=== PATIENT | female | born 1945 | race Caucasian/White ===

== ENCOUNTER → 2016-08-13 | Outpatient (CLI) | payer MEDICARE ==
--- NOTE | 2016-08-13 13:06 | BD ---
EXAMINATION TYPE: MG DEXA axial skeleton. DATE OF EXAM: 08/13/2016 10:15 AM COMPARISON: 07.29.2015 CLINICAL HISTORY: n95.1 hx of breast cancer, osteoporosis, post menopausal Height: 64.5 Weight: 167 FRAX RISK QUESTIONS: Alcohol (3 or more units per day): no Family History (Parent hip fracture): unknown Glucocorticoids (More than 3mos): no (Ex: prednisone, prednisolone, methylprednisolone, dexamethasone, and hydrocortisone). History of Fracture in Adulthood: no Secondary Osteoporosis: 1. Type 1 Diabetes: no 2. Hyperthyroidism: no 3. Menopause before 45: no 4. Malnutrition: no 5. Chronic liver disease: no Rheumatoid Arthritis: no Current Tobacco Use: no RISK FACTORS HISTORY OF: Spine Surgery: 1971, cyst off spine, tail bone and lower back When: 1971 Family History of Osteoporosis: unknown, adopted Smoke tobacco: not now, stopped 2012 Drink Alcohol: social Active: yes Diet low in dairy products/other sources of calcium: no Postmenopausal woman: yes at age 41 Lost more than 2 inches in height since high school: not 2 inches Adrenal Insufficiency: no MEDICATIONS: pt states, osteoporosis injection medication....not sure of name, but it is for osteoporosis Additional Medications: radiation 2012, anti hormone for breast cancer, calcium, multivitamin, statin for cholesterol control Additional History: rt side breast cancer, osteoarthritis EXAM MEASUREMENTS: Bone mineral densitometry was performed using the [employer] System. Bone mineral density as measured about the Lumbar spine is: ----- L1-L4(G/cm2): 0.986 T Score Values are as follows: ----- L1: -2.6 ----- L2: -2.8 ----- L3: -1.0 ----- L4: -0.6 ----- L1-L4: -1.6 Bone mineral density has: Increased 3.8% since study of: 07.29.2015 Bone mineral density about the R hip (g/cm2): 0.721 Bone mineral density about the L hip (g/cm2): 0.655 T Score values are as follows: -----R Neck: -2.3 -----L Neck: -2.8 -----R Intertrochanter: -1.8 -----L Intertrochanter: -2.1 Bone mineral density has: Increased 5.2% since study of: 07.29.2015 FRAX%'S: FOR MAJOR OSTEOPOROTIC FX: 16.3%.....FOR HIP FX: 4.6% PROBABILITY OF FX IN 10 YR S TIME IMPRESSION: Osteoporosis (T Score less than -2.5) as noted by T Score values at the There is increased fracture risk and therapy is usually indicated based on age. Re-Screen 1-2 years. FOR BOTH AREAS, ....L1 AND L2 OF SPINE AND LEFT HIP AT NECK NOTE: T-SCORE=SD OF THE YOUNG ADULT MEAN.
== END | disposition home or self-care (01) ==
LOC: RADBDWWP 09:19
PROVIDERS: ATTEND Internal Medicine Hematology & Oncology
DX: M81.0 Age-related osteoporosis without current pathological fracture (principal); Z79.890 Hormone replacement therapy
CPT/HCPCS: 77080

== ENCOUNTER → 2016-11-30 | Outpatient (CLI) | payer MEDICARE ==
[2016-11-30 16:05] LABS: Blood Urea Nitrogen 21 mg/dL (7-17); Non-African American GFR(MDRD) >60 (>60 ml/min/1.73 sqM)
== END | disposition home or self-care (01) ==
LOC: LABWHC1 15:33
PROVIDERS: ATTEND Physical Medicine & Rehabilitation
DX: Z01.812 Encounter for preprocedural laboratory examination (principal); N28.9 Disorder of kidney and ureter, unspecified
CPT/HCPCS: 36415; 82565; 84520

== ENCOUNTER → 2017-08-23 | Outpatient (CLI) | payer MEDICARE ==
--- NOTE | 2017-08-23 16:53 | BD ---
EXAMINATION TYPE: MG DEXA axial skeleton. DATE OF EXAM: 08/23/2017 CLINICAL HISTORY: 72-year-old female osteoporosis, breast cancer Height: 64.5 Weight: 163.9 FRAX RISK QUESTIONS: Alcohol (3 or more units per day): no Family History (Parent hip fracture): yes, mother Glucocorticoids (More than 3mos): yes, injections for back..last one in May 2017 (Ex: prednisone, prednisolone, methylprednisolone, dexamethasone, and hydrocortisone). History of Fracture in Adulthood: no Secondary Osteoporosis: 1. Type 1 Diabetes: no 2. Hyperthyroidism: no 3. Menopause before 45: yes, age 42 4. Malnutrition: no 5. Chronic liver disease: no Rheumatoid Arthritis: no Current Tobacco Use: no RISK FACTORS HISTORY OF: Family History of Osteoporosis: unsure Active: yes Diet low in dairy products/other sources of calcium: no Postmenopausal woman: yes Take estrogen and/or progesterone medications: no Lost more than 2 inches in height since high school: possibly Frequent falls: no Poor Health: unsure Hyperparathyroidism: no Adrenal Insufficiency: no MEDICATIONS: Prednisone or other steroids: steroid injections for back How Long: about 2 years Thyroid Medications: no Osteoporosis Medications: yes Which medication: Provera How Long: about 2 years Additional Medications: tamoxifen, herniated disc Additional History: Breast CA (radiation) EXAM MEASUREMENTS: Bone mineral densitometry was performed using the [employer] System. Bone mineral density as measured about the Lumbar spine is: ----- L1-L4(G/cm2): 1.033 T Score Values are as follows: ----- L2: -2.4 ----- L3: -0.9 ----- L4: -0.1 ----- L1-L4: -1.2 Bone mineral density has: Increased 4.0% since study of: 08/13/2016 Bone mineral density about the R hip (g/cm2): 0.722 Bone mineral density about the L hip (g/cm2): 0.657 T Score values are as follows: -----R Neck: -2.3 -----L Neck: -2.7 -----R Total: -2.2 -----L Total: -2.4 Bone mineral density has: Increased 0.6% since study of: 08/13/2016 IMPRESSION: Osteoporosis (T Score less than -2.5) as noted by T Score values at the There is increased fracture risk and therapy is usually indicated based on age. Re-Screen 1-2 years. NOTE: T-SCORE=SD OF THE YOUNG ADULT MEAN.
== END | disposition home or self-care (01) ==
LOC: RADBDWWP 09:56
PROVIDERS: ATTEND Internal Medicine Hematology & Oncology
DX: C50.411 Malignant neoplasm of upper-outer quadrant of right female breast (principal); M81.0 Age-related osteoporosis without current pathological fracture
CPT/HCPCS: 77080

== ENCOUNTER → 2018-08-25 | Outpatient (CLI) | payer MEDICARE ==
--- NOTE | 2018-08-25 11:21 | BD ---
EXAMINATION TYPE: Axial Bone Density DATE OF EXAM: 08/25/2018 COMPARISON: 08.23.2017 CLINICAL HISTORY: 73 YR OLD FEMALE....ICD-10 CODE: Z79.890 POST MENOPAUSAL, C50.411 OSTEOPOROSIS Height: 64.8 Weight: 161 FRAX RISK QUESTIONS: SECONDARY OSTEOPOROSIS MENOPAUSE AT AGE 42 RISK FACTORS HISTORY OF: SECONDARY OSTEOPOROSIS Postmenopausal woman: 42 YRS OLD Lost more than 2 inches in height since high school: YES MEDICATIONS: Additional Medications: INJECTIONS INTO SPINE FOR PAIN, CALCIUM WITH D, HX OF RADIATION, FEMARA Additional History: BACK PAIN, RT BREAST CANCER EXAM MEASUREMENTS: Bone mineral densitometry was performed using the [employer] System. Bone mineral density as measured about the Lumbar spine is: ----- L1-L4(G/cm2): 1.077 T Score Values are as follows: ----- L1: -2.2 ----- L2: -2.1 ----- L3: -0.6 ----- L4: 0.8 ----- L1-L4: -0.9 Bone mineral density has: Increased 5.3% since study of: 08.23.2017 Bone mineral density about the R hip (g/cm2): 0.728 Bone mineral density about the L hip (g/cm2): 0.714 T Score values are as follows: -----R Neck: -2.2 -----L Neck: -2.4 -----R Total: -2.2 -----L Total: -2.3 Bone mineral density has:REMAINED THE SAME since study of: 08.23.2017 FRAX%s: THERE IS A 15.0% CHANCE FOR A MAJOR OSTEOPOROTIC FX AND A 3.9% FOR HIP.....PROBABILITY OF FX IN 10 YRS TIME IMPRESSION: Osteopenia (T Score between -2.5 and -1). Values approach osteoporosis. There is slightly increased risk of fracture and the patient may be considered for treatment. Re-Screen 2-5 years. NOTE: T-SCORE=SD OF THE YOUNG ADULT MEAN.
== END ==
LOC: RADBDWWP 09:50
PROVIDERS: ATTEND Internal Medicine Hematology & Oncology
DX: M85.80 Other specified disorders of bone density and structure, unspecified site (principal); Z79.890 Hormone replacement therapy
CPT/HCPCS: 77080

== ENCOUNTER → 2019-04-13 | Outpatient (CLI) | payer MEDICARE ==
--- NOTE | 2019-04-13 14:11 | CTL ---
EXAMINATION TYPE: CT Low Dose Lung DATE OF EXAM ORDERED: 04/13/2019 COMPARISON: HISTORY: . Low Dose CT Lung Screening CT DLP: 77.[address] CTDI: 2.5 mGy IV CONTRAST USED: None. SCREENING VISIT: First visit COMPARISON: None. TECHNIQUE: Low dose computed tomography scan was performed through the chest at 1 millimeter thick se ctions and reconstructed images in the coronal plane at [address] DIAGNOSTIC QUALITY: Satisfactory FINDINGS: LUNG NODULES: Pleural-based nodule right middle lobe lateral segment 9.4 mm image 170. This may refle ct an area of scarring. Nodule is not excluded. Continued follow-up advised. No additional distinct n odules appreciated. LUNGS: COPD: Severity: Moderate Fibrosis: Severity: Mild Lymph nodes: None Other findings: None RIGHT PLEURAL SPACE: Effusion: None Calcification: None Thickening: None Pneumothorax: None LEFT PLEURAL SPACE: Effusion: None Calcification: None Thickening: None Pneumothorax: None HEART: Heart Size: Mildly enlarged Coronary calcification: Mild Pericardial effusion: None OTHER FINDINGS: Upper abdomen: No significant abnormality Bony thorax: Degenerative changes Supraclavicular region: No significant abnormalityOther: No significant abnormalityI IMPRESSION: Pleural-based nodular density right middle lobe may reflect an area of scarring however I cannot exclude nodule of other etiology. PET CT recommended. FOLLOW UP CT CHEST RECOMMENDATION: Follow-up screening in one year. Smoking cessation advised. CT LUNG RAD: LUNG RAD CATEGORY 4A suspicious PET/CT advised.
== END | disposition home or self-care (01) ==
LOC: RADCTMAIN 12:48
PROVIDERS: ATTEND Family Medicine
DX: Z13.83 Encounter for screening for respiratory disorder NEC (principal); R91.8 Other nonspecific abnormal finding of lung field; J98.4 Other disorders of lung; Z87.891 Personal history of nicotine dependence

== ENCOUNTER → 2019-04-21 | Outpatient (CLI) | payer MEDICARE ==
--- NOTE | 2019-04-23 17:35 | PE ---
EXAMINATION TYPE: PET CT fusion skull to thigh DATE OF EXAM: 04/21/2019 COMPARISON: Low-dose lung screening CT 8 days ago. HISTORY: Solitary pulmonary nodule right middle lobe, abnormal CT. History of right-sided breast ca ncer . TECHNIQUE: Following the intravenous administration of 12.349 mCi of F-18 FDG, whole body images are performed from the skull base to the midthigh. Images are reviewed on the computer in the coronal, axial, and sagittal planes. Reconstructed rotating images are created on independent workstation and reviewed on the computer. A noncontrast CT is performed in conjunction with the PET scan. SCAN: Initial Scan FINDINGS: SKULL BASE AND NECK: No areas of suspicious hypermetabolic uptake. CHEST, MEDIASTINUM, AND HILAR REGION: Redemonstration of bifrontal moderate emphysematous change most prominent in the lung apices. There is linear scarring in the right middle lobe which becomes slight ly more nodular axial image 103 measuring 8 x 6 mm axial image 103 that is ametabolic. No areas of logan spicious hypermetabolic uptake are identified in the thorax. ABDOMEN AND PELVIS: No areas of suspicious hypermetabolic uptake. Normal excretion. OSSEOUS STRUCTURES: No areas of suspicious hypermetabolic uptake. OTHER CT: Some coronary artery calcification is present which is noted marker for underlying coronary artery disease. Suspected distortion and clip right breast axial image 92. Right axillary distortion also noted axial image 77. Findings presumed posttreatment change. Mild calcified plaque of the abdominal aorta extending into branch vessels. Occasional pelvic phlebol iths. S-shaped scoliosis. Slight grade 1 anterolisthesis L4 on L5. IMPRESSION: No suspicious hypermetabolic uptake to suggest malignancy. Finding favors nodular scarrin g and/or postinflammatory etiology. Consider follow-up CT in 6-12 months time to document stability.
== END ==
LOC: RADPETMAIN 16:43
PROVIDERS: ATTEND Nurse Practitioner Family
DX: R91.1 Solitary pulmonary nodule (principal)
CPT/HCPCS: 78815; A9552

== ENCOUNTER → 2019-08-28 | Outpatient (CLI) | payer MEDICARE ==
--- NOTE | 2019-08-28 12:33 | BD ---
EXAMINATION TYPE: Axial Bone Density DATE OF EXAM: 08/28/2019 COMPARISON: NONE CLINICAL HISTORY: Height: 64.5 Weight: 162.2 FRAX RISK QUESTIONS: Alcohol (3 or more units per day): no Family History (Parent hip fracture): no Glucocorticoids (More than 3mos): no (Ex: prednisone, prednisolone, methylprednisolone, dexamethasone, and hydrocortisone). History of Fracture in Adulthood: no Secondary Osteoporosis: 1. Type 1 Diabetes: no 2. Hyperthyroidism: no 3. Menopause before 45: yes 4. Malnutrition: no 5. Chronic liver disease: no Rheumatoid Arthritis: no Current Tobacco Use: no RISK FACTORS HISTORY OF: Active: no Diet low in dairy products/other sources of calcium: no Postmenopausal woman: age 42 MEDICATIONS: Lipitor Additional History: EXAM MEASUREMENTS: Bone mineral densitometry was performed using the [employer] System. Bone mineral density as measured about the Lumbar spine is: ----- L1-L4(G/cm2): 1.026 T Score Values are as follows: ----- L2: -2.2 ----- L3: -0.7 ----- L4: -0.6 ----- L1-L4: -1.3 Bone mineral density has: decreased -0.2 % since study of.08.23.2017 Bone mineral density about the R hip (g/cm2): 0.733 Bone mineral density about the L hip (g/cm2): 0.728 T Score values are as follows: -----R Neck: -2.2 -----L Neck: -2.2 -----R Total: -2.3 -----L Total: -2.4 Bone mineral density has: decreased -1.7 % since study of: 08.23.2017 IMPRESSION: Osteopenia. NOTE: T-SCORE=SD OF THE YOUNG ADULT MEAN.
== END | disposition home or self-care (01) ==
LOC: RADBDWWP 11:04
PROVIDERS: ATTEND Internal Medicine Hematology & Oncology
DX: M85.80 Other specified disorders of bone density and structure, unspecified site (principal); Z78.0 Asymptomatic menopausal state; C50.411 Malignant neoplasm of upper-outer quadrant of right female breast
CPT/HCPCS: 77080

== ENCOUNTER → 2021-09-01 | Outpatient (CLI) | payer MEDICARE ==
--- NOTE | 2021-09-01 11:26 | BD ---
EXAMINATION TYPE: Axial Bone Density DATE OF EXAM: 09/01/2021 COMPARISON: DEXA bone scan August 28, 2019 CLINICAL HISTORY: Postmenopausal female. Height: 5 FT 3 3/4 IN Weight: 161 FRAX RISK QUESTIONS: Alcohol (3 or more units per day): NO Family History (Parent hip fracture): NO Glucocorticoids (More than 3mos): NO (Ex: prednisone, prednisolone, methylprednisolone, dexamethasone, and hydrocortisone). History of Fracture in Adulthood: NO Secondary Osteoporosis: 1. Type 1 Diabetes: NO 2. Hyperthyroidism: NO 3. Menopause before 45: YES 4. Malnutrition: NO 5. Chronic liver disease: NO Rheumatoid Arthritis: NO Current Tobacco Use: FORMER RISK FACTORS HISTORY OF: Surgery to Spine/Hip(right/left)/Wrist (right/left): NO Family History of Osteoporosis: NONE KNOWN ADOPTED Active: YES Diet low in dairy products/other sources of calcium: NO Postmenopausal woman: YES Take estrogen and/or progesterone medications: NO Lost more than 2 inches in height since high school: YES Frequent falls: NO Poor Health: GOOD Hyperparathyroidism: NO Adrenal Insufficiency: NO MEDICATIONS: Additional Medications: NONE Additional History: EXAM MEASUREMENTS: Bone mineral densitometry was performed using the [employer] System. Bone mineral density as measured about the Lumbar spine is: ----- L1-L4(G/cm2): 0.990 T Score Values are as follows: ----- L2: -2.3 ----- L3: -1.5 ----- L4: -1.1 ----- L1-L4 -1.6: Bone mineral density has: DECREASED -5.5 % since : 2019 Bone mineral density about the R hip (g/cm2): 0.696 Bone mineral density about the L hip (g/cm2): 0.612 T Score values are as follows: -----R Neck: -2.5 -----L Neck: -3.1 -----R Total: -2.4 -----L Total: -2.9 Bone mineral density has: DECREASED -5.5 % since : 2019 IMPRESSION: Osteoporosis (T Score less than -2.5) is now present. There is increased fracture risk and therapy is usually indicated based on age. Re-Screen 1-2 years. NOTE: T-SCORE=SD OF THE YOUNG ADULT MEAN.
== END | disposition home or self-care (01) ==
LOC: RADBDWWP 10:10
PROVIDERS: ATTEND Internal Medicine Hematology & Oncology
DX: M81.0 Age-related osteoporosis without current pathological fracture (principal); M85.89 Other specified disorders of bone density and structure, multiple sites; Z78.0 Asymptomatic menopausal state
CPT/HCPCS: 77080

== ENCOUNTER → 2023-09-07 | Outpatient (CLI) | payer MEDICARE ==
--- NOTE | 2023-09-07 12:38 | BD ---
EXAMINATION TYPE: Axial Bone Density DATE OF EXAM: 09/07/2023 CLINICAL HISTORY: 78 years old Female. ICD-10 CODE: M81.0 osteoporosis Height: 64 Weight: 162.3 FRAX RISK QUESTIONS: Alcohol (3 or more units per day): no Family History (Parent hip fracture): no Glucocorticoids (More than 3mos): no (Ex: prednisone, prednisolone, methylprednisolone, dexamethasone, and hydrocortisone). History of Fracture in Adulthood: no Secondary Osteoporosis: 1. Type 1 Diabetes: no 2. Hyperthyroidism: no 3. Menopause before 45: yes 4. Malnutrition: no 5. Chronic liver disease: no Rheumatoid Arthritis: no Current Tobacco Use: no RISK FACTORS HISTORY OF: Surgery to Spine/Hip(right/left)/Wrist (right/left): no MEDICATIONS: Osteoporosis Medications: yes How Lon years EXAM MEASUREMENTS: Bone mineral densitometry was performed using the [employer] System. Bone mineral density as measured about the Lumbar spine is: ----- L1-L4(G/cm2): 0.992 T Score Values are as follows: ----- L1: -1.7 ----- L2: -2.2 ----- L3: -1.7 ----- L4: -0.9 ----- L1-L4: -1.6 Z Score Values are as follows: ----- L1: -0.2 ----- L2: -0.7 ----- L3: -0.3 ----- L4: 0.5 ----- L1-L4: -0.1 Bone mineral density has: increased 0.2 % since study of: 09.01.21 Bone mineral density about the R hip (g/cm2): 0.727 Bone mineral density about the L hip (g/cm2): 0.664 T Score values are as follows: -----R Neck: -2.3 -----L Neck: -2.7 -----R Total: -2.2 -----L Total: -2.7 Z Score values are as follows: -----R Neck: -0.5 -----L Neck: -0.9 -----R Total: -0.6 -----L Total: -1.1 Bone mineral density has: increased 3.9 % since study of: 1.24.22 FRAX%s: The graph provided illustrates a 19.5 % chance for a major osteoporotic fx and a 7.0% chance for the hips probability for fx in 10 years time. IMPRESSION: Osteoporosis (T Score less than -2.5). There is increased fracture risk and therapy is usually indicated based on age. Re-Screen 1-2 years. NOTE: T-SCORE=SD OF THE YOUNG ADULT MEAN.
== END | disposition home or self-care (01) ==
LOC: RADBDWWP 10:04
PROVIDERS: ATTEND Internal Medicine Hematology & Oncology
DX: C50.411 Malignant neoplasm of upper-outer quadrant of right female breast (principal); E78.5 Hyperlipidemia, unspecified; M81.0 Age-related osteoporosis without current pathological fracture; Z71.89 Other specified counseling; Z81.0 Family history of intellectual disabilities; Z78.0 Asymptomatic menopausal state
CPT/HCPCS: 77080

== ENCOUNTER 2023-12-24 00:15 | Inpatient (IN) | payer MEDICARE ==
[2023-12-24] MEDS: SODIUM CHLORIDE 0.9% 1,000 ML IV STA (01:00)
[2023-12-24] MEDS: ONDANSETRON 4 MG/2 ML VIAL IVP STA (01:27)
[2023-12-24 01:35] LABS: Basophils % (A) 0 %; Eosinophils # (A) 0.1 k/uL (0-0.7); Eosinophils % (A) 1 %; HCT 45.9 % (34.0-46.0); HGB 15.5 gm/dL (11.4-16.0); Lymphocytes # (A) 1.4 k/uL (1.0-4.8); Lymphocytes % (A) 17 %; MCH 30.9 pg (25.0-35.0); MCHC 33.9 g/dL (31.0-37.0); MCV 91.4 fL (80.0-100.0); Mean Platelet Volume 7.8; Monocytes # (A) 0.6 k/uL (0-1.0); Monocytes % (A) 8 %; Neutrophils # (A) 5.9 k/uL (1.3-7.7); Neutrophils % (A) 73 %; Platelet Count 224 k/uL (150-450); RBC 5.02 m/uL (3.80-5.40); RDW 12.2 % (11.5-15.5); WBC 8.2 k/uL (3.8-10.6)
[2023-12-24 01:47] LABS: ALT 17 U/L (4-34); AST 39 U/L (14-36); African American GFR (CKD) >90 (>60 ml/min/1.73 sqM); Albumin 4.7 g/dL (3.5-5.0); Alkaline Phosphatase 83 U/L (38-126); Anion Gap 9 mmol/L; Blood Urea Nitrogen 14 mg/dL (7-17); Calcium 9.4 mg/dL (8.4-10.2); Carbon Dioxide 24 mmol/L (22-30); Chloride 89 mmol/L (98-107); Glucose 106 mg/dL (74-99); Lipase 76 U/L (23-300); Non-African American GFR(CKD) 85 (>60 ml/min/1.73 sqM); Potassium 4.3 mmol/L (3.5-5.1); Sodium 122 mmol/L (137-145); Total Bilirubin 1.1 mg/dL (0.2-1.3); Total Protein 7.9 g/dL (6.3-8.2)
[2023-12-24] MEDS: ACETAMINOPHEN IV (For NPO) 1,000 MG in EMPTY BAG 1 BAG IVPB STA (02:04)
[2023-12-24] MEDS: diphenhydrAMINE 50 MG/ML 1 ML VIAL IVP STA (02:05)
[2023-12-24] MEDS: METOCLOPRAMIDE 5 MG/ML 2 ML VIAL IVP STA (02:05)
[2023-12-24] MEDS: HYDROmorphone 1 MG/ML 1 ML SYRINGE IVP STA (04:02)
[2023-12-24 04:24] LABS: Appearance,Urine Clear (Clear); Bilirubin,Urine Negative (Negative); Blood,Urine Trace (Negative); Color,Urine Colorless; Glucose,Urine (UA) Negative (Negative); Ketones,Urine 1+ (Negative); Leukocyte Esterase,Urine Trace (Negative); Nitrite,Urine Negative (Negative); PH, Urine 7.5 (5.0-8.0); Protein,Urine Negative (Negative); RBC,Urine 3 /hpf (0-5); Specific Gravity,Urine 1.009 (1.001-1.035); Squamous Epithelial Cell,Urine <1 /hpf (0-4); Urobilinogen,Urine <2.0 mg/dL (<2.0); WBC,Urine <1 /hpf (0-5)
[2023-12-24] MEDS: IPRATROPIUM-ALBUTEROL 3 ML NEB INHALATION STA (04:27)
--- NOTE | 2023-12-24 04:56 | ED ---
General Adult HPI - General Chief complaint: Nausea/Vomiting/Diarrhea Stated complaint: Vomiting, Bronchitis Time Seen by Provider: 12/24/23 00:40 Source: patient Mode of arrival: wheelchair Limitations: no limitations - History of Present Illness Initial comments: 78-year-old female presents emergency department reporting nausea and vomiting. States over the past couple of days she has had a cough with wheezing. She denies previous history of underlying lung conditions. She went into her primary care office and was diagnosed with bronchitis. She was placed on prednisone, azithromycin and an inhaler. She has been taking the medications as directed. Yesterday the patient began having nausea and vomiting. She denies having any abdominal pain. No fevers. No chest pain or difficulty breathing. Does admit to a bilateral headache. No sick contacts with similar symptoms. Patient continues to be wheezy and short of breath therefore presented for evaluation. She did not take anything for nausea. Denies any diarrhea. No other alleviating, precipitating or modifying factors - Related Data Home Medications Medication Instructions Recorded Confirmed Albuterol Sulfate [Albuterol 2 puff PO RT-Q4H PRN 12/24/23 12/24/23 Sulfate Hfa] Inulin/Chromium Picolinate [Fiber 1 tab PO DAILY 12/24/23 12/24/23 Gummies Chew] Multivitamin [Multivitamins Adult 1 tab PO DAILY 12/24/23 12/24/23 Gummies] Previous Rx's Medication Instructions Recorded Melatonin 3 mg PO HS PRN #10 tab 12/29/23 predniSONE 0 mg PO DIRECTED 9 Days #18 tab 12/29/23 Allergies Allergy/AdvReac Type Severity Reaction Status Date / Time No Known Allergies Allergy Verified 12/24/23 06:56 Review of Systems ROS Statement: Those systems with pertinent positive or pertinent negative responses have been documented in the HPI. ROS Other: All systems not noted in ROS Statement are negative. Past Medical History Past Medical History: No Reported History Additional Past Surgical History / Comment(s): lumbectomy right breats Aug 2013 Past Psychological History: No Psychological Hx Reported Smoking Status: Former smoker Past Alcohol Use History: None Reported Past Drug Use History: None Reported General Exam Limitations: no limitations General appearance: alert, in no apparent distress Head exam: Present: atraumatic, normocephalic, normal inspection Eye exam: Present: normal appearance, PERRL, EOMI. Absent: scleral icterus, conjunctival injection, periorbital swelling ENT exam: Present: normal exam, mucous membranes moist Neck exam: Present: normal inspection. Absent: tenderness, meningismus, lymphadenopathy Respiratory exam: Present: wheezes. Absent: respiratory distress, rales, rhonchi, stridor Cardiovascular Exam: Present: regular rate, normal rhythm, normal heart sounds. Absent: systolic murmur, diastolic murmur, rubs, gallop, clicks GI/Abdominal exam: Present: soft, normal bowel sounds. Absent: distended, tenderness, guarding, rebound, rigid Extremities exam: Present: normal inspection, full ROM, normal capillary refill. Absent: tenderness, pedal edema, joint swelling, calf tenderness Back exam: Present: normal inspection Neurological exam: Present: alert, oriented X3, CN II-XII intact Psychiatric exam: Present: normal affect, normal mood Skin exam: Present: warm, dry, intact, normal color. Absent: rash Course Vital Signs 12/24/23 12/24/23 12/24/23 00:30 01:30 02:00 Temperature 97.5 F L Pulse Rate 83 99 Respiratory 18 18 18 Rate Blood Pressure 186/87 168/85 O2 Sat by Pulse 97 95 Oximetry 12/24/23 12/24/23 12/24/23 03:00 04:00 04:29 Temperature Pulse Rate 81 79 78 Respiratory 16 16 Rate Blood Pressure 173/83 144/81 O2 Sat by Pulse 94 L Oximetry 12/24/23 12/24/23 12/24/23 04:40 05:00 07:14 Temperature Pulse Rate 77 74 71 Respiratory 18 16 Rate Blood Pressure 142/66 132/66 O2 Sat by Pulse 92 L 95 Oximetry 12/24/23 12/24/23 12/24/23 10:45 15:23 15:33 Temperature Pulse Rate 77 83 84 Respiratory 14 Rate Blood Pressure 113/67 O2 Sat by Pulse 96 96 Oximetry 12/24/23 12/24/23 19:54 20:05 Temperature Pulse Rate 82 85 Respiratory Rate Blood Pressure O2 Sat by Pulse Oximetry Medical Decision Making - Medical Decision Making Was pt. sent in by a medical professional or institution (, PA, [employer]TER, urgent care, hospital, or snf...) When possible be specific @ -No Did you speak to anyone other than the patient for history (EMS, parent, family, police, friend...)? What history was obtained from this source @ -Spoke with the patient's for history Did you review nursing and triage notes (agree or disagree)? Why? @ -I reviewed and agree with nursing and triage notes Were old charts reviewed (outside hosp., previous admission, EMS record, old EKG, old radiological studies, urgent care reports/EKG's, snf records)? Report findings @ -No old charts were reviewed Differential Diagnosis (chest pain, altered mental status, abdominal pain women, abdominal pain men, vaginal bleeding, weakness, fever, dyspnea, syncope, headache, dizziness, GI bleed, back pain, seizure, CVA, palpatations, mental health, musculoskeletal)? @ -Differential Dyspnea: Coronary syndrome, arrhythmia, tamponade, asthma, COPD, pulmonary embolism, pneumonia, pneumothorax, pulmonary effusion, anaphylaxis, diabetic ketoacidosis, flailed chest, pulmonary contusion, diaphragmatic rupture, anemia, neuromuscular, this is not meant to be an all-inclusive list. EKG interpreted by me (3pts min.). @ -Not done X-rays interpreted by me (1pt min.). @ -Yes and interpreted by myself. Linear atelectasis versus pneumonia. There is a large right-sided hilar mass CT interpreted by me (1pt min.). @ -None done U/S interpreted by me (1pt. min.). @ -None done What testing was considered but not performed or refused? (CT, X-rays, U/S, labs)? Why? @ -CT was considered however significant delay for reads. CT is not critical at this time and therefore patient will be admitted for reactive airway. Did discuss with the admitting physician that patient likely needs CT What meds were considered but not given or refused? Why? @ -None Did you discuss the management of the patient with other professionals (professionals i.e. , PA, [employer]TER, lab, RT, psych nurse, social group worker, scale model maker, teacher, chief technology officer, field case manager)? Give summary @ -Spoke with Dr. Cuevas admitted the patient Was smoking cessation discussed for >3mins.? @ -No Was critical care preformed (if so, how long)? @ -No Were there social determinants of health that impacted care today? How? (Homelessness, low income, unemployed, alcoholism, drug addiction, transportation, low edu. Level, literacy, decrease access to med. care, residential, rehab)? @ -No Was there de-escalation of care discussed even if they declined (Discuss DNR or withdrawal of care, Hospice)? DNR status @ -No What co-morbidities impacted this encounter? (DM, HTN, Smoking, COPD, CAD, Cancer, CVA, ARF, Chemo, Hep., AIDS, mental health diagnosis, sleep apnea, morbid obesity)? @ -None Was patient admitted / discharged? Hospital course, mention meds given and route, prescriptions, significant lab abnormalities, going to OR and other pertinent info. @ -Upon arrival patient seen and evaluated in room 6. Thorough history and physical exam was performed. IV access was established. Laboratory studies were conducted. Chest x-ray was performed. I did discuss the x-ray findings with the patient and concern for the right hilar mass. Patient was given a breathing treatment and medications for headache. Headache does improve. Patient continues to remain short of breath. Recommended admission for pulmonology consultation and CT. Patient will be admitted to Dr. Cuevas. Breathing treatments ordered. Patient remained in stable condition awaiting a bed Undiagnosed new problem with uncertain prognosis? @ -Yes Drug Therapy requiring intensive monitoring for toxicity (Heparin, Nitro, Insulin, Cardizem)? @ -No Were any procedures done? @ -No Diagnosis/symptom? @ -Acute bronchospasm, right hilar mass Acute, or Chronic, or Acute on Chronic? @ -Acute Uncomplicated (without systemic symptoms) or Complicated (systemic symptoms)? @ -Complicated Side effects of treatment? @ -No Exacerbation, Progression, or Severe Exacerbation? @ -No Poses a threat to life or bodily function? How? (Chest pain, [place], [place], pneumonia, PE, COPD, DKA, ARF, appy, cholecystitis, CVA, Diverticulitis, Homicidal, Suicidal, threat to staff... and all critical care pts) @ -Yes as patient does have hilar mass which family is warned is suspicious - Lab Data Result diagrams: 12/29/23 07:53 12/29/23 14:10 Lab Results 12/24/23 12/24/23 12/24/23 Range/Units 01:12 01:13 01:13 WBC 8.2 (3.8-10.6) k/uL RBC 5.02 (3.80-5.40) m/uL Hgb 15.5 (11.4-16.0) gm/dL Hct 45.9 (34.0-46.0) % MCV 91.4 (80.0-100.0) fL MCH 30.9 (25.0-35.0) pg MCHC 33.9 (31.0-37.0) g/dL RDW 12.2 (11.5-15.5) % Plt Count 224 (150-450) k/uL MPV 7.8 Neutrophils % 73 % Lymphocytes % 17 % Monocytes % 8 % Eosinophils % 1 % Basophils % 0 % Neutrophils # 5.9 (1.3-7.7) k/uL Lymphocytes # 1.4 (1.0-4.8) k/uL Monocytes # 0.6 (0-1.0) k/uL Eosinophils # 0.1 (0-0.7) k/uL Basophils # 0.0 (0-0.2) k/uL Sodium 122 L (137-145) mmol/L Potassium 4.3 (3.5-5.1) mmol/L Chloride 89 L (98-107) mmol/L Carbon Dioxide 24 (22-30) mmol/L Anion Gap 9 mmol/L BUN 14 (7-17) mg/dL Creatinine 0.68 (0.52-1.04) mg/dL Est GFR (CKD-EPI)AfAm >90 (>60 ml/min/1.73 sqM) Est GFR (CKD-EPI)NonAf 85 (>60 ml/min/1.73 sqM) Glucose 106 H (74-99) mg/dL Osmolality 267 L (275-295) mOsm/kg Calcium 9.4 (8.4-10.2) mg/dL Total Bilirubin 1.1 (0.2-1.3) mg/dL AST 39 H (14-36) U/L ALT 17 (4-34) U/L Alkaline Phosphatase 83 (38-126) U/L Total Protein 7.9 (6.3-8.2) g/dL Albumin 4.7 (3.5-5.0) g/dL Lipase 76 (23-300) U/L Urine Color Urine Appearance (Clear) Urine pH (5.0-8.0) Ur Specific Patriot (1.001-1.035) Urine Protein (Negative) Urine Glucose (UA) (Negative) Urine Ketones (Negative) Urine Blood (Negative) Urine Nitrite (Negative) Urine Bilirubin (Negative) Urine Urobilinogen (<2.0) mg/dL Ur Leukocyte Esterase (Negative) Urine RBC (0-5) /hpf Urine WBC (0-5) /hpf Ur Squamous Epith Cells (0-4) /hpf Influenza Type A (PCR) (Not Detectd) Influenza Type B (PCR) (Not Detectd) RSV (PCR) (Not Detectd) SARS-CoV-2 (PCR) (Not Detectd) 12/24/23 12/24/23 Range/Units 01:13 03:15 WBC (3.8-10.6) k/uL RBC (3.80-5.40) m/uL Hgb (11.4-16.0) gm/dL Hct (34.0-46.0) % MCV (80.0-100.0) fL MCH (25.0-35.0) pg MCHC (31.0-37.0) g/dL RDW (11.5-15.5) % Plt Count (150-450) k/uL MPV Neutrophils % % Lymphocytes % % Monocytes % % Eosinophils % % Basophils % % Neutrophils # (1.3-7.7) k/uL Lymphocytes # (1.0-4.8) k/uL Monocytes # (0-1.0) k/uL Eosinophils # (0-0.7) k/uL Basophils # (0-0.2) k/uL Sodium (137-145) mmol/L Potassium (3.5-5.1) mmol/L Chloride (98-107) mmol/L Carbon Dioxide (22-30) mmol/L Anion Gap mmol/L BUN (7-17) mg/dL Creatinine (0.52-1.04) mg/dL Est GFR (CKD-EPI)AfAm (>60 ml/min/1.73 sqM) Est GFR (CKD-EPI)NonAf (>60 ml/min/1.73 sqM) Glucose (74-99) mg/dL Osmolality (275-295) mOsm/kg Calcium (8.4-10.2) mg/dL Total Bilirubin (0.2-1.3) mg/dL AST (14-36) U/L ALT (4-34) U/L Alkaline Phosphatase (38-126) U/L Total Protein (6.3-8.2) g/dL Albumin (3.5-5.0) g/dL Lipase (23-300) U/L Urine Color Colorless Urine Appearance Clear (Clear) Urine pH 7.5 (5.0-8.0) Ur Specific Patriot 1.009 (1.001-1.035) Urine Protein Negative (Negative) Urine Glucose (UA) Negative (Negative) Urine Ketones 1+ H (Negative) Urine Blood Trace H (Negative) Urine Nitrite Negative (Negative) Urine Bilirubin Negative (Negative) Urine Urobilinogen <2.0 (<2.0) mg/dL Ur Leukocyte Esterase Trace H (Negative) Urine RBC 3 (0-5) /hpf Urine WBC <1 (0-5) /hpf Ur Squamous Epith Cells <1 (0-4) /hpf Influenza Type A (PCR) Not Detected (Not Detectd) Influenza Type B (PCR) Not Detected (Not Detectd) RSV (PCR) Not Detected (Not Detectd) SARS-CoV-2 (PCR) Not Detected (Not Detectd) Disposition Clinical Impression: Nausea & vomiting, Cough, Lung nodule, Hyponatremia Disposition: ADMITTED IP TO THIS [facility] Condition: Good Is patient prescribed a controlled substance at d/c from ED?: No Time of Disposition: 04:56 Decision to Admit Reason: Admit from EC Decision Date: 12/24/23 Decision Time: 04:56
[2023-12-24] MEDS ORDERED: NALOXONE 0.4 MG/ML 1 ML VIAL IV PRN (05:25)
[2023-12-24] MEDS: SODIUM CHLORIDE 0.9% 1,000 ML IV SCH (06:29)
--- NOTE | 2023-12-24 07:44 | XR ---
EXAMINATION TYPE: XR chest 2V DATE OF EXAM: 12/24/2023 COMPARISON: None HISTORY: 78-year-old female with pain, nausea/vomiting TECHNIQUE: PA and lateral views FINDINGS: Heart upper limits of normal in size. Hyperinflation. Interstitial prominence. Rounded opacity at the right hilum with radiating bandlike density is appropriate the lung and within the right middle lobe . No pleural effusion. IMPRESSION: COPD. Possible right infrahilar mass with postobstructive atelectasis versus postobstructive pneumoni tis.
[2023-12-24] MEDS: ONDANSETRON 4 MG/2 ML VIAL IVP PRN (12:06)
[2023-12-24] MEDS: MULTIVITAMINS, THERA 1 EACH TAB PO SCH (12:06)
[2023-12-24] MEDS: ACETAMINOPHEN TAB 500 MG TAB PO PRN (12:07)
[2023-12-24] MEDS: ENOXAPARIN 40 MG/0.4 ML SYRINGE SQ SCH (12:07)
[2023-12-24] MEDS ORDERED: RX INFO: IV CONTRAST WAS GIVEN 1 EACH MISC MISCELLANE PRN (12:18)
[2023-12-24] MEDS ORDERED: CALCIUM CARBONATE 500 MG CHEWABLE PO PRN (12:21)
[2023-12-24] MEDS ORDERED: LACTULOSE 20 GM/30 ML CUP PO PRN (12:21)
[2023-12-24] MEDS: BUDESONIDE 1 MG/2 ML NEBU INHALATION SCH (12:48)
--- NOTE | 2023-12-24 13:28 | CT ---
EXAMINATION TYPE: CT chest w con DATE OF EXAM: 12/24/2023 COMPARISON: None HISTORY: poss R mass Automated exposure control for dose reduction was used. CONTRAST: CT scan of the chest is performed with IV Contrast, patient injected with 100 mL of Isovue 300. FINDINGS: LUNGS: Right hilar mass measuring approximately 7.7 x 8.5 x 5.4 cm with encasement of the right lower lobe bronchus. There is postobstructive volume loss seen. There is extensive mediastinal as well as associated hilar adenopathy. Right lower lobe enhancing atelectasis with small effusion. Right upper lobe nodule seen measuring 6.8 mm. MEDIASTINUM/HILUM: Conglomerate subcarinal adenopathy measuring 4.7 x 3.9 cm. Precarinal tracheobronc hial adenopathy measuring 1.8 cm on the left and 2.6 cm on the right. Low right paratracheal adenopat hy measuring 2.5 cm. High right paratracheal adenopathy measuring 2.9 cm. AP window adenopathy measur ing 2.0 cm. UPPER ABDOMEN: No significant abnormality appreciated. OTHER: T11 compression fracture which does not appear to be acute in nature. Retropulsion 4 mm. Loss of height superior endplate of approximate L1 segment. Underlying pathologic component difficult to exclude. Right neck adenopathy measuring 1.9 cm. IMPRESSION: Right hilar mass with extensive mediastinal and right hilar adenopathy as well as postobstructive vol ume loss. Findings are felt to reflect malignancy until proven otherwise. 2. T11 and L1 compression fractures. Underlying pathologic component difficult to exclude.
[2023-12-24] MEDS: methylPREDNISolone SOD SUCCI 40 MG/ML 1 ML VIAL IV SCH (13:37)
--- NOTE | 2023-12-24 14:49 | P.CNPUL ---
History of Present Illness Consult date: 12/24/23 Requesting physician: Minerva Jaeger Reason for consult: dyspnea, cough, pneumonia, lung mass, abnormal CXR/CT Chief complaint: Cough, shortness of breath. History of present illness: Pulmonary consult dated December 24, 2023. 78-year-old female who we were asked to see, because of an abnormal chest x-ray and CAT scan. The patient was a smoker in the past, may be having smoked about 25 years or so. Recently, she has been noticing wheezing, coughing, shortness of breath. For that reason, she came into the emergency room to be evaluated. In addition to the above, she apparently was having some nausea and vomiting. She apparently went to some clinic and received some steroids and antibiotics for an episode of bronchitis. Likely those medications made her get sick, and currently, she is sitting in the emergency department, room 6, on the couple liters of oxygen. Her primary care physician is Dr. Minerva Jaeger. She tells me that she is really does not take any medications at home, and she does not really have any major medical problems. She denies any hypertension, hyperlipidemia, diabetes, cancer, etc. In the emergency department, she had a chest x-ray which suggested COPD, and a right infrahilar mass, with postobstructive atelectasis or pneumonia. A subsequent CAT scan was done, and revealed a right hilar mass, which measured 7.7 x 8.5 x 5.4 cm, with encasement of the right lower lobe bronchus. There was extensive mediastinal as well as hilar adenopathy. In addition, there was a lesion at T11 and L1, likely reflecting compression fractures, and/or pathologic fractures. Laboratory data includes a white count of 8.2, normal hemoglobin hematocrit and platelet count. Sodium 122, potassium 4.3, chloride 89, CO2 24, BUN 14, and creatinine 0.68. Glucose was 106. The rest of the labs are pretty normal. She tested negative for influenza, RSV, coronavirus. Review of Systems REVIEW OF SYSTEMS: CONSTITUTIONAL: [Negative.] NEUROLOGIC: [ Negative.] HEENT: [ Negative.] CARDIAC: [Negative.] PULMONARY: Shortness of breath, cough, wheezing. GI: Nausea and vomiting. : [Negative.] RHEUMATOLOGIC: [ Negative.] IMMUNOLOGIC: [ Negative.] ENDOCRINE: [Negative. ] DERMATOLOGIC: [Negative.] Past Medical History Past Medical History: No Reported History Additional Past Surgical History / Comment(s): lumbectomy right breats Aug 2013 Past Psychological History: No Psychological Hx Reported Smoking Status: Former smoker Past Alcohol Use History: None Reported Past Drug Use History: None Reported Medications and Allergies Home Medications Medication Instructions Recorded Confirmed Type Albuterol Sulfate [Albuterol 2 puff PO RT-Q4H PRN 12/24/23 12/24/23 History Sulfate Hfa] Azithromycin [Zithromax Z Pack] See Taper PO DIRECTED 12/24/23 12/24/23 History Inulin/Chromium Picolinate [Fiber 1 tab PO DAILY 12/24/23 12/24/23 History Gummies Chew] Multivitamin [Multivitamins Adult 1 tab PO DAILY 12/24/23 12/24/23 History Gummies] methylPREDNISolone [Medrol Dose See Taper PO DIRECTED 12/24/23 12/24/23 History Pack] Allergies Allergy/AdvReac Type Severity Reaction Status Date / Time No Known Allergies Allergy Verified 12/24/23 06:56 Physical Exam Osteopathic Statement: *. No significant issues noted on an osteopathic structural exam other than those noted in the History and Physical/Consult. Vitals: Vital Signs Temp Pulse Resp BP Pulse Ox 12/24/23 10:45 77 14 113/67 96 12/24/23 07:14 71 16 132/66 95 12/24/23 05:00 74 18 142/66 92 L 12/24/23 04:40 77 12/24/23 04:29 78 12/24/23 04:00 79 16 144/81 94 L 12/24/23 03:00 81 16 173/83 12/24/23 02:00 99 18 168/85 95 12/24/23 01:30 18 12/24/23 00:30 97.5 F L 83 18 186/87 97 Intake and Output 12/23/23 12/24/23 12/24/23 22:59 06:59 14:59 Other: Weight 75.296 kg No acute distress, oriented 3. HEENT examination is grossly unremarkable. Mucous membranes are moist. No oral lesions. Neck supple. Full range of motion. No adenopathy thyromegaly or neck vein distention. Cardiovascular examination reveals regular rhythm rate. S1-S2 normal. No S3 or S4. No discernible murmur noted. Heart rate 77 bpm. Lungs reveal manage breath sounds on the right. There is a high-pitched wheeze on the right. Left breath sounds are normal. No crackles. 2 L saturation 96%. Abdomen soft bowel sounds are heard. No masses or tenderness. Extremities are intact. No cyanosis clubbing or edema. Skin is without rash or lesion. Neurologic examination is brief but nonfocal. 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 Hyponatremia, rule out SIADH, secondary to presumed small cell lung cancer. Previous history of tobacco use for about 25 years. Patient denies other medical problems including hypertension, hyperlipidemia, diabetes, etc. Plan: Plan dated December 24, 2023. This patient came in with complaints of nausea and vomiting, likely because of medication she was given for bronchitis. She had a chest x-ray which revealed a large right hilar mass, with some postobstructive changes, which was confirmed by CT scan. The mass is rather large measuring more than 7 cm in size, with encasement of the right lower lobe bronchus. In addition, there is extensive adenopathy with throughout the mediastinum the patient will be scheduled for a bronchoscopy, and biopsy tomorrow. Will do it under general anesthesia. We likely will run into the lesion in the right lung, and also do some transbronchial needle aspiration biopsies of the subcarinal region. Additional recommendations and suggestions are forthcoming. We did explain to the patient what we are planning to do. Time with Patient: Greater than 30
--- NOTE | 2023-12-24 15:09 | P.HPIM ---
History of Present Illness H&P Date: 12/24/23 Chief Complaint: Short of breath This is a pleasant 78-year-old patient who follows with Dr. Minerva Jaeger. Patient actually has no specific prior medical history. About 5 weeks ago patient's was sitting in one of her rooms initial temperature was 70 degrees. Windows were open. Later the temperature did drop down to 37 degrees. Since then she developed a sore throat. More recently last 1 week patient developed more shortness of breath. No wheezing. Has been a significant dry cough. No fever no chills. Tired. Nausea. Has been drinking excessive water. Finally decided to come in. Patient was in ex-smoker. Review of systems: GEN.: Tired decreased appetite EYES: None HEENT: None NECK: None RESPIRATORY: As above CARDIOVASCULAR: None GASTROINTESTINAL: None GENITOURINARY: None MUSCULOSKELETAL: None LYMPHATICS: None HEMATOLOGICAL: None PSYCHIATRY: None NEUROLOGICAL: None Social history: . Did smoke in the past. Physical examination: VITAL SIGNS: 97.5, 83, 18, 142 x 66, 92% room air GENERAL: BMI 28.5, reclining bed awake a bit tired. EYES: Pupils equal. Conjunctiva surya l. HEENT: External appearance of nose and ears normal, oral cavity grossly normal. NECK: JVD not raised; masses not palpable. HEART: First and second heart sounds are normal; no edema. LUNGS: Respiratory rate increased, decreased breath sound expiratory wheezing. ABDOMEN: Soft, nontender, liver spleen not palpable, no masses palpable. PSYCH: Alert and oriented x3; mood and affect surya l. MUSCULOSKELETAL:No Clubbing/cyanosis;muscles-grossly intact NEUROLOGICAL: Cranial nerves grossly intact; no facial asymmetry, power and sensation grossly intact. LYMPHATICS: No lymph nodes palpable in the axilla and neck INVESTIGATIONS, reviewed in the clinical context: December 24, 2023: White count 8.2 hemoglobin 15.5 platelets 224 sodium 122 potassium 4.3 BUN 14 creatinine 0.68 Influenza type A, type B, RSV, COVID-19: Not detected Chest x-ray film personally reviewed by me-right middle zone probable mass. With possible atelectasis CT chest with contrast: T11 compression fracture. Appears to be chronic. L1 segment underlying pathologic component difficult to exclude. With superior endplate decreased. Right hilar mass with extensive mediastinal right hilar adenopathy as well as postoperative volume loss. Assessment plan: -Acute COPD exacerbation in a prior smoker DuoNeb. IV Solu-Medrol. Nebulized Pulmicort -Hyponatremia. Likely SIADH. Patient has been drinking excessive water. Repeat sodium tomorrow morning. Serum osmolality. Urine sodium. Fluid restriction 1500 cc a day. -Probable acute viral tracheobronchitis -Right hilar mass with extensive mediastinal and right hilar adenopathy with postobstructive volume loss in a prior smoker. Likely malignancy until proven otherwise. Consult Dr. JONES from pulmonary -Full code Care was discussed with the patient. Questions answered. Past Medical History Past Medical History: No Reported History Additional Past Surgical History / Comment(s): lumbectomy right breats Aug 2013 Past Psychological History: No Psychological Hx Reported Smoking Status: Former smoker Past Alcohol Use History: None Reported Past Drug Use History: None Reported Medications and Allergies Home Medications Medication Instructions Recorded Confirmed Type Albuterol Sulfate [Albuterol 2 puff PO RT-Q4H PRN 12/24/23 12/24/23 History Sulfate Hfa] Azithromycin [Zithromax Z Pack] See Taper PO DIRECTED 12/24/23 12/24/23 History Inulin/Chromium Picolinate [Fiber 1 tab PO DAILY 12/24/23 12/24/23 History Gummies Chew] Multivitamin [Multivitamins Adult 1 tab PO DAILY 12/24/23 12/24/23 History Gummies] methylPREDNISolone [Medrol Dose See Taper PO DIRECTED 12/24/23 12/24/23 History Pack] Allergies Allergy/AdvReac Type Severity Reaction Status Date / Time No Known Allergies Allergy Verified 12/24/23 06:56 Physical Exam Vitals: Vital Signs Temp Pulse Resp BP Pulse Ox 12/24/23 07:14 71 16 132/66 95 12/24/23 05:00 74 18 142/66 92 L 12/24/23 04:40 77 12/24/23 04:29 78 12/24/23 04:00 79 16 144/81 94 L 12/24/23 03:00 81 16 173/83 12/24/23 02:00 99 18 168/85 95 12/24/23 01:30 18 12/24/23 00:30 97.5 F L 83 18 186/87 97 Intake and Output 12/23/23 12/24/23 12/24/23 22:59 06:59 14:59 Other: Weight 75.296 kg Results CBC & Chem 7: 12/24/23 01:13 12/24/23 01:13 Labs: Abnormal Lab Results - Last 24 Hours (Table) 12/24/23 12/24/23 Range/Units 01:13 03:15 Sodium 122 L (137-145) mmol/L Chloride 89 L (98-107) mmol/L Glucose 106 H (74-99) mg/dL AST 39 H (14-36) U/L Urine Ketones 1+ H (Negative) Urine Blood Trace H (Negative) Ur Leukocyte Esterase Trace H (Negative)
[2023-12-24] MEDS: IPRATROPIUM-ALBUTEROL 3 ML NEB INHALATION SCH (15:23)
[2023-12-24] MEDS: ALPRAZolam 0.25 MG TAB PO PRN (17:46)
[2023-12-25] MEDS: MELATONIN 3 MG TABLET PO PRN (01:10)
--- NOTE | 2023-12-25 04:41 | CT ---
EXAMINATION TYPE: CT brain wo con DATE OF EXAM: 12/25/2023 HISTORY: HEADACHE CT DLP: 384 mGycm. Automated Exposure Control for Dose Reduction was Utilized. TECHNIQUE: CT scan of the head is performed without contrast. COMPARISON: None. FINDINGS: There is no acute intracranial hemorrhage or midline shift identified. There is mild diff use ventricular and sulcal prominence consistent with diffuse age-related cerebral atrophy. Mild low- attenuation in the periventricular white matter consistent with chronic small vessel ischemic change. Patchy soft tissue density or cerumen in the left external auditory canal. The globes are intact an d the visualized sinuses are clear. IMPRESSION: No acute intracranial hemorrhage or midline shift. There is mild diffuse age-related ce rebral atrophy and chronic small vessel ischemic change noted.
--- NOTE | 2023-12-25 08:02 | P.PN ---
Subjective Progress Note Date: 12/25/23 78-year-old female who we were asked to see, because of an abnormal chest x-ray and CAT scan. The patient was a smoker in the past, may be having smoked about 25 years or so. Recently, she has been noticing wheezing, coughing, shortness of breath. For that reason, she came into the emergency room to be evaluated. In addition to the above, she apparently was having some nausea and vomiting. She apparently went to some clinic and received some steroids and antibiotics for an episode of bronchitis. Likely those medications made her get sick, and currently, she is sitting in the emergency department, room 6, on the couple liters of oxygen. Her primary care physician is Dr. Minerva Jaeger. She tells me that she is really does not take any medications at home, and she does not really have any major medical problems. She denies any hypertension, hyperlipidemia, diabetes, cancer, etc. In the emergency department, she had a chest x-ray which suggested COPD, and a right infrahilar mass, with p ostobstructive atelectasis or pneumonia. A subsequent CAT scan was done, and revealed a right hilar mass, which measured 7.7 x 8.5 x 5.4 cm, with encasement of the right lower lobe bronchus. There was extensive mediastinal as well as hilar adenopathy. In addition, there was a lesion at T11 and L1, likely reflecting compression fractures, and/or pathologic fractures. Laboratory data includes a white count of 8.2, normal hemoglobin hematocrit and platelet count. Sodium 122, potassium 4.3, chloride 89, CO2 24, BUN 14, and creatinine 0.68. Glucose was 106. The rest of the labs are pretty normal. She tested negative for influenza, RSV, coronavirus. The patient is seen today December 25, 2023 in follow-up on the regular medical floor. She is currently sitting up at the bedside. Awake and alert in no acute distress. She denies any worsening shortness of breath, cough or congestion. No hemoptysis. She is maintaining good O2 saturations in the 90s on 2 L/min per nasal cannula. She has normal saline at 75 MLS per hour. Continued on DuoNeb ventilations, Pulmicort inhalations, Solu-Medrol. Lovenox for DVT prophylaxis. The plan is for bronchoscopy with biopsies today however yesterday's sodium was only 122. Suspect small cell lung cancer. Suspect SIADH. Repeat labs are pending. Remains afebrile. Hemodynamically stable. CT scan of the brain revealed no acute intracranial hemorrhage or midline shift. There is mild diffuse age-related cerebral atrophy and chronic small vessel ischemic change noted. No mention of intracranial lesion. Objective - Vital Signs Vital signs: Vital Signs Temp 97.7 F 12/25/23 02:00 Pulse 80 12/25/23 07:38 Resp 16 12/25/23 06:01 BP 157/72 12/25/23 06:01 Pulse Ox 94 L 12/25/23 02:00 FiO2 98 12/25/23 06:01 Intake & Output 12/24/23 12/25/23 12/25/23 18:59 06:59 18:59 Intake Total 590 Output Total 300 Balance 290 Weight 75.296 kg Intake: Oral 590 Output: Urine 300 Other: Voiding Method External Catheter - Exam GENERAL EXAM: Alert, very pleasant 78-year-old female, sitting up in bed, on 2 L nasal cannula, fairly comfortable in no apparent distress. HEAD: Normocephalic. EYES: Normal reaction of pupils, equal size. NOSE: Clear with pink turbinates. THROAT: No erythema or exudates. NECK: No masses, no JVD. CHEST: No chest wall deformity. LUNGS: Equal air entry with inspiratory high pitch wheeze noted on the right. CVS: S1 and S2 normal with no audible murmur, regular rhythm. ABDOMEN: No hepatosplenomegaly, normal bowel sounds, no guarding or rigidity. SPINE: No scoliosis or deformity SKIN: No rashes CENTRAL NERVOUS SYSTEM: No focal deficits, tone is normal in all 4 extremities. EXTREMITIES: There is no peripheral edema. No clubbing, no cyanosis. Peripheral pulses are intact. - Labs CBC & Chem 7: 12/24/23 01:13 12/24/23 01:13 Labs: Abnormal Lab Results - Last 24 Hours (Table) 12/24/23 Range/Units 01:12 Osmolality 267 L (275-295) mOsm/kg Assessment and Plan Assessment: Right hilar mass, with postobstructive changes, and extensive mediastinal and hilar adenopathy likely consistent with bronchogenic carcinoma Hyponatremia, rule out SIADH, secondary to presumed small cell lung cancer Previous history of tobacco use for about 25 years Hypertension Plan: The patient was seen and evaluated CT scan of the brain and medications reviewed Labs are pending, awaiting sodium results Plan is for bronchoscopy with biopsies today The patient is aware of the possibility of cancer Titrate down the FiO2 as tolerated Continue bronchodilators and steroids This patient was seen independently by the pulmonary nurse practitioner addressing pulmonary issues I have personally seen and examined the patient, performed the documentation and the assessment and plan as written. Number of minutes spent on the visit: 24.
[2023-12-25] MEDS: NAPROXEN 250 MG TAB PO STA (08:41)
[2023-12-25] MEDS: diazePAM 5 MG TAB PO STA (08:42)
[2023-12-25 09:37] LABS: Eosinophils % (A) 0 %; HCT 39.3 % (37.2-46.3); HGB 13.6 g/dL (12.0-15.0); MCH 31.1 pg (27.0-32.0); MCHC 34.6 g/dL (32.0-37.0); MCV 89.7 FL (80.0-97.0); Mean Platelet Volume 10.6 FL (9.5-12.2); Monocytes % (A) 2.1 %; NRBC Per 100 WBC 0 X 10*3/uL (0.00-0.01); Neutrophils % (A) 81.1 %; Platelet Count 226 X 10*3/uL (140-440); RBC 4.38 X 10*6/uL (4.10-5.20); RDW 12.1 % (11.5-14.5); WBC 3.81 X 10*3/uL (4.50-10.00)
[2023-12-25 09:38] LABS: Basophils # (A) 0 X 10*3/uL (0.00-0.10); Basophils % (A) 0 %; Eosinophils # (A) 0 X 10*3/uL (0.04-0.35); Lymphocytes # (A) 0.61 X 10*3/uL (0.90-5.00); Monocytes # (A) 0.08 X 10*3/uL (0.20-1.00); Neutrophils # (A) 3.09 X 10*3/uL (1.80-7.70)
[2023-12-25 09:59] LABS: BUN/Creat Ratio 13.14 Ratio (12.00-20.00); Blood Urea Nitrogen 9.2 mg/dL (9.0-27.0); Calcium 8.9 mg/dL (8.7-10.3); Carbon Dioxide 22.4 mmol/L (21.6-31.8); Chloride 88 mmol/L (96-109); Glucose 125 mg/dL (70-110); Potassium 4.8 mmol/L (3.5-5.5); Sodium 122 mmol/L (135-145)
[2023-12-25 10:33] LABS: African American GFR (CKD) >90 (>60 ml/min/1.73 sqM); Anion Gap 6 mmol/L; Blood Urea Nitrogen 11 mg/dL (7-17); Carbon Dioxide 25 mmol/L (22-30); Chloride 92 mmol/L (98-107); Glucose 126 mg/dL (74-99); Non-African American GFR(CKD) >90 (>60 ml/min/1.73 sqM); Potassium 4.5 mmol/L (3.5-5.1); Sodium 123 mmol/L (137-145)
--- NOTE | 2023-12-25 10:40 | PN ---
PROGRESS NOTE ADDENDUM: We were attempting to do a procedure on the patient today. We were planning to do bronchoscopy, biopsies, and biopsy of the subcarinal lymph node on this patient, but because the patient's sodium was 122, Anesthesia did not want to allow us to have the procedure. The patient could be considered for possible discharge home, so she could stay in the hospital and hopefully, as her sodium rises, the patient's procedure could be done safely. MMODL / IJN: [id number] /
[2023-12-25] MEDS: amLODIPine 5 MG TAB PO SCH (10:45)
--- NOTE | 2023-12-26 05:26 | P.PN ---
Subjective Progress Note Date: 12/26/23 Principal diagnosis: Lung mass. 78-year-old female who we were asked to see, because of an abnormal chest x-ray and CAT scan. The patient was a smoker in the past, may be having smoked about 25 years or so. Recently, she has been noticing wheezing, coughing, shortness of breath. For that reason, she came into the emergency room to be evaluated. In addition to the above, she apparently was having some nausea and vomiting. She apparently went to some clinic and received some steroids and antibiotics for an episode of bronchitis. Likely those medications made her get sick, and currently, she is sitting in the emergency department, room 6, on the couple liters of oxygen. Her primary care physician is Dr. Minerva Jaeger. She tells me that she is really does not take any medications at home, and she does not really have any major medical problems. She denies any hypertension, hyperlipidemia, diabetes, cancer, etc. In the emergency department, she had a chest x-ray which suggested COPD, and a right infrahilar mass, with postobstructive atelectasis or pneumonia. A subsequent CAT scan was done, and revealed a right hilar mass, which measured 7.7 x 8.5 x 5.4 cm, with encasement of the right lower lobe bronchus. There was extensive mediastinal as well as hilar adenopathy. In addition, there was a lesion at T11 and L1, likely reflecting compression fractures, and/or pathologic fractures. Laboratory data includes a white count of 8.2, normal hemoglobin hematocrit and platelet count. Sodium 122, potassium 4.3, chloride 89, CO2 24, BUN 14, and creatinine 0.68. Glucose was 106. The rest of the labs are pretty normal. She tested negative for influenza, RSV, coronavirus. The patient is seen today December 25, 2023 in follow-up on the regular medical floo r. She is currently sitting up at the bedside. Awake and alert in no acute distress. She denies any worsening shortness of breath, cough or congestion. No hemoptysis. She is maintaining good O2 saturations in the 90s on 2 L/min per nasal cannula. She has normal saline at 75 MLS per hour. Continued on DuoNeb ventilations, Pulmicort inhalations, Solu-Medrol. Lovenox for DVT prophylaxis. The plan is for bronchoscopy with biopsies today however yesterday's sodium was only 122. Suspect small cell lung cancer. Suspect SIADH. Repeat labs are pending. Remains afebrile. Hemodynamically stable. CT scan of the brain revealed no acute intracranial hemorrhage or midline shift. There is mild diffuse age-related cerebral atrophy and chronic small vessel ischemic change noted. No mention of intracranial lesion. Progress note dated December 26, 2023. The patient is seen in room 09/13/2014. The patient is currently on 2 L of oxygen. We attempted to do bronchoscopy yesterday, but because the sodium was low, anesthesia is stated that we could not do the procedure. A repeat sodium, came back at 122, and another sodium came back at 123. Clinically, the patient stable on 2 L. The patient denies any significant shortness of breath, cough, wheezing, chest tightness, or phlegm production, although, her admission symptoms included wheezing, coughing, and shortness of breath. Her chest x-ray, and CT scan have been evaluated. The CT scan of the brain did not reveal any metastatic deposits. No new laboratory data today as yet. Objective - Vital Signs Vital signs: Vital Signs Temp 97.9 F 12/26/23 01:45 Pulse 90 12/26/23 01:45 Resp 18 12/26/23 01:45 BP 144/79 12/26/23 01:45 Pulse Ox 95 12/26/23 01:45 FiO2 98 12/25/23 06:01 Intake & Output 12/25/23 12/25/23 12/26/23 06:59 18:59 06:59 Intake Total 590 Output Total 300 200 Balance 290 -200 Weight 75.296 kg Intake: Oral 590 Output: Urine 300 200 Post Void Residual 0 Other: Voiding Method External Catheter Toilet # Voids 1 2 - Exam No acute distress, oriented 3. Currently on 2 L. No respiratory distress. No audible wheezing. HEENT examination is grossly unremarkable. Mucous membranes are moist. No oral lesions. Neck supple. Full range of motion. No adenopathy thyromegaly or neck vein distention. Cardiovascular examination reveals regular rhythm rate. S1-S2 normal. No S3 or S4. No discernible murmur noted. Heart rate 90 bpm. Lungs reveal manage breath sounds on the right. And expiratory wheezes noted on the right side. The left lung is essentially clear. Saturations are 95% on 2 L. Abdomen soft bowel sounds are heard. No masses or tenderness. Extremities are intact. No cyanosis clubbing or edema. Skin is without rash or lesion. Neurologic examination is brief but nonfocal. - Labs CBC & Chem 7: 12/25/23 06:05 12/25/23 10:09 Labs: Abnormal Lab Results - Last 24 Hours (Table) 12/25/23 12/25/23 12/25/23 Range/Units 06:05 06:05 10:09 WBC 3.81 L (4.50-10.00) X 10*3/uL Lymphocytes # 0.61 L (0.90-5.00) X 10*3/uL Monocytes # 0.08 L (0.20-1.00) X 10*3/uL Eosinophils # 0 L (0.04-0.35) X 10*3/uL Sodium 122 L 123 L (135-145) mmol/L Chloride 88 L 92 L (96-109) mmol/L Glucose 125 H 126 H (70-110) mg/dL Assessment and Plan Assessment: Right hilar mass, with postobstructive changes, and extensive mediastinal and hilar adenopathy likely consistent with bronchogenic carcinoma. Hyponatremia, rule out SIADH, secondary to presumed small cell lung cancer. Previous history of tobacco use for about 25 years. Patient denies other medical problems including hypertension, hyperlipidemia, diabetes, etc. Plan: Plan dated December 24, 2023. This patient came in with complaints of nausea and vomiting, likely because of medication she was given for bronchitis. She had a chest x-ray which revealed a large right hilar mass, with some postobstructive changes, which was confirmed by CT scan. The mass is rather large measuring more than 7 cm in size, with encasement of the right lower lobe bronchus. In addition, there is extensive adenopathy with throughout the mediastinum the patient will be scheduled for a bronchoscopy, and biopsy tomorrow. Will do it under general anesthesia. We likely will run into the lesion in the right lung, and also do some transbronchial needle aspiration biopsies of the subcarinal region. Additional recommendations and suggestions are forthcoming. We did explain to the patient what we are planning to do. Plan dated December 26, 2023. The patient was scheduled to have bronchoscopy, yesterday, but because of the low sodium, and presumed SIADH, anesthesia canceled the procedure. A repeat sodium, came back at 122 and a subsequent sodium, came back at 123. Today sodium is not yet back. The patient has a rather large right hilar mass, measuring more than 7 cm in size. There is encasement of the right lower lobe bronchus. There is extensive mediastinal and thoracic adenopathy. Labs, x- rays, medications are reviewed. Likely she will have bronchoscopy this week with my partner. Additional recommendations and suggestions are forthcoming. Time with Patient: Less than 30
[2023-12-26 09:26] LABS: Basophils # (A) 0.01 X 10*3/uL (0.00-0.10); Basophils % (A) 0.2 %; Eosinophils # (A) 0 X 10*3/uL (0.04-0.35); Eosinophils % (A) 0 %; HCT 37.6 % (37.2-46.3); HGB 13.1 g/dL (12.0-15.0); Lymphocytes # (A) 0.53 X 10*3/uL (0.90-5.00); Lymphocytes % (A) 10.1 %; MCH 30.9 pg (27.0-32.0); MCHC 34.8 g/dL (32.0-37.0); MCV 88.7 FL (80.0-97.0); Mean Platelet Volume 10.5 FL (9.5-12.2); Monocytes # (A) 0.26 X 10*3/uL (0.20-1.00); Monocytes % (A) 4.9 %; NRBC Per 100 WBC 0 X 10*3/uL (0.00-0.01); Neutrophils # (A) 4.43 X 10*3/uL (1.80-7.70); Platelet Count 215 X 10*3/uL (140-440); RBC 4.24 X 10*6/uL (4.10-5.20); RDW 12.1 % (11.5-14.5); WBC 5.27 X 10*3/uL (4.50-10.00)
[2023-12-26 10:18] LABS: BUN/Creat Ratio 22.43 Ratio (12.00-20.00); Blood Urea Nitrogen 15.7 mg/dL (9.0-27.0); Calcium 9.2 mg/dL (8.7-10.3); Carbon Dioxide 21.3 mmol/L (21.6-31.8); Chloride 87 mmol/L (96-109); Glucose 124 mg/dL (70-110); Sodium 120 mmol/L (135-145)
[2023-12-26] MEDS: guaiFENesin SYRUP 100MG/5ML 200 MG/10 ML CUP PO PRN (14:13)
[2023-12-27 11:19] LABS: African American GFR (CKD) >90 (>60 ml/min/1.73 sqM); Anion Gap 4 mmol/L; Blood Urea Nitrogen 22 mg/dL (7-17); Calcium 9.2 mg/dL (8.4-10.2); Carbon Dioxide 26 mmol/L (22-30); Chloride 92 mmol/L (98-107); Glucose 106 mg/dL (74-99); Non-African American GFR(CKD) 87 (>60 ml/min/1.73 sqM); Potassium 4.9 mmol/L (3.5-5.1); Sodium 122 mmol/L (137-145)
[2023-12-27] MEDS ORDERED: TOLVAPTAN 15 MG TABLET PO ONE (19:11)
--- NOTE | 2023-12-27 19:40 | P.PN ---
Subjective Progress Note Date: 12/27/23 12/27/2023, the patient is still awaiting a bronchoscopy and this has been canceled on several occasions due to her low sodium level. Her current sodium levels at 122. She is undergoing fluid restriction. I am going to add a nephrology consultation and start the patient on Samsca and attempt to improve her sodium level and proceed with bronchoscopy. She has a large mediastinal mass causing mass effect on the right mainstem bronchus. CAT scan of the brain has been also negative for any acute abnormalities. The patient had a CAT scan of the chest which showed a 7 x 8.5 x 5.4 cm right hilar mass encasing the right lower lobe bronchus and extensive mediastinal lymphadenopathy and hilar lymphadenopathy was also seen. There is also some atelectatic change in the right lung base with a small right-sided pleural effusion. There is subcarinal lymphadenopathy, precarinal and tracheobronchial lymphadenopathy also. There is also right paratracheal lymphadenopathy. No altered mentation. No seizure activity. No other complaints otherwise for now. Objective - Vital Signs Vital signs: Vital Signs Temp 98.3 F 12/27/23 12:31 Pulse 100 12/27/23 15:42 Resp 18 12/27/23 15:42 BP 139/75 12/27/23 12:31 Pulse Ox 96 12/27/23 12:31 FiO2 98 12/25/23 06:01 Intake & Output 12/26/23 12/27/23 12/27/23 18:59 06:59 18:59 Intake Total 660 240 476 Balance 660 240 476 Intake: Oral 660 240 476 Other: Voiding Method Toilet Toilet Toilet Bedside Commode Bedside Commode Bedside Commode # Voids 2 3 1 - Exam GENERAL EXAM: Alert, very pleasant 78-year-old female, sitting up in bed, on 2 L nasal cannula, fairly comfortable in no apparent distress. HEAD: Normocephalic. EYES: Normal reaction of pupils, equal size. NOSE: Clear with pink turbinates. THROAT: No erythema or exudates. NECK: No masses, no JVD. CHEST: No chest wall deformity. LUNGS: Equal air entry with inspiratory high pitch wheeze noted on the right. CVS: S1 and S2 normal with no audible murmur, regular rhythm. ABDOMEN: No hepatosplenomegaly, normal bowel sounds, no guarding or rigidity. SPINE: No scoliosis or deformity SKIN: No rashes CENTRAL NERVOUS SYSTEM: No focal deficits, tone is normal in all 4 extremities. EXTREMITIES: There is no peripheral edema. No clubbing, no cyanosis. Peripheral pulses are intact. - Labs CBC & Chem 7: 12/26/23 03:22 12/27/23 07:34 Labs: Abnormal Lab Results - Last 24 Hours (Table) 12/27/23 Range/Units 07:34 Sodium 122 L (137-145) mmol/L Chloride 92 L (98-107) mmol/L BUN 22 H (7-17) mg/dL Glucose 106 H (74-99) mg/dL Assessment and Plan Plan: Right hilar mass, with postobstructive changes, and extensive mediastinal and hilar adenopathy likely consistent with bronchogenic carcinoma Hyponatremia, rule out SIADH, secondary to presumed small cell lung cancer Previous history of tobacco use for about 25 years Hypertension Plan Will provide the patient Samsca 7.5 mg p.o. and monitor the sodium level Fluid restriction Bronchoscopy once the sodium level is improved. Rest of the medication will be kept unchanged nephrology consult regarding the hyponatremia.
[2023-12-27] MEDS: TOLVAPTAN 15 MG TABLET PO ONE (22:29)
--- NOTE | 2023-12-28 00:16 | P.PN ---
Subjective Progress Note Date: 12/25/23 This is a pleasant 78-year-old patient who follows with Dr. Minerva Jaeger. Patient actually has no specific prior medical history. About 5 weeks ago patient's was sitting in one of her rooms initial temperature was 70 degrees. Windows were open. Later the temperature did drop down to 37 degrees. Since then she developed a sore throat. More recently last 1 week patient developed more shortness of breath. No wheezing. Has been a significant dry cough. No fever no chills. Tired. Nausea. Has been drinking excessive water. Finally decided to come in. Patient was in ex-smoker. 12/25/2023 Patient is sitting in a chair. Awake alert, oriented x 3. No complaints of chest pain. No shortness of breath. Currently on 2 L oxygen via nasal cannula. No headache or dizziness or lightheadedness. Patient is scheduled for bronchoscopy today but however sodium level did improve and currently at 122. 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 Patient was placed on fluid restriction. Urine random sodium at 71. Serum osmolality 267 Pulmonary is on board. Social history: . Did smoke in the past. Physical examination: VITAL SIGNS: 97.5, 83, 18, 142 x 66, 92% room air GENERAL: BMI 28.5, reclining bed awake a bit tired. EYES: Pupils equal. Conjunctiva surya l. HEENT: External appearance of nose and ears normal, oral cavity grossly normal. NECK: JVD not raised; masses not palpable. HEART: First and second heart sounds are normal; no edema. LUNGS: Respiratory rate increased, decreased breath sound expiratory wheezing. ABDOMEN: Soft, nontender, liver spleen not palpable, no masses palpable. PSYCH: Alert and oriented x3; mood and affect surya l. MUSCULOSKELETAL:No Clubbing/cyanosis;muscles-grossly intact NEUROLOGICAL: Cranial nerves grossly intact; no facial asymmetry, power and sensation grossly intact. LYMPHATICS: No lymph nodes palpable in the axilla and neck INVESTIGATIONS, reviewed in the clinical context: December 24, 2023: White count 8.2 hemoglobin 15.5 platelets 224 sodium 122 potassium 4.3 BUN 14 creatinine 0.68 Influenza type A, type B, RSV, COVID-19: Not detected Chest x-ray film personally reviewed by me-right middle zone probable mass. With possible atelectasis CT chest with contrast: T11 compression fracture. Appears to be chronic. L1 se gment underlying pathologic component difficult to exclude. With superior endplate decreased. Right hilar mass with extensive mediastinal right hilar adenopathy as well as postoperative volume loss. Assessment plan: -Acute COPD exacerbation in a prior smoker DuoNeb. IV Solu-Medrol. Nebulized Pulmicort -Hyponatremia. Likely SIADH. Suspect small cell lung cancer. Serum last minute to 67 and urine sodium 71 Fluid restriction 1500 cc a day. Follow-up serum level. -Probable acute viral tracheobronchitis -Right hilar mass with extensive mediastinal and right hilar adenopathy with postobstructive volume loss in a prior smoker. Likely malignancy until proven otherwise. Suspect small cell lung cancer. Pulmonary is on board. Planning for bronchoscopy once sodium level improves. -Full code Objective - Vital Signs Vital signs: Vital Signs Temp 97.9 F 12/25/23 07:55 Pulse 99 12/25/23 07:55 Resp 18 12/25/23 07:55 BP 166/82 12/25/23 07:55 Pulse Ox 96 12/25/23 07:55 FiO2 98 12/25/23 06:01 Intake & Output 12/24/23 12/25/23 12/25/23 18:59 06:59 18:59 Intake Total 590 Output Total 300 Balance 290 Weight 75.296 kg Intake: Oral 590 Output: Urine 300 Other: Voiding Method External Catheter Toilet # Voids 1 - Labs CBC & Chem 7: 12/26/23 03:22 12/27/23 07:34 Labs: Abnormal Lab Results - Last 24 Hours (Table) 12/24/23 12/25/23 12/25/23 Range/Units 01:12 06:05 06:05 WBC 3.81 L (4.50-10.00) X 10*3/uL Lymphocytes # 0.61 L (0.90-5.00) X 10*3/uL Monocytes # 0.08 L (0.20-1.00) X 10*3/uL Eosinophils # 0 L (0.04-0.35) X 10*3/uL Sodium 122 L (135-145) mmol/L Chloride 88 L (96-109) mmol/L Glucose 125 H (70-110) mg/dL Osmolality 267 L (275-295) mOsm/kg
--- NOTE | 2023-12-28 00:20 | P.PN ---
Subjective Progress Note Date: 12/26/23 This is a pleasant 78-year-old patient who follows with Dr. Minerva Jaeger. Patient actually has no specific prior medical history. About 5 weeks ago patient's was sitting in one of her rooms initial temperature was 70 degrees. Windows were open. Later the temperature did drop down to 37 degrees. Since then she developed a sore throat. More recently last 1 week patient developed more shortness of breath. No wheezing. Has been a significant dry cough. No fever no chills. Tired. Nausea. Has been drinking excessive water. Finally decided to come in. Patient was in ex-smoker. 12/25/2023 Patient is sitting in a chair. Awake alert, oriented x 3. No complaints of chest pain. No shortness of breath. Currently on 2 L oxygen via nasal cannula. No headache or dizziness or lightheadedness. Patient is scheduled for bronchoscopy today but however sodium level did improve and currently at 122. 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 Patient was placed on fluid restriction. Urine random sodium at 71. Serum osmolality 267 12/26/2023 Patient is currently resting in the bed. Awake alert and oriented x 3. No complaints of dizziness or lightheadedness. Currently on 2 L via nasal cannula. Sodium level went up to 123 but again came back to 120 today. Continued on fluid restriction to 1.5 L. Patient was also started on antihypertensives Norvasc and blood pressure is improving. No complaints of headache or dizziness or lightheadedness. No cough or sputum production. Patient is also being continued on DuoNebs and IV Solu- Medrol. Pulmonary is on board. Social history: . Did smoke in the past. Physical examination: VITAL SIGNS: 97.5, 83, 18, 142 x 66, 92% room air GENERAL: BMI 28.5, reclining bed awake a bit tired. EYES: Pupils equal. Conjunctiva surya l. HEENT: External appearance of nose and ears normal, oral cavity grossly normal. NECK: JVD not raised; masses not palpable. HEART: First and second heart sounds are normal; no edema. LUNGS: Respiratory rate increased, decreased breath sound expiratory wheezing. ABDOMEN: Soft, nontender, liver spleen not palpable, no masses palpable. PSYCH: Alert and oriented x3; mood and affect surya l. MUSCULOSKELETAL:No Clubbing/cyanosis;muscles-grossly intact NEUROLOGICAL: Cranial nerves grossly intact; no facial asymmetry, power and sensation grossly intact. LYMPHATICS: No lymph nodes palpable in the axilla and neck INVESTIGATIONS, reviewed in the clinical context: December 24, 2023: White count 8.2 hemoglobin 15.5 platelets 224 sodium 122 potassium 4.3 BUN 14 creatinine 0.68 Influenza type A, type B, RSV, COVID-19: Not detected Chest x-ray film personally reviewed by me-right middle zone probable mass. With possible atelectasis CT chest with contrast: T11 compression fracture. Appears to be chronic. L1 segment underlying pathologic component difficult to exclude. With superior endplate decreased. Right hilar mass with extensive mediastinal right hilar adenopathy as well as postoperative volume loss. Assessment plan: -Acute COPD exacerbation in a prior smoker DuoNeb. IV Solu-Medrol. Nebulized Pulmicort -Hyponatremia. Likely SIADH. Suspect small cell lung cancer. Serum last minute to 67 and urine sodium 71 Fluid restriction 1500 cc a day. Follow-up serum level. -Probable acute viral tracheobronchitis -Elevated blood pressure. No prior history of hypertension. Patient was started on Norvasc and titrate dose as needed. -Right hilar mass with extensive mediastinal and right hilar adenopathy with postobstructive volume loss in a prior smoker. Likely malignancy until proven otherwise. Suspect small cell lung cancer. Pulmonary is on board. Planning for bronchoscopy once sodium level improves. -Full code Objective - Vital Signs Vital signs: Vital Signs Temp 98.6 F 12/26/23 19:00 Pulse 105 H 12/26/23 19:00 Resp 16 12/26/23 19:00 BP 124/67 12/26/23 19:00 Pulse Ox 94 L 12/26/23 19:00 FiO2 98 12/25/23 06:01 Intake & Output 12/26/23 12/26/23 12/27/23 06:59 18:59 06:59 Intake Total 660 Balance 660 Intake: Oral 660 Other: Voiding Method Toilet Bedside Commode # Voids 2 2 - Labs CBC & Chem 7: 12/26/23 03:22 12/27/23 07:34 Labs: Abnormal Lab Results - Last 24 Hours (Table) 12/26/23 12/26/23 Range/Units 03:22 03:22 Lymphocytes # 0.53 L (0.90-5.00) X 10*3/uL Eosinophils # 0 L (0.04-0.35) X 10*3/uL Sodium 120 L (135-145) mmol/L Chloride 87 L (96-109) mmol/L Carbon Dioxide 21.3 L (21.6-31.8) mmol/L BUN/Creatinine Ratio 22.43 H (12.00-20.00) Ratio Glucose 124 H (70-110) mg/dL
--- NOTE | 2023-12-28 00:29 | P.PN ---
Subjective Progress Note Date: 12/27/23 This is a pleasant 78-year-old patient who follows with Dr. Minerva Jaeger. Patient actually has no specific prior medical history. About 5 weeks ago patient's was sitting in one of her rooms initial temperature was 70 degrees. Windows were open. Later the temperature did drop down to 37 degrees. Since then she developed a sore throat. More recently last 1 week patient developed more shortness of breath. No wheezing. Has been a significant dry cough. No fever no chills. Tired. Nausea. Has been drinking excessive water. Finally decided to come in. Patient was in ex-smoker. 12/25/2023 Patient is sitting in a chair. Awake alert, oriented x 3. No complaints of chest pain. No shortness of breath. Currently on 2 L oxygen via nasal cannula. No headache or dizziness or lightheadedness. Patient is scheduled for bronchoscopy today but however sodium level did improve and currently at 122. 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 Patient was placed on fluid restriction. Urine random sodium at 71. Serum osmolality 267 12/26/2023 Patient is currently resting in the bed. Awake alert and oriented x 3. No complaints of dizziness or lightheadedness. Currently on 2 L via nasal cannula. Sodium level went up to 123 but again came back to 120 today. Continued on fluid restriction to 1.5 L. Patient was also started on antihypertensives Norvasc and blood pressure is improving. No complaints of headache or dizziness or lightheadedness. No cough or sputum production. Patient is also being continued on DuoNebs and IV Solu- Medrol. Pulmonary is on board. 12/27/2023 Patient is resting in bed. Awake alert and oriented x 3. Tolerating oral diet. No complaints of chest pain or shortness of breath. No wheezing or rhonchi on exam. Patient is being continued on IV Solu-Medrol every 8 hourly and DuoNebs. Sodium level still low at 122 today. BUN 22 and creatinine 0.61. No other acute overnight issues. Social history: . Did smoke in the past. Physical examination: VITAL SIGNS: 97.5, 83, 18, 142 x 66, 92% room air GENERAL: BMI 28.5, reclining bed awake a bit tired. EYES: Pupils equal. Conjunctiva surya l. HEENT: External appearance of nose and ears normal, oral cavity grossly normal. NECK: JVD not raised; masses not palpable. HEART: First and second heart sounds are normal; no edema. LUNGS: Respiratory rate increased, decreased breath sound expiratory wheezing. ABDOMEN: Soft, nontender, liver spleen not palpable, no masses palpable. PSYCH: Alert and oriented x3; mood and affect surya l. MUSCULOSKELETAL:No Clubbing/cyanosis;muscles-grossly intact NEUROLOGICAL: Cranial nerves grossly intact; no facial asymmetry, power and sensation grossly intact. LYMPHATICS: No lymph nodes palpable in the axilla and neck INVESTIGATIONS, reviewed in the clinical context: December 24, 2023: White count 8.2 hemoglobin 15.5 platelets 224 sodium 122 potassium 4.3 BUN 14 creatinine 0.68 Influenza type A, type B, RSV, COVID-19: Not detected Chest x-ray film personally reviewed by me-right middle zone probable mass. With possible atelectasis CT chest with contrast: T11 compression fracture. Appears to be chronic. L1 segment underlying pathologic component difficult to exclude. With superior endplate decreased. Right hilar mass with extensive mediastinal right hilar adenopathy as well as postoperative volume loss. Assessment plan: -Acute COPD exacerbation in a prior smoker DuoNeb. IV Solu-Medrol. Nebulized Pulmicort -Hyponatremia. Likely SIADH. Suspect small cell lung cancer. Serum osmolality 267 and urine sodium 71 Fluid restriction 1500 cc a day. Follow-up serum level. -Probable acute viral tracheobronchitis -Elevated blood pressure. No prior history of hypertension. Patient was started on Norvasc and titrate dose as needed. -Right hilar mass with extensive mediastinal and right hilar adenopathy with postobstructive volume loss in a prior smoker. Likely malignancy until proven otherwise. Suspect small cell lung cancer. Pulmonary is on board. Planning for bronchoscopy once sodium level improves. -Full code Objective - Vital Signs Vital signs: Vital Signs Temp 98.2 F 12/27/23 18:57 Pulse 100 12/27/23 19:39 Resp 18 12/27/23 18:57 BP 148/73 12/27/23 18:57 Pulse Ox 95 12/27/23 18:57 FiO2 98 12/25/23 06:01 Intake & Output 12/27/23 12/27/23 12/28/23 06:59 18:59 06:59 Intake Total 240 476 Balance 240 476 Intake: Oral 240 476 Other: Voiding Method Toilet Toilet Bedside Commode Bedside Commode # Voids 3 1 - Labs CBC & Chem 7: 12/26/23 03:22 12/27/23 07:34 Labs: Abnormal Lab Results - Last 24 Hours (Table) 12/27/23 Range/Units 07:34 Sodium 122 L (137-145) mmol/L Chloride 92 L (98-107) mmol/L BUN 22 H (7-17) mg/dL Glucose 106 H (74-99) mg/dL
[2023-12-28 09:01] LABS: ALT 21 U/L (4-34); AST 40 U/L (14-36); African American GFR (CKD) 85 (>60 ml/min/1.73 sqM); Albumin/Globulin Ratio 1.5; Alkaline Phosphatase 61 U/L (38-126); Anion Gap 4 mmol/L; Blood Urea Nitrogen 24 mg/dL (7-17); Calcium 9.8 mg/dL (8.4-10.2); Carbon Dioxide 28 mmol/L (22-30); Chloride 103 mmol/L (98-107); Globulin 2.7 g/dL; Glucose 108 mg/dL (74-99); Non-African American GFR(CKD) 74 (>60 ml/min/1.73 sqM); Potassium 4.6 mmol/L (3.5-5.1); Sodium 135 mmol/L (137-145); Total Bilirubin 0.5 mg/dL (0.2-1.3); Total Protein 6.7 g/dL (6.3-8.2)
[2023-12-28] MEDS: DEXTROSE 5% IN WATER 1,000 ML IV ONE (09:51)
--- NOTE | 2023-12-28 10:13 | P.NPCON ---
History of Present Illness - Reason for Consult hyponatremia - History of Present Illness Reason for consultation: Hyponatremia History of present illness: Patient is a 78-year-old female seen in renal consultation for hyponatremia. Patient came to the hospital on December 24, 2023 due to nausea and vomiting. Patient states the vomiting began evening and then she developed dry heaves and then vomited again the next day. Chest x-ray showed COPD and possible right infrahilar mass. She also underwent chest CT with IV contrast on December 24, 2023 which showed right hilar mass with extensive mediastinal and right hilar adenopathy. Patient was scheduled to undergo bronchoscopy but the procedure was canceled due to low sodium level. Sodium level yesterday was 122. She did receive 7.5 mg of Samsca last night and sodium this morning was 135. Oral intake is not good. No vomiting or diarrhea. Denies use of nonsteroidals. Denies use of thiazide diuretics. Patient states she underwent lumpectomy in the past. Denies history of kidney disease. Denies fever or chills. No hemoptysis. No gross hematuria or dysuria. Vital signs are stable. General: No acute distress. HEENT: Head exam is unremarkable. LUNGS: No audible rhonchi or wheezes. HEART: Rate and Rhythm are regular. ABDOMEN: Nontender. EXTREMITITES: No edema. Past Medical History Past Medical History: No Reported History History of Any Multi-Drug Resistant Organisms: None Reported Additional Past [facility] History / Comment[facility] Past Psychological History: No Psychological Hx Reported Smoking Status: Former smoker Past Alcohol Use History: None Reported Past Drug Use History: None Reported Medications and Allergies Home Medications Medication Instructions Recorded Confirmed Type Albuterol Sulfate [Albuterol 2 puff PO RT-Q4H PRN 12/24/23 12/24/23 History Sulfate Hfa] Azithromycin [Zithromax Z Pack] See Taper PO DIRECTED 12/24/23 12/24/23 History Inulin/Chromium Picolinate [Fiber 1 tab PO DAILY 12/24/23 12/24/23 History Gummies Chew] Multivitamin [Multivitamins Adult 1 tab PO DAILY 12/24/23 12/24/23 History Gummies] methylPREDNISolone [Medrol Dose See Taper PO DIRECTED 12/24/23 12/24/23 History Pack] Allergies Allergy/AdvReac Type Severity Reaction Status Date / Time No Known Allergies Allergy Verified 12/24/23 06:56 Physical Exam Vitals: Vital Signs Temp Pulse Pulse Resp BP Pulse Ox 12/28/23 09:27 98 12/28/23 09:12 98 12/28/23 07:03 98.2 F 92 17 131/73 93 L 12/28/23 01:29 97.8 F 88 16 136/72 96 12/27/23 19:39 100 12/27/23 19:10 96 12/27/23 18:57 98.2 F 99 18 148/73 95 12/27/23 15:42 100 18 12/27/23 15:32 104 H 18 12/27/23 12:31 98.3 F 103 H 17 139/75 96 12/27/23 12:02 80 18 12/27/23 11:52 82 18 12/27/23 10:35 149/76 Intake and Output 12/27/23 12/28/23 12/28/23 22:59 06:59 14:59 Intake Total 476 Balance 476 Intake: Oral 476 Other: Voiding Method Toilet Toilet Bedside Commode # Voids 1 1 Results - Lab Results Most recent lab results Calcium 9.8 mg/dL (8.4-10.2) 12/28/23 07:06 12/26/23 03:22 12/28/23 07:06 Assessment and Plan Plan: Assessment: 1. Hyponatremia. Component of hypovolemia and poor solute intake as well as SIADH from possible underlying malignancy. Status post 7.5 mg of Samsca given December 27, 2023. Sodium level 135 this morning. Sodium level December 26, 2023 at 3:15 AM was 120. TSH low at 0.049. Urine sodium 71 and urine osmolality 720. 2. Right lung mass. Bronchoscopy pending. 3. Benign hypertension. Controlled. Exacerbated by steroids. Plan: Sodium level up by 15 mmol/L in 50-hour duration. To prevent further correction, I will start D5W at 100 cc an hour and check sod ium level again in 2 hours. Cleared for bronchoscopy from nephrology standpoint. Thank you for the consultation. I will continue to follow the patient with you during her hospital stay.
[2023-12-28] MEDS: IV FLUID CONTINUATION 1,000 ML IV ONE ×2 (14:34→15:09)
[2023-12-28] MEDS ORDERED: NEOSTIGMINE 1 MG/ML 10 ML VIAL ONE (14:37)
[2023-12-28] MEDS ORDERED: GLYCOPYRROLATE 0.2 MG/ML 2 ML VIAL ONE (14:37)
[2023-12-28] MEDS ORDERED: PROPOFOL 10 MG/ML 20 ML VIAL IV ONE (14:37)
[2023-12-28] MEDS ORDERED: ROCURONIUM 10 MG/ML (5 ML VIAL) IV ONE (14:37)
[2023-12-28] MEDS: ALBUTEROL NEBULIZED 2.5 MG/3 ML INHALATION PRN (15:41)
[2023-12-28] MEDS: fentaNYL (PF) 50 MCG/ML 2 ML AMP IVP ONE (16:00)
[2023-12-28] MEDS: LIDOCAINE 2% (PF) 20 MG/ML 5 ML VIAL INHALATION ONE (16:08)
--- NOTE | 2023-12-28 22:59 | P.PN ---
Subjective Progress Note Date: 12/28/23 12/27/2023, the patient is still awaiting a bronchoscopy and this has been canceled on several occasions due to her low sodium level. Her current sodium levels at 122. She is undergoing fluid restriction. I am going to add a nephrology consultation and start the patient on Samsca and attempt to improve her sodium level and proceed with bronchoscopy. She has a large mediastinal mass causing mass effect on the right mainstem bronchus. CAT scan of the brain has been also negative for any acute abnormalities. The patient had a CAT scan of the chest which showed a 7 x 8.5 x 5.4 cm right hilar mass encasing the right lower lobe bronchus and extensive mediastinal lymphadenopathy and hilar lymphadenopathy was also seen. There is also some atelectatic change in the right lung base with a small right-sided pleural effusion. There is subcarinal lymphadenopathy, precarinal and tracheobronchial lymphadenopathy also. There is also right paratracheal lymphadenopathy. No altered mentation. No seizure activity. No other complaints otherwise for now. on 12/28/2023, have seen the patient for a follow-up.. The patient is awake and alert and clinically stable. The patient was given a dose of Samsca yesterday a total of 7.5 mg and the patient sodium level today is up to 135 and subsequently down to 132 after the patient was given some free water due to concerns of the rapid correction of the sodium level. In any rate, the patient is n.p.o. and the patient is going to undergo a bronchoscopy for tissue diagnosis with a high clinical suspicion for underlying malignancy/lung cancer. She remains on bronchodilators. She remains on 3 suboptimal nasal cannula with pulse ox of 94%. She remains on IV Solu-Medrol 40 g every 8 hours. No other new complaints otherwise for now. No altered mentation. No nausea no emesis no seizure activity. Objective - Vital Signs Vital signs: Vital Signs Temp 97.3 F L 12/28/23 16:48 Pulse 96 12/28/23 21:17 Resp 17 12/28/23 16:48 BP 130/66 12/28/23 18:24 Pulse Ox 94 L 12/28/23 18:24 FiO2 98 12/25/23 06:01 Intake & Output 12/28/23 12/28/23 12/29/23 06:59 18:59 06:59 Intake Total 690 Balance 690 Intake: IV 450 Oral 240 Other: Voiding Method Toilet Toilet Bedside Commode # Voids 1 3 - Exam GENERAL EXAM: Alert, very pleasant 78-year-old female, sitting up in bed, on 2 L nasal cannula, fairly comfortable in no apparent distress. HEAD: Normocephalic. EYES: Normal reaction of pupils, equal size. NOSE: Clear with pink turbinates. THROAT: No erythema or exudates. NECK: No masses, no JVD. CHEST: No chest wall deformity. LUNGS: Equal air entry with inspiratory high pitch wheeze noted on the right. CVS: S1 and S2 normal with no audible murmur, regular rhythm. ABDOMEN: No hepatosplenomegaly, normal bowel sounds, no guarding or rigidity. SPINE: No scoliosis or deformity SKIN: No rashes CENTRAL NERVOUS SYSTEM: No focal deficits, tone is normal in all 4 extremities. EXTREMITIES: There is no peripheral edema. No clubbing, no cyanosis. Peripheral pulses are intact. - Labs CBC & Chem 7: 12/26/23 03:22 12/28/23 19:28 Labs: Abnormal Lab Results - Last 24 Hours (Table) 12/28/23 12/28/23 12/28/23 Range/Units 07:06 12:27 19:28 Sodium 135 L 134 L 132 L (137-145) mmol/L BUN 24 H (7-17) mg/dL Glucose 108 H (74-99) mg/dL AST 40 H (14-36) U/L TSH 0.049 L (0.465-4.680) mIU/L Assessment and Plan Plan: Acute hypoxic respiratory failure the patient is currently on 3 days of oxygen by nasal cannula Right hilar mass, with postobstructive changes, and extensive mediastinal and hilar adenopathy likely consistent with bronchogenic carcinoma Shortness of breath secondary to above Hyponatremia, rule out SIADH, secondary to presumed small cell lung cancer, improved after being given a dose of Samsca 7.5 mg and sodium level is above 130 Previous history of tobacco use for about 25 years Hypertension Plan Monitor sodium level Fluid restriction Will proceed with bronchoscopy, endobronchial ultrasound for tissue diagnosis with a high clinical suspicion for malignancy Nephrology is the case regarding the hyponatremia Will continue to follow
--- NOTE | 2023-12-28 23:05 | P.PCN ---
Date of Procedure: 12/28/23 Preoperative Diagnosis: Mediastinal mass Postoperative Diagnosis: Mediastinal mass Procedure(s) Performed: Flexible bronchoscopy, endobronchial biopsy of the right mainstem lesion/middle lobe Anesthesia: NASIRA Surgeon: Aga Molina Estimated Blood Loss (ml): 0 Pathology: other Condition: stable Disposition: floor Operative Findings: This procedure was done in the endoscopy suite. The patient was intubated and placed on mechanical ventilator by the anesthesia group. The patient was intubated via #8 orotracheal tube. After achieving adequate oxygenation and ventilation, the flex bronchoscope was introduced through the orotracheal tube and airway inspection was done. The distal trachea was within normal limits. The right mainstem bronchus was proximal narrowed as the patient had some mass effect through the medial wall of the right mainstem bronchus and there was evidence of some endobronchial irregularities along the medial wall of the right mainstem bronchus extending to the bronchus intermedius. The surface of the medial wall of the mainstem bronchus was friable and inflamed and there was some tumor infiltrating throughout the mediastinum through the medial wall probably causing some 10 to 20% narrowing of the right mainstem bronchus. Right middle lobe bronchus, bronchus intermedius, right lower lobe bronchus and the right upper lobe bronchus were all inspected and were patent and within normal limits. Examination of the left side included left mainstem bronchus, left upper and left lower lobe bronchus along with the various segments and subsegments. Following that, the bronchoscope was brought into the right mainstem bronchus and endobronchial biopsies of the mucosal irregularities along the medial wall of the mainstem was done on the right. Few endobronchial biopsies were obtained. Following that, I performed endobronchial brushings of the mucosa and irregularity/abnormalities which is consistent with endobronchial extension of the mediastinal mass. I also performed bronchial lavage where I infused a total of 60 cc of saline and 20 cc of aspirate was obtained Following that, the black scope was removed and endobronchial ultrasound was inserted. Direct examination of the subcarinal lymph node station 7 showed a large more than 4 cm mass/lymph node at that location. There was several lymph nodes noted coalescing together and the largest mass was more than 4 cm in size. There was also right paratracheal station 4R lymphadenopathy measuring around 2.5 cm in size. Using a 22-gauge VISI shot needle, transbronchial needle needle aspirates of the subcarinal station 7 lymph node was done a total of 5 passes were obtained without any complications. The endobronchial ultrasound was removed and the flexible endoscope was inserted for therapeutic airway suctioning. The flexible scope was removed. The patient was extubated and patient was transferred to recovery in stable condition. No complications.
--- NOTE | 2023-12-29 12:04 | P.PN ---
Subjective Patient is seen in follow-up for hyponatremia. Sodium level 132 as of last night. She did receive D5W yesterday for a few hours to prevent further rise in sodium level. Underwent bronchoscopy yesterday. No active complaints at this time. Vital signs are stable. General: No acute distress. HEENT: Head exam is unremarkable. LUNGS: No audible rhonchi or wheezes. HEART: Rate and Rhythm are regular. ABDOMEN: Nontender. EXTREMITITES: No edema. Objective - Vital Signs Vital signs: Vital Signs Temp 98.7 F 12/29/23 07:47 Pulse 102 H 12/29/23 09:05 Resp 19 12/29/23 07:47 BP 151/81 12/29/23 07:47 Pulse Ox 97 12/29/23 08:46 FiO2 98 12/25/23 06:01 Intake & Output 12/28/23 12/29/23 12/29/23 18:59 06:59 18:59 Intake Total 690 120 Balance 690 120 Intake: IV 450 Oral 240 120 Other: Voiding Method Toilet Toilet Toilet # Voids 3 1 - Labs CBC & Chem 7: 12/26/23 03:22 12/28/23 19:28 Labs: Abnormal Lab Results - Last 24 Hours (Table) 12/28/23 12/28/23 Range/Units 12:27 19:28 Sodium 134 L 132 L (137-145) mmol/L Assessment and Plan Plan: Assessment: 1. Hyponatremia. Component of hypovolemia and poor solute intake as well as SIADH from possible underlying malignancy. Status post 7.5 mg of Samsca given December 27, 2023. Also received D5W December 28, 2023 to prevent further rise in sodium level. Sodium level 132 as of yesterday evening. TSH low at 0.049. Urine sodium 71 and urine osmolality 720. 2. Right lung mass. Status post bronchoscopy December 28, 2023. Pulmonology following. 3. Benign hypertension. Controlled. Exacerbated by steroids. Plan: Remains off IV fluids. Encouraged oral intake. Follow-up outpatient 1 week postdischarge.
[2023-12-29 13:35] VITALS: BP 109/65; PULSE 116; RESP 16; TEMP 97.2
[2023-12-29 14:22] LABS: Basophils # (A) 0.01 X 10*3/uL (0.00-0.10); Basophils % (A) 0.1 %; Eosinophils # (A) 0.01 X 10*3/uL (0.04-0.35); Eosinophils % (A) 0.1 %; HCT 43.9 % (37.2-46.3); HGB 14.8 g/dL (12.0-15.0); Lymphocytes # (A) 0.93 X 10*3/uL (0.90-5.00); Lymphocytes % (A) 9.9 %; MCH 31.2 pg (27.0-32.0); MCHC 33.7 g/dL (32.0-37.0); MCV 92.4 FL (80.0-97.0); Mean Platelet Volume 10.7 FL (9.5-12.2); Monocytes # (A) 0.69 X 10*3/uL (0.20-1.00); Monocytes % (A) 7.3 %; NRBC Per 100 WBC 0 X 10*3/uL (0.00-0.01); Neutrophils # (A) 7.63 X 10*3/uL (1.80-7.70); Neutrophils % (A) 81.1 %; Platelet Count 277 X 10*3/uL (140-440); RBC 4.75 X 10*6/uL (4.10-5.20); RDW 12.9 % (11.5-14.5); WBC 9.41 X 10*3/uL (4.50-10.00)
[2023-12-29 15:04] LABS: Magnesium 2.4 mg/dL (1.5-2.4)
[2023-12-29 15:05] LABS: BUN/Creat Ratio 23.56 Ratio (12.00-20.00); Blood Urea Nitrogen 21.2 mg/dL (9.0-27.0); Calcium 10.2 mg/dL (8.7-10.3); Carbon Dioxide 25.4 mmol/L (21.6-31.8); Chloride 95 mmol/L (96-109); Glucose 107 mg/dL (70-110); Potassium 4.6 mmol/L (3.5-5.5); Sodium 135 mmol/L (135-145)
--- NOTE | 2023-12-29 16:00 | P.PN ---
Subjective Progress Note Date: 12/29/23 12/27/2023, the patient is still awaiting a bronchoscopy and this has been canceled on several occasions due to her low sodium level. Her current sodium levels at 122. She is undergoing fluid restriction. I am going to add a nephrology consultation and start the patient on Samsca and attempt to improve her sodium level and proceed with bronchoscopy. She has a large mediastinal mass causing mass effect on the right mainstem bronchus. CAT scan of the brain has been also negative for any acute abnormalities. The patient had a CAT scan of the chest which showed a 7 x 8.5 x 5.4 cm right hilar mass encasing the right lower lobe bronchus and extensive mediastinal lymphadenopathy and hilar lymphadenopathy was also seen. There is also some atelectatic change in the right lung base with a small right-sided pleural effusion. There is subcarinal lymphadenopathy, precarinal and tracheobronchial lymphadenopathy also. There is also right paratracheal lymphadenopathy. No altered mentation. No seizure activity. No other complaints otherwise for now. on 12/28/2023, have seen the patient for a follow-up.. The patient is awake and alert and clinically stable. The patient was given a dose of Samsca yesterday a total of 7.5 mg and the patient sodium level today is up to 135 and subsequently down to 132 after the patient was given some free water due to concerns of the rapid correction of the sodium level. In any rate, the patient is n.p.o. and the patient is going to undergo a bronchoscopy for tissue diagnosis with a high clinical suspicion for underlying malignancy/lung cancer. She remains on bronchodilators. She remains on 3 suboptimal nasal cannula with pulse ox of 94%. She remains on IV Solu-Medrol 40 g every 8 hours. No other new complaints otherwise for now. No altered mentation. No nausea no emesis no seizure activity. On 12/29/2023, the patient is post bronchoscopy. Doing well. No specific complaints. She is currently on room air oxygen. Pulse ox 93%. No hemoptysis. No chest pain. No altered mentation. The sodium levels at 130 with a potassium of 4.6 and creatinine 1.9. Rest of the electrolytes are normal. WBC is 11.4 with hemoglobin 14.8. Objective - Vital Signs Vital signs: Vital Signs Temp 98.7 F 12/29/23 07:47 Pulse 102 H 12/29/23 09:05 Resp 19 12/29/23 07:47 BP 151/81 12/29/23 07:47 Pulse Ox 97 12/29/23 08:46 FiO2 98 12/25/23 06:01 Intake & Output 12/28/23 12/29/23 12/29/23 18:59 06:59 18:59 Intake Total 690 120 Balance 690 120 Intake: IV 450 Oral 240 120 Other: Voiding Method Toilet Toilet Toilet # Voids 3 1 - Exam GENERAL EXAM: Alert, very pleasant 78-year-old female, sitting up in bed, on room air oxygen, fairly comfortable in no apparent distress. HEAD: Normocephalic. EYES: Normal reaction of pupils, equal size. NOSE: Clear with pink turbinates. THROAT: No erythema or exudates. NECK: No masses, no JVD. CHEST: No chest wall deformity. LUNGS: Equal air entry with inspiratory high pitch wheeze noted on the right. CVS: S1 and S2 normal with no audible murmur, regular rhythm. ABDOMEN: No hepatosplenomegaly, normal bowel sounds, no guarding or rigidity. SPINE: No scoliosis or deformity SKIN: No rashes CENTRAL NERVOUS SYSTEM: No focal deficits, tone is normal in all 4 extremities. EXTREMITIES: There is no peripheral edema. No clubbing, no cyanosis. Per ipheral pulses are intact. 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
--- NOTE | 2024-01-04 08:03 | CDI ---
Documentation Clarification Form Date: 01/04/2024 07:37:38 AM From: Cassie Liriano RN, CCDS Phone: [phone] Admit Date: 12/24/2023 05:25:00 AM Patient Name: Allyssa Elizabeth Visit Number: [id number] Discharge Date: 12/29/2023 05:03:00 PM ATTENTION: The Clinical Documentation Specialists (CDI) and [facility] Coding Staff appreciate your assistance in clarifying documentation. Please respond to the clarification below the line at the bottom and electronically sign. The CDI & [facility] Coding staff will review the response and follow-up if needed. Please note: Queries are made part of the Legal Health Record. If you have any questions, please contact the author of this message via ITS. Dr. Aga Molina Acute Hypoxic Respiratory Failure is documented in the 12/27 and 12/28 progress notes which may lack sufficient clinical evidence/support in the medical record. Additional clarification is requested. Patient history/risk factors: Former smoker. Presented with SOB, cough, nausea and vomiting. Found to have hyponatremia and a lung nodule. S/P bronchoscopy with endobronchial biopsy of the right mainstem lesion that was likely consistent with bronchogenic carcinoma. Clinical Indicators: ED: "No chest pain or difficulty breathing." 12/23 H&P: "Lungs: Respiratory rate increased, decreased breath sounds and expiratory wheezing." 12/23 pox 92-97% 12/27 RR 16-24 12/28 pox 93% 12/27 Pulmonary note: "Acute hypoxic respiratory failure. The patient is currently on 3 days of oxygen by nasal cannula." 12/28 Pulmonary note: "She is currently on room air oxygen. Pulse ox 93%. Acute hypoxic respiratory failure. The patient is currently on room air oxygen." Treatment: s/p bronchoscopy with lavage and biopsy; intermittent O2 with 2-3LNC; Duonebs QID scheduled 12/23-12/28 After work up and study, please clarify which diagnosis is most appropriate? [ ] Acute Hypoxic Respiratory Failure ruled out [ x ] Acute Hypoxic Respiratory Failure is a valid diagnosis as evidenced by the following:Hypoxia [ ] Respiratory Insufficiency [ ] Unable to determine [ ] Other, please specify MTDD
== END 2023-12-29 17:03 | disposition home or self-care (01) | DRG 166 ==
LOC: EC 00:15 → 5NMEDONC 05:25
PROVIDERS: ADMIT Hospitalist; ATTEND Hospitalist
PROC: 07B74ZX Excision of Thorax Lymphatic, Percutaneous Endoscopic Approach, Diagnostic (ICD-10-PCS; principal; 2023-12-24)
PROC: 0BBD8ZX Excision of Right Middle Lung Lobe, Via Natural or Artificial Opening Endoscopic, Diagnostic (ICD-10-PCS; 2023-12-24)
PROC: 0BB38ZX Excision of Right Main Bronchus, Via Natural or Artificial Opening Endoscopic, Diagnostic (ICD-10-PCS; 2023-12-24)
PROC: 0B938ZX Drainage of Right Main Bronchus, Via Natural or Artificial Opening Endoscopic, Diagnostic (ICD-10-PCS; 2023-12-24)
PROC: 0B9D8ZX Drainage of Right Middle Lung Lobe, Via Natural or Artificial Opening Endoscopic, Diagnostic (ICD-10-PCS; 2023-12-24)
DX: C34.01 Malignant neoplasm of right main bronchus (principal); J96.01 Acute respiratory failure with hypoxia; E22.2 Syndrome of inappropriate secretion of antidiuretic hormone; J90 Pleural effusion, not elsewhere classified; I10 Essential (primary) hypertension; E86.1 Hypovolemia; T38.0X5A Adverse effect of glucocorticoids and synthetic analogues, initial encounter; X58.XXXA Exposure to other specified factors, initial encounter; Z79.899 Other long term (current) drug therapy; Z87.891 Personal history of nicotine dependence; Z91.048 Other nonmedicinal substance allergy status
CPT/HCPCS: 31623; 31624; 31625; 31652; 36415; 70450; 71046; 71260; 80048; 80053; 81001; 83690; 83735; 83930; 83935; 84295; 84300; 84439; 84443; 85025; 87070; 87102; 87116; 87205; 87206; 87496; 87498; 87502; 87529; 87634; 87635; 87636; 87798; 88104; 88108; 88305; 88341; 88342; 94640; 94760; 96361; 96374; 96375; 96376; 99285

== ENCOUNTER → 2024-01-17 | Outpatient (CLI) | payer MEDICARE ==
--- NOTE | 2024-01-18 09:13 | PE ---
EXAMINATION TYPE: PET CT fusion skull to thigh DATE OF EXAM: 01/17/2024 CLINICAL INDICATION:Female, 78 years old with history of C34.11 MALIGNANT NEOPLASM OF UPPER LOBE, RIG HT BRO; TECHNIQUE: Following the intravenous administration of 9.6 mCi of F-18 FDG, whole body images are p erformed from the skull base to the midthigh. Images are reviewed on the computer in the coronal, ax ial, and sagittal planes. Reconstructed rotating images are created on independent workstation and r eviewed on the computer. A non-contrast CT is performed in conjunction with the PET scan. Glucose l evel 96 mg/dL CT DLP: 444 mGycm, Automated exposure control for dose reduction was used. COMPARISON: CT None, PET/CT None, 04/21/2019 FINDINGS: Mediastinal SUV mean is 1.6. Hepatic parenchyma SUV mean is 2.0. SKULL BASE AND NECK: Left neck lymph node max SUV 10.8 measuring 14 mm CHEST, MEDIASTINUM, AND HILAR REGION: Conglomerate FDG avid masslike area in the right lung base extending into the mediastinum with diffus e lymphadenopathy. Right perihilar mass next to the 15.0 measuring at least 8.7 x 5.9 cm on PET imaging. AP window lymph node max SUV 11.69 measuring 19 mm. Right paratracheal max SUV 14.8 measuring up to 24 mm. Left paratracheal max SUV 13.3 measuring 19 mm prevascular space Friend[place] III 13.2 and abdominal lymph nodes max SUV 13.2. Along the right pleura max SUV 20.5. ABDOMEN AND PELVIS: Lymph node near the jose r of the diaphragm max SUV 5.4 possibly under the diaphragm. MUSCULOSKELETAL STRUCTURES: Abnormal uptake within the rib head of left rib [address]: Atherosclerosis of the arterial vasculature. Diffuse mediastinal lymphadenopathy right pleu ral effusion with right consolidation changes and groundglass opacities. Emphysema changes. Mild card iomegaly. IMPRESSION: Right. Hilar conglomerate mass with suspected metastatic disease to the right pleura throughout the d escending and left neck with FDG avid enlarged lymph nodes. There is at least one suspicious bone fin ding and left rib 9 and head with abnormal uptake. Lymph node near the jose r of diaphragm also present possibly within the abdomen and pelvis. Findings are new from prior PET 04/21/2019.
== END | disposition home or self-care (01) ==
LOC: RADPETMAIN 09:59
PROVIDERS: ATTEND Internal Medicine Critical Care Medicine
DX: C34.11 Malignant neoplasm of upper lobe, right bronchus or lung (principal); R22.1 Localized swelling, mass and lump, neck
CPT/HCPCS: 78815; A9552

== ENCOUNTER → 2024-01-20 | Outpatient (CLI) | payer MEDICARE ==
--- NOTE | 2024-01-20 14:00 | MR ---
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 Multiplanar and multispin-echo imaging of the brain was performed . Pre and post contrast enhanced i mages are obtained. The ventricles, basal cisterns and sulci overlying the cerebral convexities are mildly enlarged. There is evidence of mild periventricular white matter ischemic demyelination. Remote deep white matter insults are also noted. No acute edema is seen on diffusion weighted imaging. There is no evidence for midline shift or mass effect. Acute intracranial hemorrhage or extra-axial collection is not evident. No enhancing lesions are seen. The paranasal sinuses and mastoid air cells are well-aerated. IMPRESSION: Age-related atrophic and chronic small vessel ischemic change. No acute intracranial process at this time. No enhancing lesions are seen.
== END | disposition home or self-care (01) ==
LOC: RADMRIMAIN 12:40
PROVIDERS: ATTEND Internal Medicine Hematology & Oncology
DX: G31.1 Senile degeneration of brain, not elsewhere classified (principal); I67.82 Cerebral ischemia; C34.91 Malignant neoplasm of unspecified part of right bronchus or lung; C50.411 Malignant neoplasm of upper-outer quadrant of right female breast; M81.0 Age-related osteoporosis without current pathological fracture; E78.5 Hyperlipidemia, unspecified; Z71.3 Dietary counseling and surveillance
CPT/HCPCS: 70553; A9585

== ENCOUNTER 2024-01-23 16:39 | Inpatient (IN) | payer MEDICARE ==
--- NOTE | 2024-01-23 17:24 | ED ---
General Adult HPI - General Chief complaint: Shortness of Breath Stated complaint: Low O2 Time Seen by Provider: 01/23/24 16:51 Source: patient, RN notes reviewed, old records reviewed Mode of arrival: ambulatory Limitations: no limitations - History of Present Illness Initial comments: 78-year-old female presenting with chief complaint of dyspnea and dry cough. Patient has recent diagnosis of lung cancer and is scheduled to start chemotherapy tomorrow. She has had 4 days of increased dyspnea. She denies lower extremity pain or swelling. Denies central chest pain. No fever. Cough is dry, nonproductive. - Related Data Home Medications Medication Instructions Recorded Confirmed Inulin/Chromium Picolinate [Fiber 1 tab PO DAILY 12/24/23 01/23/24 Gummies Chew] Multivitamin [Multivitamins Adult 1 tab PO DAILY 12/24/23 01/23/24 Gummies] ALPRAZolam [Xanax] 0.5 mg PO TID PRN 01/23/24 01/23/24 Benzonatate [Tessalon Perles] 100 mg PO BID PRN 01/23/24 01/23/24 Budesonide/Glycopyr/Formoterol 1 puff INHALATION RT-DAILY 01/23/24 01/23/24 [Breztri Aerosphere Inhaler] Cyclobenzaprine [Flexeril] 10 mg PO TID PRN 01/23/24 01/23/24 Guaifenesin/Dextromethorphan 10 ml PO Q4H MDD 6 DOSES 01/23/24 01/23/24 [Robitussin Honey Max Dm Liquid] HYDROcodone/APAP 5-325MG [Tennga 1 tab PO Q6H PRN 01/23/24 01/23/24 5-325] Ondansetron [Zofran] 4 - 8 mg PO Q4H PRN MDD 8 TABS 01/23/24 01/23/24 Promethazine/Dextromethorphan 5 ml PO Q4H 01/23/24 01/23/24 [Promethazine-Dm Syrup] busPIRone HCl [Buspar] 5 mg PO BID PRN 01/23/24 01/23/24 Previous Rx's Medication Instructions Recorded Melatonin 3 mg PO HS PRN #10 tab 12/29/23 Allergies Allergy/AdvReac Type Severity Reaction Status Date / Time No Known Allergies Allergy Verified 01/23/24 18:41 Review of Systems ROS Statement: Those systems with pertinent positive or pertinent negative responses have been documented in the HPI. ROS Other: All systems not noted in ROS Statement are negative. Past Medical History Past Medical History: Cancer Additional Past Medical History / Comment(s): Lung CA. History of Any Multi-Drug Resistant Organisms: None Reported Additional Past Surgical History / Comment(s): lumbectomy right breats Aug 2013 Past Psychological History: No Psychological Hx Reported Smoking Status: Former smoker Past Alcohol Use History: None Reported Past Drug Use History: None Reported General Exam Limitations: no limitations General appearance: alert, in no apparent distress Head exam: Present: atraumatic, normocephalic Eye exam: Present: normal appearance, PERRL ENT exam: Present: normal exam Neck exam: Present: normal inspection. Absent: tenderness, meningismus Respiratory exam: Present: respiratory distress, wheezes, decreased breath sounds Cardiovascular Exam: Present: normal rhythm, tachycardia GI/Abdominal exam: Present: soft. Absent: distended, tenderness, guarding Extremities exam: Present: normal inspection, normal capillary refill. Absent: pedal edema, calf tenderness Neurological exam: Present: alert, oriented X3, CN II-XII intact. Absent: motor sensory deficit Psychiatric exam: Present: normal affect, normal mood Skin exam: Present: warm, dry, intact Course Vital Signs 01/23/24 01/23/24 01/23/24 16:43 17:03 17:15 Temperature 98.2 F 98.9 F Pulse Rate 125 H 117 H Respiratory 24 20 24 Rate Blood Pressure 109/77 154/64 O2 Sat by Pulse 94 L 95 Oximetry 01/23/24 01/23/24 18:42 18:57 Temperature Pulse Rate 117 H 115 H Respiratory 20 24 Rate Blood Pressure O2 Sat by Pulse Oximetry Medical Decision Making - Medical Decision Making Was pt. sent in by a medical professional or institution (, PA, PRODUCTION SUPERINTENDENT, urgent care, hospital, or fpc...) When possible be specific @ -No Did you speak to anyone other than the patient for history (EMS, parent, family, police, friend...)? What history was obtained from this source @ -No Did you review nursing and triage notes (agree or disagree)? Why? @ -I reviewed and agree with nursing and triage notes Were old charts reviewed (outside hosp., previous admission, EMS record, old EKG, old radiological studies, urgent care reports/EKG's, fpc records)? Report findings @ -No old charts were reviewed Differential Dyspnea: Coronary syndrome, arrhythmia, tamponade, asthma, COPD, pulmonary embolism, pneumonia, pneumothorax, pulmonary effusion, anaphylaxis, diabetic ketoacidosis, flailed chest, pulmonary contusion, diaphragmatic rupture, anemia, neuromuscular, this is not meant to be an all-inclusive list. EKG interpreted by me (3pts min.). @ -[Sinus tachycardia with occasional PVC rate of 120, GA interval 152, QRS duration 83, QTc [address] segment elevation. X-rays interpreted by me (1pt min.). @ -None done CT interpreted by me (1pt min.). @CT showing large pleural effusion and pulmonary mass U/S interpreted by me (1pt. min.). @ -None done What testing was considered but not performed or refused? (CT, X-rays, U/S, labs)? Why? @ -None What meds were considered but not given or refused? Why? @ -None Did you discuss the management of the patient with other professionals (professionals i.e. , PA, PRODUCTION SUPERINTENDENT, lab, RT, psych nurse, high school social science teacher, gasfitter, teacher, mechanical engineering officer, correctional counselor/case manager)? Give summary @ -EMH Was smoking cessation discussed for >3mins.? @ -No Was critical care preformed (if so, how long)? @ -No Were there social determinants of health that impacted care today? How? (Homelessness, low income, unemployed, alcoholism, drug addiction, transportation, low edu. Level, literacy, decrease access to med. care, fpc, rehab)? @ -No Was there de-escalation of care discussed even if they declined (Discuss DNR or withdrawal of care, Hospice)? DNR status @ -No What co-morbidities impacted this encounter? (DM, HTN, Smoking, COPD, CAD, C ancer, CVA, ARF, Chemo, Hep., AIDS, mental health diagnosis, sleep apnea, morbid obesity)? @Lung CA Was patient admitted / discharged? Hospital course, mention meds given and route, prescriptions, significant lab abnormalities, going to OR and other pertinent info. @ -78-year-old female presenting with diagnosis of lung cancer scheduled to start chemotherapy tomorrow presenting with increasing dyspnea and cough. Patient is tachycardic and hypoxic requiring supplemental oxygen. She has normal CBC, normal electrolytes. She has a positive D-dimer CT angiography is performed which is negative for pulmonary embolism but shows pleural effusion and pulmonary mass. Patient will be admitted with consults to both pulmonology and oncology. Undiagnosed new problem with uncertain prognosis? @ -No Drug Therapy requiring intensive monitoring for toxicity (Heparin, Nitro, Insulin, Cardizem)? @ -No Were any procedures done? @ -No Diagnosis/symptom? @ -[Lung cancer, large pleural effusion Acute, or Chronic, or Acute on Chronic? @ -Acute Uncomplicated (without systemic symptoms) or Complicated (systemic symptoms)? @ -Default Side effects of treatment? @ -No Exacerbation, Progression, or Severe Exacerbation? @ -No Poses a threat to life or bodily function? How? (Chest pain, USA, GA, pneumonia, PE, COPD, DKA, ARF, appy, cholecystitis, CVA, Diverticulitis, Homicidal, Suicidal, threat to staff... and all critical care pts) @Yes, respiratory failure - Lab Data Result diagrams: 01/23/24 17:37 01/23/24 17:37 Lab Results 01/23/24 01/23/24 01/23/24 Range/Units 17:37 17:37 17:37 WBC 6.9 (3.8-10.6) k/uL RBC 4.45 (3.80-5.40) m/uL Hgb 14.2 (11.4-16.0) gm/dL Hct 42.4 (34.0-46.0) % MCV 95.2 (80.0-100.0) fL MCH 31.9 (25.0-35.0) pg MCHC 33.5 (31.0-37.0) g/dL RDW 13.2 (11.5-15.5) % Plt Count 306 (150-450) k/uL MPV 7.8 Neutrophils % 78 % Lymphocytes % 14 % Monocytes % 6 % Eosinophils % 1 % Basophils % 1 % Neutrophils # 5.4 (1.3-7.7) k/uL Lymphocytes # 1.0 (1.0-4.8) k/uL Monocytes # 0.4 (0-1.0) k/uL Eosinophils # 0.1 (0-0.7) k/uL Basophils # 0.0 (0-0.2) k/uL PT 10.2 (10.0-12.5) sec INR 0.9 (<1.2) APTT 27.3 (22.0-30.0) sec D-Dimer 2.20 H (<0.60) mg/L FEU Sodium 134 L (137-145) mmol/L Potassium 5.0 (3.5-5.1) mmol/L Chloride 102 (98-107) mmol/L Carbon Dioxide 28 (22-30) mmol/L Anion Gap 4 mmol/L BUN 15 (7-17) mg/dL Creatinine 0.66 (0.52-1.04) mg/dL Est GFR (CKD-EPI)AfAm >90 (>60 ml/min/1.73 sqM) Est GFR (CKD-EPI)NonAf 86 (>60 ml/min/1.73 sqM) Glucose 137 H (74-99) mg/dL Plasma Lactic Acid Rafael (0.7-2.0) mmol/L Calcium 9.1 (8.4-10.2) mg/dL Magnesium 2.0 (1.6-2.3) mg/dL Total Bilirubin 1.1 (0.2-1.3) mg/dL AST 39 H (14-36) U/L ALT 12 (4-34) U/L Alkaline Phosphatase 66 (38-126) U/L Troponin I (0.000-0.034) ng/mL NT-Pro-B Natriuret Pep 271 pg/mL Total Protein 6.1 L (6.3-8.2) g/dL Albumin 3.6 (3.5-5.0) g/dL 01/23/24 01/23/24 Range/Units 17:37 17:37 WBC (3.8-10.6) k/uL RBC (3.80-5.40) m/uL Hgb (11.4-16.0) gm/dL Hct (34.0-46.0) % MCV (80.0-100.0) fL MCH (25.0-35.0) pg MCHC (31.0-37.0) g/dL RDW (11.5-15.5) % Plt Count (150-450) k/uL MPV Neutrophils % % Lymphocytes % % Monocytes % % Eosinophils % % Basophils % % Neutrophils # (1.3-7.7) k/uL Lymphocytes # (1.0-4.8) k/uL Monocytes # (0-1.0) k/uL Eosinophils # (0-0.7) k/uL Basophils # (0-0.2) k/uL PT (10.0-12.5) sec INR (<1.2) APTT (22.0-30.0) sec D-Dimer (<0.60) mg/L FEU Sodium (137-145) mmol/L Potassium (3.5-5.1) mmol/L Chloride (98-107) mmol/L Carbon Dioxide (22-30) mmol/L Anion Gap mmol/L BUN (7-17) mg/dL Creatinine (0.52-1.04) mg/dL Est GFR (CKD-EPI)AfAm (>60 ml/min/1.73 sqM) Est GFR (CKD-EPI)NonAf (>60 ml/min/1.73 sqM) Glucose (74-99) mg/dL Plasma Lactic Acid Rafael 1.9 (0.7-2.0) mmol/L Calcium (8.4-10.2) mg/dL Magnesium (1.6-2.3) mg/dL Total Bilirubin (0.2-1.3) mg/dL AST (14-36) U/L ALT (4-34) U/L Alkaline Phosphatase (38-126) U/L Troponin I <0.012 (0.000-0.034) ng/mL NT-Pro-B Natriuret Pep pg/mL Total Protein (6.3-8.2) g/dL Albumin (3.5-5.0) g/dL Disposition Clinical Impression: Lung cancer, Pleural effusion Disposition: ADMITTED IP TO THIS HOSP Condition: Stable Is patient prescribed a controlled substance at d/c from ED?: No Referrals: Nicholas Jaeger MD [REFERRING] - 1-2 days Time of Disposition: 20:28
[2024-01-23 17:48] LABS: Basophils % (A) 1 %; Eosinophils # (A) 0.1 k/uL (0-0.7); Eosinophils % (A) 1 %; HCT 42.4 % (34.0-46.0); HGB 14.2 gm/dL (11.4-16.0); Lymphocytes % (A) 14 %; MCH 31.9 pg (25.0-35.0); MCHC 33.5 g/dL (31.0-37.0); MCV 95.2 fL (80.0-100.0); Mean Platelet Volume 7.8; Monocytes # (A) 0.4 k/uL (0-1.0); Monocytes % (A) 6 %; Neutrophils # (A) 5.4 k/uL (1.3-7.7); Neutrophils % (A) 78 %; Platelet Count 306 k/uL (150-450); RBC 4.45 m/uL (3.80-5.40); RDW 13.2 % (11.5-15.5); WBC 6.9 k/uL (3.8-10.6)
[2024-01-23 18:01] LABS: ALT 12 U/L (4-34); African American GFR (CKD) >90 (>60 ml/min/1.73 sqM); Albumin 3.6 g/dL (3.5-5.0); Anion Gap 4 mmol/L; Blood Urea Nitrogen 15 mg/dL (7-17); Calcium 9.1 mg/dL (8.4-10.2); Carbon Dioxide 28 mmol/L (22-30); Chloride 102 mmol/L (98-107); Glucose 137 mg/dL (74-99); Non-African American GFR(CKD) 86 (>60 ml/min/1.73 sqM); Sodium 134 mmol/L (137-145); Total Bilirubin 1.1 mg/dL (0.2-1.3); Total Protein 6.1 g/dL (6.3-8.2)
[2024-01-23 18:02] LABS: AST 39 U/L (14-36); Alkaline Phosphatase 66 U/L (38-126)
[2024-01-23 18:09] LABS: INR 0.9 (<1.2); Partial Thromboplastin Time 27.3 sec (22.0-30.0); Prothrombin Time 10.2 sec (10.0-12.5)
[2024-01-23 18:10] LABS: NT-Pro-B-Type Natriuretic Pept 271 pg/mL
[2024-01-23] MEDS: MORPHINE SULFATE 2 MG/ML SYRINGE IVP STA (18:29)
[2024-01-23] MEDS: IPRATROPIUM-ALBUTEROL 3 ML NEB INHALATION STA (18:42)
--- NOTE | 2024-01-23 19:38 | CT ---
EXAMINATION TYPE: CT angio chest CT DLP: 479.9 mGycm, Automated exposure control for dose reduction was used. DATE OF EXAM: 01/23/2024 7:19 PM COMPARISON: 01/17/2024 PET/CT CLINICAL INDICATION:Female, 78 years old with history of DEVONTE/Cancer; devonte/lung ca TECHNIQUE/CONTRAST: CTA scan of the thorax is performed with IV Contrast, patient injected with 80ml mL of Isovue 370, IN P images are created and reviewed these are created on a separate workstation.. FINDINGS: Pulmonary Artery: There is no evidence for a filling defect within the pulmonary vasculature to sugge st acute pulmonary embolism. The pulmonary artery is of normal size. Lungs/Pleura: Enlarging right right pleural effusion with airspace opacities throughout the right laurel g. Right perihilar conglomerate mass as seen on prior PET/CT which narrows the airways. Airway: Narrowing of the right lower lobe airways due to right hilar conglomerate mass. Moderate cent rilobular emphysema. Heart: Heart is within normal limits for size. Vasculature: No evidence of aortic aneurysm. Mediastinum: Lymphadenopathy throughout the mediastinum as seen on 01/17/2024 Compatible with known malignancy.. Musculoskeletal: No acute osseous abnormalities Soft Tissues/lymph nodes: Unremarkable. Lower neck: No significant findings. Upper Abdomen: No significant findings. IMPRESSION: 1. No evidence of pulmonary embolism. 2. Enlarging right pleural effusion with airspace opacities correlate for superimposed pneumonia. 3. Right hilar conglomerate lymphadenopathy with mediastinal lymphadenopathy compatible with known ma lignancy. There is narrowing of the right lower lobe airways as seen on prior.
[2024-01-23] MEDS ORDERED: NALOXONE 0.4 MG/ML 1 ML VIAL IV PRN (20:22)
[2024-01-23] MEDS ORDERED: ONDANSETRON 4 MG/2 ML VIAL IVP PRN (20:22)
[2024-01-23] MEDS ORDERED: IPRATROPIUM-ALBUTEROL 3 ML NEB INHALATION PRN (20:24)
[2024-01-23] MEDS: MORPHINE SULFATE 4 MG/ML SYRINGE IV PRN (22:33)
[2024-01-24] MEDS: IPRATROPIUM-ALBUTEROL 3 ML NEB INHALATION SCH (08:21)
--- NOTE | 2024-01-24 09:09 | US ---
EXAMINATION TYPE: US chest DATE OF EXAM: 01/24/2024 COMPARISON: CT 02/22/2024 CLINICAL INDICATION: Female, 78 years old with history of Right pleural effusion; TECHNIQUE: Targeted ultrasound of the posterior lower bilateral hemithoraces EXAM MEASUREMENTS: Right Pleural Effusion pocket size: 1.6 / 5.1 cm Right skin surface to fluid distance: 2.6 lung at 3.8 cm Left Pleural Effusion pocket size: 0 cm Left skin surface to fluid distance: 0 cm Right side marked for possible thoracentesis outside the dept; lung / loculations interfere with pock et size. Pulmonologists are able to review the images in the patient?s EMR. IMPRESSIONS: 1. Right pleural effusion
[2024-01-24] MEDS ORDERED: busPIRone HCl 5 MG TAB PO PRN (12:16)
[2024-01-24] MEDS ORDERED: CYCLOBENZAPRINE 10 MG TAB PO PRN (12:16)
[2024-01-24] MEDS ORDERED: BENZONATATE 100 MG CAP PO PRN (12:16)
--- NOTE | 2024-01-24 12:36 | P.HPIM ---
History of Present Illness 78-year-old female came in with complaints of shortness of breath at the hypoxemia dry cough found to have moderate to large pleural effusion on the right side. Patient was recently diagnosed with lung cancer on 29 December supposed to receive chemotherapy today. Patient denies any fever chills nausea vomiting. Patient CT did show infiltrate suspicious for pneumonia as well although patient does not have any leukocytosis obtaining procalcitonin level patient is presently not on any antibiotics. 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 REVIEW OF SYSTEMS: CONSTITUTIONAL: No fever, no malaise, no fatigue. HEENT: No recent visual problems or hearing problems. Denied any sore throat. CARDIOVASCULAR: No chest pain, orthopnea, PND, no palpitations, no syncope. PULMONARY: no hemoptysis. GASTROINTESTINAL: No diarrhea, no nausea, no vomiting, no abdominal pain. NEUROLOGICAL: No headaches, no weakness, no numbness. HEMATOLOGICAL: Denies any bleeding or petechiae. GENITOURINARY: Denies any burning micturition, frequency, or urgency. MUSCULOSKELETAL/RHEUMATOLOGICAL: Denies any joint pain, swelling, or any muscle pain. ENDOCRINE: Denies any polyuria or polydipsia. The rest of the 14-point review of systems is negative. PHYSICAL EXAMINATION: GENERAL: The patient is alert and oriented x3, not in any acute distress. Well developed, well nourished. HEENT: Pupils are round and equally reacting to light. EOMI. No scleral icterus. No conjunctival pallor. Normocephalic, atraumatic. No pharyngeal erythema. No thyromegaly. CARDIOVASCULAR: S1 and S2 present. No murmurs, rubs, or gallops. PULMONARY: Chest is clear to auscultation, no wheezing or crackles. Breath sounds in bilateral lung mejias significantly decreased on the right side posteriorly ABDOMEN: Soft, nontender, nondistended, normoactive bowel sounds. No palpable organomegaly. MUSCULOSKELETAL: No joint swelling or deformity. EXTREMITIES: No cyanosis, clubbing, or pedal edema. NEUROLOGICAL: Gross neurological examination did not reveal any focal deficits. SKIN: No rashes. Assessment and plan -Large pleural effusion on the right side probably due to lung cancer which was diagnosed recently, patient will need paracentesis because of hypoxic respiratory failure. Pulmonary will evaluate the patient. Recently diagnosed with lung cancer oncology will evaluate the patient -Acute hypoxic respiratory failure secondary to assessment #1 -Rule out pneumonia will obtain a procalcitonin level DVT prophylaxis: Lovenox Past Medical History Past Medical History: Cancer Additional Past Medical History / Comment(s): Lung CA. History of Any Multi-Drug Resistant Organisms: None Reported Additional Past Surgical History / Comment(s): lumpectomy right breats Aug 2013 Past Anesthesia/Blood Transfusion Reactions: No Reported Reaction Past Psychological History: No Psychological Hx Reported Smoking Status: Former smoker Past Alcohol Use History: None Reported Past Drug Use History: None Reported Medications and Allergies Home Medications Medication Instructions Recorded Confirmed Type Inulin/Chromium Picolinate [Fiber 1 tab PO DAILY 12/24/23 01/23/24 History Gummies Chew] Multivitamin [Multivitamins Adult 1 tab PO DAILY 12/24/23 01/23/24 History Gummies] Melatonin 3 mg PO HS PRN #10 tab 12/29/23 01/23/24 Rx ALPRAZolam [Xanax] 0.5 mg PO TID PRN 01/23/24 01/23/24 History Benzonatate [Tessalon Perles] 100 mg PO BID PRN 01/23/24 01/23/24 History Budesonide/Glycopyr/Formoterol 1 puff INHALATION RT-DAILY 01/23/24 01/23/24 History [Breztri Aerosphere Inhaler] Cyclobenzaprine [Flexeril] 10 mg PO TID PRN 01/23/24 01/23/24 History Guaifenesin/Dextromethorphan 10 ml PO Q4H MDD 6 DOSES 01/23/24 01/23/24 History [Robitussin Honey Max Dm Liquid] HYDROcodone/APAP 5-325MG [Delmita 1 tab PO Q6H PRN 01/23/24 01/23/24 History 5-325] Ondansetron [Zofran] 4 - 8 mg PO Q4H PRN MDD 8 TABS 01/23/24 01/23/24 History Promethazine/Dextromethorphan 5 ml PO Q4H 01/23/24 01/23/24 History [Promethazine-Dm Syrup] busPIRone HCl [Buspar] 5 mg PO BID PRN 01/23/24 01/23/24 History Allergies Allergy/AdvReac Type Severity Reaction Status Date / Time No Known Allergies Allergy Verified 01/23/24 18:41 Physical Exam Vitals: Vital Signs Temp Pulse Pulse Resp BP BP Pulse Ox 01/24/24 10:52 99.1 F 104 H 18 105/68 95 01/24/24 09:05 105 H 20 116/57 96 01/24/24 08:24 102 H 94 L 01/24/24 06:00 92 18 116/66 97 01/24/24 04:23 92 16 117/61 97 01/24/24 02:00 92 18 114/66 97 01/24/24 00:00 97 18 109/59 97 01/23/24 22:00 100 20 175/92 97 01/23/24 20:15 116 H 20 140/81 95 01/23/24 18:57 115 H 24 01/23/24 18:42 117 H 20 01/23/24 17:15 98.9 F 117 H 24 154/64 95 01/23/24 17:03 20 01/23/24 16:43 98.2 F 125 H 24 109/77 94 L Intake and Output 01/23/24 01/24/24 01/24/24 22:59 06:59 14:59 Other: Weight 65.317 kg 65.317 kg Results CBC & Chem 7: 01/23/24 17:37 01/23/24 17:37 Labs: Abnormal Lab Results - Last 24 Hours (Table) 01/23/24 01/23/24 Range/Units 17:37 17:37 D-Dimer 2.20 H (<0.60) mg/L FEU Sodium 134 L (137-145) mmol/L Glucose 137 H (74-99) mg/dL AST 39 H (14-36) U/L Total Protein 6.1 L (6.3-8.2) g/dL Thrombosis Risk Factor Assmnt - Choose All That Apply Any of the Below Risk Factors Present?: No Each Risk Factor Represents 2 Points: Age 61-74 years Each Risk Factor Represents 3 Points: Age 75 years or older Other congenital or acquired thrombophilia - If yes, enter type in comment: No Thrombosis Risk Factor Assessment Total Risk Factor Score: 5 Thrombosis Risk Factor Assessment Level: High Risk
--- NOTE | 2024-01-24 13:29 | P.CNPUL ---
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 MRI of the brain did not reveal any enhancing lesions. She had not yet began any treatment for her cancer. She presented here to the emergency room yesterday with complaints of significant fatigue, weakness, shortness of breath, cough and congestion. CT angiogram ruled out pulmonary embolism. There is an enlarging right pleural effusion with airspace opacities and possible superimposed pneumonia. A right hilar conglomerate lymphadenopathy and mediastinal lymphadenopathy compatible with known malignancy. There is narrowing of the right lower lobe airways. White count 6.9. Hemoglobin 14.2. Platelets 306. D-dimer 2.20. Sodium 134. Potassium 5.0. Bicarb 28. BUN 15. Creatinine 0.66. Glucose 137. AST 39. ALT 12. proBNP 271. Troponin negative x 1. She has been initiated on DuoNeb inhalations, Symbicort, Tessalon Perles. She is seen today in consultation in the emergency department. She is currently sitting up in bed. Awake and alert in no acute distress. She is maintaining good O2 saturation in the mid 90s on 2 L/min per nasal cannula. She is afebrile. Hemodynamically stable. Feeling a bit better today compared to yesterday. Review of Systems REVIEW OF SYSTEMS: CONSTITUTIONAL: Positive for generalized weakness, fatigue. Denies any recent significant weight loss or weight gain. EYES: Denies change in vision. EARS, NOSE, MOUTH, THROAT: Denies headaches, denies sore throat. CARDIOVASCULAR: Denies chest pain, palpitations or syncopal episodes. RESPIRATORY: Positive for shortness of breath, cough, congestion no hemoptysis. GASTROINTESTINAL: Denies change in appetite, denies abdominal pain GENITOURINARY: Denies hematuria, denies infections. MUSKULOSKELETAL: Denies pain, denies swelling. INTEGUMENTARY: Denies rash, denies eczema. NEUROLOGICAL: Denies recent memory loss, no recent seizure activity. PSYCHIATRIC: Denies anxiety, denies depression. HEMATOLOGIC/LYMPHATIC: Denies anemia, denies enlarged lymph nodes. Past Medical History Past Medical History: Cancer Additional Past Medical History / Comment(s): Lung CA. History of Any Multi-Drug Resistant Organisms: None Reported Additional Past Surgical History / Comment(s): lumpectomy right breats Aug 2013 Past Anesthesia/Blood Transfusion Reactions: No Reported Reaction Past Psychological History: No Psychological Hx Reported Smoking Status: Former smoker Past Alcohol Use History: None Reported Past Drug Use History: None Reported Medications and Allergies Home Medications Medication Instructions Recorded Confirmed Type Inulin/Chromium Picolinate [Fiber 1 tab PO DAILY 12/24/23 01/23/24 History Gummies Chew] Multivitamin [Multivitamins Adult 1 tab PO DAILY 12/24/23 01/23/24 History Gummies] Melatonin 3 mg PO HS PRN #10 tab 12/29/23 01/23/24 Rx ALPRAZolam [Xanax] 0.5 mg PO TID PRN 01/23/24 01/23/24 History Benzonatate [Tessalon Perles] 100 mg PO BID PRN 01/23/24 01/23/24 History Budesonide/Glycopyr/Formoterol 1 puff INHALATION RT-DAILY 01/23/24 01/23/24 History [Breztri Aerosphere Inhaler] Cyclobenzaprine [Flexeril] 10 mg PO TID PRN 01/23/24 01/23/24 History Guaifenesin/Dextromethorphan 10 ml PO Q4H MDD 6 DOSES 01/23/24 01/23/24 History [Robitussin Honey Max Dm Liquid] HYDROcodone/APAP 5-325MG [[place] 1 tab PO Q6H PRN 01/23/24 01/23/24 History 5-325] Ondansetron [Zofran] 4 - 8 mg PO Q4H PRN MDD 8 TABS 01/23/24 01/23/24 History Promethazine/Dextromethorphan 5 ml PO Q4H 01/23/24 01/23/24 History [Promethazine-Dm Syrup] busPIRone HCl [Buspar] 5 mg PO BID PRN 01/23/24 01/23/24 History Allergies Allergy/AdvReac Type Severity Reaction Status Date / Time No Known Allergies Allergy Verified 01/23/24 18:41 Physical Exam Vitals: Vital Signs Temp Pulse Pulse Resp BP BP Pulse Ox 01/24/24 13:00 98.1 F 94 17 121/71 95 01/24/24 12:47 100 01/24/24 12:36 100 01/24/24 10:52 99.1 F 104 H 18 105/68 95 01/24/24 09:05 105 H 20 116/57 96 01/24/24 08:24 102 H 94 L 01/24/24 06:00 92 18 116/66 97 01/24/24 04:23 92 16 117/61 97 01/24/24 02:00 92 18 114/66 97 01/24/24 00:00 97 18 109/59 97 01/23/24 22:00 100 20 175/92 97 01/23/24 20:15 116 H 20 140/81 95 01/23/24 18:57 115 H 24 01/23/24 18:42 117 H 20 01/23/24 17:15 98.9 F 117 H 24 154/64 95 01/23/24 17:03 20 01/23/24 16:43 98.2 F 125 H 24 109/77 94 L Intake and Output 01/23/24 01/24/24 01/24/24 22:59 06:59 14:59 Other: Weight 65.317 kg 65.317 kg GENERAL EXAM: Alert, 78-year-old female, on 2 L nasal cannula, fairly comfortable in no apparent distress. HEAD: Normocephalic. EYES: Normal reaction of pupils, equal size. NOSE: Clear with pink turbinates. THROAT: No erythema or exudates. NECK: No masses, no JVD. CHEST: No chest wall deformity. LUNGS: Equal air entry with bilateral scattered rhonchi. Diminished in the right lung base. CVS: S1 and S2 normal with no audible murmur, regular rhythm. ABDOMEN: No hepatosplenomegaly, normal bowel sounds, no guarding or rigidity. SPINE: No scoliosis or deformity SKIN: No rashes CENTRAL NERVOUS SYSTEM: No focal deficits, tone is normal in all 4 extremities. EXTREMITIES: There is no peripheral edema. No clubbing, no cyanosis. Peripheral pulses are intact. Results - Laboratory Findings CBC and BMP: 01/23/24 17:37 01/23/24 17:37 PT/INR, D-dimer PT 10.2 sec (10.0-12.5) 01/23/24 17:37 INR 0.9 (<1.2) 01/23/24 17:37 D-Dimer 2.20 mg/L FEU (<0.60) H 01/23/24 17:37 Abnormal lab findings: Abnormal Labs 01/23/24 01/23/24 17:37 17:37 D-Dimer 2.20 H Sodium 134 L Glucose 137 H AST 39 H Total Protein 6.1 L - Diagnostic Findings Chest x-ray: image reviewed CT scan - chest: image reviewed Assessment and Plan Assessment: Acute hypoxic respiratory failure secondary to advanced metastatic small cell lung cancer diagnosed in December 2023. Treatment was to begin this week. CT angiogram ruled out pulmonary embolism. There is an enlarging right pleural effusion with airspace opacities and possible superimposed pneumonia. Right hilar conglomerate lymphadenopathy with mediastinal lymphadenopathy compatible with known malignancy. There is narrowing of the right lower lobe airways. PET scan from 01/18/2024 revealed a right hilar conglomerate mass with suspected metastatic disease to the right pleura throughout the descending and left neck with FDG avid enlarged lymph nodes. There is at least 1 suspicious bone finding and left rib 9 and head with abnormal uptake. Lymph node near the jose r of diaphragm also present possibly within the abdomen and pelvis. History of chronic tobacco dependence Chronic obstructive pulmonary disease History of breast cancer status post right lumpectomy and 2013 Anxiety Plan: The patient was seen and evaluated Chest x-ray, CT angiogram, labs and medications reviewed Will obtain a ultrasound of the right chest Will plan for thoracentesis if there is free-flowing fluid Continue bronchodilators Titrate the FiO2 as tolerated We will continue to follow and make further recommendations based on her clinical status I have personally seen and examined the patient, performed the documentation and the assessment and plan as written. Number of minutes spent on the visit: 20.
[2024-01-24] MEDS: SYMBICORT 160-4.5 MCG INHALER INHALATION SCH (19:48)
[2024-01-25] MEDS: HYDROcodone/APAP 5-325MG 1 EACH TAB PO PRN (05:04)
--- NOTE | 2024-01-25 07:05 | P.CONS ---
History of Present Illness - Reason for Consult Consult date: 01/24/24 lung cancer Requesting physician: Nicholas Hernandez - Chief Complaint SOB - History of Present Illness This is a very nice lady who was diagnosed with right breast cancer in during routine screening mammographies.In ,she had right breast partial mastectomy and sentinel nodes biopsy,pathology revealed grade I,invasive ductal carcinoma,0.8cm,negative sentinel nodes,ER/[place] strongly positive,HER2/AGAPITO negative,oncotypeDx was done which revealed low recurrence score of 12,she completed adjuvant radiation therapy in ,she was started on tamoxifen in , by Dr Marky Morocho at [facility]. On 05/25/2015,she was switched to femara and she stopped it in December/2018. She developed cough in around ,became progressively worse,went to [facility] in December/2023,CT chest on 12/24/2023 showed a very large right hilar mass,about 7.7x8.5c5.4 cm,extensive mediastinal nodes up to 4.7 cm,compression deformity at T11-L1. CT brain on 12/25/2023 was negative for mets On 12/28/2023,bronchoscopy and biopsy of right main stem bronchus was positive small cell lung carcinoma.PET/CT on 01/18/2024 revealed right hilar conglomerate mass with suspected metastatic disease to the right pleura throughout the descending and left neck with FDG avid enlarged lymph nodes. At least 1 suspicious bone finding in left rib 9 and head with abnormal uptake. Lymph node near the jose r of diaphragm also present possibly within the abdomen pelvis. MRI brain was negative for metastatic disease. Recommended systemic therapy with carbo/EDUCATION PARAPROFESSIONAL-16 and tecentriq. She was scheduled to begin treatment on 01/24/2024 Patient presented to the emergency room with complaints of worsening shortness of breath and cough. She also reporting left-sided chest wall pain with reproducible pain. On admission D-dimer was elevated at 2.2 and subsequently had CTA chest which was negative for pulmonary embolism. Enlarging right pleural effusion with airspace opacities. Right hilar conglomerate lymphadenopathy with mediastinal lymphadenopathy narrowing of the right lower lobe airways as seen previously. Pulmonology consulted and patient had chest US this morning, results pending. Troponin negative. BNP 271. WBC 6.9, hemoglobin 14.2, platelets 306,000. Afebrile, SpO2 94% on 1 L. Review of Systems 10 point ROS is negative except as stated in the HPI Past Medical History Past Medical History: Cancer Additional Past Medical History / Comment(s): Lung CA. History of Any Multi-Drug Resistant Organisms: None Reported Additional Past Surgical History / Comment(s): lumpectomy right breats Aug 2013 Past Anesthesia/Blood Transfusion Reactions: No Reported Reaction Past Psychological History: No Psychological Hx Reported Smoking Status: Former smoker Past Alcohol Use History: None Reported Past Drug Use History: None Reported Medications and Allergies Home Medications Medication Instructions Recorded Confirmed Type Inulin/Chromium Picolinate [Fiber 1 tab PO DAILY 12/24/23 01/23/24 History Gummies Chew] Multivitamin [Multivitamins Adult 1 tab PO DAILY 12/24/23 01/23/24 History Gummies] Melatonin 3 mg PO HS PRN #10 tab 12/29/23 01/23/24 Rx ALPRAZolam [Xanax] 0.5 mg PO TID PRN 01/23/24 01/23/24 History Benzonatate [Tessalon Perles] 100 mg PO BID PRN 01/23/24 01/23/24 History Budesonide/Glycopyr/Formoterol 1 puff INHALATION RT-DAILY 01/23/24 01/23/24 History [Breztri Aerosphere Inhaler] Cyclobenzaprine [Flexeril] 10 mg PO TID PRN 01/23/24 01/23/24 History Guaifenesin/Dextromethorphan 10 ml PO Q4H MDD 6 DOSES 01/23/24 01/23/24 History [Robitussin Honey Max Dm Liquid] HYDROcodone/APAP 5-325MG [[place] 1 tab PO Q6H PRN 01/23/24 01/23/24 History 5-325] Ondansetron [Zofran] 4 - 8 mg PO Q4H PRN MDD 8 TABS 01/23/24 01/23/24 History Promethazine/Dextromethorphan 5 ml PO Q4H 01/23/24 01/23/24 History [Promethazine-Dm Syrup] busPIRone HCl [Buspar] 5 mg PO BID PRN 01/23/24 01/23/24 History Allergies Allergy/AdvReac Type Severity Reaction Status Date / Time No Known Allergies Allergy Verified 01/23/24 18:41 Physical Exam Vitals: Vital Signs Temp Pulse Pulse Resp BP BP Pulse Ox 01/24/24 16:21 104 H 01/24/24 16:11 96 01/24/24 13:00 98.1 F 94 17 121/71 95 01/24/24 12:47 100 01/24/24 12:36 100 01/24/24 10:52 99.1 F 104 H 18 105/68 95 01/24/24 09:05 105 H 20 116/57 96 01/24/24 08:24 102 H 94 L 01/24/24 06:00 92 18 116/66 97 01/24/24 04:23 92 16 117/61 97 01/24/24 02:00 92 18 114/66 97 01/24/24 00:00 97 18 109/59 97 01/23/24 22:00 100 20 175/92 97 01/23/24 20:15 116 H 20 140/81 95 01/23/24 18:57 115 H 24 01/23/24 18:42 117 H 20 Intake and Output 01/24/24 01/24/24 01/24/24 06:59 14:59 22:59 Other: Weight 65.317 kg - Constitutional General appearance: average body habitus, no acute distress - EENT Eyes: anicteric sclerae, EOMI ENT: hearing grossly normal - Respiratory breathing is even and unlabored Respiratory: bilateral: diminished (R>L) - Cardiovascular Heart rate: 111 Rhythm: regular - Gastrointestinal General gastrointestinal: soft, no tenderness - Integumentary Integumentary: no cyanotic - Neurologic Neurologic: CNII-XII intact - Musculoskeletal left chest wall tenderness Results CBC & Chem 7: 01/23/24 17:37 01/23/24 17:37 Labs: Abnormal Lab Results - Last 24 Hours (Table) 01/23/24 01/23/24 Range/Units 17:37 17:37 D-Dimer 2.20 H (<0.60) mg/L FEU Sodium 134 L (137-145) mmol/L Glucose 137 H (74-99) mg/dL AST 39 H (14-36) U/L Total Protein 6.1 L (6.3-8.2) g/dL CT scan - chest: report reviewed MRI - head: report reviewed Assessment and Plan (1) Lung cancer Current Visit: Yes Status: Acute Priority: High Code(s): C34.90 - MALIGNANT NEOPLASM OF UNSP PART OF UNSP BRONCHUS OR LUNG SNOMED Code(s): 274659355 (2) Pleural effusion Current Visit: Yes Status: Acute Priority: High Code(s): J90 - PLEURAL EFFUSION, NOT ELSEWHERE CLASSIFIED SNOMED Code(s): 77982002 (3) Cough Current Visit: Yes Status: Acute Priority: Medium Code(s): R05.9 - COUGH, UNSPECIFIED SNOMED Code(s): 57336833 Plan: Pleural effusion: Presented to the emergency room with complaints of worsening shortness of breath and cough. -On admission D-dimer was elevated at 2.2 and subsequently had CTA chest which was negative for pulmonary embolism. Enlarging right pleural effusion with airspace opacities. Right hilar conglomerate lymphadenopathy with mediastinal lymphadenopathy narrowing of the right lower lobe airways as seen previously. ---Pulmonology consulted. Chest US pending -Will await pulmonology recommendations for thoracentesis. -Goal is that patient's symptoms improve with thoracentesis and supportive measures, so she can be discharged and treatment can begin soon, if not will likely need to start first cycle inpt Small cell lung cancer: -Full oncological history in HPI -Recent diagnosis of stage 4, small cell lung cancer -Was scheduled to start carbo/EDUCATION PARAPROFESSIONAL-16 and tecentriq on 01/24/2024 -Pending course of hospitalization, plan to reschedule outpt tx as soon as possible, if sx not improving, may need to start first cycle of treatment inpt. Will discuss plan with her primary oncologist, Dr. Tee Discussed POC with pt and spouse, they were agreeable with plan Doctor attests: I performed a history and physical examination of this patient, developed impression and plan of care. Discussed with dictator. I agree with dictators note, documented as a scribe.
[2024-01-25] MEDS: SENNOSIDES 8.6 MG TAB PO PRN (09:29)
[2024-01-25 10:28] LABS: BUN/Creat Ratio 21.67 Ratio (12.00-20.00); Calcium 8.4 mg/dL (8.7-10.3); Carbon Dioxide 26.7 mmol/L (21.6-31.8); Chloride 98 mmol/L (96-109); Glucose 113 mg/dL (70-110); Potassium 4.5 mmol/L (3.5-5.5); Sodium 134 mmol/L (135-145)
--- NOTE | 2024-01-25 12:16 | P.PN ---
Subjective Progress Note Date: 01/25/24 This is a 78-year-old female patient with a history of breast cancer status postlumpectomy in 2013, former smoker and a recent diagnosis of small cell lung cancer with osseous metastasis diagnosed in December 2023. MRI of the brain did not reveal any enhancing lesions. She had not yet began any treatment for her cancer. She presented here to the emergency room yesterday with complaints of significant fatigue, weakness, shortness of breath, cough and congestion. CT angiogram ruled out pulmonary embolism. There is an enlarging right pleural effusion with airspace opacities and possible superimposed pneumonia. A right hilar conglomerate lymphadenopathy and mediastinal lymphadenopathy compatible with known malignancy. There is narrowing of the right lower lobe airways. White count 6.9. Hemoglobin 14.2. Platelets 306. D-dimer 2.20. Sodium 134. Potassium 5.0. Bicarb 28. BUN 15. Creatinine 0.66. Glucose 137. AST 39. ALT 12. proBNP 271. Troponin negative x 1. She has been initiated on DuoNeb inhalations, Symbicort, Tessalon Perles. She is seen today in consultation in the emergency department. She is currently sitting up in bed. Awake and alert in no acute distress. She is maintaining good O2 saturation in the mid 90s on 2 L/min per nasal cannula. She is afebrile. Hemodynamically stable. Feeling a bit better today compared to yesterday. The patient is seen today January 25, 2024 in follow-up on the regular medical floor. She is awake and alert in no acute distress. Sitting up in bed. States her breathing is a bit better today compared to yesterday. She is maintaining good O2 saturations in the 90s on 3 L/min per nasal cannula. She remains on DuoNeb inhalations and Symbicort. Tessalon Perles for her cough. The ultrasound of her chest did not reveal any significant fluid for thoracentesis. Sodium 134. Potassium 4.5. Bicarb 27. BUN 13. Creatinine 0.6. Glucose 113. Objective - Vital Signs Vital signs: Vital Signs Temp 97.9 F 01/25/24 07:22 Pulse 108 H 01/25/24 09:28 Resp 20 01/25/24 07:22 BP 127/74 01/25/24 07:22 Pulse Ox 90 L 01/25/24 09:06 FiO2 Intake & Output 01/24/24 01/25/24 01/25/24 18:59 06:59 18:59 Intake Total 480 Balance 480 Weight 65.317 kg Intake: Oral 480 Other: Voiding Method Toilet Toilet # Voids 1 3 - Exam GENERAL EXAM: Alert, 78-year-old female, on 3 L nasal cannula, comfortable in no apparent distress. HEAD: Normocephalic. EYES: Normal reaction of pupils, equal size. NOSE: Clear with pink turbinates. THROAT: No erythema or exudates. NECK: No masses, no JVD. CHEST: No chest wall deformity. LUNGS: Equal air entry with bilateral scattered rhonchi. Diminished in the right lung base. CVS: S1 and S2 normal with no audible murmur, regular rhythm. ABDOMEN: No hepatosplenomegaly, normal bowel sounds, no guarding or rigidity. SPINE: No scoliosis or deformity SKIN: No rashes CENTRAL NERVOUS SYSTEM: No focal deficits, tone is normal in all 4 extremities. EXTREMITIES: There is no peripheral edema. No clubbing, no cyanosis. Peripheral pulses are intact. - Labs CBC & Chem 7: 01/23/24 17:37 01/25/24 07:15 Labs: Abnormal Lab Results - Last 24 Hours (Table) 01/23/24 01/25/24 Range/Units 17:37 07:15 Sodium 134 L (135-145) mmol/L BUN/Creatinine Ratio 21.67 H (12.00-20.00) Ratio Glucose 113 H (70-110) mg/dL Calcium 8.4 L (8.7-10.3) mg/dL Procalcitonin 0.10 H (0.02-0.09) ng/mL Assessment and Plan Assessment: Acute hypoxic respiratory failure secondary to advanced metastatic small cell lung cancer diagnosed in December 2023. Treatment was to begin this week. CT angiogram ruled out pulmonary embolism. There is an enlarging right pleural effusion with airspace opacities and possible superimposed pneumonia. Right hilar conglomerate lymphadenopathy with mediastinal lymphadenopathy compatible with known malignancy. There is narrowing of the right lower lobe airways. PET scan from 01/18/2024 revealed a right hilar conglomerate mass with suspected metastatic disease to the right pleura throughout the descending and left neck with FDG avid enlarged lymph nodes. There is at least 1 suspicious bone finding and left rib 9 and head with abnormal uptake. Lymph node near the jose r of diaphragm also present possibly within the abdomen and pelvis. Ultrasound of the right chest did not reveal significant fluid to safely perform a thoracentesis History of chronic tobacco dependence Chronic obstructive pulmonary disease History of breast cancer status post right lumpectomy and 2014 Anxiety Plan: The patient was seen and evaluated Ultrasound of the chest, labs and medications reviewed There is not enough fluid to require thoracentesis Cleared for discharge from the pulmonary standpoint Continue bronchodilators, Tessalon Perles Evaluate for possible home oxygen Follow-up in our office in 1 week I have personally seen and examined the patient, performed the documentation and the assessment and plan as written. Number of minutes spent on the visit: 10.
[2024-01-25 13:52] VITALS: BP 124/74; RESP 18; TEMP 98
--- NOTE | 2024-01-25 14:03 | P.PN ---
Progress Note - Text Progress Note Date: 01/25/24 Patient will required a walker on discharge as patient is having mobility limitation secondary to recurrent pleural effusions and lung cancer that is significantly impairing her ability to participate in ADLs in the home. Patient is able to safely use a walker and her functional mobility deficit can be resolved by the walker. Prescription provided to case management/social work for discharge planning
[2024-01-25] MEDS: ALPRAZolam 0.5 MG TAB PO PRN (14:52)
[2024-01-25 14:58] VITALS: BMI 24.7
[2024-01-25 16:12] VITALS: PULSE 104
== END 2024-01-25 16:17 | disposition home or self-care (01) | DRG 189 ==
LOC: EC 16:39 → 5NMEDONC 20:24
PROVIDERS: ADMIT Internal Medicine; ATTEND Internal Medicine
DX: J96.01 Acute respiratory failure with hypoxia (principal); E22.2 Syndrome of inappropriate secretion of antidiuretic hormone; C79.51 Secondary malignant neoplasm of bone; J90 Pleural effusion, not elsewhere classified; C34.01 Malignant neoplasm of right main bronchus; J44.9 Chronic obstructive pulmonary disease, unspecified; I49.3 Ventricular premature depolarization; F41.9 Anxiety disorder, unspecified; M84.58XD Pathological fracture in neoplastic disease, other specified site, subsequent encounter for fracture with routine healing; R59.0 Localized enlarged lymph nodes; Z79.51 Long term (current) use of inhaled steroids; Z79.899 Other long term (current) drug therapy; Z85.3 Personal history of malignant neoplasm of breast; Z87.891 Personal history of nicotine dependence; Z92.3 Personal history of irradiation; Z74.09 Other reduced mobility; Z71.3 Dietary counseling and surveillance
CPT/HCPCS: 36415; 71275; 76604; 80048; 80053; 83605; 83735; 83880; 84145; 84484; 85025; 85379; 85610; 85730; 93005; 94640; 94760; 96374; 96376; 99291

== ENCOUNTER 2024-02-05 11:53 | Inpatient (IN) | payer MEDICARE ==
[2024-02-05 12:16] LABS: RBC 3.91 m/uL (3.80-5.40); WBC 16.1 k/uL (3.8-10.6)
[2024-02-05 12:17] LABS: Basophils % (A) 0 %; Eosinophils # (A) 0.1 k/uL (0-0.7); Eosinophils % (A) 1 %; HCT 36.5 % (34.0-46.0); HGB 12.2 gm/dL (11.4-16.0); Lymphocytes # (A) 0.6 k/uL (1.0-4.8); Lymphocytes % (A) 4 %; MCH 31.2 pg (25.0-35.0); MCHC 33.4 g/dL (31.0-37.0); MCV 93.4 fL (80.0-100.0); Mean Platelet Volume 8.3; Monocytes # (A) 0.1 k/uL (0-1.0); Monocytes % (A) 1 %; Neutrophils # (A) 15.3 k/uL (1.3-7.7); Neutrophils % (A) 95 %; Platelet Count 291 k/uL (150-450); RDW 12.9 % (11.5-15.5)
[2024-02-05 12:29] LABS: ALT 13 U/L (4-34); AST 38 U/L (14-36); African American GFR (CKD) >90 (>60 ml/min/1.73 sqM); Albumin 3.4 g/dL (3.5-5.0); Alkaline Phosphatase 91 U/L (38-126); Anion Gap 3 mmol/L; Blood Urea Nitrogen 13 mg/dL (7-17); Calcium 9.1 mg/dL (8.4-10.2); Carbon Dioxide 33 mmol/L (22-30); Chloride 91 mmol/L (98-107); Glucose 111 mg/dL (74-99); Magnesium 1.4 mg/dL (1.6-2.3); Non-African American GFR(CKD) >90 (>60 ml/min/1.73 sqM); Potassium 3.9 mmol/L (3.5-5.1); Sodium 127 mmol/L (137-145); Total Bilirubin 1.1 mg/dL (0.2-1.3); Total Protein 5.7 g/dL (6.3-8.2)
--- NOTE | 2024-02-05 12:29 | ED ---
General Adult HPI - General Chief complaint: Shortness of Breath Stated complaint: JIAN Time Seen by Provider: 02/05/24 12:03 Source: patient, EMS Mode of arrival: EMS - History of Present Illness Initial comments: Dictation was produced using [employer] dictation software. please excuse any grammatical, word or spelling errors. Chief Complaint: 78-year-old female with history of small cell lung cancer presents to the ER for shortness of breath History of Present Illness: Patient 78-year-old female she was recently diagnosed with small cell lung cancer earlier this year. Patient states that she completed a course of chemotherapy. States that over the last few days she has been having some coughing and shortness of breath. Patient denies any pain. States her cough is nonproductive. Allegedly patient has pleural effusion that was supposed to be drained however was not. Today because of her coughing fit she noticed that her oxygen level diminished. She called the restaurant hostess office and was told to come to the ER The ROS documented in this emergency department record has been reviewed and confirmed by me. Those systems with pertinent positive or negative responses have been documented in the HPI. All other systems are other negative and/or noncontributory. - Related Data Home Medications Medication Instructions Recorded Confirmed Inulin/Chromium Picolinate [Fiber 1 tab PO DAILY 12/24/23 02/05/24 Gummies Chew] Multivitamin [Multivitamins Adult 1 tab PO DAILY 12/24/23 02/05/24 Gummies] ALPRAZolam [Xanax] 0.5 mg PO TID PRN 01/23/24 02/05/24 Benzonatate [Tessalon Perles] 100 mg PO TID PRN 01/23/24 02/05/24 Budesonide/Glycopyr/Formoterol 1 puff INHALATION RT-DAILY 01/23/24 02/05/24 [Breztri Aerosphere Inhaler] Cyclobenzaprine [Flexeril] 10 mg PO TID PRN 01/23/24 02/05/24 HYDROcodone/APAP 5-325MG [[place] 1 tab PO Q6H PRN 01/23/24 02/05/24 5-325] Ondansetron [Zofran] 4 - 8 mg PO Q4H PRN MDD 8 TABS 01/23/24 02/05/24 busPIRone HCl [Buspar] 5 mg PO BID PRN 01/23/24 02/05/24 LORazepam [Ativan] 0.5 mg PO BID PRN 02/05/24 02/05/24 Melatonin 10 mg PO HS PRN 02/05/24 02/05/24 Mirtazapine [Remeron] 15 mg PO HS 02/05/24 02/05/24 guaiFENesin-Coden 100-10MG/5ML 10 ml PO Q4H PRN 02/05/24 02/05/24 [Robitussin AC] Previous Rx's Medication Instructions Recorded Ipratropium-Albuterol Nebulize 3 ml INHALATION RT-Q2H PRN each 01/25/24 [Duoneb 0.5 mg-3 mg/3 ml Soln] Ipratropium-Albuterol Nebulize 3 ml INHALATION RT-QID each 01/25/24 [Duoneb 0.5 mg-3 mg/3 ml Soln] Sennosides [Senokot] 8.6 mg PO BID PRN tab 01/25/24 Allergies Allergy/AdvReac Type Severity Reaction Status Date / Time No Known Allergies Allergy Verified 02/05/24 15:14 Review of Systems ROS Statement: Those systems with pertinent positive or pertinent negative responses have been documented in the HPI. ROS Other: All systems not noted in ROS Statement are negative. Past Medical History Past Medical History: Cancer Additional Past Medical History / Comment(s): Lung CA. breast CA History of Any Multi-Drug Resistant Organisms: None Reported Additional Past Surgical History / Comment(s): lumpectomy right breats Aug 2013, pylonephrocyst removal Past Anesthesia/Blood Transfusion Reactions: No Reported Reaction Past Psychological History: No Psychological Hx Reported Smoking Status: Former smoker Past Alcohol Use History: None Reported Past Drug Use History: None Reported General Exam - General Exam Comments Initial Comments: PHYSICAL EXAM: General Impression: Alert and oriented x3, not in acute distress HEENT: Normocephalic atraumatic, extra-ocular movements intact, pupils equal and reactive to light bilaterally, mucous membranes moist. Cardiovascular: Heart regular rate and rhythm Chest: Able to complete full sentences, lung sounds to the right mejias Abdomen: abdomen soft, non-tender, non-distended, no organomegaly Musculoskeletal: Pulses present and equal in all extremities, no peripheral edema Motor: no focal deficits noted Neurological: CN II-XII grossly intact, no focal motor or sensory deficits noted Skin: Intact with no visualized rashes Psych: Normal affect and mood Course Vital Signs 02/05/24 11:56 Temperature 98.2 F Pulse Rate 107 H Respiratory 18 Rate Blood Pressure 136/77 O2 Sat by Pulse 96 Oximetry EKG Findings - EKG Comments: EKG Findings:: My EKG interpretation: Ventricular rate 101, sinus tach,. 161, cures 80, QTc 388. No IA prolongation, no QTC prolongation, no ST or T-wave changes noted. Overall, this EKG is unremarkable Medical Decision Making - Medical Decision Making Was pt. sent in by a medical professional or institution (, PA, BOOKKEEPING ASSISTANT, urgent care, hospital, or detention...) When possible be specific @ -No Did you speak to anyone other than the patient for history (EMS, parent, family, police, friend...)? What history was obtained from this source @ -History obtained from at the bedside regarding patient's pleural effusion Did you review nursing and triage notes (agree or disagree)? Why? @ -I reviewed and agree with nursing and triage notes Were old charts reviewed (outside hosp., previous admission, EMS record, old EKG, old radiological studies, urgent care reports/EKG's, detention records)? Report findings @ -No old charts were reviewed Differential Diagnosis (chest pain, altered mental status, abdominal pain women, abdominal pain men, vaginal bleeding, musculoskeletal, weakness, fever, dyspnea, syncope, headache, dizziness, GI bleed, back pain, seizure, CVA, palpatations, mental health)? @ -Differential Dyspnea: Coronary syndrome, arrhythmia, tamponade, asthma, COPD, pulmonary embolism, pneumonia, pneumothorax, pulmonary effusion, anaphylaxis, diabetic ketoacidosis, flailed chest, pulmonary contusion, diaphragmatic rupture, anemia, neuro muscular, this is not meant to be an all-inclusive list. EKG interpreted by me (3pts min.). @ -None done X-rays interpreted by me (1pt min.). @ -Chest x-ray shows pleural effusion CT interpreted by me (1pt min.). @ -CT scan of the chest shows no pulmonary embolism U/S interpreted by me (1pt. min.). @ -None done What testing was considered but not performed or refused? (CT, X-rays, U/S, labs)? Why? @ -None What meds were considered but not given or refused? Why? @ -None Was smoking cessation discussed for >3mins.? @ -No Were there social determinants of health that impacted care today? How? (Homelessness, low income, unemployed, alcoholism, drug addiction, transportation, low edu. Level, literacy, decrease access to med. care, [facility], rehab)? @ -No Was there de-escalation of care discussed even if they declined (Discuss DNR or withdrawal of care, Hospice)? DNR status @ -No What co-morbidities impacted this encounter? (DM, HTN, Smoking, COPD, CAD, Cancer, CVA, ARF, Chemo, Hep., AIDS, mental health diagnosis, sleep apnea, morbid obesity)? @ -History of small cell lung carcinoma Was patient admitted / discharged? Hospital course, mention meds given and route, prescriptions, significant lab abnormalities, going to OR and other pertinent info. @ -78-year-old female presents to the ER for cough, shortness of breath and concerns of possible pleural effusion. Vital signs stable. Patient well- appearing at the bedside. Laboratory evaluation with acceptable limits. X-ray shows pleural effusion. CT angiography was ordered due to elevated D-dimer. No PE seen on CT angiography. Patient be admitted with consultation to pulmonology for respiratory failure secondary to complaint pleural effusion Did you discuss the management of the patient with other professionals (pro fessionals i.e. , PA, BOOKKEEPING ASSISTANT, lab, RT, psych nurse, social worker assistant, welding equipment repairer supervisor, teacher, navigation officer, case worker)? Give summary @ -No Was critical care preformed (if so, how long)? @ -No Undiagnosed new problem with uncertain prognosis? @ -No Drug Therapy requiring intensive monitoring for toxicity (Heparin, Nitro, Insulin, Cardizem)? @ -No Were any procedures done? @ -No Diagnosis/symptom? Acute, or Chronic, or Acute on Chronic? Uncomplicated (without systemic symptoms) or Complicated (systemic symptoms)? @ -pleural effusion Side effects of treatment? @ -No Exacerbation, Progression, or Severe Exacerbation? @ -No Poses a threat to life or bodily function? How? (Chest pain, [place], AR, pneumonia, PE, COPD, DKA, ARF, appy, cholecystitis, CVA, Diverticulitis, Homicidal, Suicidal, threat to staff... and all critical care pts) @ -yes - Lab Data Result diagrams: 02/05/24 12:12 02/05/24 12:12 Lab Results 02/05/24 02/05/24 02/05/24 Range/Units 12:12 12:12 12:12 WBC 16.1 H (3.8-10.6) k/uL RBC 3.91 (3.80-5.40) m/uL Hgb 12.2 (11.4-16.0) gm/dL Hct 36.5 (34.0-46.0) % MCV 93.4 (80.0-100.0) fL MCH 31.2 (25.0-35.0) pg MCHC 33.4 (31.0-37.0) g/dL RDW 12.9 (11.5-15.5) % Plt Count 291 (150-450) k/uL MPV 8.3 Neutrophils % 95 % Lymphocytes % 4 % Monocytes % 1 % Eosinophils % 1 % Basophils % 0 % Neutrophils # 15.3 H (1.3-7.7) k/uL Lymphocytes # 0.6 L (1.0-4.8) k/uL Monocytes # 0.1 (0-1.0) k/uL Eosinophils # 0.1 (0-0.7) k/uL Basophils # 0.0 (0-0.2) k/uL PT 10.6 (10.0-12.5) sec INR 1.0 (<1.2) APTT 24.2 (22.0-30.0) sec D-Dimer 3.58 H (<0.60) mg/L FEU Sodium 127 L (137-145) mmol/L Potassium 3.9 (3.5-5.1) mmol/L Chloride 91 L (98-107) mmol/L Carbon Dioxide 33 H (22-30) mmol/L Anion Gap 3 mmol/L BUN 13 (7-17) mg/dL Creatinine 0.53 (0.52-1.04) mg/dL Est GFR (CKD-EPI)AfAm >90 (>60 ml/min/1.73 sqM) Est GFR (CKD-EPI)NonAf >90 (>60 ml/min/1.73 sqM) Glucose 111 H (74-99) mg/dL Plasma Lactic Acid Rafael (0.7-2.0) mmol/L Calcium 9.1 (8.4-10.2) mg/dL Magnesium 1.4 L (1.6-2.3) mg/dL Total Bilirubin 1.1 (0.2-1.3) mg/dL AST 38 H (14-36) U/L ALT 13 (4-34) U/L Alkaline Phosphatase 91 (38-126) U/L Troponin I (0.000-0.034) ng/mL NT-Pro-B Natriuret Pep 585 pg/mL Total Protein 5.7 L (6.3-8.2) g/dL Albumin 3.4 L (3.5-5.0) g/dL 02/05/24 02/05/24 Range/Units 12:12 12:12 WBC (3.8-10.6) k/uL RBC (3.80-5.40) m/uL Hgb (11.4-16.0) gm/dL Hct (34.0-46.0) % MCV (80.0-100.0) fL MCH (25.0-35.0) pg MCHC (31.0-37.0) g/dL RDW (11.5-15.5) % Plt Count (150-450) k/uL MPV Neutrophils % % Lymphocytes % % Monocytes % % Eosinophils % % Basophils % % Neutrophils # (1.3-7.7) k/uL Lymphocytes # (1.0-4.8) k/uL Monocytes # (0-1.0) k/uL Eosinophils # (0-0.7) k/uL Basophils # (0-0.2) k/uL PT (10.0-12.5) sec INR (<1.2) APTT (22.0-30.0) sec D-Dimer (<0.60) mg/L FEU Sodium (137-145) mmol/L Potassium (3.5-5.1) mmol/L Chloride (98-107) mmol/L Carbon Dioxide (22-30) mmol/L Anion Gap mmol/L BUN (7-17) mg/dL Creatinine (0.52-1.04) mg/dL Est GFR (CKD-EPI)AfAm (>60 ml/min/1.73 sqM) Est GFR (CKD-EPI)NonAf (>60 ml/min/1.73 sqM) Glucose (74-99) mg/dL Plasma Lactic Acid Rafael 1.4 (0.7-2.0) mmol/L Calcium (8.4-10.2) mg/dL Magnesium (1.6-2.3) mg/dL Total Bilirubin (0.2-1.3) mg/dL AST (14-36) U/L ALT (4-34) U/L Alkaline Phosphatase (38-126) U/L Troponin I <0.012 (0.000-0.034) ng/mL NT-Pro-B Natriuret Pep pg/mL Total Protein (6.3-8.2) g/dL Albumin (3.5-5.0) g/dL Disposition Clinical Impression: Malignant pleural effusion Disposition: ADMITTED IP TO THIS HOSP Condition: Fair Referrals: Minerva Jaeger MD [Primary Care Provider] - 1-2 days Decision Time: 16:23
[2024-02-05 12:35] LABS: Partial Thromboplastin Time 24.2 sec (22.0-30.0); Prothrombin Time 10.6 sec (10.0-12.5)
[2024-02-05 12:37] LABS: NT-Pro-B-Type Natriuretic Pept 585 pg/mL
--- NOTE | 2024-02-05 12:49 | XR ---
EXAMINATION TYPE: XR chest 2V DATE OF EXAM: 02/05/2024 COMPARISON: 12/24/2023 and 02/04/2024 HISTORY: 78-year-old female with shortness of breath and history of lung cancer TECHNIQUE: AP and lateral views FINDINGS: Heart mildly enlarged. Mild hyperinflation. Ongoing moderate to large right pleural effusion. Left juan josé ng and pleural space are relatively clear. IMPRESSION: COPD with ongoing moderate to large right pleural effusion. Similar compared to 02/04/2024. Significan tly increased from 12/24/2023.
--- NOTE | 2024-02-05 14:28 | CT ---
EXAMINATION TYPE: CT angio chest DATE OF EXAM: 02/05/2024 COMPARISON: Radiograph 02/05/2024 and CTA 01/23/2024 HISTORY: 81-year-old female with weakness, SOB upper chest pain, positive d-dimer TECHNIQUE: Contiguous axial scanning of the chest after the administration of 100 mL of Isovue 370. Coronal/sagittal MIP reconstructions performed. CT DLP: 252.9mGycm. Automatic exposure control utilized for a dose reduction. FINDINGS: The heart is upper limits of normal in size. Trace pericardial fluid. No flattening of the interventr icular septum or reflux of contrast into hepatic veins. Aorta normal caliber with conventional branching anatomy. Redemonstrated abnormal right paratracheal soft tissue extending into the right prevascular space and encasing the vero and also extending into the AP window region measuring up to 8.6 cm wide. There is right hilar encasement and extension down the right bronchus intermedius and bronchus to the thala mus narrowing the luminal caliber. Ongoing moderate to large right pleural effusion. Patchy groundglass changes throughout the right laurel g persists but shows slight improvement. Aeration in the right middle lobe shows some improvement fro m prior. Most of the right lower lobe remains collapsed with only small aerated portion but this is a lso shown some improvement. Moderate emphysema. Satisfactory opacification of the pulmonary arterial system without evidence for pulmonary embolus. Visualized upper abdomen shows no gross abnormality. Superior endplate deformities T11 and L1 remaine d unchanged back to at least 12/24/2023. IMPRESSION: 1. No evidence for pulmonary embolus. 2. Extensive neoplasm along the paratracheal region extending into the right prevascular space, AP wi ndow, and with carinal and right hilar encasement. The soft tissue continues down the right bronchus intermedius and bronchus basalis and most of the right lower lobe remains collapsed with aeration sli ghtly improved. 3. A moderate to large right pleural effusion also remains. 4. Patchy airspace disease throughout the right upper lobe persists though also with slight improveme nt. Possible post obstructive pneumonitis or patchy pulmonary edema. 5. Background COPD with moderate emphysema.
[2024-02-05] MEDS: MORPHINE SULFATE 4 MG/ML SYRINGE IV STA (14:47)
[2024-02-05] MEDS ORDERED: NALOXONE 0.4 MG/ML 1 ML VIAL IV PRN (16:15)
[2024-02-05] MEDS: SODIUM CHLORIDE 0.9% 1,000 ML IV SCH (16:42)
[2024-02-05] MEDS ORDERED: SENNOSIDES 8.6 MG TAB PO PRN (19:08)
[2024-02-05] MEDS ORDERED: busPIRone HCl 5 MG TAB PO PRN (19:08)
[2024-02-05] MEDS ORDERED: CALCIUM CARBONATE 500 MG CHEWABLE PO PRN (19:09)
[2024-02-05] MEDS ORDERED: LACTULOSE 20 GM/30 ML CUP PO PRN (19:09)
[2024-02-05] MEDS ORDERED: ONDANSETRON 4 MG/2 ML VIAL IVP PRN (19:09)
--- NOTE | 2024-02-05 19:20 | P.HPIM ---
History of Present Illness H&P Date: 02/05/24 Chief Complaint: Short of breath This is a pleasant 78-year-old patient who follows with Dr. Minerva Jaeger. Patient has a diagnosis of small cell lung cancer diagnosed 2 months ago. Has received 1 cycle of chemotherapy. Is somewhat restricted to the right lung rig ht now. Decreased appetite. Has lost about 12 pounds. Follows with oncologist Dr. Tee. Record Producer Dr. Molina. Patient has known pleural effusion. PET scan on January 17 showed right hilar conglomerate mass with suspected metastatic disease to right pleura throughout the descending and left neck with FDG avid enlarged lymph nodes. There is at least 1 suspicious bone finding and left rib ninth and head with abnormal uptake. Brain MRI on January 19 unremarkable. Ultrasound chest on January 22 showed enlarging right pleural effusion with airspace opacities. For some time patient been having increasing cough. No sputum. Worsening short of breath. No fever no chills. She called her rn [facility] office and they asked her to come to the ER. Review of systems: GEN.: Tired decreased appetite, some weight loss EYES: None HEENT: None NECK: None RESPIRATORY: As above CARDIOVASCULAR: None GASTROINTESTINAL: None GENITOURINARY: None MUSCULOSKELETAL: None LYMPHATICS: None HEMATOLOGICAL: None PSYCHIATRY: None NEUROLOGICAL: None Social history: . 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 Conjunctiva surya l. HEENT: External appearance of nose and ears normal, oral cavity grossly normal. NECK: JVD not raised; masses not palpable. HEART: First and second heart sounds are normal; no edema. LUNGS: Respiratory rate increased, decreased breath sounds specially on the right side. ABDOMEN: Soft, nontender, liver spleen not palpable, no masses palpable. PSYCH: Alert and oriented x3; mood and affect surya l. MUSCULOSKELETAL:No Clubbing/cyanosis;muscles-grossly intact NEUROLOGICAL: Cranial nerves grossly intact; no facial asymmetry, power and sensation grossly intact. LYMPHATICS: No lymph nodes palpable in the axilla and neck INVESTIGATIONS, reviewed in the clinical context: February 04: White count 16.1 hemoglobin 12.2 platelets 291 sodium 127 potassium 3.9 BUN 13 creatinine 0.53 EKG tracing personally reviewed by me-normal sinus rhythm. Rate 101 Chest x-ray film personally reviewed by me-large right pleural effusion Chest CTA: Extensive neoplasm along the paratracheal region extending into the right prevascular space AP window with current and right hilar encasement. Soft tissue continues down the right bronchus intermedius bronchus basalis most of the right lower lobe remains collapsed. Moderate to large right pleural effusion. Patchy airspace disease throughout the right upper lobe persist. Emphysema Assessment plan:: -Worsening right pleural effusion secondary to small cell lung cancer This will need to be tapped and possibly a pleural tap down the road-Dr. Clarke from pulmonary consulted -COPD no prior smoker [employer] inhaler -Hyponatremia. Likely SIADH. From underlying lung cancer Fluid restrict 2000 cc a day -Small cell lung cancer being followed by Dr. Tee oncologist and Dr. Molina rn [facility] Diagnosed 2 months ago. Has received 1 cycle of chemotherapy -Anxiety and depression not otherwise specified Xanax as needed. BuSpar -Insomnia for medical reasons Remeron as needed -Full code Pulmonary consulted for thoracentesis. Care was discussed with the patient. Past Medical History Past Medical History: Cancer Additional Past Medical History / Comment(s): Lung CA. Right breast CA dx in 2012-radiation tx November 2013, CT of chest on 12/24/2023 showed a very large right hilar mass and compression deformity at T11-L1, CT of brain on 12/25/23 was negative for mets, PET scan on 01/18/24 revealed right hilar conglomerate mass w/suspected metastatic disease to the right pleura throughout the decending and left neck-1 suspicious bone finding in the left 9th rib-had one cycle of chemo and last day was 02/01/24 History of Any Multi-Drug Resistant Organisms: None Reported Past Surgical History: Adenoidectomy, Tonsillectomy Additional Past Surgical History / Comment(s): pylonoidal cyst removal 1971, D&C, right breast lumpectomy with 3 lymph nodes removed 2013, Bronchoscopy and biopsy of right main stem bronchus on 12/28/23 was positive small cell lung carcinoma Past Anesthesia/Blood Transfusion Reactions: No Reported Reaction Past Psychological History: No Psychological Hx Reported Smoking Status: Former smoker Past Alcohol Use History: None Reported Past Drug Use History: None Reported - Past Family History Mother Family Medical History: CVA/TIA, Hypertension Medications and Allergies Home Medications Medication Instructions Recorded Confirmed Type Inulin/Chromium Picolinate [Fiber 1 tab PO DAILY 12/24/23 02/05/24 History Gummies Chew] Multivitamin [Multivitamins Adult 1 tab PO DAILY 12/24/23 02/05/24 History Gummies] ALPRAZolam [Xanax] 0.5 mg PO TID PRN 01/23/24 02/05/24 History Benzonatate [Tessalon Perles] 100 mg PO TID PRN 01/23/24 02/05/24 History Budesonide/Glycopyr/Formoterol 1 puff INHALATION RT-DAILY 01/23/24 02/05/24 History [Breztri Aerosphere Inhaler] Cyclobenzaprine [Flexeril] 10 mg PO TID PRN 01/23/24 02/05/24 History HYDROcodone/APAP 5-325MG [[place] 1 tab PO Q6H PRN 01/23/24 02/05/24 History 5-325] Ondansetron [Zofran] 4 - 8 mg PO Q4H PRN MDD 8 TABS 01/23/24 02/05/24 History busPIRone HCl [Buspar] 5 mg PO BID PRN 01/23/24 02/05/24 History Ipratropium-Albuterol Nebulize 3 ml INHALATION RT-Q2H PRN each 01/25/24 02/05/24 Rx [Duoneb 0.5 mg-3 mg/3 ml Soln] Ipratropium-Albuterol Nebulize 3 ml INHALATION RT-QID each 01/25/24 02/05/24 Rx [Duoneb 0.5 mg-3 mg/3 ml Soln] Sennosides [Senokot] 8.6 mg PO BID PRN tab 01/25/24 02/05/24 Rx LORazepam [Ativan] 0.5 mg PO BID PRN 02/05/24 02/05/24 History Melatonin 10 mg PO HS PRN 02/05/24 02/05/24 History Mirtazapine [Remeron] 15 mg PO HS 02/05/24 02/05/24 History guaiFENesin-Coden 100-10MG/5ML 10 ml PO Q4H PRN 02/05/24 02/05/24 History [Robitussin AC] Allergies Allergy/AdvReac Type Severity Reaction Status Date / Time No Known Allergies Allergy Verified 02/05/24 15:14 Physical Exam Vitals: Vital Signs Temp Pulse Pulse Resp BP BP Pulse Ox 02/05/24 17:36 98.0 F 99 17 122/71 96 02/05/24 16:38 98 18 122/66 95 02/05/24 11:56 98.2 F 107 H 18 136/77 96 Intake and Output 02/05/24 02/05/24 02/05/24 06:59 14:59 22:59 Other: Weight 70.307 kg 70.307 kg Results CBC & Chem 7: 02/05/24 12:12 02/05/24 12:12 Labs: Abnormal Lab Results - Last 24 Hours (Table) 02/05/24 02/05/24 02/05/24 Range/Units 12:12 12:12 12:12 WBC 16.1 H (3.8-10.6) k/uL Neutrophils # 15.3 H (1.3-7.7) k/uL Lymphocytes # 0.6 L (1.0-4.8) k/uL D-Dimer 3.58 H (<0.60) mg/L FEU Sodium 127 L (137-145) mmol/L Chloride 91 L (98-107) mmol/L Carbon Dioxide 33 H (22-30) mmol/L Glucose 111 H (74-99) mg/dL Magnesium 1.4 L (1.6-2.3) mg/dL AST 38 H (14-36) U/L Total Protein 5.7 L (6.3-8.2) g/dL Albumin 3.4 L (3.5-5.0) g/dL Thrombosis Risk Factor Assmnt - Choose All That Apply Any of the Below Risk Factors Present?: Yes Each Factor Represents 1 point: Abnormal pulmonary function (COPD), Obesity (BMI >25) Each Risk Factor Represents 2 Points: Malignancy Each Risk Factor Represents 3 Points: Age 75 years or older Other congenital or acquired thrombophilia - If yes, enter type in comment: No Thrombosis Risk Factor Assessment Total Risk Factor Score: 7 Thrombosis Risk Factor Assessment Level: High Risk
[2024-02-05] MEDS: IPRATROPIUM-ALBUTEROL 3 ML NEB INHALATION SCH (20:27)
[2024-02-05] MEDS: ENOXAPARIN 40 MG/0.4 ML SYRINGE SQ SCH (21:20)
[2024-02-05] MEDS: MIRTAZAPINE 15 MG TAB PO SCH (21:21)
[2024-02-05] MEDS: HYDROcodone/APAP 5-325MG 1 EACH TAB PO PRN (21:27)
[2024-02-06] MEDS: BENZONATATE 100 MG CAP PO SCH (05:00)
--- NOTE | 2024-02-06 05:53 | P.CNPUL ---
History of Present Illness Consult date: 02/06/24 Requesting physician: Sriram Cuevas Reason for consult: dyspnea, cough, COPD, hypoxemia, pleural effusion, lung mass, abnormal CXR/CT Chief complaint: Shortness of breath and cough. History of present illness: Pulmonary consultation dated February 06, 2024. 78-year-old female well-known to me. The patient presented to the emergency department on February 04 complaining of shortness of breath, and cough. The patient was recently diagnosed with small cell lung cancer. The patient had bronchoscopy on December 27. Prior to that, the patient was in the hospital with a large right perihilar mass, and shortness of breath. The patient did have chemotherapy once, on January 30. She was hospitalized between January 22 and January 24. She does have a right-sided effusion, and it was going to be drained, but, my partner thought the fluid was too small, and that it would cause her to have additional risk. Currently, she is on 3 L. She is coughing quite a bit, and short of breath. I did order a stat ultrasound of the right chest, to see if it would be worth draining her right chest. Current labs include a white count 16.1, hemoglobin 12.2, hematocrit 36.5, platelet count 2 91,000. D-dimer was 3.58. Sodium 127, potassium 3.9, chloride 91, CO2 33, glucose 111. Albumin is 3.4. Chest x-ray shows a right-sided effusion. CT angiogram showed no evidence of pulmonary embolism, and extensive cancer, in the right paratracheal region, right hilar encasement, and right lower lobe collapse. Review of Systems REVIEW OF SYSTEMS: CONSTITUTIONAL: [Negative.] NEUROLOGIC: [ Negative.] HEENT: [ Negative.] CARDIAC: [Negative.] PULMONARY: Shortness of breath and cough. GI: [Negative.] : [Negative.] RHEUMATOLOGIC: [ Negative.] IMMUNOLOGIC: [ Negative.] ENDOCRINE: [Negative. ] DERMATOLOGIC: [Negative.] Past Medical History Past Medical History: Cancer Additional Past Medical History / Comment(s): Lung CA. Right breast CA dx in 2012-radiation tx November 2013, CT of chest on 12/24/2023 showed a very large right hilar mass and compression deformity at T11-L1, CT of brain on 12/25/23 was negative for mets, PET scan on 01/18/24 revealed right hilar conglomerate mass w/suspected metastatic disease to the right pleura throughout the decending and left neck-1 suspicious bone finding in the left 9th rib-had one cycle of chemo and last day was 02/01/24 History of Any Multi-Drug Resistant Organisms: None Reported Past Surgical History: Adenoidectomy, Tonsillectomy Additional Past Surgical History / Comment(s): pylonoidal cyst removal 1971, D&C, right breast lumpectomy with 3 lymph nodes removed 2013, Bronchoscopy and biopsy of right main stem bronchus on 12/28/23 was positive small cell lung carcinoma Past Anesthesia/Blood Transfusion Reactions: No Reported Reaction Past Psychological History: No Psychological Hx Reported Smoking Status: Former smoker Past Alcohol Use History: None Reported Past Drug Use History: None Reported - Past Family History Mother Family Medical History: CVA/TIA, Hypertension Medications and Allergies Home Medications Medication Instructions Recorded Confirmed Type Inulin/Chromium Picolinate [Fiber 1 tab PO DAILY 12/24/23 02/05/24 History Gummies Chew] Multivitamin [Multivitamins Adult 1 tab PO DAILY 12/24/23 02/05/24 History Gummies] ALPRAZolam [Xanax] 0.5 mg PO TID PRN 01/23/24 02/05/24 History Benzonatate [Tessalon Perles] 100 mg PO TID PRN 01/23/24 02/05/24 History Budesonide/Glycopyr/Formoterol 1 puff INHALATION RT-DAILY 01/23/24 02/05/24 History [Breztri Aerosphere Inhaler] Cyclobenzaprine [Flexeril] 10 mg PO TID PRN 01/23/24 02/05/24 History HYDROcodone/APAP 5-325MG [[place] 1 tab PO Q6H PRN 01/23/24 02/05/24 History 5-325] Ondansetron [Zofran] 4 - 8 mg PO Q4H PRN MDD 8 TABS 01/23/24 02/05/24 History busPIRone HCl [Buspar] 5 mg PO BID PRN 01/23/24 02/05/24 History Ipratropium-Albuterol Nebulize 3 ml INHALATION RT-Q2H PRN each 01/25/24 02/05/24 Rx [Duoneb 0.5 mg-3 mg/3 ml Soln] Ipratropium-Albuterol Nebulize 3 ml INHALATION RT-QID each 01/25/24 02/05/24 Rx [Duoneb 0.5 mg-3 mg/3 ml Soln] Sennosides [Senokot] 8.6 mg PO BID PRN tab 01/25/24 02/05/24 Rx LORazepam [Ativan] 0.5 mg PO BID PRN 02/05/24 02/05/24 History Melatonin 10 mg PO HS PRN 02/05/24 02/05/24 History Mirtazapine [Remeron] 15 mg PO HS 02/05/24 02/05/24 History guaiFENesin-Coden 100-10MG/5ML 10 ml PO Q4H PRN 02/05/24 02/05/24 History [Robitussin AC] Allergies Allergy/AdvReac Type Severity Reaction Status Date / Time No Known Allergies Allergy Verified 02/05/24 15:14 Physical Exam Osteopathic Statement: *. No significant issues noted on an osteopathic structural exam other than those noted in the History and Physical/Consult. Vitals: Vital Signs Temp Pulse Pulse Resp BP BP Pulse Ox 02/06/24 01:33 98.0 F 89 16 105/65 96 02/06/24 01:14 102 H 17 02/05/24 20:46 80 02/05/24 20:29 84 02/05/24 19:20 98.0 F 102 H 17 113/72 95 02/05/24 19:09 95 02/05/24 17:36 98.0 F 99 17 122/71 96 02/05/24 16:38 98 18 122/66 95 02/05/24 11:56 98.2 F 107 H 18 136/77 96 Intake and Output 02/05/24 02/05/24 02/06/24 14:59 22:59 06:59 Other: Voiding Method Toilet # Voids 1 Weight 70.307 kg 70.307 kg Mild conversational dyspnea, frequent cough. Oriented x 3. HEENT examination is grossly unremarkable. Mucous membranes are moist. No oral lesions. Neck supple. Full range of motion. No adenopathy thyromegaly or neck vein distention. Cardiovascular examination reveals regular rhythm rate. S1-S2 normal. No S3 or S4. No discernible murmur noted. Heart sounds are distant. Heart rate 89 bpm. Lungs reveal diminished breath sounds on the right. Scattered rhonchi noted. No wheezes. No crackles. Saturation is 96% on 3 L. Abdomen soft bowel sounds are heard. No masses or tenderness. Extremities are intact. No cyanosis clubbing or edema. Skin is without rash or lesion. Neurologic examination is brief but nonfocal. Results - Laboratory Findings CBC and BMP: 02/05/24 12:12 02/05/24 12:12 PT/INR, D-dimer PT 10.6 sec (10.0-12.5) 02/05/24 12:12 INR 1.0 (<1.2) 02/05/24 12:12 D-Dimer 3.58 mg/L FEU (<0.60) H 02/05/24 12:12 Abnormal lab findings: Abnormal Labs 02/05/24 02/05/24 02/05/24 12:12 12:12 12:12 WBC 16.1 H Neutrophils # 15.3 H Lymphocytes # 0.6 L D-Dimer 3.58 H Sodium 127 L Chloride 91 L Carbon Dioxide 33 H Glucose 111 H Magnesium 1.4 L AST 38 H Total Protein 5.7 L Albumin 3.4 L - Diagnostic Findings Chest x-ray: image reviewed CT scan - chest: image reviewed Assessment and Plan Assessment: Shortness of breath and cough, secondary to small cell lung cancer, involving the right paratracheal region and right lower lobe bronchus, with right lower lobe collapse. Recent diagnosis of small cell lung cancer, with bronchoscopy being performed on December 27. Chemotherapy on January 30. Moderate right-sided pleural effusion, secondary to lung cancer. Hyponatremia, likely secondary to SIADH. COPD exacerbation. History of breast cancer, S/P lumpectomy. Previous history of tobacco use. Plan: Plan dated February 06, 2024. I have ordered Tessalon Perles for the patient. She will get 200 mg 3 times a day. That helps her significantly with her cough. In addition, I will order a stat ultrasound of the right chest, to see if it would be worthwhile to put a needle into the right chest, and drained some of the fluid, to give the patient some relief. Labs, x-rays, medications are reviewed. Prognosis is guarded. We will continue to follow and make recommendations where appropriate. Time with Patient: Greater than 30
[2024-02-06] MEDS: MULTIVITAMINS, THERA 1 EACH TAB PO SCH (07:52)
[2024-02-06] MEDS: SYMBICORT 160-4.5 MCG INHALER INHALATION SCH (07:56)
[2024-02-06] MEDS: CYCLOBENZAPRINE 10 MG TAB PO PRN (08:23)
[2024-02-06] MEDS: ACETAMINOPHEN TAB 325 MG TAB PO PRN (08:23)
--- NOTE | 2024-02-06 09:33 | US ---
EXAMINATION TYPE: US chest DATE OF EXAM: 02/06/2024 COMPARISON: US 01/24/2024 CLINICAL INDICATION: Female, 78 years old with history of Markings for thoracentesis by pulmonary sta ff; Chest pain and JIAN TECHNIQUE: Targeted ultrasound of the posterior lower right hemithorax EXAM MEASUREMENTS: Right Pleural Effusion pocket size: 3.3 cm Right skin surface to fluid distance: 2.7 cm Left Pleural Effusion pocket size: NA cm Left skin surface to fluid distance: NA cm Right side marked for possible thoracentesis outside the dept. Pulmonologists are able to review the images in the patient?s EMR. IMPRESSIONS: Right pleural effusion localized and marked for possible thoracentesis outside the department.
[2024-02-06] MEDS: ALPRAZolam 0.5 MG TAB PO PRN (12:00)
--- NOTE | 2024-02-06 17:03 | P.PN ---
Progress Note - Text Progress Note Date: 02/06/24 Chief Complaint: Short of breath This is a pleasant 78-year-old patient who follows with Dr. Minerva Jaeger. Patient has a diagnosis of small cell lung cancer diagnosed 2 months ago. Has received 1 cycle of chemotherapy. Is somewhat restricted to the right lung right now. Decreased appetite. Has lost about 12 pounds. Follows with oncologist Dr. Tee. Acoustic Engineer Dr. Molina. Patient has known pleural effusion. PET scan on January 17 showed right hilar conglomerate mass with suspected metastatic disease to right pleura throughout the descending and left neck with FDG avid enlarged lymph nodes. There is at least 1 suspicious bone finding and left rib ninth and head with abnormal uptake. Brain MRI on January 19 unremarkable. Ultrasound chest on January 22 showed enlarging right pleural effusion with airspace opacities. For some time patient been having increasing cough. No sputum. Worsening short of breath. No fever no chills. She called her electrical continuity tester office and they asked her to come to the ER. February 05: Laying in bed. Tired. Did not eat breakfast at about 75% lunch. Chest ultrasound ordered by Dr. Clarke. Pending possible thoracentesis Social history: . 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 Conjunctiva surya l. HEENT: External appearance of nose and ears normal, oral cavity grossly normal. NECK: JVD not raised; masses not palpable. HEART: First and second heart sounds are normal; no edema. LUNGS: Respiratory rate increased, decreased breath sounds specially on the right side. ABDOMEN: Soft, nontender, liver spleen not palpable, no masses palpable. PSYCH: Alert and oriented x3; mood and affect surya l. MUSCULOSKELETAL:No Clubbing/cyanosis;muscles-grossly intact INVESTIGATIONS, reviewed in the clinical context: February 04: White count 16.1 hemoglobin 12.2 platelets 291 sodium 127 potassium 3.9 BUN 13 creatinine 0.53 EKG tracing personally reviewed by me-normal sinus rhythm. Rate 101 Chest x-ray film personally reviewed by me-large right pleural effusion Chest CTA: Extensive neoplasm along the paratracheal region extending into the right prevascular space AP window with current and right hilar encasement. Soft tissue continues down the right bronchus intermedius bronchus basalis most of the right lower lobe remains collapsed. Moderate to large right pleural effusion. Patchy airspace disease throughout the right upper lobe persist. Emphysema Assessment plan:: -Worsening right pleural effusion secondary to small cell lung cancer Chest ultrasound done for marking This will need to be tapped and possibly a pleural tap down the road-Dr. Clarke from pulmonary on the case -COPD no prior smoker DuoNeb. Breztri Aerosphere inhaler -Hyponatremia. Likely SIADH. From underlying lung cancer Fluid restrict 2000 cc a day -Small cell lung cancer being followed by Dr. Tee oncologist and Dr. Molina electrical continuity tester Diagnosed 2 months ago. Has received 1 cycle of chemotherapy -Anxiety and depression not otherwise specified Xanax as needed. BuSpar -Insomnia for medical reasons Remeron as needed -Full code Chest ultrasound done for marking. Follow by Dr. Clarke. Replace magnesium. Past Medical History Past Medical History: Cancer Additional Past Medical History / Comment(s): Lung CA. Right breast CA dx in 2012-radiation tx November 2013, CT of chest on 12/24/2023 showed a very large right hilar mass and compression deformity at T11-L1, CT of brain on 12/25/23 was negative for mets, PET scan on 01/18/24 revealed right hilar conglomerate mass w/suspected metastatic disease to the right pleura throughout the decending and left neck-1 suspicious bone finding in the left 9th rib-had one cycle of chemo and last day was 02/01/24 History of Any Multi-Drug Resistant Organisms: None Reported Past Surgical History: Adenoidectomy, Tonsillectomy Additional Past Surgical History / Comment(s): pylonoidal cyst removal 1971, D&C, right breast lumpectomy with 3 lymph nodes removed 2013, Bronchoscopy and biopsy of right main stem bronchus on 12/28/23 was positive small cell lung carcinoma Past Anesthesia/Blood Transfusion Reactions: No Reported Reaction Past Psychological History: No Psychological Hx Reported Smoking Status: Former smoker Past Alcohol Use History: None Reported Past Drug Use History: None Reported
[2024-02-06] MEDS: MAGNESIUM OXIDE 400 MG TAB PO SCH (20:35)
[2024-02-06] MEDS: MELATONIN 5 MG TABLET PO PRN (22:57)
[2024-02-07 06:33] LABS: African American GFR (CKD) >90 (>60 ml/min/1.73 sqM); Anion Gap 0 mmol/L; Blood Urea Nitrogen 14 mg/dL (7-17); Calcium 8.1 mg/dL (8.4-10.2); Carbon Dioxide 32 mmol/L (22-30); Chloride 88 mmol/L (98-107); Glucose 96 mg/dL (74-99); Non-African American GFR(CKD) >90 (>60 ml/min/1.73 sqM); Potassium 3.7 mmol/L (3.5-5.1); Sodium 120 mmol/L (137-145)
--- NOTE | 2024-02-07 14:28 | P.PN ---
Progress Note - Text Progress Note Date: 02/07/24 Chief Complaint: Short of breath This is a pleasant 78-year-old patient who follows with Dr. Minerva Jaeger. Patient has a diagnosis of small cell lung cancer diagnosed 2 months ago. Has received 1 cycle of chemotherapy. Is somewhat restricted to the right lung right now. Decreased appetite. Has lost about 12 pounds. Follows with oncologist Dr. Tee. [employer] Dr. Molina. Patient has known pleural effusion. PET scan on January 17 showed right hilar conglomerate mass with suspected metastatic disease to right pleura throughout the descending and left neck with FDG avid enlarged lymph nodes. There is at least 1 suspicious bone finding and left rib ninth and head with abnormal uptake. Brain MRI on January 19 unremarkable. Ultrasound chest on January 22 showed enlarging right pleural effusion with airspace opacities. For some time patient been having increasing cough. No sputum. Worsening short of breath. No fever no chills. She called her dredge master office and they asked her to come to the ER. February 05: Laying in bed. Tired. Did not eat breakfast at about 75% lunch. Chest ultrasound ordered by Dr. Clarke. Pending possible thoracentesis February 06: Patient in bed. at the bedside. Patient had questions about her sodium and communication during her December admission. I did apologize to her that she was unhappy and did my best to answer questions. She will also also have a prognosis I did say that she should discuss this with her tile shader Dr. Tee an hour dredge master Dr Molina. Decision about thoracentesis per pulmonary. Patient does get easily tired.. Did not eat breakfast at about 75% lunch. Active Medications Acetaminophen (Acetaminophen Tab 325 Mg Tab) 650 mg PO Q6HR PRN PRN Reason: Mild Pain or Fever > 100.5 Last Admin: 02/06/24 08:23 Dose: 650 mg Hydrocodone Bitart/Acetaminophen (Hydrocodone/Apap 5-325mg 1 Each Tab) 1 each PO Q6H PRN PRN Reason: Pain Last Admin: 02/07/24 12:20 Dose: 1 each Albuterol/Ipratropium (Ipratropium-Albuterol 3 Ml Neb) 3 ml INHALATION RT-QID LISANDRA Last Admin: 02/07/24 11:54 Dose: 3 ml Albuterol/Ipratropium (Ipratropium-Albuterol 3 Ml Neb) 3 ml INHALATION RT-Q2H PRN PRN Reason: Shortness Of Breath Or Wheezing Alprazolam (Alprazolam 0.5 Mg Tab) 0.5 mg PO TID PRN PRN Reason: Anxiety Last Admin: 02/07/24 12:20 Dose: 0.5 mg Benzonatate (Benzonatate 100 Mg Cap) 200 mg PO TID [facility] Last Admin: 02/07/24 09:42 Dose: 200 mg Budesonide/Formoterol Fumarate (Symbicort 160-4.5 Mcg Inhaler) 2 puff INHALATION RT-BID [facility] Last Admin: 02/07/24 07:53 Dose: 2 puff Buspirone HCl (Buspirone Hcl 5 Mg Tab) 5 mg PO BID PRN PRN Reason: Anxiety Calcium Carbonate/Glycine (Calcium Carbonate 500 Mg Chewable) 1,000 mg PO Q4HR PRN PRN Reason: Dyspepsia Cyclobenzaprine HCl (Cyclobenzaprine 10 Mg Tab) 10 mg PO TID PRN PRN Reason: Muscle Pain Last Admin: 02/06/24 22:57 Dose: 10 mg Enoxaparin Sodium (Enoxaparin 40 Mg/0.4 Ml Syringe) 40 mg SQ DAILY [facility] Last Admin: 02/07/24 09:42 Dose: Not Given Lactulose (Lactulose 20 Gm/30 Ml Cup) 20 gm PO DAILY PRN PRN Reason: Constipation Magnesium Oxide (Magnesium Oxide 400 Mg Tab) 400 mg PO BID [facility] Last Admin: 02/07/24 09:42 Dose: 400 mg Melatonin (Melatonin 5 Mg Tablet) 10 mg PO HS PRN PRN Reason: Insomnia Last Admin: 02/06/24 22:57 Dose: 10 mg Mirtazapine (Mirtazapine 15 Mg Tab) 15 mg PO HS [facility] Last Admin: 02/06/24 20:35 Dose: 15 mg Multivitamins (Multivitamins, Thera 1 Each Tab) 1 each PO DAILY [facility] Last Admin: 02/07/24 09:42 Dose: 1 each Naloxone HCl (Naloxone 0.4 Mg/Ml 1 Ml Vial) 0.2 mg IV Q2M PRN PRN Reason: Opioid Reversal Ondansetron HCl (Ondansetron 4 Mg/2 Ml Vial) 4 mg IVP Q8HR PRN PRN Reason: Nausea And Vomiting Senna (Sennosides 8.6 Mg Tab) 8.6 mg PO BID PRN PRN Reason: Constipation Social history: . 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 Conjunctiva surya l. HEENT: External appearance of nose and ears normal, oral cavity grossly normal. NECK: JVD not raised; masses not palpable. HEART: First and second heart sounds are normal; no edema. LUNGS: Respiratory rate increased, decreased breath sounds specially on the right side. ABDOMEN: Soft, nontender, liver spleen not palpable, no masses palpable. PSYCH: Alert and oriented x3; mood and affect surya l. MUSCULOSKELETAL:No Clubbing/cyanosis;muscles-grossly intact INVESTIGATIONS, reviewed in the clinical context: February 06: Sodium 120 potassium 3.7 creatinine 0.52 February 04: White count 16.1 hemoglobin 12.2 platelets 291 sodium 127 potassium 3.9 BUN 13 creatinine 0.53 EKG tracing personally reviewed by me-normal sinus rhythm. Rate 101 Chest x-ray film personally reviewed by me-large right pleural effusion Chest CTA: Extensive neoplasm along the paratracheal region extending into the right prevascular space AP window with current and right hilar encasement. Soft tissue continues down the right bronchus intermedius bronchus basalis most of the right lower lobe remains collapsed. Moderate to large right pleural effusion. Patchy airspace disease throughout the right upper lobe persist. Emphysema Assessment plan:: -Worsening right pleural effusion secondary to small cell lung cancer Chest ultrasound done for marking Pending valuation by pulmonary for a decision about thoracentesis. -COPD no prior smoker DuoNeb. Spot Labsphere inhaler -Hyponatremia. Likely SIADH. From underlying lung cancer Fluid restrict 2000 cc a day -Small cell lung cancer being followed by Dr. Tee oncologist and Dr. Molina dredge master Diagnosed 2 months ago. Has received 1 cycle of chemotherapy -Anxiety and depression not otherwise specified Xanax as needed. BuSpar -Insomnia for medical reasons Remeron as needed -Full code Decision from pulmonary about thoracentesis. Other medications to continue. Discussion at length with the patient at the bedside. Past Medical History Past Medical History: Cancer Additional Past Medical History / Comment(s): Lung CA. Right breast CA dx in 2012-radiation tx November 2013, CT of chest on 12/24/2023 showed a very large right hilar mass and compression deformity at T11-L1, CT of brain on 12/25/23 was negative for mets, PET scan on 01/18/24 revealed right hilar conglomerate mass w/suspected metastatic disease to the right pleura throughout the decending and left neck-1 suspicious bone finding in the left 9th rib-had one cycle of chemo and last day was 02/01/24 History of Any Multi-Drug Resistant Organisms: None Reported Past Surgical History: Adenoidectomy, Tonsillectomy Additional Past Surgical History / Comment(s): pylonoidal cyst removal 1971, D&C, right breast lumpectomy with 3 lymph nodes removed 2013, Bronchoscopy and biopsy of right main stem bronchus on 12/28/23 was positive small cell lung carcinoma Past Anesthesia/Blood Transfusion Reactions: No Reported Reaction Past Psychological History: No Psychological Hx Reported Smoking Status: Former smoker Past Alcohol Use History: None Reported Past Drug Use History: None Reported
--- NOTE | 2024-02-07 17:04 | P.PN ---
Subjective Progress Note Date: 02/07/24 78-year-old female well-known to me. The patient presented to the emergency department on February 04 complaining of shortness of breath, and cough. The patient was recently diagnosed with small cell lung cancer. The patient had bronchoscopy on December 27. Prior to that, the patient was in the hospital with a large right perihilar mass, and shortness of breath. The patient did have chemotherapy once, on January 30. She was hospitalized between January 22 and January 24. She does have a right-sided effusion, and it was going to be drained, but, my partner thought the fluid was too small, and that it would cause her to have additional risk. Currently, she is on 3 L. She is coughing quite a bit, and short of breath. I did order a stat ultrasound of the right chest, to see if it would be worth draining her right chest. Current labs include a white count 16.1, hemoglobin 12.2, hematocrit 36.5, platelet count 2 91,000. D-dimer was 3.58. Sodium 127, potassium 3.9, chloride 91, CO2 33, glucose 111. Albumin is 3.4. Chest x-ray shows a right-sided effusion. CT angiogram showed no evidence of pulmonary embolism, and extensive cancer, in the right paratracheal region, right hilar encasement, and right lower lobe collapse. Later plan for on today's evaluation 02/07/2024, the patient is being seen for a follow-up. Remains short of breath. He is utilizing oxygen at 3 L nasal cannula. No reported chest pain. The bedside thoracentesis was done a total of 650 cc of fluid was aspirated from the right lung. No complications. Sodium levels at 120 with a potassium level of 3.7, BUN is 14 with a creatinine of 0.5. The patient is on fluid restriction. Rest of the medications remain unchanged. Objective - Vital Signs Vital signs: Vital Signs Temp 97.9 F 02/07/24 11:42 Pulse 93 02/07/24 15:16 Resp 16 02/07/24 11:42 BP 106/67 02/07/24 11:42 Pulse Ox 96 02/07/24 11:42 FiO2 Intake & Output 02/06/24 02/07/24 02/07/24 18:59 06:59 18:59 Intake Total 360 Balance 360 Intake: Oral 360 Other: Voiding Method Toilet # Voids 3 1 1 - Exam Mild conversational dyspnea, frequent cough. Oriented x 3. HEENT examination is grossly unremarkable. Mucous membranes are moist. No oral lesions. Neck supple. Full range of motion. No adenopathy thyromegaly or neck vein distention. Cardiovascular examination reveals regular rhythm rate. S1-S2 normal. No S3 or S4. No discernible murmur noted. Heart sounds are distant. Heart rate 89 bpm. Lungs reveal diminished breath sounds on the right. Scattered rhonchi noted. No wheezes. No crackles. Saturation is 96% on 3 L. Abdomen soft bowel sounds are heard. No masses or tenderness. Extremities are intact. No cyanosis clubbing or edema. Skin is without rash or lesion. Neurologic examination is brief but nonfocal. - Labs CBC & Chem 7: 02/05/24 12:12 02/07/24 05:39 Labs: Abnormal Lab Results - Last 24 Hours (Table) 02/07/24 Range/Units 05:39 Sodium 120 L (137-145) mmol/L Chloride 88 L (98-107) mmol/L Carbon Dioxide 32 H (22-30) mmol/L Calcium 8.1 L (8.4-10.2) mg/dL Assessment and Plan Plan: Shortness of breath and cough, secondary to small cell lung cancer, involving the right paratracheal region and right lower lobe bronchus, with right lower lobe collapse. Patient also has a right-sided pleural effusion which is probably contributing to her shortness of breath. Right lower lobe bronchus seems to be patent on CAT scan of the chest. Extensive stage small cell lung cancer, with bronchoscopy being performed on December 27. Patient was started systemic chemotherapy with a combination of carboplatinum, VASCULAR RADIOLOGIST-16 and Tecentriq and she has completed the first cycle of systemic chemotherapy. Moderate right-sided pleural effusion, secondary to lung cancer. The patient is post thoracentesis. Hyponatremia, likely secondary to SIADH. COPD exacerbation. History of breast cancer, S/P lumpectomy. Previous history of tobacco use. Plan: Thoracentesis was done with evacuation of 650 cc of pleural fluid Sent for spirometer Fluid restriction and monitor sodium level Will send the pleural fluid for cytology and chemical analysis Will follow. Oncology is on the case.
--- NOTE | 2024-02-07 17:05 | P.PCN ---
Date of Procedure: 02/07/24 Preoperative Diagnosis: Pleural effusion, right Postoperative Diagnosis: Pleural effusion, right Procedure(s) Performed: Thoracentesis, right Anesthesia: local Surgeon: Aga Molina Estimated Blood Loss (ml): 0 Pathology: other Condition: stable Disposition: floor Operative Findings: A time out was performed and the chest x-ray was reviewed, the appropriate side was confirmed and marked. My hands were washed immediately prior to the procedure. I wore a surgical cap, mask with protective eyewear, sterile gown and sterile gloves throughout the procedure. The patient was prepped and draped in a sterile manner using chlorhexidine scrub after the appropriate level was percu ssed and confirmed by ultrasound. 1% lidocaine was used to anesthesize the skin, subcutaneous tissue, superior aspect of the rib periosteum and parietal pleura. A finder needle was then introduced over the superior aspect of the rib to locate the pleural fluid; 2colored fluid was aspirated at a depth of approximately 2 cm. A 10-blade scalpel was used to brian the skin at the insertion site. The [id number]-e-Zzdxrheu needle was then introduced through the skin incision into the pleural space using negative aspiration pressure and the red colometric indicator to confirm appropriate positioning of the needle. The thoracentesis catheter was then threaded without difficulty.650 ml of turbid colored fluid was removed without difficulty. The catheter was then removed. No immediate complications were noted during the procedure. A post-procedure chest x-ray is pending at the time of this note. The fluid will be sent for studies. Estimated blood loss is 0cc
--- NOTE | 2024-02-07 17:16 | XR ---
EXAMINATION TYPE: XR chest 1V portable DATE OF EXAM: 02/07/2024 COMPARISON: 02/05/2024 HISTORY: Shortness of breath TECHNIQUE: Single frontal view of the chest is obtained. FINDINGS: There has been significant interval reduction in the right pleural effusion. Ill-defined opacity righ t lung base likely indicating small pneumonia or mild atelectasis. The left lung is clear. The heart and pulmonary vasculature are normal. The osseous structures are intact. Impression: Interval reduction in the previously identified large right pleural effusion. Small right base infil trate as described above.
--- NOTE | 2024-02-07 19:22 | P.CONS ---
History of Present Illness - Reason for Consult Consult date: 02/07/24 SCLC, on treatment Requesting physician: Sriram Cuevas - Chief Complaint SOB, cough - History of Present Illness Mrs. Elizabeth is a female pt of Dr. Tee diagnosed with right breast cancer in July 2013 during routine screening mammographies. In August 2013 she had right breast partial mastectomy and sentinel nodes biopsy, pathology revealed grade I, invasive ductal carcinoma, 0.8cm, negative sentinel nodes, ER/MD strongly positive, HER2/AGAPITO negative, oncotypeDx revealed low recurrence score of 12, she completed adjuvant radiation therapy in November 2013, and started on tamoxifen in December [address] Marky Morocho at [facility]. On 05/25/2015 she was switched to femara, and she stopped it in December/2018. She was also treated with prolia for osteoporosis. She developed cough around , persistent, progressive. She was seen at [facility] December 2023, CT chest 12/24/2023 showed a very large right hilar mass, about 7.7 x 8.5 x 5.4 cm, extensive mediastinal nodes up to 4.7 cm, compression deformity at T11-L1. CT brain 12/25/2023 was negative for mets. On 12/28/2023 bronchoscopy and biopsy of right main stem bronchus was positive small cell lung carcinoma. Palliative treatment was recommended. She had her 1st cycle of carbo/CLIP WRAPPER with GCSF 01/30-02/02. Pt presented to ER with c/o dyspnea, harsh cough. She had a chest x-ray with the impression of COPD with ongoing moderate to large right pleural effusion increased from 12/24/2023. CTA of the chest was n egative for PE, neoplasm noted on the right, large right pleural effusion seen, COPD with moderate emphysema. Chest US reported right pleural effusion pocket 3.3 cm. She was evaluated by Pulmonary and had a 650 cc thoracentesis today. Patient reports improvement in breathing after procedure. Cough is better with tessalon. She denies fevers, no significant SE from chemo to report, maybe some mild nausea. CBC showing normal Hgb and plt, elevated WBC, mostly neutrophils. Review of Systems 14 point ROS is neg except as stated in HPI Past Medical History Past Medical History: Cancer Additional Past Medical History / Comment(s): Lung CA. Right breast CA dx in 2012-radiation tx November 2013, CT of chest on 12/24/2023 showed a very large right hilar mass and compression deformity at T11-L1, CT of brain on 12/25/23 was negative for mets, PET scan on 01/18/24 revealed right hilar conglomerate mass w/suspected metastatic disease to the right pleura throughout the decending and left neck-1 suspicious bone finding in the left 9th rib History of Any Multi-Drug Resistant Organisms: None Reported Past Surgical History: Adenoidectomy, Tonsillectomy Additional Past Surgical History / Comment(s): pylonoidal cyst removal 1971, D&C, right breast lumpectomy with 3 lymph nodes removed 2013, Bronchoscopy and biopsy of right main stem bronchus on 12/28/23 was positive small cell lung carcinoma Past Anesthesia/Blood Transfusion Reactions: No Reported Reaction Past Psychological History: No Psychological Hx Reported Smoking Status: Former smoker Past Alcohol Use History: None Reported Past Drug Use History: None Reported - Past Family History Mother Family Medical History: CVA/TIA, Hypertension Medications and Allergies Home Medications Medication Instructions Recorded Confirmed Type Inulin/Chromium Picolinate [Fiber 1 tab PO DAILY 12/24/23 02/05/24 History Gummies Chew] Multivitamin [Multivitamins Adult 1 tab PO DAILY 12/24/23 02/05/24 History Gummies] ALPRAZolam [Xanax] 0.5 mg PO TID PRN 01/23/24 02/05/24 History Benzonatate [Tessalon Perles] 100 mg PO TID PRN 01/23/24 02/05/24 History Budesonide/Glycopyr/Formoterol 1 puff INHALATION RT-DAILY 01/23/24 02/05/24 History [Breztri Aerosphere Inhaler] Cyclobenzaprine [Flexeril] 10 mg PO TID PRN 01/23/24 02/05/24 History HYDROcodone/APAP 5-325MG [[place] 1 tab PO Q6H PRN 01/23/24 02/05/24 History 5-325] Ondansetron [Zofran] 4 - 8 mg PO Q4H PRN MDD 8 TABS 01/23/24 02/05/24 History busPIRone HCl [Buspar] 5 mg PO BID PRN 01/23/24 02/05/24 History Ipratropium-Albuterol Nebulize 3 ml INHALATION RT-Q2H PRN each 01/25/24 02/05/24 Rx [Duoneb 0.5 mg-3 mg/3 ml Soln] Ipratropium-Albuterol Nebulize 3 ml INHALATION RT-QID each 01/25/24 02/05/24 Rx [Duoneb 0.5 mg-3 mg/3 ml Soln] Sennosides [Senokot] 8.6 mg PO BID PRN tab 01/25/24 02/05/24 Rx LORazepam [Ativan] 0.5 mg PO BID PRN 02/05/24 02/05/24 History Melatonin 10 mg PO HS PRN 02/05/24 02/05/24 History Mirtazapine [Remeron] 15 mg PO HS 02/05/24 02/05/24 History guaiFENesin-Coden 100-10MG/5ML 10 ml PO Q4H PRN 02/05/24 02/05/24 History [Robitussin AC] Allergies Allergy/AdvReac Type Severity Reaction Status Date / Time No Known Allergies Allergy Verified 02/05/24 15:14 Physical Exam Vitals: Vital Signs Temp Pulse Pulse Resp BP Pulse Ox 02/07/24 08:08 86 02/07/24 07:55 97 02/07/24 07:53 83 02/07/24 07:19 97.6 F 84 18 107/68 96 02/07/24 01:25 98.0 F 91 18 107/63 95 02/06/24 20:00 98.5 F 94 16 99/62 95 02/06/24 19:52 91 18 02/06/24 19:46 91 18 02/06/24 16:22 98 02/06/24 16:07 93 02/06/24 15:00 97.2 F L 102 H 18 114/62 97 02/06/24 12:05 98 02/06/24 11:56 94 Intake and Output 02/06/24 02/07/24 02/07/24 22:59 06:59 14:59 Intake Total 240 Balance 240 Intake: Oral 240 Other: Voiding Method Toilet # Voids 3 1 - Constitutional General appearance: average body habitus, cooperative, mild distress - EENT Eyes: anicteric sclerae, EOMI ENT: hearing grossly normal, normal oropharynx - Neck Neck: lymphadenopathy - Respiratory Respiratory: left: diminished - Cardiovascular Rhythm: regular Heart sounds: normal: S1, S2 Abnormal Heart Sounds: no systolic murmur, no diastolic murmur, no rub, no S3 Gallop, no S4 Gallop, no click, no other leg Peripheral Edema: bilateral: None - Gastrointestinal General gastrointestinal: no absent bowel sounds, no decreased bowel sounds, no distended, no hepatomegaly, no hyperactive bowel sounds, normal bowel sounds, no organomegaly, no rigid, no scaphoid, soft, no splenomegaly, no tenderness, no umbilical hernia, no ventral hernia - Integumentary Integumentary: normal - Neurologic Neurologic: CNII-XII intact - Musculoskeletal Musculoskeletal: strength equal bilaterally - Psychiatric Psychiatric: A&O x's 3, appropriate affect, intact judgment & insight Results CBC & Chem 7: 02/05/24 12:12 02/07/24 05:39 Labs: Abnormal Lab Results - Last 24 Hours (Table) 02/07/24 Range/Units 05:39 Sodium 120 L (137-145) mmol/L Chloride 88 L (98-107) mmol/L Carbon Dioxide 32 H (22-30) mmol/L Calcium 8.1 L (8.4-10.2) mg/dL Chest x-ray: report reviewed CT scan - chest: report reviewed Assessment and Plan (1) Pleural effusion Current Visit: Yes Status: Acute Priority: High Code(s): J90 - PLEURAL EFFUSION, NOT ELSEWHERE CLASSIFIED SNOMED Code(s): 76225895 (2) Small cell lung carcinoma Current Visit: Yes Status: Acute Priority: High Code(s): C34.90 - MALIGNANT NEOPLASM OF UNSP PART OF UNSP BRONCHUS OR LUNG SNOMED Code(s): 646795490 Plan: Pleural effusion -Seen and evaluated by Pulmonary -S/P 650 cc thoracentesis with improvement in her symptoms -Pending cytology and other pleural fluid studies Small cell lung cancer -Diagnosis and treatment as documented in HPI. -Patient is S/P her first cycle of treatment last week. Hopeful that patient will be able to experience some relief of her cancer symptoms in the next 1 to 2 weeks -Patient has had G-CSF, given 02/02. Her elevated white count currently could be possibly related to a COPD exacerbation, stress. G-CSF typically would not show an increase in WBCs until about 7 to 10 days after administration. No acute intervention. Patient is status postthoracentesis so, this may help. -Current plan of care in regards to cancer and cancer treatment is to continue treatment on time. Patient tolerated overall pretty well All of patient and her 's questions were answered to their satisfaction Doctor attests: I performed a history and physical examination of this patient, developed impression and plan of care. Discussed with dictator. I agree with dictators note, documented as a scribe.
[2024-02-08 02:47] LABS: Glucose, BF Source Pleural Fluid; Glucose, Body Fluid 127 mg/dL; LDH, Body Fluid Source Pleural Fluid; T. Protein, Body Fluid Source Pleural Fluid; Total Protein, Body Fluid 3300 mg/dL
[2024-02-08 04:32] LABS: Appearance,BF Cloudy (Clear)
--- NOTE | 2024-02-08 11:52 | P.PN ---
Subjective Progress Note Date: 02/08/24 Principal diagnosis: Dyspnea, SCLC In f/u pt reports she cont to be breathing more comfortably after thoracentesis yesterday. Pt pain and anxiety mixed are causing her discomfort in the rt chest wall and emotional distress. She has been receiving pain meds and xanax and this seems to help. No fever, N,V, cough is better controlled right now, no bowel c/o at this time. Objective - Vital Signs Vital signs: Vital Signs Temp 97.7 F 02/08/24 06:57 Pulse 86 02/08/24 11:29 Resp 16 02/08/24 06:57 BP 109/67 02/08/24 06:57 Pulse Ox 96 02/08/24 08:01 FiO2 Intake & Output 02/07/24 02/08/24 02/08/24 18:59 06:59 18:59 Other: Voiding Method Toilet # Voids 1 1 - Constitutional General appearance: Present: average body habitus, cooperative, no acute distress - EENT Eyes: Present: anicteric sclerae, EOMI ENT: Present: hearing grossly normal - Respiratory Respiratory: bilateral: diminished - Cardiovascular Rhythm: regular - Peripheral edema leg Peripheral Edema: bilateral: None - Gastrointestinal General gastrointestinal: Present: soft - Integumentary Integumentary: Present: normal - Neurologic Neurologic: Present: CNII-XII intact - Musculoskeletal Musculoskeletal: Present: strength equal bilaterally - Psychiatric Psychiatric: Present: A&O x's 3, appropriate affect, intact judgment & insight - Labs CBC & Chem 7: 02/05/24 12:12 02/07/24 05:39 Labs: Abnormal Lab Results - Last 24 Hours (Table) 02/07/24 Range/Units 15:00 Fluid Appearance Cloudy A (Clear) Assessment and Plan (1) Pleural effusion Current Visit: Yes Status: Acute Priority: High Code(s): J90 - PLEURAL EFFUSION, NOT ELSEWHERE CLASSIFIED SNOMED Code(s): 53114253 (2) Small cell lung carcinoma Current Visit: Yes Status: Acute Priority: High Code(s): C34.90 - MALIGNANT NEOPLASM OF UNSP PART OF UNSP BRONCHUS OR LUNG SNOMED Code(s): 718749297 Plan: Pleural effusion -Seen and evaluated by Pulmonary -S/P 650 cc thoracentesis with improvement in her symptoms -Pending cytology and other pleural fluid studies Small cell lung cancer -Diagnosis and treatment as documented in consult note. -Patient is S/P her first cycle of treatment last week. Hopeful that patient will be able to experience some relief of her cancer symptoms in the next 1 to 2 weeks -Patient has had G-CSF, given 02/02. Her elevated white count could be possibly related to a COPD exacerbation, stress. G-CSF typically would not show an increase in WBCs until about 7 to 10 days after administration. No acute intervention. Patient is status post thoracentesis so, this may help. -Current plan of care in regards to cancer and cancer treatment is to continue treatment on time. Patient tolerated overall pretty well F/U appt in DC plan Pt ok from Hem/Onc to be discharged once cleared by Attending and Consulting Physicians
[2024-02-08 14:09] LABS: African American GFR (CKD) >90 (>60 ml/min/1.73 sqM); Anion Gap 4 mmol/L; Blood Urea Nitrogen 13 mg/dL (7-17); Calcium 8.9 mg/dL (8.4-10.2); Carbon Dioxide 30 mmol/L (22-30); Chloride 87 mmol/L (98-107); Glucose 100 mg/dL (74-99); Non-African American GFR(CKD) >90 (>60 ml/min/1.73 sqM); Potassium 3.9 mmol/L (3.5-5.1); Sodium 121 mmol/L (137-145)
[2024-02-08] MEDS: SODIUM CHLORIDE 0.9% 1,000 ML IV SCH (14:55)
[2024-02-08] MEDS: SODIUM CHLORIDE TAB 1 GM TAB PO STA ×2 (14:58→21:00)
--- NOTE | 2024-02-08 18:20 | P.PN ---
Progress Note - Text Progress Note Date: 02/08/24 Chief Complaint: Short of breath This is a pleasant 78-year-old patient who follows with Dr. Minerva Jaeger. Patient has a diagnosis of small cell lung cancer diagnosed 2 months ago. Has received 1 cycle of chemotherapy. Is somewhat restricted to the right lung right now. Decreased appetite. Has lost about 12 pounds. Follows with oncologist Dr. Tee. Creative Art Director Dr. Molina. Patient has known pleural effusion. PET scan on January 17 showed right hilar conglomerate mass with suspected metastatic disease to right pleura throughout the descending and left neck with FDG avid enlarged lymph nodes. There is at least 1 suspicious bone finding and left rib ninth and head with abnormal uptake. Brain MRI on January 19 unremarkable. Ultrasound chest on January 22 showed enlarging right pleural effusion with airspace opacities. For some time patient been having increasing cough. No sputum. Worsening short of breath. No fever no chills. She called her lyft driver office and they asked her to come to the ER. February 05: Laying in bed. Tired. Did not eat breakfast at about 75% lunch. Chest ultrasound ordered by Dr. Clarke. Pending possible thoracentesis February 06: Patient in bed. at the bedside. Patient had questions about her sodium and communication during her December admission. I did apologize to her that she was unhappy and did my best to answer questions. She will also also have a prognosis I did say that she should discuss this with her patrol sergeant sheriff's office Dr. Tee an hour lyft driver Dr Molina. Decision about thoracentesis per pulmonary. Patient does get easily tired.. Did not eat breakfast at about 75% lunch. February 07: Yesterday about 650 cc of pleural fluid salvador-colored removed. Patient has decreased appetite. Sodium 121. Placed on fluid restriction 1200 cc. Nephrology consulted. Encourage oral intake. Tired Active Medications Acetaminophen (Acetaminophen Tab 325 Mg Tab) 650 mg PO Q6HR PRN PRN Reason: Mild Pain or Fever > 100.5 Last Admin: 02/06/24 08:23 Dose: 650 mg Hydrocodone Bitart/Acetaminophen (Hydrocodone/Apap 5-325mg 1 Each Tab) 1 each PO Q6H PRN PRN Reason: Pain Last Admin: 02/08/24 15:34 Dose: 1 each Albuterol/Ipratropium (Ipratropium-Albuterol 3 Ml Neb) 3 ml INHALATION RT-QID [facility] Last Admin: 02/08/24 16:42 Dose: 3 ml Albuterol/Ipratropium (Ipratropium-Albuterol 3 Ml Neb) 3 ml INHALATION RT-Q2H PRN PRN Reason: Shortness Of Breath Or Wheezing Alprazolam (Alprazolam 0.5 Mg Tab) 0.5 mg PO TID PRN PRN Reason: Anxiety Last Admin: 02/08/24 09:09 Dose: 0.5 mg Benzonatate (Benzonatate 100 Mg Cap) 200 mg PO TID [facility] Last Admin: 02/08/24 15:58 Dose: 200 mg Budesonide/Formoterol Fumarate (Symbicort 160-4.5 Mcg Inhaler) 2 puff INHALATION RT-BID [facility] Last Admin: 02/08/24 07:56 Dose: 2 puff Buspirone HCl (Buspirone Hcl 5 Mg Tab) 5 mg PO BID PRN PRN Reason: Anxiety Calcium Carbonate/Glycine (Calcium Carbonate 500 Mg Chewable) 1,000 mg PO Q4HR PRN PRN Reason: Dyspepsia Cyclobenzaprine HCl (Cyclobenzaprine 10 Mg Tab) 10 mg PO TID PRN PRN Reason: Muscle Pain Last Admin: 02/06/24 22:57 Dose: 10 mg Enoxaparin Sodium (Enoxaparin 40 Mg/0.4 Ml Syringe) 40 mg SQ DAILY [facility] Last Admin: 02/08/24 09:08 Dose: 40 mg Sodium Chloride (Saline 0.9%) 1,000 mls @ 50 mls/hr IV .Q20H [facility] Last Admin: 02/08/24 14:55 Dose: 50 mls/hr Lactulose (Lactulose 20 Gm/30 Ml Cup) 20 gm PO DAILY PRN PRN Reason: Constipation Magnesium Oxide (Magnesium Oxide 400 Mg Tab) 400 mg PO BID [facility] Last Admin: 02/08/24 09:09 Dose: 400 mg Melatonin (Melatonin 5 Mg Tablet) 10 mg PO HS PRN PRN Reason: Insomnia Last Admin: 02/06/24 22:57 Dose: 10 mg Mirtazapine (Mirtazapine 15 Mg Tab) 15 mg PO HS [facility] Last Admin: 02/07/24 20:32 Dose: 15 mg Multivitamins (Multivitamins, Thera 1 Each Tab) 1 each PO DAILY [facility] Last Admin: 02/08/24 09:09 Dose: 1 each Naloxone HCl (Naloxone 0.4 Mg/Ml 1 Ml Vial) 0.2 mg IV Q2M PRN PRN Reason: Opioid Reversal Ondansetron HCl (Ondansetron 4 Mg/2 Ml Vial) 4 mg IVP Q8HR PRN PRN Reason: Nausea And Vomiting Senna (Sennosides 8.6 Mg Tab) 8.6 mg PO BID PRN PRN Reason: Constipation Social history: . 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 Conjunctiva surya l. HEENT: External appearance of nose and ears normal, oral cavity grossly normal. NECK: JVD not raised; masses not palpable. HEART: First and second heart sounds are normal; no edema. LUNGS: Respiratory rate normal: Decreased breath sound. ABDOMEN: Soft, nontender, liver spleen not palpable, no masses palpable. PSYCH: Alert and oriented x3; mood and affect a bit anxious MUSCULOSKELETAL:No Clubbing/cyanosis;muscles-grossly intact INVESTIGATIONS, reviewed in the clinical context: February 07: Sodium 121 potassium 3.9 creatinine 0.49 February 06: Sodium 120 potassium 3.7 creatinine 0.52 February 04: White count 16.1 hemoglobin 12.2 platelets 291 sodium 127 potassium 3.9 BUN 13 creatinine 0.53 EKG tracing personally reviewed by me-normal sinus rhythm. Rate 101 Chest x-ray film personally reviewed by me-large right pleural effusion Chest CTA: Extensive neoplasm along the paratracheal region extending into the right prevascular space AP window with current and right hilar encasement. Soft tissue continues down the right bronchus intermedius bronchus basalis most of the right lower lobe remains collapsed. Moderate to large right pleural effusion. Patchy airspace disease throughout the right upper lobe persist. 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 From underlying lung cancer: Slow to respond Fluid restrict 1500 cc a day. Nephrology consulted. Check urine and serum osmolality. Urine sodium. -Small cell lung cancer being followed by Dr. Tee oncologist and Dr. Molina lyft driver Diagnosed 2 months ago. Has received 1 cycle of chemotherapy -Anxiety and depression not otherwise specified Xanax as needed. BuSpar -Insomnia for medical reasons Remeron as needed -Full code Changed to restriction to 1200 cc a day. Urine and serum osmolality. Nephrology consulted. Urine sodium. Sodium tablet ordered by nephrology Past Medical History Past Medical History: Cancer Additional Past Medical History / Comment(s): Lung CA. Right breast CA dx in 2012-radiation tx November 2013, CT of chest on 12/24/2023 showed a very large right hilar mass and compression deformity at T11-L1, CT of brain on 12/25/23 was negative for mets, PET scan on 01/18/24 revealed right hilar conglomerate mass w /suspected metastatic disease to the right pleura throughout the decending and left neck-1 suspicious bone finding in the left 9th rib-had one cycle of chemo and last day was 02/01/24 History of Any Multi-Drug Resistant Organisms: None Reported Past Surgical History: Adenoidectomy, Tonsillectomy Additional Past Surgical History / Comment(s): pylonoidal cyst removal 1971, D&C, right breast lumpectomy with 3 lymph nodes removed 2013, Bronchoscopy and biopsy of right main stem bronchus on 12/28/23 was positive small cell lung carcinoma Past Anesthesia/Blood Transfusion Reactions: No Reported Reaction Past Psychological History: No Psychological Hx Reported Smoking Status: Former smoker Past Alcohol Use History: None Reported Past Drug Use History: None Reported
--- NOTE | 2024-02-08 18:44 | P.PN ---
Subjective Progress Note Date: 02/08/24 78-year-old female well-known to me. The patient presented to the emergency department on February 04 complaining of shortness of breath, and cough. The patient was recently diagnosed with small cell lung cancer. The patient had bronchoscopy on December 27. Prior to that, the patient was in the hospital with a large right perihilar mass, and shortness of breath. The patient did have chemotherapy once, on January 30. She was hospitalized between January 22 and January 24. She does have a right-sided effusion, and it was going to be drained, but, my partner thought the fluid was too small, and that it would cause her to have additional risk. Currently, she is on 3 L. She is coughing quite a bit, and short of breath. I did order a stat ultrasound of the right chest, to see if it would be worth draining her right chest. Current labs include a white count 16.1, hemoglobin 12.2, hematocrit 36.5, platelet count 2 91,000. D-dimer was 3.58. Sodium 127, potassium 3.9, chloride 91, CO2 33, glucose 111. Albumin is 3.4. Chest x-ray shows a right-sided effusion. CT angiogram showed no evidence of pulmonary embolism, and extensive cancer, in the right paratracheal region, right hilar encasement, and right lower lobe collapse. Later plan for on today's evaluation 02/07/2024, the patient is being seen for a follow-up. Remains short of breath. He is utilizing oxygen at 3 L nasal cannula. No reported chest pain. The bedside thoracentesis was done a total of 650 cc of fluid was aspirated from the right lung. No complications. Sodium levels at 120 with a potassium level of 3.7, BUN is 14 with a creatinine of 0.5. The patient is on fluid restriction. Rest of the medications remain unchanged. 02/08/2024, the patient is being seen for a follow-up. The patient is postthoracentesis of the right lung with total amount of fluid removed is in the order of 650 cc and the fluid analysis was not exudative based on LDH and protein criteria. Awaiting pleural fluid cytology. Clinically feeling better. Remains on oxygen and the patient is currently on 2 L. Hemodynamically stable. Sodium levels at 121. The patient is undergoing fluid restriction. No altered mentation. No focal neurological deficits. Objective - Vital Signs Vital signs: Vital Signs Temp 97.7 F 02/08/24 06:57 Pulse 80 02/08/24 08:12 Resp 16 02/08/24 06:57 BP 109/67 02/08/24 06:57 Pulse Ox 96 02/08/24 08:01 FiO2 Intake & Output 02/07/24 02/08/24 02/08/24 18:59 06:59 18:59 Other: Voiding Method Toilet # Voids 1 1 - Exam Mild conversational dyspnea, frequent cough. Oriented x 3. HEENT examination is grossly unremarkable. Mucous membranes are moist. No oral lesions. Neck supple. Full range of motion. No adenopathy thyromegaly or neck vein distention. Cardiovascular examination reveals regular rhythm rate. S1-S2 normal. No S3 or S4. No discernible murmur noted. Heart sounds are distant. Heart rate 89 bpm. Lungs reveal diminished breath sounds on the right. Scattered rhonchi noted. No wheezes. No crackles. Saturation is 96% on 3 L. Abdomen soft bowel sounds are heard. No masses or tenderness. Extremities are intact. No cyanosis clubbing or edema. Skin is without rash or lesion. Neurologic examination is brief but nonfocal. - Labs CBC & Chem 7: 02/05/24 12:12 02/08/24 13:16 Labs: Abnormal Lab Results - Last 24 Hours (Table) 02/07/24 Range/Units 15:00 Fluid Appearance Cloudy A (Clear) Assessment and Plan Plan: Shortness of breath and cough, secondary to small cell lung cancer, involving the right paratracheal region and right lower lobe bronchus, with right lower lobe collapse. Patient also has a right-sided pleural effusion which is prob ably contributing to her shortness of breath. Right lower lobe bronchus seems to be patent on CAT scan of the chest. Extensive stage small cell lung cancer, with bronchoscopy being performed on December 27. Patient was started systemic chemotherapy with a combination of carboplatinum, DOOR CLOSER-16 and Tecentriq and she has completed the first cycle of systemic chemotherapy. Moderate right-sided pleural effusion, secondary to lung cancer. The patient is post thoracentesis. The fluid is an exudate. No complications. Hyponatremia, likely secondary to SIADH. COPD exacerbation. History of breast cancer, S/P lumpectomy. Previous history of tobacco use. Plan: Thoracentesis was done with evacuation of 650 cc of pleural fluid, awaiting pleural fluid cytology Sent for spirometer Fluid restriction and monitor sodium level, monitor sodium level Will send the pleural fluid for cytology and chemical analysis Will follow. Oncology is on the case.
[2024-02-09 08:46] LABS: African American GFR (CKD) >90 (>60 ml/min/1.73 sqM); Anion Gap 2 mmol/L; Blood Urea Nitrogen 11 mg/dL (7-17); Carbon Dioxide 32 mmol/L (22-30); Chloride 91 mmol/L (98-107); Glucose 83 mg/dL (74-99); Magnesium 1.5 mg/dL (1.6-2.3); Non-African American GFR(CKD) >90 (>60 ml/min/1.73 sqM); Potassium 3.8 mmol/L (3.5-5.1); Sodium 125 mmol/L (137-145)
--- NOTE | 2024-02-09 12:54 | P.NPCON ---
History of Present Illness - Reason for Consult hyponatremia - History of Present Illness Reason for consultation: Hyponatremia History of present illness: Patient is a 78-year-old female seen in renal consultation for hyponatremia. Patient sodium level on admission was 127 dated February 05, 2024 and dropped down to 120 on February 07, 2024. Patient received sodium chloride tabs yesterday and also IV fluids. She is currently receiving normal saline at 50 cc an hour. Sodium level this morning is up to 125. Patient does have history of small cell lung cancer and states she received 1 round of chemotherapy so far. She denies use of thiazide diuretics. No history of kidney disease. GFR is at baseline. No edema. Admits to using nonsteroidals 1-2 times per week as needed for pain. Patient states she drinks 30 to 40 ounces of water daily and 112 ounce bottle of danyel forrest on a daily basis. She denies use of alcohol. No vomiting or diarrhea. No chest pain or shortness of breath. Patient initially came to the hospital due to worsening shortness of breath. Currently she is on room air. Patient does have a right pleural effusion. She underwent thoracentesis with 650 cc drained this admission. No evidence of PE noted on CTA. Vital signs are stable. General: No acute distress. HEENT: Head exam is unremarkable. LUNGS: No audible rhonchi or wheezes. HEART: Rate and Rhythm are regular. ABDOMEN: Nontender. EXTREMITITES: No edema. Past Medical History Past Medical History: Cancer Additional Past Medical History / Comment(s): Lung CA. Right breast CA dx in 2012-radiation tx November 2013, CT of chest on 12/24/2023 showed a very large right hilar mass and compression deformity at T11-L1, CT of brain on 12/25/23 was negative for mets, PET scan on 01/18/24 revealed right hilar conglomerate mass w/suspected metastatic disease to the right pleura throughout the decending and left neck-1 suspicious bone finding in the left 9th rib History of Any Multi-Drug Resistant Organisms: None Reported Past Surgical History: Adenoidectomy, Tonsillectomy Additional Past Surgical History / Comment(s): pylonoidal cyst removal 1971, D&C, right breast lumpectomy with 3 lymph nodes removed 2013, Bronchoscopy and biopsy of right main stem bronchus on 12/28/23 was positive small cell lung carcinoma Past Anesthesia/Blood Transfusion Reactions: No Reported Reaction Past Psychological History: No Psychological Hx Reported Smoking Status: Former smoker Past Alcohol Use History: None Reported Past Drug Use History: None Reported - Past Family History Mother Family Medical History: CVA/TIA, Hypertension Medications and Allergies Home Medications Medication Instructions Recorded Confirmed Type Inulin/Chromium Picolinate [Fiber 1 tab PO DAILY 12/24/23 02/05/24 History Gummies Chew] Multivitamin [Multivitamins Adult 1 tab PO DAILY 12/24/23 02/05/24 History Gummies] ALPRAZolam [Xanax] 0.5 mg PO TID PRN 01/23/24 02/05/24 History Benzonatate [Tessalon Perles] 100 mg PO TID PRN 01/23/24 02/05/24 History Budesonide/Glycopyr/Formoterol 1 puff INHALATION RT-DAILY 01/23/24 02/05/24 History [Breztri Aerosphere Inhaler] Cyclobenzaprine [Flexeril] 10 mg PO TID PRN 01/23/24 02/05/24 History HYDROcodone/APAP 5-325MG [[place] 1 tab PO Q6H PRN 01/23/24 02/05/24 History 5-325] Ondansetron [Zofran] 4 - 8 mg PO Q4H PRN MDD 8 TABS 01/23/24 02/05/24 History busPIRone HCl [Buspar] 5 mg PO BID PRN 01/23/24 02/05/24 History Ipratropium-Albuterol Nebulize 3 ml INHALATION RT-Q2H PRN each 01/25/24 02/05/24 Rx [Duoneb 0.5 mg-3 mg/3 ml Soln] Ipratropium-Albuterol Nebulize 3 ml INHALATION RT-QID each 01/25/24 02/05/24 Rx [Duoneb 0.5 mg-3 mg/3 ml Soln] Sennosides [Senokot] 8.6 mg PO BID PRN tab 01/25/24 02/05/24 Rx LORazepam [Ativan] 0.5 mg PO BID PRN 02/05/24 02/05/24 History Melatonin 10 mg PO HS PRN 02/05/24 02/05/24 History Mirtazapine [Remeron] 15 mg PO HS 02/05/24 02/05/24 History guaiFENesin-Coden 100-10MG/5ML 10 ml PO Q4H PRN 02/05/24 02/05/24 History [Robitussin AC] Allergies Allergy/AdvReac Type Severity Reaction Status Date / Time No Known Allergies Allergy Verified 02/05/24 15:14 Physical Exam Vitals: Vital Signs Temp Pulse Pulse Resp BP Pulse Ox Pulse Ox 02/09/24 12:39 98 02/09/24 11:40 86 02/09/24 11:28 95 02/09/24 11:27 84 02/09/24 08:35 84 02/09/24 08:23 80 86 L 02/09/24 07:38 97.5 F L 79 19 104/62 99 02/09/24 01:28 97.3 F L 83 18 100/59 96 02/08/24 20:01 87 02/08/24 19:50 85 02/08/24 18:39 97.7 F 90 16 101/67 96 02/08/24 16:53 84 02/08/24 16:44 84 Pulse Ox 02/09/24 12:39 86 L 02/09/24 11:40 02/09/24 11:28 02/09/24 11:27 02/09/24 08:35 02/09/24 08:23 02/09/24 07:38 02/09/24 01:28 02/08/24 20:01 02/08/24 19:50 02/08/24 18:39 02/08/24 16:53 02/08/24 16:44 Intake and Output 02/08/24 02/09/24 02/09/24 22:59 06:59 14:59 Intake Total 240 Output Total 300 Balance -300 240 Intake: Oral 240 Output: Urine 300 Other: # Voids 1 Results - Lab Results Most recent lab results Calcium 9.0 mg/dL (8.4-10.2) 02/09/24 07:42 Magnesium 1.5 mg/dL (1.6-2.3) L 02/09/24 07:42 02/05/24 12:12 02/09/24 07:42 Assessment and Plan Plan: Assessment: 1. 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 Also mild component of hypovolemia as sodium did improve with normal saline. Also received sodium chloride tabs yesterday. Serum osmolality 257. Urine sodium 58 and urine osmolality 539. 2. Small cell lung cancer. 3. Pleural effusion status postthoracentesis with 650 cc drained. 4. Hypomagnesemia from poor intake. Plan: Maintain gentle IV hydration - plan to heplock tomorrow. 2 g IV magnesium sulfate today. Encouraged oral intake. Maintain 1200 cc fluid restriction. Add sodium chloride tab 1 g once daily. Will give Samsca if sodium level does not continue to improve tomorrow. Repeat labs in the morning. Thank you for the consultation. I will continue to follow the patient with you during her hospital stay.
[2024-02-09] MEDS: MAGNESIUM SULFATE-D5W PMX 1 GM in DEXTROSE/WATER 1 100ML.BAG IVPB SCH (14:02)
[2024-02-09] MEDS: SODIUM CHLORIDE TAB 1 GM TAB PO SCH (14:03)
--- NOTE | 2024-02-09 14:23 | P.EN ---
Patient will be set up with home oxygen/portable because of COPD and lung cancer causing underlying hypoxia.
--- NOTE | 2024-02-09 15:28 | P.PN ---
Progress Note - Text Progress Note Date: 02/09/24 Chief Complaint: Short of breath This is a pleasant 78-year-old patient who follows with Dr. Minerva Jaeger. Patient has a diagnosis of small cell lung cancer diagnosed 2 months ago. Has received 1 cycle of chemotherapy. Is somewhat restricted to the right lung right now. Decreased appetite. Has lost about 12 pounds. Follows with oncologist Dr. Tee. Fairground Operator Dr. Molina. Patient has known pleural effusion. PET scan on January 17 showed right hilar conglomerate mass with suspected metastatic disease to right pleura throughout the descending and left neck with FDG avid enlarged lymph nodes. There is at least 1 suspicious bone finding and left rib ninth and head with abnormal uptake. Brain MRI on January 19 unremarkable. Ultrasound chest on January 22 showed enlarging right pleural effusion with airspace opacities. For some time patient been having increasing cough. No sputum. Worsening short of breath. No fever no chills. She called her barrel tester and drainer office and they asked her to come to the ER. February 05: Laying in bed. Tired. Did not eat breakfast at about 75% lunch. Chest ultrasound ordered by Dr. Clarke. Pending possible thoracentesis February 06: Patient in bed. at the bedside. Patient had questions about her sodium and communication during her December admission. I did apologize to her that she was unhappy and did my best to answer questions. She will also also have a prognosis I did say that she should discuss this with her pouring crane operator Dr. Tee an hour barrel tester and drainer Dr Molina. Decision about thoracentesis per pulmonary. Patient does get easily tired.. Did not eat breakfast at about 75% lunch. February 07: Yesterday about 650 cc of pleural fluid salvador-colored removed. Patient has decreased appetite. Sodium 121. Placed on fluid restriction 1200 cc. Nephrology consulted. Encourage oral intake. Tired February 08: Patient's sodium came up Received salt tablet. On strict fluid restriction. Has been out of bed. Told to sit up in a chair. Patient yesterday was cleared by oncology and pulmonary for discharge. Replace magnesium.. Serum osmolality low. CODE STATUS discussed with patient. She wishes to remain full code Social history: . 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 Pulse ox was 86% on room air GENERAL: Reclining in bed, tired EYES: Pupils equal. Conjunctiva surya l. HEENT: External appearance of nose and ears normal, oral cavity grossly normal. NECK: JVD not raised; masses not palpable. HEART: First and second heart sounds are normal; no edema. LUNGS: Respiratory rate normal: Decreased breath sound. ABDOMEN: Soft, nontender, liver spleen not palpable, no masses palpable. PSYCH: Alert and oriented x3; mood and affect a bit anxious MUSCULOSKELETAL:No Clubbing/cyanosis;muscles-grossly intact INVESTIGATIONS, reviewed in the clinical context: February 08: Sodium 125 potassium 3.8 creatinine 0.49 magnesium 1.5 TSH 1.050 February 07: Sodium 121 potassium 3.9 creatinine 0.49 February 06: Sodium 120 potassium 3.7 creatinine 0.52 February 04: White count 16.1 hemoglobin 12.2 platelets 291 sodium 127 potassium 3.9 BUN 13 creatinine 0.53 EKG tracing personally reviewed by me-normal sinus rhythm. Rate 101 Chest x-ray film personally reviewed by me-large right pleural effusion Chest CTA: Extensive neoplasm along the paratracheal region extending into the right prevascular space AP window with current and right hilar encasement. Soft tissue continues down the right bronchus intermedius bronchus basalis most of the right lower lobe remains collapsed. Moderate to large right pleural effusion. Patchy airspace disease throughout the right upper lobe persist. Emphysema Assessment plan:: -Worsening right pleural effusion secondary to small cell lung cancer: Better Status post 650 cc thoracentesis done -COPD - prior smoker DuoNeb. Salsa Bear Studiosphere inhaler -Hyponatremia. Hypoosmolar. Likely SIADH. From underlying lung cancer: Slow improvement Fluid restrict 1200 cc a day. Nephrology following -Medical debility from underlying malignancy -Small cell lung cancer being followed by Dr. Tee oncologist and Dr. Molina barrel tester and drainer Diagnosed 2 months ago. Has received 1 cycle of chemotherapy -Anxiety and depression not otherwise specified Xanax as needed. BuSpar -Hypomagnesemia Magnesium supplement -Insomnia for medical reasons Remeron as needed -Full code-discussed with patient Fluid restriction. Salt tablet. Requested the patient to be up in the chair. Follow with nephrology Past Medical History Past Medical History: Cancer Additional Past Medical History / Comment(s): Lung CA. Right breast CA dx in 2012-radiation tx November 2013, CT of chest on 12/24/2023 showed a very large right hilar mass and compression deformity at T11-L1, CT of brain on 12/25/23 was negative for mets, PET scan on 01/18/24 revealed right hilar conglomerate mass w/suspected metastatic disease to the right pleura throughout the decending and left neck-1 suspicious bone finding in the left 9th rib-had one cycle of chemo and last day was 02/01/24 History of Any Multi-Drug Resistant Organisms: None Reported Past Surgical History: Adenoidectomy, Tonsillectomy Additional Past Surgical History / Comment(s): pylonoidal cyst removal 1971, D&C, right breast lumpectomy with 3 lymph nodes removed 2013, Bronchoscopy and biopsy of right main stem bronchus on 12/28/23 was positive small cell lung carcinoma Past Anesthesia/Blood Transfusion Reactions: No Reported Reaction Past Psychological History: No Psychological Hx Reported Smoking Status: Former smoker Past Alcohol Use History: None Reported Past Drug Use History: None Reported
--- NOTE | 2024-02-09 18:59 | P.PN ---
Subjective Progress Note Date: 02/09/24 78-year-old female well-known to me. The patient presented to the emergency department on February 04 complaining of shortness of breath, and cough. The patient was recently diagnosed with small cell lung cancer. The patient had bronchoscopy on December 27. Prior to that, the patient was in the hospital with a large right perihilar mass, and shortness of breath. The patient did have chemotherapy once, on January 30. She was hospitalized between January 22 and January 24. She does have a right-sided effusion, and it was going to be drained, but, my partner thought the fluid was too small, and that it would cause her to have additional risk. Currently, she is on 3 L. She is coughing quite a bit, and short of breath. I did order a stat ultrasound of the right chest, to see if it would be worth draining her right chest. Current labs include a white count 16.1, hemoglobin 12.2, hematocrit 36.5, platelet count 2 91,000. D-dimer was 3.58. Sodium 127, potassium 3.9, chloride 91, CO2 33, glucose 111. Albumin is 3.4. Chest x-ray shows a right-sided effusion. CT angiogram showed no evidence of pulmonary embolism, and extensive cancer, in the right paratracheal region, right hilar encasement, and right lower lobe collapse. Later plan for on today's evaluation 02/07/2024, the patient is being seen for a follow-up. Remains short of breath. He is utilizing oxygen at 3 L nasal cannula. No reported chest pain. The bedside thoracentesis was done a total of 650 cc of fluid was aspirated from the right lung. No complications. Sodium levels at 120 with a potassium level of 3.7, BUN is 14 with a creatinine of 0.5. The patient is on fluid restriction. Rest of the medications remain unchanged. 02/08/2024, the patient is being seen for a follow-up. The patient is postthoracentesis of the right lung with total amount of fluid removed is in the order of 650 cc and the fluid analysis was not exudative based on LDH and protein criteria. Awaiting pleural fluid cytology. Clinically feeling better. Remains on oxygen and the patient is currently on 2 L. Hemodynamically stable. Sodium levels at 121. The patient is undergoing fluid restriction. No altered mentation. No focal neurological deficits. On 02/09/2024, the patient is being seen for a follow-up. She is resting comfortably in bed. No specific complaints. No interval worsening or shortness of breath. The patient is also being monitored for sodium level as the patient is undergoing fluid restriction. Sodium level is up to 125. The patient has no other new complaints for now. No altered mentation. No chest pain. She is still weak. Pleural fluid cytology still pending for now. The pleural fluid is an exudate. Objective - Vital Signs Vital signs: Vital Signs Temp 98.1 F 02/09/24 14:41 Pulse 84 02/09/24 16:12 Resp 17 02/09/24 14:41 BP 106/62 02/09/24 14:41 Pulse Ox 97 02/09/24 14:41 FiO2 Intake & Output 02/08/24 02/09/24 02/09/24 18:59 06:59 18:59 Intake Total 240 Output Total 351 Balance -351 240 Intake: Oral 240 Output: Urine 300 Post Void Residual 51 Other: Voiding Method Toilet # Voids 1 - Exam Mild conversational dyspnea, frequent cough. Oriented x 3. HEENT examination is grossly unremarkable. Mucous membranes are moist. No oral lesions. Neck supple. Full range of motion. No adenopathy thyromegaly or neck vein distention. Cardiovascular examination reveals regular rhythm rate. S1-S2 normal. No S3 or S4. No discernible murmur noted. Heart sounds are distant. Heart rate 89 bpm. Lungs reveal diminished breath sounds on the right. Scattered rhonchi noted. No wheezes. No crackles. Saturation is 96% on 3 L. Abdomen soft bowel sounds are heard. No masses or tenderness. Extremities are intact. No cyanosis clubbing or edema. Skin is without rash or lesion. Neurologic examination is brief but nonfocal. - Labs CBC & Chem 7: 02/05/24 12:12 02/09/24 07:42 Labs: Abnormal Lab Results - Last 24 Hours (Table) 02/08/24 02/08/24 02/09/24 Range/Units 13:30 19:00 07:42 Sodium 123 L 125 L (137-145) mmol/L Chloride 91 L (98-107) mmol/L Carbon Dioxide 32 H (22-30) mmol/L Creatinine 0.49 L (0.52-1.04) mg/dL Osmolality 257 L (275-295) mOsm/kg Magnesium 1.5 L (1.6-2.3) mg/dL Microbiology - Last 24 Hours (Table) 02/07/24 15:00 Gram Stain - Preliminary Pleural Fluid Body Fluid Culture - Preliminary Assessment and Plan Plan: Acute on chronic shortness of breath and cough, secondary to small cell lung cancer, involving the right paratracheal region and right lower lobe bronchus, with right lower lobe collapse. Patient also has a right-sided pleural effusion which is probably contributing to her shortness of breath. The patient underwent a right-sided thoracentesis with clinical improvement. Total of 650 cc of fluid was aspirated from the right lung. Fluid cytology still pending. Extensive stage small cell lung cancer, with bronchoscopy being performed on December 27. Patient was started systemic chemotherapy with a combination of carboplatinum, AQU[employer] FARM MANAGER-16 and Tecentriq and she is still completing her first round of systemic chemotherapy. Moderate right-sided pleural effusion, secondary to lung cancer. The patient is post thoracentesis. The fluid is an exudate. No complications. Hyponatremia, likely secondary to SIADH. Sodium level is improving with fluid restriction. COPD exacerbation. History of breast cancer, S/P lumpectomy. Previous history of tobacco use. Plan: Thoracentesis was done with evacuation of 650 cc of pleural fluid, awaiting pleural fluid cytology Monitor sodium level and continue with fluid restriction. Oxygen at 3 L nasal cannula. Increase mobility Will follow. Oncology is on the case.
[2024-02-10] MEDS: IPRATROPIUM-ALBUTEROL 3 ML NEB INHALATION PRN (01:40)
[2024-02-10 07:56] LABS: African American GFR (CKD) >90 (>60 ml/min/1.73 sqM); Anion Gap 2 mmol/L; Blood Urea Nitrogen 6 mg/dL (7-17); Calcium 8.5 mg/dL (8.4-10.2); Carbon Dioxide 30 mmol/L (22-30); Chloride 94 mmol/L (98-107); Glucose 93 mg/dL (74-99); Magnesium 1.8 mg/dL (1.6-2.3); Non-African American GFR(CKD) >90 (>60 ml/min/1.73 sqM); Potassium 3.4 mmol/L (3.5-5.1); Sodium 126 mmol/L (137-145)
--- NOTE | 2024-02-10 11:46 | P.PN ---
Subjective Progress Note Date: 02/10/24 Patient is being followed for hyponatremia secondary to SIADH secondary to small cell lung cancer. She states that she is feeling better today. Sodium level this morning is 126, potassium is 3.4. She endorses a cough, but no shortness of breath at rest. She is currently on 4 L nasal cannula but states that at home she is normally on 3 L. Vital signs are stable. General: No acute distress. HEENT: Head exam is unremarkable. On 4L nasal cannula. Lungs: No rhonchi, wheezes, or rales. Heart: Rate and rhythm are regular. Extremities: No edema present. Objective - Vital Signs Vital signs: Vital Signs Temp 98.5 F 02/10/24 08:03 Pulse 88 02/10/24 08:18 Resp 16 02/10/24 08:03 BP 97/61 02/10/24 08:03 Pulse Ox 94 L 02/10/24 08:20 FiO2 Intake & Output 02/09/24 02/10/24 02/10/24 18:59 06:59 18:59 Intake Total 720 Balance 720 Intake: Oral 720 Other: Voiding Method Toilet # Voids 2 1 - Labs CBC & Chem 7: 02/05/24 12:12 02/10/24 06:42 Labs: Abnormal Lab Results - Last 24 Hours (Table) 02/10/24 Range/Units 06:42 Sodium 126 L (137-145) mmol/L Potassium 3.4 L (3.5-5.1) mmol/L Chloride 94 L (98-107) mmol/L BUN 6 L (7-17) mg/dL Creatinine 0.44 L (0.52-1.04) mg/dL Microbiology - Last 24 Hours (Table) 02/07/24 15:00 Gram Stain - Preliminary Pleural Fluid Body Fluid Culture - Preliminary Assessment and Plan Assessment: 1. 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 2. Small cell lung cancer. 3. Pleural effusion status post-thoracentesis with 650 cc drained. 4. Hypomagnesemia from poor intakeimproved. Plan: Discontinue IV fluids. Sodium chloride tablet 1g three times daily. Maintain 1200 cc fluid restriction. Repeat labs in the morning. Patient was seen and examined independently with resident. Agree with assessment and plan as outlined.
[2024-02-10] MEDS: SODIUM CHLORIDE TAB 1 GM TAB PO SCH (15:55)
--- NOTE | 2024-02-10 17:47 | P.PN ---
Subjective Progress Note Date: 02/10/24 78-year-old female well-known to me. The patient presented to the emergency department on February 04 complaining of shortness of breath, and cough. The patient was recently diagnosed with small cell lung cancer. The patient had bronchoscopy on December 27. Prior to that, the patient was in the hospital with a large right perihilar mass, and shortness of breath. The patient did have chemotherapy once, on January 30. She was hospitalized between January 22 and January 24. She does have a right-sided effusion, and it was going to be drained, but, my partner thought the fluid was too small, and that it would cause her to have additional risk. Currently, she is on 3 L. She is coughing quite a bit, and short of breath. I did order a stat ultrasound of the right chest, to see if it would be worth draining her right chest. Current labs include a white count 16.1, hemoglobin 12.2, hematocrit 36.5, platelet count 2 91,000. D-dimer was 3.58. Sodium 127, potassium 3.9, chloride 91, CO2 33, glucose 111. Albumin is 3.4. Chest x-ray shows a right-sided effusion. CT angiogram showed no evidence of pulmonary embolism, and extensive cancer, in the right paratracheal region, right hilar encasement, and right lower lobe collapse. Later plan for on today's evaluation 02/07/2024, the patient is being seen for a follow-up. Remains short of breath. He is utilizing oxygen at 3 L nasal cannula. No reported chest pain. The bedside thoracentesis was done a total of 650 cc of fluid was aspirated from the right lung. No complications. Sodium levels at 120 with a potassium level of 3.7, BUN is 14 with a creatinine of 0.5. The patient is on fluid restriction. Rest of the medications remain unchanged. 02/08/2024, the patient is being seen for a follow-up. The patient is postthoracentesis of the right lung with total amount of fluid removed is in the order of 650 cc and the fluid analysis was not exudative based on LDH and protein criteria. Awaiting pleural fluid cytology. Clinically feeling better. Remains on oxygen and the patient is currently on 2 L. Hemodynamically stable. Sodium levels at 121. The patient is undergoing fluid restriction. No altered mentation. No focal neurological deficits. On 02/09/2024, the patient is being seen for a follow-up. She is resting comfortably in bed. No specific complaints. No interval worsening or shortness of breath. The patient is also being monitored for sodium level as the patient is undergoing fluid restriction. Sodium level is up to 125. The patient has no other new complaints for now. No altered mentation. No chest pain. She is still weak. Pleural fluid cytology still pending for now. The pleural fluid is an exudate. On today's evaluation of 02/10/2024, the patient is resting comfortably in bed. Sodium level is up to 126. Oxygen requirements remain unchanged and the patient remains on 4 L of O2 nasal cannula. No new complaints otherwise for now. Objective - Vital Signs Vital signs: Vital Signs Temp 98.5 F 02/10/24 12:32 Pulse 85 02/10/24 12:32 Resp 16 02/10/24 12:32 BP 101/71 02/10/24 12:32 Pulse Ox 94 L 02/10/24 12:32 FiO2 Intake & Output 02/09/24 02/10/24 02/10/24 18:59 06:59 18:59 Intake Total 720 358 Balance 720 358 Intake: Oral 720 358 Other: Voiding Method Toilet Toilet # Voids 2 1 - Labs CBC & Chem 7: 02/05/24 12:12 02/10/24 06:42 Labs: Abnormal Lab Results - Last 24 Hours (Table) 02/10/24 Range/Units 06:42 Sodium 126 L (137-145) mmol/L Potassium 3.4 L (3.5-5.1) mmol/L Chloride 94 L (98-107) mmol/L BUN 6 L (7-17) mg/dL Creatinine 0.44 L (0.52-1.04) mg/dL Microbiology - Last 24 Hours (Table) 02/07/24 15:00 Gram Stain - Preliminary Pleural Fluid Body Fluid Culture - Preliminary Assessment and Plan Plan: Acute on chronic shortness of breath and cough, secondary to small cell lung cancer, involving the right paratracheal region and right lower lobe bronchus, with right lower lobe collapse. Patient also has a right-sided pleural effusion which is probably contributing to her shortness of breath. The patient underwent a right-sided thoracentesis with clinical improvement. Total of 650 cc of fluid was aspirated from the right lung. Fluid cytology still pending. Extensive stage small cell lung cancer, with bronchoscopy being performed on December 27. Patient was started systemic chemotherapy with a combination of carboplatinum, STAFFING RN-16 and Tecentriq and she is still completing her first round of systemic chemotherapy. Moderate right-sided pleural effusion, secondary to lung cancer. The patient is post thoracentesis. The fluid is an exudate. No complications. Hyponatremia, likely secondary to SIADH. Sodium level is improving with fluid restriction. Sodium level is improving COPD exacerbation. History of breast cancer, S/P lumpectomy. Previous history of tobacco use. Plan: Sodium level is improving Thoracentesis was done with evacuation of 650 cc of pleural fluid, awaiting pleural fluid cytology Monitor sodium level and continue with fluid restriction. Oxygen at 3 L nasal cannula. Increase mobility Will follow. Oncology is on the case.
--- NOTE | 2024-02-10 22:23 | P.PN ---
Progress Note - Text Progress Note Date: 02/10/24 Chief Complaint: Short of breath This is a pleasant 78-year-old patient who follows with Dr. Minerva Jaeger. Patient has a diagnosis of small cell lung cancer diagnosed 2 months ago. Has received 1 cycle of chemotherapy. Is somewhat restricted to the right lung right now. Decreased appetite. Has lost about 12 pounds. Follows with oncologist Dr. Tee. Prototype Sewer Dr. Molina. Patient has known pleural effusion. PET scan on January 17 showed right hilar conglomerate mass with suspected metastatic disease to right pleura throughout the descending and left neck with FDG avid enlarged lymph nodes. There is at least 1 suspicious bone finding and left rib ninth and head with abnormal uptake. Brain MRI on January 19 unremarkable. Ultrasound chest on January 22 showed enlarging right pleural effusion with airspace opacities. For some time patient been having increasing cough. No sputum. Worsening short of breath. No fever no chills. She called her data management associate office and they asked her to come to the ER. February 05: Laying in bed. Tired. Did not eat breakfast at about 75% lunch. Chest ultrasound ordered by Dr. Clarke. Pending possible thoracentesis February 06: Patient in bed. at the bedside. Patient had questions about her sodium and communication during her December admission. I did apologize to her that she was unhappy and did my best to answer questions. She will also also have a prognosis I did say that she should discuss this with her carpentry professional Dr. Tee an hour data management associate Dr Molina. Decision about thoracentesis per pulmonary. Patient does get easily tired.. Did not eat breakfast at about 75% lunch. February 07: Yesterday about 650 cc of pleural fluid salvador-colored removed. Patient has decreased appetite. Sodium 121. Placed on fluid restriction 1200 cc. Nephrology consulted. Encourage oral intake. Tired February 08: Patient's sodium came up Received salt tablet. On strict fluid restriction. Has been out of bed. Told to sit up in a chair. Patient yesterday was cleared by oncology and pulmonary for discharge. Replace magnesium.. Serum osmolality low. CODE STATUS discussed with patient. She wishes to remain full code February 09: Saw the patient this morning. In a recliner. Decreased oral intake. Sodium tablets increased by nephrology. Fluid restriction to continue. Some shortness of breath. Active Medications Acetaminophen (Acetaminophen Tab 325 Mg Tab) 650 mg PO Q6HR PRN PRN Reason: Mild Pain or Fever > 100.5 Last Admin: 02/06/24 08:23 Dose: 650 mg Hydrocodone Bitart/Acetaminophen (Hydrocodone/Apap 5-325mg 1 Each Tab) 1 each PO Q6H PRN PRN Reason: Pain Last Admin: 02/10/24 21:26 Dose: 1 each Albuterol/Ipratropium (Ipratropium-Albuterol 3 Ml Neb) 3 ml INHALATION RT-QID [facility] Last Admin: 02/10/24 18:12 Dose: 3 ml Albuterol/Ipratropium (Ipratropium-Albuterol 3 Ml Neb) 3 ml INHALATION RT-Q2H PRN PRN Reason: Shortness Of Breath Or Wheezing Last Admin: 02/10/24 01:40 Dose: 3 ml Alprazolam (Alprazolam 0.5 Mg Tab) 0.5 mg PO TID PRN PRN Reason: Anxiety Last Admin: 02/08/24 21:58 Dose: 0.5 mg Benzonatate (Benzonatate 100 Mg Cap) 200 mg PO TID [facility] Last Admin: 02/10/24 21:26 Dose: 200 mg Budesonide/Formoterol Fumarate (Symbicort 160-4.5 Mcg Inhaler) 2 puff INHALATION RT-BID [facility] Last Admin: 02/10/24 18:12 Dose: 2 puff Buspirone HCl (Buspirone Hcl 5 Mg Tab) 5 mg PO BID PRN PRN Reason: Anxiety Calcium Carbonate/Glycine (Calcium Carbonate 500 Mg Chewable) 1,000 mg PO Q4HR PRN PRN Reason: Dyspepsia Cyclobenzaprine HCl (Cyclobenzaprine 10 Mg Tab) 10 mg PO TID PRN PRN Reason: Muscle Pain Last Admin: 02/10/24 21:26 Dose: 10 mg Enoxaparin Sodium (Enoxaparin 40 Mg/0.4 Ml Syringe) 40 mg SQ DAILY [facility] Last Admin: 02/10/24 09:13 Dose: 40 mg Lactulose (Lactulose 20 Gm/30 Ml Cup) 20 gm PO DAILY PRN PRN Reason: Constipation Magnesium Oxide (Magnesium Oxide 400 Mg Tab) 400 mg PO BID [facility] Last Admin: 02/10/24 21:26 Dose: 400 mg Melatonin (Melatonin 5 Mg Tablet) 10 mg PO HS PRN PRN Reason: Insomnia Last Admin: 02/06/24 22:57 Dose: 10 mg Mirtazapine (Mirtazapine 15 Mg Tab) 15 mg PO HS [facility] Last Admin: 02/10/24 21:26 Dose: 15 mg Multivitamins (Multivitamins, Thera 1 Each Tab) 1 each PO DAILY [facility] Last Admin: 02/10/24 09:13 Dose: 1 each Naloxone HCl (Naloxone 0.4 Mg/Ml 1 Ml Vial) 0.2 mg IV Q2M PRN PRN Reason: Opioid Reversal Ondansetron HCl (Ondansetron 4 Mg/2 Ml Vial) 4 mg IVP Q8HR PRN PRN Reason: Nausea And Vomiting Senna (Sennosides 8.6 Mg Tab) 8.6 mg PO BID PRN PRN Reason: Constipation Sodium Chloride (Sodium Chloride Tab 1 Gm Tab) 1 gm PO TID [facility] Last Admin: 02/10/24 21:26 Dose: 1 gm Social history: . 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 Tired. d EYES: Pupils equal. Conjunctiva surya l. HEENT: External appearance of nose and ears normal, oral cavity grossly normal. NECK: JVD not raised; masses not palpable. HEART: First and second heart sounds are normal; no edema. LUNGS: Respiratory rate increased decreased breath sound. ABDOMEN: Soft, nontender, liver spleen not palpable, no masses palpable. PSYCH: Alert and oriented x3; mood and affect tired MUSCULOSKELETAL:No Clubbing/cyanosis;muscles-grossly intact INVESTIGATIONS, reviewed in the clinical context: February 09: Sodium 126 potassium 3.4 creatinine 0.44 magnesium 1.8 TSH 1.05 February 08: Sodium 125 potassium 3.8 creatinine 0.49 magnesium 1.5 TSH 1.050 February 07: Sodium 121 potassium 3.9 creatinine 0.49 February 06: Sodium 120 potassium 3.7 creatinine 0.52 February 04: White count 16.1 hemoglobin 12.2 platelets 291 sodium 127 potassium 3.9 BUN 13 creatinine 0.53 EKG tracing personally reviewed by me-normal sinus rhythm. Rate 101 Chest x-ray film personally reviewed by me-large right pleural effusion Chest CTA: Extensive neoplasm along the paratracheal region extending into the right prevascular space AP window with current and right hilar encasement. Soft tissue continues down the right bronchus intermedius bronchus basalis most of the right lower lobe remains collapsed. Moderate to large right pleural effusion. Patchy airspace disease throughout the right upper lobe persist. Emphysema Assessment plan:: -Worsening right pleural effusion secondary to small cell lung cancer: Better Status post 650 cc thoracentesis done -COPD - prior smoker DuoNeb. [employer] Aerosphere inhaler -Hyponatremia. Hypoosmolar. Likely SIADH. From underlying lung cancer: Slow improvement Fluid restrict 1200 cc a day. Nephrology following Salt tablets added 1 tablet 3 times daily -Medical debility from underlying malignancy -Small cell lung cancer being followed by Dr. Tee oncologist and Dr. Molina data management associate Diagnosed 2 months ago. Has received 1 cycle of chemotherapy -Anxiety and depression not otherwise specified Xanax as needed. BuSpar -Hypomagnesemia Magnesium supplement -Insomnia for medical reasons Remeron as needed -Full code-discussed with patient Fluid restriction. Salt tablet increased to 3 times daily. Past Medical History Past Medical History: Cancer Additional Past Medical History / Comment(s): Lung CA. Right breast CA dx in 2012-radiation tx November 2013, CT of chest on 12/24/2023 showed a very large right hilar mass and compression deformity at T11-L1, CT of brain on 12/25/23 was negative for mets, PET scan on 01/18/24 revealed right hilar conglomerate mass w/suspected metastatic disease to the right pleura throughout the decending and left neck-1 suspicious bone finding in the left 9th rib-had one cycle of chemo and last day was 02/01/24 History of Any Multi-Drug Resistant Organisms: None Reported Past Surgical History: Adenoidectomy, Tonsillectomy Additional Past Surgical History / Comment(s): pylonoidal cyst removal 1971, D&C, right breast lumpectomy with 3 lymph nodes removed 2013, Bronchoscopy and biopsy of right main stem bronchus on 12/28/23 was positive small cell lung carcinoma Past Anesthesia/Blood Transfusion Reactions: No Reported Reaction Past Psychological History: No Psychological Hx Reported Smoking Status: Former smoker Past Alcohol Use History: None Reported Past Drug Use History: None Reported
[2024-02-11 07:54] VITALS: BMI 26.6
[2024-02-11 08:05] VITALS: BP 123/73
[2024-02-11 11:34] LABS: African American GFR (CKD) >90 (>60 ml/min/1.73 sqM); Anion Gap 2 mmol/L; Blood Urea Nitrogen 5 mg/dL (7-17); Calcium 8.7 mg/dL (8.4-10.2); Carbon Dioxide 32 mmol/L (22-30); Chloride 96 mmol/L (98-107); Glucose 108 mg/dL (74-99); Non-African American GFR(CKD) >90 (>60 ml/min/1.73 sqM); Potassium 3.6 mmol/L (3.5-5.1); Sodium 130 mmol/L (137-145)
[2024-02-11 13:23] VITALS: RESP 17; TEMP 97.8
--- NOTE | 2024-02-11 13:38 | P.PN ---
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 She states that she is feeling better today. Sodium is 130 today, improved from 126. Vital signs are stable. General: No acute distress. HEENT: Head exam is unremarkable. On 4 L nasal cannula. Lungs: No rhonchi, wheezes, or rales. Heart: Rate and rhythm are regular. Extremities: No edema present. Objective - Vital Signs Vital signs: Vital Signs Temp 98.7 F 02/11/24 07:31 Pulse 94 02/11/24 08:51 Resp 18 02/11/24 07:31 BP 123/73 02/11/24 07:31 Pulse Ox 96 02/11/24 07:31 FiO2 Intake & Output 02/10/24 02/11/24 02/11/24 18:59 06:59 18:59 Intake Total 938 480 Balance 938 480 Weight 70.307 kg Intake: Oral 938 480 Other: Voiding Method Toilet Bedside Commode # Voids 4 2 - Labs CBC & Chem 7: 02/05/24 12:12 02/11/24 10:34 Labs: Microbiology - Last 24 Hours (Table) 02/07/24 15:00 Gram Stain - Preliminary Pleural Fluid Body Fluid Culture - Preliminary Assessment and Plan Assessment: 1. 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 2. Small cell lung cancer. 3. Pleural effusion status post-thoracentesis with 650 cc drained. 4. Hypomagnesemia from poor intakeimproved. Plan: Maintain 1200 cc fluid restriction. Educated patient on importance of fluid restriction at home. Maintain sodium chloride tablets at home 1g 2 times daily. Patient clear for discharge from nephrology standpoint. Follow-up outpatient in 1-[address] Dickens Patient was seen and examined independently with resident. Agree with assessment and plan. Patient stable for discharge with outpatient follow-up. Discussed with primary team.
--- NOTE | 2024-02-11 15:06 | P.PN ---
Subjective Progress Note Date: 02/11/24 78-year-old female well-known to me. The patient presented to the emergency department on February 04 complaining of shortness of breath, and cough. The patient was recently diagnosed with small cell lung cancer. The patient had bronchoscopy on December 27. Prior to that, the patient was in the hospital with a large right perihilar mass, and shortness of breath. The patient did have chemotherapy once, on January 30. She was hospitalized between January 22 and January 24. She does have a right-sided effusion, and it was going to be drained, but, my partner thought the fluid was too small, and that it would cause her to have additional risk. Currently, she is on 3 L. She is coughing quite a bit, and short of breath. I did order a stat ultrasound of the right chest, to see if it would be worth draining her right chest. Current labs include a white count 16.1, hemoglobin 12.2, hematocrit 36.5, platelet count 2 91,000. D-dimer was 3.58. Sodium 127, potassium 3.9, chloride 91, CO2 33, glucose 111. Albumin is 3.4. Chest x-ray shows a right-sided effusion. CT angiogram showed no evidence of pulmonary embolism, and extensive cancer, in the right paratracheal region, right hilar encasement, and right lower lobe collapse. Later plan for on today's evaluation 02/07/2024, the patient is being seen for a follow-up. Remains short of breath. He is utilizing oxygen at 3 L nasal cannula. No reported chest pain. The bedside thoracentesis was done a total of 650 cc of fluid was aspirated from the right lung. No complications. Sodium levels at 120 with a potassium level of 3.7, BUN is 14 with a creatinine of 0.5. The patient is on fluid restriction. Rest of the medications remain unchanged. 02/08/2024, the patient is being seen for a follow-up. The patient is postthoracentesis of the right lung with total amount of fluid removed is in the order of 650 cc and the fluid analysis was not exudative based on LDH and protein criteria. Awaiting pleural fluid cytology. Clinically feeling better. Remains on oxygen and the patient is currently on 2 L. Hemodynamically stable. Sodium levels at 121. The patient is undergoing fluid restriction. No altered mentation. No focal neurological deficits. On 02/09/2024, the patient is being seen for a follow-up. She is resting comfortably in bed. No specific complaints. No interval worsening or shortness of breath. The patient is also being monitored for sodium level as the patient is undergoing fluid restriction. Sodium level is up to 125. The patient has no other new complaints for now. No altered mentation. No chest pain. She is still weak. Pleural fluid cytology still pending for now. The pleural fluid is an exudate. On today's evaluation of 02/10/2024, the patient is resting comfortably in bed. Sodium level is up to 126. Oxygen requirements remain unchanged and the patient remains on 4 L of O2 nasal cannula. No new complaints otherwise for now. 02/11/2024, I am seeing the patient for a follow-up. No new complaints and the condition is stable. Follow-up sodium levels at 130. She remains on oxygen at 4 L. Limited exercise capacity due to her underlying malignancy and lung cancer. No altered mentation. No headaches. There is ongoing generalized weakness and debility. Objective - Vital Signs Vital signs: Vital Signs Temp 97.8 F 02/11/24 13:18 Pulse 106 H 02/11/24 13:18 Resp 17 02/11/24 13:18 BP 123/73 02/11/24 13:18 Pulse Ox 99 02/11/24 13:18 FiO2 Intake & Output 02/10/24 02/11/24 02/11/24 18:59 06:59 18:59 Intake Total 938 480 Output Total 125 Balance 938 480 -125 Weight 70.307 kg Intake: Oral 938 480 Output: Chest Tube Drainage 125 Left Pleural/Mediastinal 125 Other: Voiding Method Toilet Bedside Commode # Voids 4 2 - Exam Mild conversational dyspnea, frequent cough. Oriented x 3. HEENT examination is grossly unremarkable. Mucous membranes are moist. No oral lesions. Neck supple. Full range of motion. No adenopathy thyromegaly or neck vein distention. Cardiovascular examination reveals regular rhythm rate. S1-S2 normal. No S3 or S4. No discernible murmur noted. Heart sounds are distant. Heart rate 89 bpm. Lungs reveal diminished breath sounds on the right. Scattered rhonchi noted. No wheezes. No crackles. Saturation is 96% on 3 L. Abdomen soft bowel sounds are heard. No masses or tenderness. Extremities are intact. No cyanosis clubbing or edema. Skin is without rash or lesion. Neurologic examination is brief but nonfocal. - Labs CBC & Chem 7: 02/05/24 12:12 02/11/24 10:34 Labs: Abnormal Lab Results - Last 24 Hours (Table) 02/11/24 Range/Units 10:34 Sodium 130 L (137-145) mmol/L Chloride 96 L (98-107) mmol/L Carbon Dioxide 32 H (22-30) mmol/L BUN 5 L (7-17) mg/dL Creatinine 0.45 L (0.52-1.04) mg/dL Glucose 108 H (74-99) mg/dL Microbiology - Last 24 Hours (Table) 02/07/24 15:00 Gram Stain - Preliminary Pleural Fluid Body Fluid Culture - Preliminary Assessment and Plan Plan: Acute on chronic shortness of breath and cough, secondary to small cell lung cancer, involving the right paratracheal region and right lower lobe bronchus, with right lower lobe collapse. Patient also has a right-sided pleural effusion which is probably contributing to her shortness of breath. The patient underwent a right-sided thoracentesis with clinical improvement. Total of 650 cc of fluid was aspirated from the right lung. Fluid cytology still pending. Extensive stage small cell lung cancer, with bronchoscopy being performed on December 27. Patient was started systemic chemotherapy with a combination of carboplatinum, [employer]-16 and Tecentriq and she is still completing her first round of systemic chemotherapy. Moderate right-sided pleural effusion, secondary to lung cancer. The patient is post thoracentesis. The fluid is an exudate. No complications. Hyponatremia, likely secondary to SIADH. Sodium level is improving with fluid restriction. Sodium level is improving COPD exacerbation. History of breast cancer, S/P lumpectomy. Previous history of tobacco use. Plan: Sodium level is improved Thoracentesis was done with evacuation of 650 cc of pleural fluid, awaiting pleural fluid cytology Monitor sodium level and continue with fluid restriction. Oxygen at 3 L nasal cannula. Increase mobility Will follow. Oncology is on the case. Possible home today. Overall prognosis poor. The patient has generalized debility secondary to underlying malignancy with small cell lung cancer.
[2024-02-11 15:48] VITALS: PULSE 90
--- NOTE | 2024-02-13 13:48 | P.DS ---
Providers Date of admission: 02/05/24 16:19 Expected date of discharge: 02/11/24 Attending physician: Sriram Cuevas Consults: 02/05/24 15:06 Consult Physician Routine Consulting Provider: Nicholas Clarke Consult Reason/Comments: pleural effusion Do you want consulting provider notified?: Yes 02/07/24 09:49 Consult Physician Routine Consulting Provider: Ishaan Bee Consult Reason/Comments: Patient on treatment Do you want consulting provider notified?: Already Contacted 02/08/24 13:05 Consult Physician Routine Consulting Provider: Emre Lima Consult Reason/Comments: low sodium Do you want consulting provider notified?: Yes Primary care physician: Minerva Jaeger [facility] Course: Chief Complaint: Short of breath This is a pleasant 78-year-old patient who follows with Dr. Minerva Jaeger. Patient has a diagnosis of small cell lung cancer diagnosed 2 months ago. Has received 1 cycle of chemotherapy. Is somewhat restricted to the right lung right now. Decreased appetite. Has lost about 12 pounds. Follows with oncologist Dr. Tee. Fiction And Nonfiction Author Dr. Molina. Patient has known pleural effusion. PET scan on January 17 showed right hilar conglomerate mass with suspected metastatic disease to right pleura throughout the descending and left neck with FDG avid enlarged lymph nodes. There is at least 1 suspicious bone fi nding and left rib ninth and head with abnormal uptake. Brain MRI on January 19 unremarkable. Ultrasound chest on January 22 showed enlarging right pleural effusion with airspace opacities. For some time patient been having increasing cough. No sputum. Worsening short of breath. No fever no chills. She called her resourcing advisor office and they asked her to come to the ER. February 05: Laying in bed. Tired. Did not eat breakfast at about 75% lunch. Chest ultrasound ordered by Dr. Clarke. Pending possible thoracentesis February 06: Patient in bed. at the bedside. Patient had questions about h er sodium and communication during her December admission. I did apologize to her that she was unhappy and did my best to answer questions. She will also also have a prognosis I did say that she should discuss this with her merchant seaman Dr. Tee an hour resourcing advisor Dr Molina. Decision about thoracentesis per pulmonary. Patient does get easily tired.. Did not eat breakfast at about 75% lunch. February 07: Yesterday about 650 cc of pleural fluid salvador-colored removed. Patient has decreased appetite. Sodium 121. Placed on fluid restriction 1200 cc. Nephrology consulted. Encourage oral intake. Tired February 08: Patient's sodium came up Received salt tablet. On strict fluid restriction. Has been out of bed. Told to sit up in a chair. Patient yesterday was cleared by oncology and pulmonary for discharge. Replace magnesium.. Serum osmolality low. CODE STATUS discussed with patient. She wishes to remain full code February 09: Saw the patient this morning. In a recliner. Decreased oral intake. Sodium tablets increased by nephrology. Fluid restriction to continue. Some shortness of breath. February 10: Sodium came up to 130s. Spoke to from nephrology. Okay to [place]. Patient already be cleared by oncology and pulmonary. Discussed with patient. Questions answered. Patient to keep her follow-up with Dr. Tee. And with nephrology. Discussion and discharge planning more than 35 minutes Social history: . 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 Conjunctiva surya l. HEENT: External appearance of nose and ears normal, oral cavity grossly normal. NECK: JVD not raised; masses not palpable. HEART: First and second heart sounds are normal; no edema. LUNGS: Respiratory rate increased decreased breath sound. ABDOMEN: Soft, nontender, liver spleen not palpable, no masses palpable. PSYCH: Alert and oriented x3; mood and affect tired MUSCULOSKELETAL:No Clubbing/cyanosis;muscles-grossly intact INVESTIGATIONS, reviewed in the clinical context: February 10: Sodium 130 bicarb 32 February 08: Sodium 125 potassium 3.8 creatinine 0.49 magnesium 1.5 TSH 1.050 February 04: White count 16.1 hemoglobin 12.2 platelets 291 sodium 127 potassium 3.9 BUN 13 creatinine 0.53 EKG tracing personally reviewed by me-normal sinus rhythm. Rate 101 Chest x-ray film personally reviewed by me-large right pleural effusion Chest CTA: Extensive neoplasm along the paratracheal region extending into the right prevascular space AP window with current and right hilar encasement. Soft tissue continues down the right bronchus intermedius bronchus basalis most of the right lower lobe remains collapsed. Moderate to large right pleural effus ion. Patchy airspace disease throughout the right upper lobe persist. Emphysema Assessment plan:: -Worsening right pleural effusion secondary to small cell lung cancer: Better Status post 650 cc thoracentesis done -COPD - prior smoker Romel. Breztri Aerosphere inhaler -Hyponatremia. Hypoosmolar. Likely SIADH. From underlying lung cancer: Improved Fluid restrict 1200 cc a day. Nephrology following Salt tablets discharged on twice daily -Medical debility from underlying malignancy -Small cell lung cancer being followed by Dr. Tee oncologist and Dr. Molina resourcing advisor Diagnosed 2 months ago. Has received 1 cycle of chemotherapy Follow-up with Dr. Tee -Anxiety and depression not otherwise specified Xanax as needed. BuSpar -Hypomagnesemia Magnesium supplement -Insomnia for medical reasons Remeron as needed -Full code-discussed with patient Disposition: Home Past Medical History Past Medical History: Cancer Additional Past Medical History / Comment(s): Lung CA. Right breast CA dx in 2012-radiation tx November 2013, CT of chest on 12/24/2023 showed a very large right hilar mass and compression deformity at T11-L1, CT of brain on 12/25/23 was negative for mets, PET scan on 01/18/24 revealed right hilar conglomerate mass w/suspected metastatic disease to the right pleura throughout the decending and left neck-1 suspicious bone finding in the left 9th rib-had one cycle of chemo and last day was 02/01/24 History of Any Multi-Drug Resistant Organisms: None Reported Past Surgical History: Adenoidectomy, Tonsillectomy Additional Past Surgical History / Comment(s): pylonoidal cyst removal 1971, D&C, right breast lumpectomy with 3 lymph nodes removed 2013, Bronchoscopy and biopsy of right main stem bronchus on 12/28/23 was positive small cell lung carcinoma Past Anesthesia/Blood Transfusion Reactions: No Reported Reaction Past Psychological History: No Psychological Hx Reported Smoking Status: Former smoker Past Alcohol Use History: None Reported Past Drug Use History: None Reported Plan - Discharge Summary Discharge Rx Participant: No New Discharge Prescriptions: New Magnesium Oxide [Mag-Ox] 400 mg PO DAILY #30 tab Sodium Chloride Tab 1 gm PO BID #60 tab Continue Multivitamin [Multivitamins Adult Gummies] 1 tab PO DAILY busPIRone HCl [Buspar] 5 mg PO BID PRN PRN Reason: Anxiety HYDROcodone/APAP 5-325MG [[place] 5-325] 1 tab PO Q6H PRN PRN Reason: Pain Cyclobenzaprine [Flexeril] 10 mg PO TID PRN PRN Reason: Muscle Pain Benzonatate [Tessalon Perles] 100 mg PO TID PRN PRN Reason: Cough Ondansetron [Zofran] 4 - 8 mg PO Q4H PRN MDD 8 TABS PRN Reason: Nausea Budesonide/Glycopyr/Formoterol [Breztri Aerosphere Inhaler] 1 puff INHALATION RT-DAILY guaiFENesin-Coden 100-10MG/5ML [Robitussin AC] 10 ml PO Q4H PRN PRN Reason: Cough Inulin/Chromium Picolinate [Fiber Gummies Chew] 1 tab PO DAILY ALPRAZolam [Xanax] 0.5 mg PO TID PRN PRN Reason: Anxiety Ipratropium-Albuterol Nebulize [Duoneb 0.5 mg-3 mg/3 ml Soln] 3 ml INHALATION RT-QID each Ipratropium-Albuterol Nebulize [Duoneb 0.5 mg-3 mg/3 ml Soln] 3 ml INHALATION RT-Q2H PRN each PRN Reason: Shortness Of Breath Or Wheezing Sennosides [Senokot] 8.6 mg PO BID PRN tab PRN Reason: Constipation LORazepam [Ativan] 0.5 mg PO BID PRN PRN Reason: Anxiety Mirtazapine [Remeron] 15 mg PO HS Melatonin 10 mg PO HS PRN PRN Reason: Insomnia Discharge Medication List Inulin/Chromium Picolinate [Fiber Gummies Chew] 1 tab PO DAILY 12/24/23 [History] Multivitamin [Multivitamins Adult Gummies] 1 tab PO DAILY 12/24/23 [History] ALPRAZolam [Xanax] 0.5 mg PO TID PRN 01/23/24 [History] Benzonatate [Tessalon Perles] 100 mg PO TID PRN 01/23/24 [History] Budesonide/Glycopyr/Formoterol [Breztri Aerosphere Inhaler] 1 puff INHALATION RT-DAILY 01/23/24 [History] Cyclobenzaprine [Flexeril] 10 mg PO TID PRN 01/23/24 [History] HYDROcodone/APAP 5-325MG [[place] 5-325] 1 tab PO Q6H PRN 01/23/24 [History] Ondansetron [Zofran] 4 - 8 mg PO Q4H PRN MDD 8 TABS 01/23/24 [History] busPIRone HCl [Buspar] 5 mg PO BID PRN 01/23/24 [History] Ipratropium-Albuterol Nebulize [Duoneb 0.5 mg-3 mg/3 ml Soln] 3 ml INHALATION RT-Q2H PRN each 01/25/24 [Rx] Ipratropium-Albuterol Nebulize [Duoneb 0.5 mg-3 mg/3 ml Soln] 3 ml INHALATION RT-QID each 01/25/24 [Rx] Sennosides [Senokot] 8.6 mg PO BID PRN tab 01/25/24 [Rx] LORazepam [Ativan] 0.5 mg PO BID PRN 02/05/24 [History] Melatonin 10 mg PO HS PRN 02/05/24 [History] Mirtazapine [Remeron] 15 mg PO HS 02/05/24 [History] guaiFENesin-Coden 100-10MG/5ML [Robitussin AC] 10 ml PO Q4H PRN 02/05/24 [History] Magnesium Oxide [Mag-Ox] 400 mg PO DAILY #30 tab 02/11/24 [Rx] Sodium Chloride Tab 1 gm PO BID #60 tab 02/11/24 [Rx] Follow up Appointment(s)/Referral(s): Emre Lima DO [STAFF PHYSICIAN] - 10 Days (please call the office to schedule a follow up appointment) Soniya Bains [NON-STAFF] - 1 Week Minerva Jaeger MD [Primary Care Provider] - 1-2 days (please call the office to schedule a follow up appointment) Aga Molina MD [STAFF PHYSICIAN] - 04/03/24 10:30 am [facility] Visiting Nurse, [NON-STAFF] - 1 Week Jessica Tee MD [STAFF PHYSICIAN] - 02/15/24 1:45 pm Patient Instructions/Handouts: Pleural Effusion (DC) Activity/Diet/Wound Care/Special Instructions: Patient needs a nebulizer at home---has duoneb medication but NEVER received a nebulizer before..... please address this before patient is discharged Fluid restrict 1500 cc a day Discharge Disposition: HOME WITH HOME HEALTH SERVICES
== END 2024-02-11 16:55 | disposition home health service (06) | DRG 181 ==
LOC: EC 11:53 → 5NMEDONC 16:19
PROVIDERS: ADMIT Hospitalist; ATTEND Hospitalist
PROC: 0W993ZZ Drainage of Right Pleural Cavity, Percutaneous Approach (ICD-10-PCS; principal; 2024-02-07)
DX: C34.90 Malignant neoplasm of unspecified part of unspecified bronchus or lung (principal); E22.2 Syndrome of inappropriate secretion of antidiuretic hormone; J91.0 Malignant pleural effusion; J44.1 Chronic obstructive pulmonary disease with (acute) exacerbation; E83.42 Hypomagnesemia; E86.1 Hypovolemia; F32.9 Major depressive disorder, single episode, unspecified; F41.9 Anxiety disorder, unspecified; J43.9 Emphysema, unspecified; M81.0 Age-related osteoporosis without current pathological fracture; R09.02 Hypoxemia; G47.00 Insomnia, unspecified; Z79.51 Long term (current) use of inhaled steroids; Z79.810 Long term (current) use of selective estrogen receptor modulators (SERMs); Z79.899 Other long term (current) drug therapy; Z85.3 Personal history of malignant neoplasm of breast; Z92.3 Personal history of irradiation; Z87.891 Personal history of nicotine dependence
CPT/HCPCS: 36415; 71045; 71046; 71275; 76604; 80048; 80053; 82945; 83605; 83615; 83735; 83880; 83930; 83935; 84157; 84295; 84300; 84443; 84484; 85025; 85379; 85610; 85730; 87070; 87205; 88108; 88305; 88341; 88342; 89050; 93005; 94640; 94760; 96374; 99285

== ENCOUNTER 2024-02-26 16:33 | Emergency (ER) | payer MEDICARE ==
[2024-02-26 16:45] VITALS: TEMP 97.7
--- NOTE | 2024-02-26 16:47 | ED ---
Weakness HPI - General Chief complaint: Weakness Stated complaint: weakness Time Seen by Provider: 02/26/24 16:47 Source: patient, RN notes reviewed Mode of arrival: ambulatory Limitations: no limitations - Related Data Home Medications Medication Instructions Recorded Confirmed Inulin/Chromium Picolinate [Fiber 1 tab PO DAILY 12/24/23 02/05/24 Gummies Chew] Multivitamin [Multivitamins Adult 1 tab PO DAILY 12/24/23 02/05/24 Gummies] ALPRAZolam [Xanax] 0.5 mg PO TID PRN 01/23/24 02/05/24 Benzonatate [Tessalon Perles] 100 mg PO TID PRN 01/23/24 02/05/24 Budesonide/Glycopyr/Formoterol 1 puff INHALATION RT-DAILY 01/23/24 02/05/24 [Breztri Aerosphere Inhaler] Cyclobenzaprine [Flexeril] 10 mg PO TID PRN 01/23/24 02/05/24 HYDROcodone/APAP 5-325MG [[place] 1 tab PO Q6H PRN 01/23/24 02/05/24 5-325] Ondansetron [Zofran] 4 - 8 mg PO Q4H PRN MDD 8 TABS 01/23/24 02/05/24 busPIRone HCl [Buspar] 5 mg PO BID PRN 01/23/24 02/05/24 LORazepam [Ativan] 0.5 mg PO BID PRN 02/05/24 02/05/24 Melatonin 10 mg PO HS PRN 02/05/24 02/05/24 Mirtazapine [Remeron] 15 mg PO HS 02/05/24 02/05/24 guaiFENesin-Coden 100-10MG/5ML 10 ml PO Q4H PRN 02/05/24 02/05/24 [Robitussin AC] Previous Rx's Medication Instructions Recorded Ipratropium-Albuterol Nebulize 3 ml INHALATION RT-Q2H PRN each 01/25/24 [Duoneb 0.5 mg-3 mg/3 ml Soln] Ipratropium-Albuterol Nebulize 3 ml INHALATION RT-QID each 01/25/24 [Duoneb 0.5 mg-3 mg/3 ml Soln] Sennosides [Senokot] 8.6 mg PO BID PRN tab 01/25/24 Magnesium Oxide [Mag-Ox] 400 mg PO DAILY #30 tab 02/11/24 Sodium Chloride Tab 1 gm PO BID #60 tab 02/11/24 Allergies Allergy/AdvReac Type Severity Reaction Status Date / Time No Known Allergies Allergy Verified 02/26/24 16:45 Review of Systems ROS Statement: Those systems with pertinent positive or pertinent negative responses have been documented in the HPI. ROS Other: All systems not noted in ROS Statement are negative. Past Medical History Past Medical History: Cancer Additional Past Medical History / Comment(s): Lung CA. Right breast CA dx in 2012-radiation tx November 2013, CT of chest on 12/24/2023 showed a very large right hilar mass and compression deformity at T11-L1, CT of brain on 12/25/23 was negative for mets, PET scan on 01/18/24 revealed right hilar conglomerate mass w/suspected metastatic disease to the right pleura throughout the decending and left neck-1 suspicious bone finding in the left 9th rib History of Any Multi-Drug Resistant Organisms: None Reported Past Surgical History: Adenoidectomy, Tonsillectomy Additional Past Surgical History / Comment(s): pylonoidal cyst removal 1971, D&C, right breast lumpectomy with 3 lymph nodes removed 2013, Bronchoscopy and biopsy of right main stem bronchus on 12/28/23 was positive small cell lung carcinoma Past Anesthesia/Blood Transfusion Reactions: No Reported Reaction Past Psychological History: No Psychological Hx Reported Smoking Status: Former smoker Past Alcohol Use History: None Reported Past Drug Use History: None Reported - Past Family History Mother Family Medical History: CVA/TIA, Hypertension General Exam Limitations: no limitations Course Vital Signs 02/26/24 16:41 Temperature 97.7 F Pulse Rate 116 H Respiratory 20 Rate Blood Pressure 108/61 O2 Sat by Pulse 98 Oximetry Disposition Referrals: Caryl Jaeger, NPC [Primary Care Provider] - 1-2 days
--- NOTE | 2024-02-26 17:10 | ED ---
General Adult HPI - General Chief complaint: Weakness Stated complaint: weakness Time Seen by Provider: 02/26/24 16:47 Source: patient, RN notes reviewed Mode of arrival: ambulatory Limitations: no limitations - History of Present Illness Initial comments: Patient is a 78-year-old female presenting to the emergency department with weakness. Symptoms have progressed over the past 2 to 3 days. 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 Patient just finished her second week of chemotherapy. Patient is tolerating oral intake. Patient has lost around 17 pounds over the past month. Occasional nausea. No constipation or diarrhea. No abdominal pain. Weakness is general. - Related Data Home Medications Medication Instructions Recorded Confirmed Inulin/Chromium Picolinate [Fiber 1 tab PO DAILY 12/24/23 02/26/24 Gummies Chew] Multivitamin [Multivitamins Adult 1 tab PO DAILY 12/24/23 02/26/24 Gummies] Benzonatate [Tessalon Perles] 100 mg PO TID PRN 01/23/24 02/26/24 Budesonide/Glycopyr/Formoterol 1 puff INHALATION RT-DAILY 01/23/24 02/26/24 [Breztri Aerosphere Inhaler] Cyclobenzaprine [Flexeril] 10 mg PO TID PRN 01/23/24 02/26/24 HYDROcodone/APAP 5-325MG [[place] 1 tab PO Q6H PRN 01/23/24 02/26/24 5-325] Ondansetron [Zofran] 4 - 8 mg PO Q4H PRN MDD 8 TABS 01/23/24 02/26/24 busPIRone HCl [Buspar] 5 mg PO BID PRN 01/23/24 02/26/24 LORazepam [Ativan] 0.5 mg PO BID PRN 02/05/24 02/26/24 Melatonin 10 mg PO HS PRN 02/05/24 02/26/24 Mirtazapine [Remeron] 15 mg PO HS 02/05/24 02/26/24 guaiFENesin-Coden 100-10MG/5ML 10 ml PO Q4H PRN 02/05/24 02/26/24 [Robitussin AC] ALPRAZolam [Xanax] 1 mg PO TID PRN 02/26/24 02/26/24 Albuterol Inhaler [Ventolin Hfa 2 puff INHALATION RT-Q4H PRN 02/26/24 02/26/24 Inhaler] Megestrol [Megace] 800 mg PO DIRECTED 02/26/24 02/26/24 Previous Rx's Medication Instructions Recorded Ipratropium-Albuterol Nebulize 3 ml INHALATION RT-Q2H PRN each 01/25/24 [Duoneb 0.5 mg-3 mg/3 ml Soln] Ipratropium-Albuterol Nebulize 3 ml INHALATION RT-QID each 01/25/24 [Duoneb 0.5 mg-3 mg/3 ml Soln] Sennosides [Senokot] 8.6 mg PO BID PRN tab 01/25/24 Magnesium Oxide [Mag-Ox] 400 mg PO DAILY #30 tab 02/11/24 Sodium Chloride Tab 1 gm PO BID #60 tab 02/11/24 Levofloxacin [Levaquin] 500 mg PO DAILY 3 Days #3 tab 02/26/24 Allergies Allergy/AdvReac Type Severity Reaction Status Date / Time No Known Allergies Allergy Verified 02/26/24 16:45 Review of Systems ROS Statement: Those systems with pertinent positive or pertinent negative responses have been documented in the HPI. ROS Other: All systems not noted in ROS Statement are negative. Constitutional: Denies: fever Eyes: Denies: eye pain ENT: Denies: ear pain Respiratory: Denies: dyspnea Cardiovascular: Denies: chest pain Endocrine: Reports: fatigue Gastrointestinal: Denies: abdominal pain Musculoskeletal: Denies: back pain Skin: Denies: rash Neurological: Reports: as per HPI Past Medical History Past Medical History: Cancer Additional Past Medical History / Comment(s): Lung CA. Right breast CA dx in 2012-radiation tx November 2013, CT of chest on 12/24/2023 showed a very large right hilar mass and compression deformity at T11-L1, CT of brain on 12/25/23 was negative for mets, PET scan on 01/18/24 revealed right hilar conglomerate mass w/suspected metastatic disease to the right pleura throughout the decending and left neck-1 suspicious bone finding in the left 9th rib History of Any Multi-Drug Resistant Organisms: None Reported Past Surgical History: Adenoidectomy, Tonsillectomy Additional Past Surgical History / Comment(s): pylonoidal cyst removal 1971, D&C, right breast lumpectomy with 3 lymph nodes removed 2013, Bronchoscopy and biopsy of right main stem bronchus on 12/28/23 was positive small cell lung carcinoma Past Anesthesia/Blood Transfusion Reactions: No Reported Reaction Past Psychological History: No Psychological Hx Reported Smoking Status: Former smoker Past Alcohol Use History: None Reported Past Drug Use History: None Reported - Past Family History Mother Family Medical History: CVA/TIA, Hypertension General Exam Limitations: no limitations General appearance: alert, in no apparent distress Head exam: Present: atraumatic Eye exam: Present: normal appearance ENT exam: Present: normal oropharynx Neck exam: Present: normal inspection Respiratory exam: Present: normal lung sounds bilaterally Cardiovascular Exam: Present: tachycardia GI/Abdominal exam: Present: soft. Absent: distended, tenderness Extremities exam: Present: normal inspection. Absent: pedal edema, calf tenderness Neurological exam: Present: alert Psychiatric exam: Present: normal affect, normal mood Skin exam: Present: normal color Course Vital Signs 02/26/24 02/26/24 02/26/24 16:41 18:07 21:00 Temperature 97.7 F Pulse Rate 116 H 101 H 93 Respiratory 20 18 17 Rate Blood Pressure 108/61 111/68 108/66 O2 Sat by Pulse 98 97 94 L Oximetry 02/26/24 23:00 Temperature Pulse Rate 96 Respiratory 17 Rate Blood Pressure 116/69 O2 Sat by Pulse 96 Oximetry EKG Findings - EKG Results: EKG: interpreted by ERMD (Inferior T wave inversion), sinus rhythm, normal axis, normal QRS EKG shows: tachycardia Medical Decision Making - Medical Decision Making Was pt. sent in by a medical professional or institution (, PA, [employer], urgent care, hospital, or penitentiary...) When possible be specific @ -No Did you speak to anyone other than the patient for history (EMS, parent, family, police, friend...)? What history was obtained from this source @ -Family is present helps provide history including patient's symptoms and onset Did you review nursing and triage notes (agree or disagree)? Why? @ -I reviewed and agree with nursing and triage notes Were old charts reviewed (outside hosp., previous admission, EMS record, old EKG, old radiological studies, urgent care reports/EKG's, penitentiary records)? Report findings @ -Previous cell count reviewed Differential Diagnosis (chest pain, altered mental status, abdominal pain women, abdominal pain men, vaginal bleeding, weakness, fever, dyspnea, syncope, headache, dizziness, GI bleed, back pain, seizure, CVA, palpatations, mental health, musculoskeletal)? @ -Differential Weakness: Hypoglycemia, shock, sepsis, hyponatremia, anemia, infection, ME, ETOH, adverse medicine reaction, overdose, stroke, this is not meant to be an all-inclusive list. EKG interpreted by me (3pts min.). @ -As above X-rays interpreted by me (1pt min.). @ -Chest x-ray does not reveal acute abnormality. Airspace disease is present from previous CT. CT interpreted by me (1pt min.). @ -None done U/S interpreted by me (1pt. min.). @ -None done What testing was considered but not performed or refused? (CT, X-rays, U/S, labs)? Why? @ -None What meds were considered but not given or refused? Why? @ -None Did you discuss the management of the patient with other professionals (professionals i.e. , PA, [employer], lab, RT, psych nurse, manager social, manager transfer, teacher, loan workout officer, disease case manager rn)? Give summary @ -Case discussed with Dr. Pool who states patient did receive Neupogen and is comfortable with discharge home when patient requests this. Was smoking cessation discussed for >3mins.? @ -No Was critical care preformed (if so, how long)? @ -No Were there social determinants of health that impacted care today? How? (Homelessness, low income, unemployed, alcoholism, drug addiction, transportation, low edu. Level, literacy, decrease access to med. care, fpc, rehab)? @ -No Was there de-escalation of care discussed even if they declined (Discuss DNR or withdrawal of care, Hospice)? DNR status @ -No What co-morbidities impacted this encounter? (DM, HTN, Smoking, COPD, CAD, Cancer, CVA, ARF, Chemo, Hep., AIDS, mental health diagnosis, sleep apnea, morbid obesity)? @ -History of small cell cancer on chemotherapy Was patient admitted / discharged? Hospital course, mention meds given and route, prescriptions, significant lab abnormalities, going to OR and other pertinent info. @ -Patient presents with generalized weakness. Patient request discharge home and does feel better. There is a questionable urinary tract infection culture has been ordered and patient will be placed on short-term antibiotics pending results Undiagnosed new problem with uncertain prognosis? @ -No Drug Therapy requiring intensive monitoring for toxicity (Heparin, Nitro, Insulin, Cardizem)? @ -No Were any procedures done? @ -No Diagnosis/symptom? @ -Weakness Acute, or Chronic, or Acute on Chronic? @ -Acute Uncomplicated (without systemic symptoms) or Complicated (systemic symptoms)? @ -Complicated with questionable urinary tract infection Side effects of treatment? @ -No Exacerbation, Progression, or Severe Exacerbation? @ -No Poses a threat to life or bodily function? How? (Chest pain, USA, ME, pneumonia, PE, COPD, DKA, ARF, appy, cholecystitis, CVA, Diverticulitis, Homicidal, Suicidal, threat to staff... and all critical care pts) @ -No - Lab Data Result diagrams: 02/26/24 17:14 02/26/24 17:14 Lab Results 02/26/24 02/26/24 02/26/24 Range/Units 17:14 17:14 17:14 WBC 25.4 H (3.8-10.6) k/uL RBC 3.24 L (3.80-5.40) m/uL Hgb 10.1 L (11.4-16.0) gm/dL Hct 30.8 L (34.0-46.0) % MCV 95.0 (80.0-100.0) fL MCH 31.2 (25.0-35.0) pg MCHC 32.9 (31.0-37.0) g/dL RDW 16.0 H (11.5-15.5) % Plt Count 361 (150-450) k/uL MPV 8.7 Neutrophils % 93 % Lymphocytes % 5 % Monocytes % 1 % Eosinophils % 1 % Basophils % 0 % Neutrophils # 23.7 H (1.3-7.7) k/uL Lymphocytes # 1.3 (1.0-4.8) k/uL Monocytes # 0.1 (0-1.0) k/uL Eosinophils # 0.2 (0-0.7) k/uL Basophils # 0.0 (0-0.2) k/uL Anisocytosis Slight Sodium 133 L (137-145) mmol/L Potassium 4.1 (3.5-5.1) mmol/L Chloride 103 (98-107) mmol/L Carbon Dioxide 23 (22-30) mmol/L Anion Gap 7 mmol/L BUN 12 (7-17) mg/dL Creatinine 0.52 (0.52-1.04) mg/dL Est GFR (CKD-EPI)AfAm >90 (>60 ml/min/1.73 sqM) Est GFR (CKD-EPI)NonAf >90 (>60 ml/min/1.73 sqM) Glucose 109 H (74-99) mg/dL Plasma Lactic Acid Rafael 1.5 (0.7-2.0) mmol/L Calcium 10.3 H (8.4-10.2) mg/dL Phosphorus 3.6 (2.5-4.5) mg/dL Magnesium 1.6 (1.6-2.3) mg/dL Total Bilirubin 1.1 (0.2-1.3) mg/dL AST 29 (14-36) U/L ALT 13 (4-34) U/L Alkaline Phosphatase 97 (38-126) U/L Total Protein 6.0 L (6.3-8.2) g/dL Albumin 3.9 (3.5-5.0) g/dL TSH 0.477 (0.465-4.680) mIU/L Free T4 1.48 (0.78-2.19) ng/dL Urine Color Urine Appearance (Clear) Urine pH (5.0-8.0) Ur Specific [place] (1.001-1.035) Urine Protein (Negative) Urine Glucose (UA) (Negative) Urine Ketones (Negative) Urine Blood (Negative) Urine Nitrite (Negative) Urine Bilirubin (Negative) Urine Urobilinogen (<2.0) mg/dL Ur Leukocyte Esterase (Negative) Urine RBC (0-5) /hpf Urine WBC (0-5) /hpf Urine Bacteria (None) /hpf Urine Mucus (None) /hpf 02/26/24 Range/Units 20:20 WBC (3.8-10.6) k/uL RBC (3.80-5.40) m/uL Hgb (11.4-16.0) gm/dL Hct (34.0-46.0) % MCV (80.0-100.0) fL MCH (25.0-35.0) pg MCHC (31.0-37.0) g/dL RDW (11.5-15.5) % Plt Count (150-450) k/uL MPV Neutrophils % % Lymphocytes % % Monocytes % % Eosinophils % % Basophils % % Neutrophils # (1.3-7.7) k/uL Lymphocytes # (1.0-4.8) k/uL Monocytes # (0-1.0) k/uL Eosinophils # (0-0.7) k/uL Basophils # (0-0.2) k/uL Anisocytosis Sodium (137-145) mmol/L Potassium (3.5-5.1) mmol/L Chloride (98-107) mmol/L Carbon Dioxide (22-30) mmol/L Anion Gap mmol/L BUN (7-17) mg/dL Creatinine (0.52-1.04) mg/dL Est GFR (CKD-EPI)AfAm (>60 ml/min/1.73 sqM) Est GFR (CKD-EPI)NonAf (>60 ml/min/1.73 sqM) Glucose (74-99) mg/dL Plasma Lactic Acid Rafael (0.7-2.0) mmol/L Calcium (8.4-10.2) mg/dL Phosphorus (2.5-4.5) mg/dL Magnesium (1.6-2.3) mg/dL Total Bilirubin (0.2-1.3) mg/dL AST (14-36) U/L ALT (4-34) U/L Alkaline Phosphatase (38-126) U/L Total Protein (6.3-8.2) g/dL Albumin (3.5-5.0) g/dL TSH (0.465-4.680) mIU/L Free T4 (0.78-2.19) ng/dL Urine Color Colorless Urine Appearance Clear (Clear) Urine pH 6.0 (5.0-8.0) Ur Specific [place] 1.004 (1.001-1.035) Urine Protein Negative (Negative) Urine Glucose (UA) Negative (Negative) Urine Ketones Negative (Negative) Urine Blood Negative (Negative) Urine Nitrite Negative (Negative) Urine Bilirubin Negative (Negative) Urine Urobilinogen <2.0 (<2.0) mg/dL Ur Leukocyte Esterase Small H (Negative) Urine RBC 1 (0-5) /hpf Urine WBC 9 H (0-5) /hpf Urine Bacteria Rare H (None) /hpf Urine Mucus Rare H (None) /hpf Disposition Clinical Impression: Weakness Disposition: HOME SELF-CARE Condition: Stable Instructions (If sedation given, give patient instructions): Weakness (ED), Urinary Tract Infection in Women (ED) Additional Instructions: Prescription sent to pharmacy. Please do follow-up with your oncologist and primary care physician in the next day or 2 for recheck. Have them follow-up with urine culture and determine if further antibiotics are needed. Return for increased weakness, not tolerating oral intake, vomiting, fevers, worsening symptoms or other concerns. Is patient prescribed a controlled substance at d/c from ED?: No Referrals: Caryl Jaeger NPC [Primary Care Provider] - 1-2 days Minerva Jaeger MD [REFERRING] - 1-2 days Time of Disposition: 23:24
[2024-02-26] MEDS: SODIUM CHLORIDE 0.9% 1,000 ML IV STA (17:17)
[2024-02-26 17:33] LABS: ALT 13 U/L (4-34); AST 29 U/L (14-36); African American GFR (CKD) >90 (>60 ml/min/1.73 sqM); Albumin 3.9 g/dL (3.5-5.0); Alkaline Phosphatase 97 U/L (38-126); Anion Gap 7 mmol/L; Anisocytosis Slight; Basophils % (A) 0 %; Blood Urea Nitrogen 12 mg/dL (7-17); Calcium 10.3 mg/dL (8.4-10.2); Carbon Dioxide 23 mmol/L (22-30); Chloride 103 mmol/L (98-107); Eosinophils # (A) 0.2 k/uL (0-0.7); Eosinophils % (A) 1 %; Glucose 109 mg/dL (74-99); HCT 30.8 % (34.0-46.0); HGB 10.1 gm/dL (11.4-16.0); Lymphocytes # (A) 1.3 k/uL (1.0-4.8); Lymphocytes % (A) 5 %; MCH 31.2 pg (25.0-35.0); MCHC 32.9 g/dL (31.0-37.0); Magnesium 1.6 mg/dL (1.6-2.3); Mean Platelet Volume 8.7; Monocytes # (A) 0.1 k/uL (0-1.0); Monocytes % (A) 1 %; Neutrophils # (A) 23.7 k/uL (1.3-7.7); Neutrophils % (A) 93 %; Non-African American GFR(CKD) >90 (>60 ml/min/1.73 sqM); Phosphorus 3.6 mg/dL (2.5-4.5); Platelet Count 361 k/uL (150-450); Potassium 4.1 mmol/L (3.5-5.1); RBC 3.24 m/uL (3.80-5.40); Sodium 133 mmol/L (137-145); Total Bilirubin 1.1 mg/dL (0.2-1.3); WBC 25.4 k/uL (3.8-10.6)
--- NOTE | 2024-02-26 17:39 | XR ---
EXAMINATION TYPE: XR chest 2V DATE OF EXAM: 02/26/2024 5:32 PM CLINICAL INDICATION:Female, 78 years old with history of Weakness; [facility] COMPARISON: CT 02/05/2024 TECHNIQUE: XR chest 2V Frontal view of the chest. FINDINGS: Lungs/Pleura: Airspace opacities in the right upper lung right midlung. Likely representing consolida tion seen on prior CT 02/05/2024. There is no evidence of pleural effusion, left focal consolidation, or pneumothorax. Pulmonary vascularity: Unremarkable. Heart/mediastinum: Cardiomediastinal silhouette is unremarkable. Musculoskeletal: No acute osseous pathology. Other findings: None Lines/Tubes: [id number] projecting over the left hemithorax with distal tip at the confluence of the brachiocep halic vein and superior vena cava. IMPRESSION: Decrease in pleural effusion on the right. Perihilar region possibly representing persistent airspace disease and/or atelectasis seen on prior CT 02/05/2024.
[2024-02-26 17:49] LABS: T4, Free (Free Thyroxine) 1.48 ng/dL (0.78-2.19)
[2024-02-26 20:44] LABS: Appearance,Urine Clear (Clear); Bacteria,Urine Rare /hpf; Bilirubin,Urine Negative (Negative); Blood,Urine Negative (Negative); Color,Urine Colorless; Glucose,Urine (UA) Negative (Negative); Ketones,Urine Negative (Negative); Leukocyte Esterase,Urine Small (Negative); Mucus,Urine Rare /hpf; Nitrite,Urine Negative (Negative); Protein,Urine Negative (Negative); RBC,Urine 1 /hpf (0-5); Specific Gravity,Urine 1.004 (1.001-1.035); Urobilinogen,Urine <2.0 mg/dL (<2.0); WBC,Urine 9 /hpf (0-5)
[2024-02-27] MEDS: LEVOFLOXACIN 750 MG TAB PO STA (00:09)
[2024-02-27 00:14] VITALS: BP 108/57; PULSE 94; RESP 18
== END 2024-02-27 00:29 | disposition home or self-care (01) ==
LOC: EC 16:33
DX: R53.1 Weakness (principal); R00.0 Tachycardia, unspecified
CPT/HCPCS: 36415; 71046; 80053; 81001; 83605; 83735; 84100; 84439; 84443; 84481; 85025; 87086; 93005; 96360; 96361; 99285

== ENCOUNTER 2024-03-01 10:33 | Inpatient (IN) | payer MEDICARE ==
[2024-03-01] MEDS: SODIUM CHLORIDE 0.9% 1,000 ML IV STA (11:53)
[2024-03-01] MEDS: SODIUM CHLORIDE 0.9% 500 ML 500 ML IV ONE (11:53)
--- NOTE | 2024-03-01 11:53 | XR ---
EXAMINATION TYPE: XR chest 2V DATE OF EXAM: 03/01/2024 COMPARISON: 02/26/2024 HISTORY: Shortness of breath TECHNIQUE: Frontal and lateral views of the chest are obtained. FINDINGS: Scattered senescent parenchymal changes noted. Hyperinflation compatible with COPD. Nodular opacity right upper lobe and patchy density right midlung zone persist unchanged. The left juan josé ng is clear. Heart size is stable. Mediastinal structures are stable and grossly unremarkable. No evidence for hilar prominence. Degenerative changes dorsal spine. IMPRESSION: 1. Nodular opacity right upper lobe and patchy density right midlung zone persist unchanged. The left lung is clear.
[2024-03-01 12:29] LABS: HCT 29.4 % (34.0-46.0); MCH 31.4 pg (25.0-35.0); MCHC 34.1 g/dL (31.0-37.0); MCV 92.2 fL (80.0-100.0); Mean Platelet Volume 8.8; RBC 3.19 m/uL (3.80-5.40); RDW 15.2 % (11.5-15.5)
[2024-03-01 12:35] LABS: WBC 0.9 k/uL (3.8-10.6)
[2024-03-01 12:37] LABS: ALT 16 U/L (4-34); AST 27 U/L (14-36); African American GFR (CKD) >90 (>60 ml/min/1.73 sqM); Albumin 3.8 g/dL (3.5-5.0); Alkaline Phosphatase 90 U/L (38-126); Anion Gap 6 mmol/L; Blood Urea Nitrogen 21 mg/dL (7-17); Calcium 9.5 mg/dL (8.4-10.2); Carbon Dioxide 25 mmol/L (22-30); Chloride 105 mmol/L (98-107); Glucose 110 mg/dL (74-99); Magnesium 1.4 mg/dL (1.6-2.3); Non-African American GFR(CKD) 87 (>60 ml/min/1.73 sqM); Potassium 4.1 mmol/L (3.5-5.1); Sodium 136 mmol/L (137-145); Total Bilirubin 1.3 mg/dL (0.2-1.3)
[2024-03-01 12:40] LABS: Prothrombin Time 11.1 sec (10.0-12.5)
[2024-03-01 12:47] LABS: Partial Thromboplastin Time 19.2 sec (22.0-30.0)
[2024-03-01 13:38] LABS: Platelet Count 172 k/uL (150-450)
[2024-03-01 13:39] LABS: RBC Morphology Normal
[2024-03-01] MEDS ORDERED: NALOXONE 0.4 MG/ML 1 ML VIAL IV PRN (14:36)
--- NOTE | 2024-03-01 14:36 | ED ---
General Adult HPI - General Chief complaint: Syncope Stated complaint: SOB Time Seen by Provider: 03/01/24 10:35 Source: patient, EMS, RN notes reviewed Mode of arrival: EMS Limitations: no limitations - History of Present Illness Initial comments: 78-year-old female presents emergency department with chief complaint of weakness, near syncope, shortness of breath. Patient is currently being treated for small cell lung cancer had chemotherapy 1 week ago second round. She is followed by Dr. Nay simon. Patient states that she gets short of b reath, states that she is almost had passing episodes where she gets very dizzy hot flushed feeling. She states she is very weak decreased oral intake. - Related Data Home Medications Medication Instructions Recorded Confirmed Inulin/Chromium Picolinate [Fiber 1 tab PO DAILY 12/24/23 03/01/24 Gummies Chew] Multivitamin [Multivitamins Adult 1 tab PO DAILY 12/24/23 03/01/24 Gummies] Benzonatate [Tessalon Perles] 100 mg PO TID PRN 01/23/24 03/01/24 Budesonide/Glycopyr/Formoterol 1 puff INHALATION RT-DAILY 01/23/24 03/01/24 [Breztri Aerosphere Inhaler] Cyclobenzaprine [Flexeril] 10 mg PO TID PRN 01/23/24 03/01/24 HYDROcodone/APAP 5-325MG [[place] 1 tab PO Q6H PRN 01/23/24 03/01/24 5-325] Ondansetron [Zofran] 4 - 8 mg PO Q4H PRN 01/23/24 03/01/24 busPIRone HCl [Buspar] 5 mg PO BID PRN 01/23/24 03/01/24 LORazepam [Ativan] 0.5 mg PO BID PRN 02/05/24 03/01/24 Melatonin 10 mg PO HS PRN 02/05/24 03/01/24 Mirtazapine [Remeron] 15 mg PO HS 02/05/24 03/01/24 guaiFENesin-Coden 100-10MG/5ML 10 ml PO Q4H PRN 02/05/24 03/01/24 [Robitussin AC] ALPRAZolam [Xanax] 1 mg PO TID PRN 02/26/24 03/01/24 Albuterol Inhaler [Ventolin Hfa 2 puff INHALATION RT-Q4H PRN 02/26/24 03/01/24 Inhaler] Megestrol [Megace] 800 mg PO DIRECTED 02/26/24 03/01/24 Previous Rx's Medication Instructions Recorded Ipratropium-Albuterol Nebulize 3 ml INHALATION RT-Q2H PRN each 01/25/24 [Duoneb 0.5 mg-3 mg/3 ml Soln] Ipratropium-Albuterol Nebulize 3 ml INHALATION RT-QID each 01/25/24 [Duoneb 0.5 mg-3 mg/3 ml Soln] Sennosides [Senokot] 8.6 mg PO BID PRN tab 01/25/24 Magnesium Oxide [Mag-Ox] 400 mg PO DAILY #30 tab 02/11/24 Sodium Chloride Tab 1 gm PO BID #60 tab 02/11/24 Levofloxacin [Levaquin] 500 mg PO DAILY 3 Days #3 tab 02/26/24 Allergies Allergy/AdvReac Type Severity Reaction Status Date / Time No Known Allergies Allergy Verified 03/01/24 12:32 Review of Systems ROS Statement: Those systems with pertinent positive or pertinent negative responses have been documented in the HPI. ROS Other: All systems not noted in ROS Statement are negative. Past Medical History Past Medical History: Cancer Additional Past Medical History / Comment(s): Lung CA. Right breast CA dx in 2012-radiation tx November 2013, CT of chest on 12/24/2023 showed a very large right hilar mass and compression deformity at T11-L1, CT of brain on 12/25/23 was negative for mets, PET scan on 01/18/24 revealed right hilar conglomerate mass w/suspected metastatic disease to the right pleura throughout the decending and left neck-1 suspicious bone finding in the left 9th rib History of Any Multi-Drug Resistant Organisms: None Reported Past Surgical History: Adenoidectomy, Tonsillectomy Additional Past Surgical History / Comment(s): pylonoidal cyst removal 1971, D&C, right breast lumpectomy with 3 lymph nodes removed 2013, Bronchoscopy and biopsy of right main stem bronchus on 12/28/23 was positive small cell lung carcinoma Past Anesthesia/Blood Transfusion Reactions: No Reported Reaction Past Psychological History: No Psychological Hx Reported Smoking Status: Former smoker Past Alcohol Use History: None Reported Past Drug Use History: None Reported - Past Family History Mother Family Medical History: CVA/TIA, Hypertension General Exam Limitations: no limitations General appearance: alert, in no apparent distress Head exam: Present: atraumatic, normocephalic, normal inspection Eye exam: Present: normal appearance, PERRL, EOMI. Absent: scleral icterus, conjunctival injection, periorbital swelling ENT exam: Present: normal exam, normal oropharynx, mucous membranes moist Neck exam: Present: normal inspection, full ROM. Absent: tenderness, meningismus, lymphadenopathy Respiratory exam: Present: normal lung sounds bilaterally. Absent: respiratory distress, wheezes, rales, rhonchi, stridor Cardiovascular Exam: Present: normal rhythm, tachycardia, normal heart sounds. Absent: systolic murmur, diastolic murmur, rubs, gallop, clicks GI/Abdominal exam: Present: soft, normal bowel sounds. Absent: distended, tenderness, guarding, rebound, rigid Course Vital Signs 03/01/24 03/01/24 03/01/24 10:39 10:54 11:07 Temperature 98.4 F Pulse Rate 107 H Pulse Rate [ 59 L Pulse Oximetery ] Respiratory 16 18 Rate Blood Pressure 114/64 O2 Sat by Pulse 98 Oximetry EKG Findings - EKG Comments: EKG Findings:: EKG performed at 10: 49 sinus tachycardia rate of 104 RI 167 QRS 93 QT/QTc 340/405 - EKG Results: EKG: interpreted by KISHA Medical Decision Making - Medical Decision Making Was pt. sent in by a medical professional or institution (, PA, CLAIMS CLERK, urgent care, hospital, or retirement...) When possible be specific @ -No Did you speak to anyone other than the patient for history (EMS, parent, family, police, friend...)? What history was obtained from this source @ -No Did you review nursing and triage notes (agree or disagree)? Why? @ -I reviewed and agree with nursing and triage notes Were old charts reviewed (outside hosp., previous admission, EMS record, old EKG, old radiological studies, urgent care reports/EKG's, retirement records)? Report findings @ -No old charts were reviewed Differential Diagnosis (chest pain, altered mental status, abdominal pain women, abdominal pain men, vaginal bleeding, weakness, fever, dyspnea, syncope, headache, dizziness, GI bleed, back pain, seizure, CVA, palpatations, mental health, musculoskeletal)? @ -Differential Weakness: Hypoglycemia, shock, sepsis, hyponatremia, anemia, infection, NV, ETOH, adverse medicine reaction, overdose, stroke, this is not meant to be an all-inclusive list. EKG interpreted by me (3pts min.). @ -As above X-rays interpreted by me (1pt min.). @ -None done CT interpreted by me (1pt min.). @ -None done U/S interpreted by me (1pt. min.). @ -None done What testing was considered but not performed or refused? (CT, X-rays, U/S, labs)? Why? @ -None What meds were considered but not given or refused? Why? @ -None Did you discuss the management of the patient with other professionals (professionals i.e. , PA, CLAIMS CLERK, lab, RT, psych nurse, social media senior associate, sports marketing internship, teacher, bank secrecy act officer, residential case manager)? Give summary @ -EMH for admission Was smoking cessation discussed for >3mins.? @ -No Was critical care preformed (if so, how long)? @ -No Were there social determinants of health that impacted care today? How? (Homelessness, low income, unemployed, alcoholism, drug addiction, transportation, low edu. Level, literacy, decrease access to med. care, nursing home, re hab)? @ -No Was there de-escalation of care discussed even if they declined (Discuss DNR or withdrawal of care, Hospice)? DNR status @ -No What co-morbidities impacted this encounter? (DM, HTN, Smoking, COPD, CAD, Cancer, CVA, ARF, Chemo, Hep., AIDS, mental health diagnosis, sleep apnea, morbid obesity)? @ -[Lung cancer Was patient admitted / discharged? Hospital course, mention meds given and rou te, prescriptions, significant lab abnormalities, going to OR and other pertinent info. @ -Admit the patient presented for increasing weakness, near syncope shortness of breath. Patient will be admitted to medicine with consult to oncology. Patient was given IV fluids as feels somewhat improved. Patient has no recurrent pleural effusion. Undiagnosed new problem with uncertain prognosis? @ -No Drug Therapy requiring intensive monitoring for toxicity (Heparin, Nitro, Insulin, Cardizem)? @ -No Were any procedures done? @ -No Diagnosis/symptom? @ -Hypomagnesemia, syncope, lung cancer Acute, or Chronic, or Acute on Chronic? @ -Acute Uncomplicated (without systemic symptoms) or Complicated (systemic symptoms)? @ -Complicated Side effects of treatment? @ -No Exacerbation, Progression, or Severe Exacerbation? @ -No Poses a threat to life or bodily function? How? (Chest pain, USA, NV, pneumonia, PE, COPD, DKA, ARF, appy, cholecystitis, CVA, Diverticulitis, Homicidal, Suicidal, threat to staff... and all critical care pts) @ -Yes lung cancer - Lab Data Result diagrams: 03/01/24 11:31 03/01/24 11:31 Lab Results 03/01/24 03/01/24 03/01/24 Range/Units 11:31 11:31 11:31 WBC 0.9 L* (3.8-10.6) k/uL RBC 3.19 L (3.80-5.40) m/uL Hgb 10.0 L (11.4-16.0) gm/dL Hct 29.4 L (34.0-46.0) % MCV 92.2 (80.0-100.0) fL MCH 31.4 (25.0-35.0) pg MCHC 34.1 (31.0-37.0) g/dL RDW 15.2 (11.5-15.5) % Plt Count 172 D (150-450) k/uL MPV 8.8 Differential Comment Manual Slide Review Performed RBC Morphology Normal PT 11.1 (10.0-12.5) sec INR 1.0 (<1.2) APTT 19.2 L (22.0-30.0) sec Sodium 136 L (137-145) mmol/L Potassium 4.1 (3.5-5.1) mmol/L Chloride 105 (98-107) mmol/L Carbon Dioxide 25 (22-30) mmol/L Anion Gap 6 mmol/L BUN 21 H (7-17) mg/dL Creatinine 0.64 (0.52-1.04) mg/dL Est GFR (CKD-EPI)AfAm >90 (>60 ml/min/1.73 sqM) Est GFR (CKD-EPI)NonAf 87 (>60 ml/min/1.73 sqM) Glucose 110 H (74-99) mg/dL Calcium 9.5 (8.4-10.2) mg/dL Magnesium 1.4 L (1.6-2.3) mg/dL Total Bilirubin 1.3 (0.2-1.3) mg/dL AST 27 (14-36) U/L ALT 16 (4-34) U/L Alkaline Phosphatase 90 (38-126) U/L Troponin I (0.000-0.034) ng/mL Total Protein 6.0 L (6.3-8.2) g/dL Albumin 3.8 (3.5-5.0) g/dL 03/01/ Range/Units 11:31 WBC (3.8-10.6) k/uL RBC (3.80-5.40) m/uL Hgb (11.4-16.0) gm/dL Hct (34.0-46.0) % MCV (80.0-100.0) fL MCH (25.0-35.0) pg MCHC (31.0-37.0) g/dL RDW (11.5-15.5) % Plt Count (150-450) k/uL MPV Differential Comment Manual Slide Review RBC Morphology PT (10.0-12.5) sec INR (<1.2) APTT (22.0-30.0) sec Sodium (137-145) mmol/L Potassium (3.5-5.1) mmol/L Chloride (98-107) mmol/L Carbon Dioxide (22-30) mmol/L Anion Gap mmol/L BUN (7-17) mg/dL Creatinine (0.52-1.04) mg/dL Est GFR (CKD-EPI)AfAm (>60 ml/min/1.73 sqM) Est GFR (CKD-EPI)NonAf (>60 ml/min/1.73 sqM) Glucose (74-99) mg/dL Calcium (8.4-10.2) mg/dL Magnesium (1.6-2.3) mg/dL Total Bilirubin (0.2-1.3) mg/dL AST (14-36) U/L ALT (4-34) U/L Alkaline Phosphatase (38-126) U/L Troponin I <0.012 (0.000-0.034) ng/mL Total Protein (6.3-8.2) g/dL Albumin (3.5-5.0) g/dL Disposition Clinical Impression: Weakness, Hypomagnesemia, Lung cancer, Syncope Disposition: ADMITTED IP TO THIS HOSP Condition: Fair Referrals: Minerva Jaeger MD [Primary Care Provider] - 1-2 days Time of Disposition: 14:36
[2024-03-01] MEDS: SODIUM CHLORIDE 0.9% 1,000 ML IV SCH (14:48)
[2024-03-01] MEDS: MAGNESIUM SULFATE-D5W PMX 1 GM in DEXTROSE/WATER 1 100ML.BAG IVPB SCH (14:50)
[2024-03-01] MEDS ORDERED: ALPRAZolam 0.25 MG TAB PO PRN (19:43)
[2024-03-01] MEDS: SALT AND SODA MOUTHWASH 1,000 ML PO SCH (20:09)
[2024-03-01] MEDS: HYDROcodone/APAP 5-325MG 1 EACH TAB PO PRN (21:53)
[2024-03-01] MEDS: MELATONIN 5 MG TABLET PO PRN (21:55)
[2024-03-01] MEDS: MIRTAZAPINE 15 MG TAB PO SCH (21:56)
[2024-03-02 05:35] LABS: Appearance,Urine Clear (Clear); Bilirubin,Urine Negative (Negative); Blood,Urine Negative (Negative); Color,Urine Yellow; Glucose,Urine (UA) Negative (Negative); Ketones,Urine Negative (Negative); Leukocyte Esterase,Urine Negative (Negative); Nitrite,Urine Negative (Negative); PH, Urine 5.5 (5.0-8.0); Protein,Urine Trace (Negative); Specific Gravity,Urine 1.031 (1.001-1.035); Urobilinogen,Urine <2.0 mg/dL (<2.0)
[2024-03-02] MEDS ORDERED: ALBUTEROL NEBULIZED 2.5 MG/3 ML INHALATION PRN (10:04)
[2024-03-02] MEDS ORDERED: LORazepam 0.5 MG TAB PO PRN (10:04)
[2024-03-02] MEDS ORDERED: CYCLOBENZAPRINE 10 MG TAB PO PRN (10:04)
[2024-03-02] MEDS ORDERED: IPRATROPIUM-ALBUTEROL 3 ML NEB INHALATION PRN (10:04)
[2024-03-02] MEDS: MAGNESIUM OXIDE 400 MG TAB PO SCH (10:41)
[2024-03-02] MEDS: IPRATROPIUM-ALBUTEROL 3 ML NEB INHALATION SCH (11:23)
[2024-03-02 12:00] LABS: HCT 26.1 % (34.0-46.0); HGB 8.7 gm/dL (11.4-16.0); Hypochromasia Slight; MCH 31.8 pg (25.0-35.0); MCHC 33.3 g/dL (31.0-37.0); MCV 95.3 fL (80.0-100.0); Mean Platelet Volume 8.9; Platelet Count 107 k/uL (150-450); RBC 2.74 m/uL (3.80-5.40); RDW 15.3 % (11.5-15.5); WBC 1.6 k/uL (3.8-10.6)
[2024-03-02 12:04] LABS: ALT 15 U/L (4-34); AST 26 U/L (14-36); African American GFR (CKD) >90 (>60 ml/min/1.73 sqM); Albumin/Globulin Ratio 1.4; Alkaline Phosphatase 72 U/L (38-126); Anion Gap 4 mmol/L; Blood Urea Nitrogen 10 mg/dL (7-17); Calcium 8.5 mg/dL (8.4-10.2); Carbon Dioxide 23 mmol/L (22-30); Chloride 107 mmol/L (98-107); Globulin 2.2 g/dL; Glucose 87 mg/dL (74-99); Magnesium 1.7 mg/dL (1.6-2.3); Non-African American GFR(CKD) >90 (>60 ml/min/1.73 sqM); Potassium 3.5 mmol/L (3.5-5.1); Sodium 134 mmol/L (137-145); Total Bilirubin 0.7 mg/dL (0.2-1.3); Total Protein 5.2 g/dL (6.3-8.2)
[2024-03-02 12:28] LABS: Neutrophils % (M) 25 %
[2024-03-02 12:30] LABS: Band Neutrophils % 6 %; Lymphocytes # (M) 0.91 k/uL (1.0-4.8); Monocytes # (M) 0.19 k/uL (0-1.0)
[2024-03-02 12:31] LABS: Nucleated Red Blood Cells 0 /100 WBC (0-0); Total Cells Counted 100
[2024-03-02] MEDS ORDERED: busPIRone HCl 5 MG TAB PO PRN (13:25)
[2024-03-02] MEDS: CEFEPIME 2 GM in SODIUM CHLORIDE 0.9% 100 ML IVPB SCH (13:43)
[2024-03-02] MEDS: BENZONATATE 100 MG CAP PO PRN (13:43)
[2024-03-02] MEDS: MEGESTROL 400 MG/10 ML CUP PO SCH (13:52)
[2024-03-02] MEDS: SODIUM CHLORIDE TAB 1 GM TAB PO SCH (14:36)
--- NOTE | 2024-03-02 14:57 | CT ---
EXAMINATION TYPE: CT angio chest CT DLP: 165.7 mGycm, Automated exposure control for dose reduction was used. DATE OF EXAM: 03/02/2024 2:39 PM COMPARISON: CTA chest 02/05/2024, chest radiograph 03/01/2024 CLINICAL INDICATION:Female, 78 years old with history of r/o PE, SOB, dizziness; SOB, dizziness, hx o f lung and breast Ca. TECHNIQUE/CONTRAST: CTA scan of the thorax is performed with IV Contrast, patient injected with 100 cc mL of Isovue 370, pulmonary embolism protocol. MIP images are created and reviewed. FINDINGS: Pulmonary Artery: There is no evidence for a filling defect within the pulmonary vasculature to sugge st acute pulmonary embolism. The pulmonary artery is of normal size. Lungs/Pleura: Mild patchy subsegmental atelectasis within the dependent portion of the left lower lob e. Mild paraseptal and centrilobular emphysematous changes. Small right pleural effusion demonstrated which is decreased from prior CT. Similar right apical pleural parenchymal opacities with 2.6 cm mas slike consolidation (series 5, image 22). A few patchy reticular opacities demonstrated within the ri ght upper lobe with some partial atelectasis within the right middle lobe. Airway: Large airways are patent. Heart: Heart is within normal limits for size.. Trace pericardial effusion. Minimal coronary artery c alcifications identified. Vasculature: No evidence of aortic aneurysm. Left anterior chest wall IJ Mediport catheter distal tip terminating in the SVC. Mediastinum: Decreased size of right hilar conglomerate soft tissue lesion extending into the mediast inum and case to encase the right mainstem bronchus. There is surrounding encasement of the right mid dle lobe bronchus causing partial postobstructive atelectasis. This is difficult to measure. The subc arinal portion measuring up to 1.9 cm, previous measurement up to 4.[address] Significant dec rease in soft tissue within the right prevascular space. Musculoskeletal: No acute osseous abnormalities. No aggressive osseous lesion. Similar appearance of T11 compression fracture. Soft Tissues: Unremarkable. Lower neck: No significant findings. Upper Abdomen: No significant findings. IMPRESSION: 1. No evidence of pulmonary embolism. 2. Overall improvement in previously seen right hilar/mediastinal soft tissue related to known neopla sm. Decrease in now small right pleural effusion. Continued masslike opacities within the right upper lobe. Attention on follow-up. Few patchy reticular opacities within the right upper lobe likely repr esenting pneumonitis. 3. Mild COPD changes.
[2024-03-02] MEDS: SODIUM CHLORIDE 0.9% 1,000 ML IV SCH (16:34)
--- NOTE | 2024-03-02 18:39 | P.CONS ---
History of Present Illness - Reason for Consult Consult date: 03/02/24 lung cancer Requesting physician: Jose Guadalupe Jimenez - Chief Complaint SOB, dizziness, weakness - History of Present Illness Mrs. Elizabeth is a female pt of Dr. Tee diagnosed with right breast cancer in July 2013 during routine screening mammographies. In August 2013 she had right breast partial mastectomy and sentinel nodes biopsy, pathology revealed grade I, invasive ductal carcinoma, 0.8cm, negative sentinel nodes, ER/NC strongly positive, HER2/AGAPITO negative, oncotypeDx revealed low recurrence score of 12, she completed adjuvant radiation therapy in November 2013, and started on tamoxifen in December [address] Marky Morocho at [facility]. On 05/25/2015 she was switched to femara, and she stopped it in December/2018. She was also treated with prolia for osteoporosis. She developed cough around , persistent, progressive. She was seen at [facility] December 2023, CT chest 12/24/2023 showed a very large right hilar mass, about 7.7 x 8.5 x 5.4 cm, extensive mediastinal nodes up to 4.7 cm, compression deformity at T11-L1. CT brain 12/25/2023 was negative for mets. On 12/28/2023 bronchoscopy and biopsy of right main stem bronchus was positive small cell lung carcinoma. Palliative treatment was recommended. She had her 1st cycle of carbo/BUS TRANSPORTATION MANAGER with GCSF 01/30-02/02. She was admitted after cycle 1 for dyspnea and cough. She had a chest x-ray with the impression of COPD with ongoing moderate to large right pleural effusion increased from 12/24/2023. CTA of the chest was negative for PE, neoplasm noted on the right, large right pleural effusion seen, COPD with moderate emphysema. Chest US reported right pleural effusion pocket 3.3 cm. She was evaluated by Pulmonary and had a right thoracentesis with 650 cc removed, cytology was negative for malignancy. She underwent cycle 2 of carbo/BUS TRANSPORTATION MANAGER/tecentriq on 02/22, with G-CSF on 02/23. She then presented to the ER for weakness and was thought to have a UTI and was discharged. Urine culture did result negative. She then represented now with complaints of weakness, SOB and dizziness. On admission chest x-ray revealed nodular opacity right upper lobe and patchy density right midlung zone persisting but unchanged. Left lung is clear. Labs reviewed, UA negative for UTI. CBC showing WBC 0.9, hemoglobin 10.0, platelets 172,000. Creatinine 0.64, GFR greater than 90, BUN 21. Troponin negative. Magnesium slightly decreased at 1.4, magnesium has been replaced. Patient is afebrile, BP soft. Review of Systems 10 point ROS is negative except as stated in the HPI Past Medical History Past Medical History: Cancer Additional Past Medical History / Comment(s): Lung CA. Right breast CA dx in 2012-radiation tx November 2013, CT of chest on 12/24/2023 showed a very large right hilar mass and compression deformity at T11-L1, CT of brain on 12/25/23 was negative for mets, PET scan on 01/18/24 revealed right hilar conglomerate mass w/suspected metastatic disease to the right pleura throughout the decending and left neck-1 suspicious bone finding in the left 9th rib History of Any Multi-Drug Resistant Organisms: None Reported Past Surgical History: Adenoidectomy, Tonsillectomy Additional Past Surgical History / Comment(s): pylonoidal cyst removal 1971, D&C, right breast lumpectomy with 3 lymph nodes removed 2013, Bronchoscopy and biopsy of right main stem bronchus on 12/28/23 was positive small cell lung carcinoma Past Anesthesia/Blood Transfusion Reactions: No Reported Reaction Past Psychological History: No Psychological Hx Reported Smoking Status: Former smoker Past Alcohol Use History: None Reported Past Drug Use History: None Reported - Past Family History Mother Family Medical History: CVA/TIA, Hypertension Medications and Allergies Home Medications Medication Instructions Recorded Confirmed Type Inulin/Chromium Picolinate [Fiber 1 tab PO DAILY 12/24/23 03/01/24 History Gummies Chew] Multivitamin [Multivitamins Adult 1 tab PO DAILY 12/24/23 03/01/24 History Gummies] Benzonatate [Tessalon Perles] 100 mg PO TID PRN 01/23/24 03/01/24 History Budesonide/Glycopyr/Formoterol 1 puff INHALATION RT-DAILY 01/23/24 03/01/24 History [Breztri Aerosphere Inhaler] Cyclobenzaprine [Flexeril] 10 mg PO TID PRN 01/23/24 03/01/24 History HYDROcodone/APAP 5-325MG [[place] 1 tab PO Q6H PRN 01/23/24 03/01/24 History 5-325] Ondansetron [Zofran] 4 - 8 mg PO Q4H PRN 01/23/24 03/01/24 History busPIRone HCl [Buspar] 5 mg PO BID PRN 01/23/24 03/01/24 History Ipratropium-Albuterol Nebulize 3 ml INHALATION RT-Q2H PRN each 01/25/24 03/01/24 Rx [Duoneb 0.5 mg-3 mg/3 ml Soln] Ipratropium-Albuterol Nebulize 3 ml INHALATION RT-QID each 01/25/24 03/01/24 Rx [Duoneb 0.5 mg-3 mg/3 ml Soln] Sennosides [Senokot] 8.6 mg PO BID PRN tab 01/25/24 03/01/24 Rx LORazepam [Ativan] 0.5 mg PO BID PRN 02/05/24 03/01/24 History Melatonin 10 mg PO HS PRN 02/05/24 03/01/24 History Mirtazapine [Remeron] 15 mg PO HS 02/05/24 03/01/24 History guaiFENesin-Coden 100-10MG/5ML 10 ml PO Q4H PRN 02/05/24 03/01/24 History [Robitussin AC] Magnesium Oxide [Mag-Ox] 400 mg PO DAILY #30 tab 02/11/24 03/01/24 Rx Sodium Chloride Tab 1 gm PO BID #60 tab 02/11/24 03/01/24 Rx ALPRAZolam [Xanax] 1 mg PO TID PRN 02/26/24 03/01/24 History Albuterol Inhaler [Ventolin Hfa 2 puff INHALATION RT-Q4H PRN 02/26/24 03/01/24 History Inhaler] Levofloxacin [Levaquin] 500 mg PO DAILY 3 Days #3 tab 02/26/24 03/01/24 Rx Megestrol [Megace] 800 mg PO DIRECTED 02/26/24 03/01/24 History Allergies Allergy/AdvReac Type Severity Reaction Status Date / Time No Known Allergies Allergy Verified 03/01/24 12:32 Physical Exam Vitals: Vital Signs Temp Pulse Pulse Resp BP BP BP 03/02/24 11:34 74 03/02/24 11:23 68 03/02/24 08:43 03/02/24 08:02 98.3 F 94 14 106/67 03/02/24 01:32 98 F 85 16 95/56 03/01/24 19:55 99 16 03/01/24 19:36 97.8 F 99 16 99/65 03/01/24 16:01 98.3 F 101 H 18 93/58 106/66 03/01/24 13:45 82 16 105/65 Pulse Ox 03/02/24 11:34 03/02/24 11:23 03/02/24 08:43 96 03/02/24 08:02 99 03/02/24 01:32 99 03/01/24 19:55 03/01/24 19:36 100 03/01/24 16:01 100 03/01/24 13:45 97 Intake and Output 03/01/24 03/02/24 03/02/24 22:59 06:59 14:59 Intake Total 750 Output Total 250 Balance 750 -250 Intake: Intake, IV Titration 750 Amount Sodium Chloride 0.9% 1, 750 000 ml @ 75 mls/hr IV . [id number] [facility] Rx#:[id number] Output: Urine 250 Other: Voiding Method External Catheter External Catheter - Constitutional General appearance: average body habitus, no acute distress - EENT Eyes: anicteric sclerae, EOMI ENT: hearing grossly normal - Respiratory Respiratory: left: diminished, rales - Cardiovascular Rhythm: regular - Gastrointestinal General gastrointestinal: soft, no tenderness - Neurologic Neurologic: CNII-XII intact - Musculoskeletal Musculoskeletal: strength equal bilaterally - Psychiatric Psychiatric: A&O x's 3 Results CBC & Chem 7: 03/02/24 11:33 03/02/24 11:33 Labs: Abnormal Lab Results - Last 24 Hours (Table) 03/01/24 03/01/24 03/01/24 Range/Units 11:31 11:31 11:31 WBC 0.9 L* (3.8-10.6) k/uL RBC 3.19 L (3.80-5.40) m/uL Hgb 10.0 L (11.4-16.0) gm/dL Hct 29.4 L (34.0-46.0) % APTT 19.2 L (22.0-30.0) sec Sodium 136 L (137-145) mmol/L BUN 21 H (7-17) mg/dL Glucose 110 H (74-99) mg/dL Magnesium 1.4 L (1.6-2.3) mg/dL Total Protein 6.0 L (6.3-8.2) g/dL Urine Protein (Negative) 03/02/24 Range/Units 05:00 WBC (3.8-10.6) k/uL RBC (3.80-5.40) m/uL Hgb (11.4-16.0) gm/dL Hct (34.0-46.0) % APTT (22.0-30.0) sec Sodium (137-145) mmol/L BUN (7-17) mg/dL Glucose (74-99) mg/dL Magnesium (1.6-2.3) mg/dL Total Protein (6.3-8.2) g/dL Urine Protein Trace H (Negative) Chest x-ray: report reviewed Assessment and Plan (1) Hypomagnesemia Current Visit: Yes Status: Acute Priority: Medium Code(s): E83.42 - HYPOMAGNESEMIA SNOMED Code(s): 218857828 (2) Weakness Current Visit: Yes Status: Acute Priority: High Code(s): R53.1 - WEAKNESS SNOMED Code(s): 01363154 (3) Small cell lung carcinoma Current Visit: Yes Status: Acute Priority: High Code(s): C34.90 - MALIGNANT NEOPLASM OF UNSP PART OF UNSP BRONCHUS OR LUNG SNOMED Code(s): 341332212 Plan: Small cell lung cancer, SOB, weakness: -Diagnosis and treatment as documented in consult HPI -Completed cycle 2 carbo/BUS TRANSPORTATION MANAGER/Tecentriq on 02/23/24 with G-CSF on 02/23. -Unfortunately, patient has multiple admissions since starting treatment. Will discuss with her primary oncologist further, may need to consider dose reduction for subsequent cycles -CXR and UA not suspicious for acute infectious process, pt afebrile. Symptoms appear to be r/t chemo, agree with hydration/supportive care, and electrolyte replacement -Due to tachycardia on admit and c/o SOB and dizziness, will obtain CTA chest to r/o PE -WBC 0.9, G-CSF given on 02/23, would expect white counts to begin to recover within the next couple days. No additional G-CSF at this time. Platelets and hgb stable -Continue to monitor CBC Doctor attests: I performed a history and physical examination of this patient, developed impression and plan of care. Discussed with dictator. I agree with dictators note, documented as a scribe.
--- NOTE | 2024-03-02 20:54 | HP ---
HISTORY AND PHYSICAL CHIEF COMPLAINT: Multiple chief complaints including shortness of breath, near-syncope, and has generalized weakness. HISTORY OF PRESENT ILLNESS: This is a 78-year-old woman with a past medical history of multiple medical problems including non-small cell carcinoma, started on chemotherapy, is complaining of shortness of breath, weakness, and near syncope. The patient came to [facility]. The patient also had right pleural effusion previously and the patient is admitted for further evaluation and treatment. The patient had a scratch on the right face which is swollen and has some cellulitic process also. The patient has severe neutropenia. There is no history of any fever, rigors, or chills. PAST MEDICAL HISTORY: Reviewed include non-small cell lung cancer, rest of the history and chart is also reviewed. HOME MEDICATIONS: Reviewed include sodium chloride tablet, rest of the dose and rest of medications reviewed. ALLERGIES: None. FAMILY HISTORY: History of hypertension. SOCIAL HISTORY: Previous history of smoking. REVIEW OF SYSTEMS: A 14-point review is negative except as mentioned. PHYSICAL EXAMINATION: VITAL SIGNS: Pulse is 104, blood pressure 106/69, respirations 16. HEENT: Oral mucosa moist. CHEST: Few scattered rhonchi and crackles. CARDIOVASCULAR: S1, S2. ABDOMEN: Soft, nontender. LEGS: No edema. No swelling. NERVOUS SYSTEM: Moves all 4 limbs. No focal deficit. SKIN: As mentioned earlier on the face. JOINTS: No active deforming arthropathy. LABORATORY DATA: WBC 0.9, hemoglobin 10, rest of the chart is reviewed. ASSESSMENT: 1. Severe neutropenia and possible neutropenic sepsis present on admission. 2. Shortness of breath for evaluation, rule out pulmonary embolism. 3. Pancytopenia secondary to chemotherapy. 4. Non-small cell lung cancer, on chemotherapy. 5. History of hyponatremia. 6. Multiple complex medical issues. 7. Full code. 8. Right facial cellulitis, rule out abscess. RECOMMENDATION: This 78-year-old woman presented with multiple medical issues. We will monitor the patient closely. Continue current medications, continue symptomatic treatment, otherwise I would recommend continue with current medications. We will initiate broad- spectrum IV antibiotics, cultures. Otherwise monitor sodium closely. Obtain cultures. Resume the home medications. DVT prophylaxis. We will monitor sodium, also Pulmonary Infectious Disease evaluations, D-dimer, and I would also recommend CT angio of the chest. If D-dimer is positive, we will continue to monitor. Prognosis guarded. Further recommendations to follow, see orders for details. MMODL / IJN: [id number] /
--- NOTE | 2024-03-02 22:41 | P.CONS ---
History of Present Illness - Reason for Consult Consult date: 03/02/24 Sepsis Requesting physician: Ulysses Jimenes - Chief Complaint Increasing shortness of breath and cough x few days - History of Present Illness Patient is a 78-year-old female with a past medical history significant for recent diagnosis of lung cancer while the patient has received 2 cycles of chemotherapy presenting to the hospital for evaluation of weakness and palpitation shortness of breath patient mention she was doing pretty well on Wednesday and did walk outside next day he started feeling weak no energy and did have episode of coughing patient mention she did presented to [facility] ER with the patient was diagnosed with a UTI however she has no urinary symptoms and put on some antibiotic with the patient and the are not aware of it over the next day or 2 patient could having shortness of breath especially on minimal exertion however the patient patient declined to go to the hospital however today the patient did have worsening shortness of breath on minimal exertion for the EMS was called and the patient was brought into the hospital patient did have bouts of coughing moderate intensity but not bring up any sputum denies any pleuritic chest pain did have some nausea but no vomiting no choking on food no abdominal pain no diarrhea no urinary symptoms on presentation to the hospital patient was afebrile and no fever have recorded subsequently patient was tachycardic but not hypotensive she was mildly hypoxic requiring supplemental oxygen patient did have a white count of 0 point 9 repeat is 1.6 creatinine 0.64 electrolytes normal liver enzymes normal urine is negative patient did have a CT angiogram of the chest that was negative for PE did shows overall improvement in the previous history right hilar mediastinal s oft tissue decrease in the small right effusion continued masslike opacity within the right upper lobe few patchy reticular opacity within the right upper lobe concerning for pneumonitis patient was started on cefepime infectious disease was consulted for further management of antibiotic therapy Review of Systems Positive point and negatives has been mentioned in the HPI, complete review of systems was performed and all other systems are negative Past Medical History Past Medical History: Cancer Additional Past Medical History / Comment(s): Lung CA. Right breast CA dx in 2012-radiation tx November 2013, CT of chest on 12/24/2023 showed a very large right hilar mass and compression deformity at T11-L1, CT of brain on 12/25/23 was negative for mets, PET scan on 01/18/24 revealed right hilar conglomerate mass w/suspected metastatic disease to the right pleura throughout the decending and left neck-1 suspicious bone finding in the left 9th rib History of Any Multi-Drug Resistant Organisms: None Reported Past Surgical History: Adenoidectomy, Tonsillectomy Additional Past Surgical History / Comment(s): pylonoidal cyst removal 1971, D&C, right breast lumpectomy with 3 lymph nodes removed 2013, Bronchoscopy and biopsy of right main stem bronchus on 12/28/23 was positive small cell lung carcinoma Past Anesthesia/Blood Transfusion Reactions: No Reported Reaction Past Psychological History: No Psychological Hx Reported Smoking Status: Former smoker Past Alcohol Use History: None Reported Past Drug Use History: None Reported - Past Family History Mother Family Medical History: CVA/TIA, Hypertension Medications and Allergies Home Medications Medication Instructions Recorded Confirmed Type Inulin/Chromium Picolinate [Fiber 1 tab PO DAILY 12/24/23 03/01/24 History Gummies Chew] Multivitamin [Multivitamins Adult 1 tab PO DAILY 12/24/23 03/01/24 History Gummies] Benzonatate [Tessalon Perles] 100 mg PO TID PRN 01/23/24 03/01/24 History Budesonide/Glycopyr/Formoterol 1 puff INHALATION RT-DAILY 01/23/24 03/01/24 History [Breztri Aerosphere Inhaler] Cyclobenzaprine [Flexeril] 10 mg PO TID PRN 01/23/24 03/01/24 History HYDROcodone/APAP 5-325MG [[place] 1 tab PO Q6H PRN 01/23/24 03/01/24 History 5-325] Ondansetron [Zofran] 4 - 8 mg PO Q4H PRN 01/23/24 03/01/24 History busPIRone HCl [Buspar] 5 mg PO BID PRN 01/23/24 03/01/24 History Ipratropium-Albuterol Nebulize 3 ml INHALATION RT-Q2H PRN each 01/25/24 03/01/24 Rx [Duoneb 0.5 mg-3 mg/3 ml Soln] Ipratropium-Albuterol Nebulize 3 ml INHALATION RT-QID each 01/25/24 03/01/24 Rx [Duoneb 0.5 mg-3 mg/3 ml Soln] Sennosides [Senokot] 8.6 mg PO BID PRN tab 01/25/24 03/01/24 Rx LORazepam [Ativan] 0.5 mg PO BID PRN 02/05/24 03/01/24 History Melatonin 10 mg PO HS PRN 02/05/24 03/01/24 History Mirtazapine [Remeron] 15 mg PO HS 02/05/24 03/01/24 History guaiFENesin-Coden 100-10MG/5ML 10 ml PO Q4H PRN 02/05/24 03/01/24 History [Robitussin AC] Magnesium Oxide [Mag-Ox] 400 mg PO DAILY #30 tab 02/11/24 03/01/24 Rx Sodium Chloride Tab 1 gm PO BID #60 tab 02/11/24 03/01/24 Rx ALPRAZolam [Xanax] 1 mg PO TID PRN 02/26/24 03/01/24 History Albuterol Inhaler [Ventolin Hfa 2 puff INHALATION RT-Q4H PRN 02/26/24 03/01/24 History Inhaler] Levofloxacin [Levaquin] 500 mg PO DAILY 3 Days #3 tab 02/26/24 03/01/24 Rx Megestrol [Megace] 800 mg PO DIRECTED 02/26/24 03/01/24 History Allergies Allergy/AdvReac Type Severity Reaction Status Date / Time No Known Allergies Allergy Verified 03/01/24 12:32 Physical Exam Vitals: Vital Signs Temp Pulse Pulse Resp BP Pulse Ox 03/02/24 16:03 76 03/02/24 15:51 68 03/02/24 13:17 97.7 F 104 H 16 107/63 98 03/02/24 11:34 74 03/02/24 11:23 68 03/02/24 08:43 96 03/02/24 08:02 98.3 F 94 14 106/67 99 03/02/24 01:32 98 F 85 16 95/56 99 03/01/24 19:55 99 16 03/01/24 19:36 97.8 F 99 16 99/65 100 Intake and Output 03/02/24 03/02/24 03/02/24 06:59 14:59 22:59 Output Total 250 Balance -250 Output: Urine 250 Other: Voiding Method External Catheter # Voids 1 GENERAL DESCRIPTION: Elderly female lying in bed, no distress. No tachypnea or accessory muscle of respiration use. HEENT: Shows Pallor , no scleral icterus. Oral mucous membrane is dry. No pharyngeal erythema or thrush NECK: Trachea central, no thyromegaly. LUNGS: Unlabored breathing. Coarse breath sound at the base bilaterally HEART: S1, S2, regular rate and rhythm. No loud murmur ABDOMEN: Soft, no tenderness , guarding or rigidity, no organomegaly EXTREMITIES: No edema of feet. SKIN: No rash, no masses palpable. NEUROLOGICAL: The patient is awake, alert, oriented x3, mood and affect normal. Results CBC & Chem 7: 03/03/24 03:29 03/03/24 03:29 Labs: Abnormal Lab Results - Last 24 Hours (Table) 03/02/24 03/02/24 03/02/24 Range/Units 05:00 11:33 11:33 WBC 1.6 L (3.8-10.6) k/uL RBC 2.74 L (3.80-5.40) m/uL Hgb 8.7 L (11.4-16.0) gm/dL Hct 26.1 L (34.0-46.0) % Plt Count 107 L (150-450) k/uL Neutrophils # (Manual) 0.40 L* (1.3-7.7) k/uL Lymphocytes # (Manual) 0.91 L (1.0-4.8) k/uL Sodium 134 L (137-145) mmol/L Creatinine 0.44 L (0.52-1.04) mg/dL Total Protein 5.2 L (6.3-8.2) g/dL Albumin 3.0 L (3.5-5.0) g/dL Urine Protein Trace H (Negative) Assessment and Plan (1) Pneumonia Current Visit: Yes Status: Acute Code(s): J18.9 - PNEUMONIA, UNSPECIFIED ORGANISM SNOMED Code(s): 811815806 (2) Leukopenia Current Visit: Yes Status: Acute Code(s): D72.819 - DECREASED WHITE BLOOD CELL COUNT, UNSPECIFIED SNOMED Code(s): 93101941 Plan: 1patient presenting to the hospital with increasing shortness of breath which is likely multifactorial in this patient who did have history of lung cancer on chemotherapy patient did have a cough but not bring up any sputum CT angiogram was negative for PE did shows evidence of patchy infiltrate seen right upper lo be concerning for possible pneumonitis in this patient with leukopenia on chemo will need to cover for the gram-negative 2-try to obtain sputum for Gram stain culture check a CRP and procalcitonin 3-cefepime 2 g every 8-hour to continue Multiple question concern answered We will follow on clinical condition and cultures to further adjust medication if needed Thank you for this consultation we will follow the patient along with you Dictation was produced using [employer] dictation software. please excuse any grammatical, word or spelling errors. Time with Patient: Greater than 30
[2024-03-02] MEDS: BACITRACIN OINT 1 EACH PACKET TOPICAL SCH (23:43)
[2024-03-03 03:50] LABS: HCT 22.5 % (34.0-46.0); HGB 7.5 gm/dL (11.4-16.0); MCH 31.4 pg (25.0-35.0); MCHC 33.4 g/dL (31.0-37.0); MCV 94.2 fL (80.0-100.0); Mean Platelet Volume 10.1; RBC 2.39 m/uL (3.80-5.40); RDW 15.9 % (11.5-15.5); WBC 2.5 k/uL (3.8-10.6)
[2024-03-03 04:11] LABS: ALT 13 U/L (4-34); AST 22 U/L (14-36); African American GFR (CKD) >90 (>60 ml/min/1.73 sqM); Albumin 2.7 g/dL (3.5-5.0); Albumin/Globulin Ratio 1.4; Alkaline Phosphatase 70 U/L (38-126); Anion Gap 2 mmol/L; Blood Urea Nitrogen 5 mg/dL (7-17); C Reactive Protein 5.2 mg/dL (<1.0); Calcium 8.4 mg/dL (8.4-10.2); Carbon Dioxide 25 mmol/L (22-30); Chloride 107 mmol/L (98-107); Glucose 93 mg/dL (74-99); Magnesium 1.6 mg/dL (1.6-2.3); Non-African American GFR(CKD) >90 (>60 ml/min/1.73 sqM); Potassium 3.7 mmol/L (3.5-5.1); Sodium 134 mmol/L (137-145); Total Bilirubin 0.5 mg/dL (0.2-1.3); Total Protein 4.7 g/dL (6.3-8.2)
--- NOTE | 2024-03-03 04:52 | P.CNPUL ---
History of Present Illness Consult date: 03/03/24 Requesting physician: Ulysses Jimenes Reason for consult: other (Dyspnea, lung cancer) Chief complaint: Shortness of breath, lightheadedness, weakness History of present illness: Patient is a 78-year-old white female with past medical history significant for COPD, former tobacco dependence, and recent diagnosis of small cell lung cancer. Her PCP is Dr. Shanta Jaeger. She does follow in the pulmonary office with Dr. Molina. She was diagnosed small cell lung cancer via bronchoscopy and endobronchial ultrasound performed on December,rst. Patient had a right perihilar mass. Follow-up PET scan note, on 01/17/2024 demonstrating a right perihilar mass measuring at least 8.7 x 5.9 cm. There was suspected metastatic disease to the the right pleura, throughout the descending and left neck lymph nodes, left rib 9 had abnormal uptake. Brain MRI unremarkable for enhancing lesions. That the patient had recent hospitalization late January, primarily for shortness of breath/cough/right-sided pleural effusion. On February 06, she did have a right- sided thoracentesis and a total of 650 mL of turbid colored fluid was drained. Fluid was an exudate. No cytologic malignant cells were recovered. Patient is currently receiving a combination of carboplatin/etoposide/Tecentriq. She just finished her second cycle approximately 1.5 weeks ago. Her oncologist is Dr. Tee. Over the last several days, patient has been reporting increasing worsening generalized weakness and fatigue. She was evaluated in the emergency department on 02/26/2024, and was ultimately discharged home from the ED that same day. Patient returns to the emergency department 02/26/2024, while at home she had an acute episode coughing; associated with shortness of breath, lightheadedness, and near syncope. Initial workup included a chest CTA which did not show any evidence of pulmonary embolism. There is overall improvement in previously noted right hilar/mediastinal soft tissue mass. Decreased size and right-sided pleural effusion. Few patchy reticular opacities in the right upper lobe, likely representing pneumonitis. On my evaluation, patient is sitting up in bed on 2 L/min nasal cannula. She has been chronically oxygen dependent lately. She does report being more short of breath than baseline. She does have a persistent cough. No significant sputum production. Denies hemoptysis. Denies chest pain. No fevers. No sick contacts. No nausea or vomiting, diarrhea, or abdominal pain. Appetite is fair. Denies any urinary complaints such as increased urinary frequency, dysuria or burning, hematuria. She does have a right facial secondary wound. She attributes this to scratching her face at night. No significant drainage. Possible cellulitis. Most recent CBC: WBC count 1.6, hemoglobin 8.7, hematocrit 26.1, platelets 107. She is neutropenic. Most recent CMP: Sodium 134, potassium 3.7, chloride 107, serum bicarb 25, BUN 5, creatinine 0.46, glucose 93. LFTs unremarkable. Troponin less than 0.012. She is tachycardic. EKG done on arrival demonstrating sinus tachycardia, no acute ischemic changes. Afebrile. Patient is currently being covered with cefepime per infectious disease specialist. Nontoxic appearance. Vital signs overall stable. Review of Systems REVIEW OF SYSTEMS: CONSTITUTIONAL: Denies any recent significant weight loss or weight gain. Admits generalized weakness and fatigue EYES: Denies change in vision. EARS, NOSE, MOUTH, THROAT: Denies headaches, denies sore throat. CARDIOVASCULAR: Denies chest pain, palpitations or syncopal episodes. RESPIRATORY: See HPI GASTROINTESTINAL: Denies change in appetite, abdominal pain, nausea and vomiting, or diarrhea GENITOURINARY: Denies hematuria, denies infections. MUSKULOSKELETAL: Denies pain, denies swelling. INTEGUMENTARY: Denies rash, denies eczema. NEUROLOGICAL: Denies recent memory loss, no recent seizure activity. PSYCHIATRIC: Denies anxiety, denies depression. HEMATOLOGIC/LYMPHATIC: Denies anemia, denies enlarged lymph node Past Medical History Past Medical History: Cancer Additional Past Medical History / Comment(s): Lung CA. Right breast CA dx in 2012-radiation tx November 2013, CT of chest on 12/24/2023 showed a very large right hilar mass and compression deformity at T11-L1, CT of brain on 12/25/23 was negative for mets, PET scan on 01/18/24 revealed right hilar conglomerate mass w/suspected metastatic disease to the right pleura throughout the decending and left neck-1 suspicious bone finding in the left 9th rib History of Any Multi-Drug Resistant Organisms: None Reported Past Surgical History: Adenoidectomy, Tonsillectomy Additional Past Surgical History / Comment(s): pylonoidal cyst removal 1971, D&C, right breast lumpectomy with 3 lymph nodes removed 2013, Bronchoscopy and biopsy of right main stem bronchus on 12/28/23 was positive small cell lung carcinoma Past Anesthesia/Blood Transfusion Reactions: No Reported Reaction Past Psychological History: No Psychological Hx Reported Smoking Status: Former smoker Past Alcohol Use History: None Reported Past Drug Use History: None Reported - Past Family History Mother Family Medical History: CVA/TIA, Hypertension Medications and Allergies Home Medications Medication Instructions Recorded Confirmed Type Inulin/Chromium Picolinate [Fiber 1 tab PO DAILY 12/24/23 03/01/24 History Gummies Chew] Multivitamin [Multivitamins Adult 1 tab PO DAILY 12/24/23 03/01/24 History Gummies] Benzonatate [Tessalon Perles] 100 mg PO TID PRN 01/23/24 03/01/24 History Budesonide/Glycopyr/Formoterol 1 puff INHALATION RT-DAILY 01/23/24 03/01/24 History [Breztri Aerosphere Inhaler] Cyclobenzaprine [Flexeril] 10 mg PO TID PRN 01/23/24 03/01/24 History HYDROcodone/APAP 5-325MG [[place] 1 tab PO Q6H PRN 01/23/24 03/01/24 History 5-325] Ondansetron [Zofran] 4 - 8 mg PO Q4H PRN 01/23/24 03/01/24 History busPIRone HCl [Buspar] 5 mg PO BID PRN 01/23/24 03/01/24 History Ipratropium-Albuterol Nebulize 3 ml INHALATION RT-Q2H PRN each 01/25/24 03/01/24 Rx [Duoneb 0.5 mg-3 mg/3 ml Soln] Ipratropium-Albuterol Nebulize 3 ml INHALATION RT-QID each 01/25/24 03/01/24 Rx [Duoneb 0.5 mg-3 mg/3 ml Soln] Sennosides [Senokot] 8.6 mg PO BID PRN tab 01/25/24 03/01/24 Rx LORazepam [Ativan] 0.5 mg PO BID PRN 02/05/24 03/01/24 History Melatonin 10 mg PO HS PRN 02/05/24 03/01/24 History Mirtazapine [Remeron] 15 mg PO HS 02/05/24 03/01/24 History guaiFENesin-Coden 100-10MG/5ML 10 ml PO Q4H PRN 02/05/24 03/01/24 History [Robitussin AC] Magnesium Oxide [Mag-Ox] 400 mg PO DAILY #30 tab 02/11/24 03/01/24 Rx Sodium Chloride Tab 1 gm PO BID #60 tab 02/11/24 03/01/24 Rx ALPRAZolam [Xanax] 1 mg PO TID PRN 02/26/24 03/01/24 History Albuterol Inhaler [Ventolin Hfa 2 puff INHALATION RT-Q4H PRN 02/26/24 03/01/24 History Inhaler] Levofloxacin [Levaquin] 500 mg PO DAILY 3 Days #3 tab 02/26/24 03/01/24 Rx Megestrol [Megace] 800 mg PO DIRECTED 02/26/24 03/01/24 History Allergies Allergy/AdvReac Type Severity Reaction Status Date / Time No Known Allergies Allergy Verified 03/01/24 12:32 Physical Exam Vitals: Vital Signs Temp Pulse Pulse Resp BP BP Pulse Ox 03/02/24 20:28 109 H 03/02/24 20:15 108 H 03/02/24 19:39 98.6 F 111 H 16 114/63 99 03/02/24 16:21 98.5 F 127 H 100 03/02/24 16:03 76 03/02/24 15:51 68 03/02/24 13:17 97.7 F 104 H 16 107/63 98 03/02/24 11:34 74 03/02/24 11:23 68 03/02/24 08:43 96 03/02/24 08:02 98.3 F 94 14 106/67 99 Intake and Output 03/02/24 03/02/24 03/03/24 14:59 22:59 06:59 Other: Voiding Method External Catheter # Voids 1 1 GENERAL EXAM: Alert, 78-year-old white female, well-nourished, fatigued, fairly comfortable in no apparent distress. HEAD: Normocephalic and atraumatic EYES: Normal reaction of pupils, equal size. NOSE: Clear with pink turbinates. THROAT: No erythema or exudates. NECK: No masses, no JVD. CHEST: No chest wall deformity. Left chest Mediport LUNGS: Equal air entry with no crackles, wheeze, rhonchi or dullness. No conversational dyspnea or accessory muscle use. Persistent dry nonproductive cough noted CVS: S1 and S2 normal with no audible murmur, regular rhythm. No extra heart s ounds. Tachycardia, rate 110 bpm ABDOMEN: No hepatosplenomegaly, active bowel sounds, no guarding or rigidity. SPINE: No scoliosis or deformity SKIN: No rashes CENTRAL NERVOUS SYSTEM: No focal deficits, tone is normal in all 4 extremities. EXTREMITIES: There is no peripheral edema, clubbing, or cyanosis. Peripheral pulses are intact. Results - Laboratory Findings CBC and BMP: 03/02/24 11:33 03/03/24 03:29 PT/INR, D-dimer PT 11.1 sec (10.0-12.5) 03/01/24 11:31 INR 1.0 (<1.2) 03/01/24 11:31 D-Dimer 1.53 mg/L FEU (<0.60) H 03/02/24 20:17 Abnormal lab findings: Abnormal Labs 03/01/24 03/01/24 03/01/24 11:31 11:31 11:31 WBC 0.9 L* RBC 3.19 L Hgb 10.0 L Hct 29.4 L Plt Count Neutrophils # (Manual) Lymphocytes # (Manual) APTT 19.2 L D-Dimer Sodium 136 L BUN 21 H Creatinine Glucose 110 H Magnesium 1.4 L Total Protein 6.0 L Albumin Urine Protein 03/02/24 03/02/24 03/02/24 05:00 11:33 11:33 WBC 1.6 L RBC 2.74 L Hgb 8.7 L Hct 26.1 L Plt Count 107 L Neutrophils # (Manual) 0.40 L* Lymphocytes # (Manual) 0.91 L APTT D-Dimer Sodium 134 L BUN Creatinine 0.44 L Glucose Magnesium Total Protein 5.2 L Albumin 3.0 L Urine Protein Trace H 03/02/24 20:17 WBC RBC Hgb Hct Plt Count Neutrophils # (Manual) Lymphocytes # (Manual) APTT D-Dimer 1.53 H Sodium BUN Creatinine Glucose Magnesium Total Protein Albumin Urine Protein - Diagnostic Findings Chest x-ray: image reviewed CT scan - chest: image reviewed Assessment and Plan Assessment: Acute on chronic shortness of breath, follow-up chest CTA does not show any evidence of pulmonary embolism. There is overall improvement of the right hil ar/mediastinal soft tissue mass, decreasing now small right pleural effusion. Continued masslike opacities within right upper lobe. Few patchy reticular opacities within the right upper lobe likely representing pneumonitis. Near syncopal event Pancytopenia, secondary to chemo Small cell lung cancer, currently receiving a combination of carboplatin, etoposide, and Tecentriq. Has received a total of 2 cycles so far, last reported treatment on 02/23/2024 Chronic obstructive pulmonary disease, stable Right pleural effusion, status/post thoracentesis on 02/07/2024, total of 650 mL of exudative fluid was removed. No cytologic malignant cells recovered. 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 Number of minutes spent on the visit:20 Time with Patient: Greater than 30
[2024-03-03 05:13] LABS: Platelet Count 75 k/uL (150-450)
[2024-03-03] MEDS: SYMBICORT 160-4.5 MCG INHALER INHALATION SCH (08:11)
[2024-03-03] MEDS: MULTIVITAMINS, THERA 1 EACH TAB PO SCH (08:30)
[2024-03-03 09:39] LABS: Band Neutrophils % 1 %; Lymphocytes # (M) 1.23 k/uL (1.0-4.8); Neutrophils % (M) 38 %; Nucleated Red Blood Cells 0 /100 WBC (0-0); Total Cells Counted 100
[2024-03-03] MEDS: CEFEPIME 2 GM in SODIUM CHLORIDE 0.9% 100 ML IVPB SCH (10:19)
[2024-03-03] MEDS: FOLIC ACID 1 MG TAB PO SCH (12:47)
[2024-03-03] MEDS: THIAMINE 100 MG TAB PO SCH (12:47)
[2024-03-03] MEDS: ACETAMINOPHEN TAB 325 MG TAB PO PRN (12:54)
--- NOTE | 2024-03-03 16:01 | P.PN ---
Subjective Progress Note Date: 03/03/24 Principal diagnosis: Reason for follow-up is pneumonia Patient is a 78-year-old female with a past medical history significant for recent diagnosis of lung cancer while the patient has received 2 cycles of chemotherapy presenting to the hospital for evaluation of weakness palpitations increasing shortness of breath did have a CT angiogram of the chest concerning for right upper lobe infiltrate suspicious for pneumonia. On today's evaluation that is 03/03/2024, Patient did have a low-grade fever 100.3 at noon the patient is afebrile since then patient mention breathing slightly comfortably could have a cough not bring up any sputum no nausea vomiting no abdominal pain or diarrhea. Patient white count is 2.5, creatinine 0.46 Pro-Jose 0.18 Objective - Vital Signs Vital signs: Vital Signs Temp 98.4 F 03/03/24 08:09 Pulse 92 03/03/24 08:21 Resp 18 03/03/24 08:09 BP 107/56 03/03/24 08:09 Pulse Ox 96 03/03/24 08:14 FiO2 Intake & Output 03/02/24 03/03/24 03/03/24 18:59 06:59 18:59 Other: Voiding Method External Catheter Bedside Commode # Voids 1 3 - Exam GENERAL DESCRIPTION: An elderly female lying in bed in no distress RESPIRATORY SYSTEM: Unlabored breathing , decreased breath sounds at bases HEART: S1 S2 regular rate and rhythm , ABDOMEN: Soft , no tenderness EXTREMITIES: No edema feet - Labs CBC & Chem 7: 03/03/24 03:29 03/03/24 03:29 Labs: Abnormal Lab Results - Last 24 Hours (Table) 03/02/24 03/02/24 03/02/24 Range/Units 11:33 11:33 20:17 WBC (3.8-10.6) k/uL RBC (3.80-5.40) m/uL Hgb (11.4-16.0) gm/dL Hct (34.0-46.0) % RDW (11.5-15.5) % Plt Count (150-450) k/uL Neutrophils # (Manual) 0.40 L* (1.3-7.7) k/uL Lymphocytes # (Manual) 0.91 L (1.0-4.8) k/uL D-Dimer 1.53 H (<0.60) mg/L FEU Sodium 134 L (137-145) mmol/L BUN (7-17) mg/dL Creatinine 0.44 L (0.52-1.04) mg/dL C-Reactive Protein (<1.0) mg/dL Total Protein 5.2 L (6.3-8.2) g/dL Albumin 3.0 L (3.5-5.0) g/dL Procalcitonin (0.02-0.09) ng/mL 03/03/24 03/03/24 03/03/24 Range/Units 03:29 03:29 03:29 WBC 2.5 L (3.8-10.6) k/uL RBC 2.39 L (3.80-5.40) m/uL Hgb 7.5 L (11.4-16.0) gm/dL Hct 22.5 L (34.0-46.0) % RDW 15.9 H (11.5-15.5) % Plt Count 75 L (150-450) k/uL Neutrophils # (Manual) 0.90 L (1.3-7.7) k/uL Lymphocytes # (Manual) (1.0-4.8) k/uL D-Dimer (<0.60) mg/L FEU Sodium 134 L (137-145) mmol/L BUN 5 L (7-17) mg/dL Creatinine 0.46 L (0.52-1.04) mg/dL C-Reactive Protein 5.2 H (<1.0) mg/dL Total Protein 4.7 L (6.3-8.2) g/dL Albumin 2.7 L (3.5-5.0) g/dL Procalcitonin 0.18 H (0.02-0.09) ng/mL Assessment and Plan (1) Pneumonia Current Visit: Yes Status: Acute Code(s): J18.9 - PNEUMONIA, UNSPECIFIED ORGANISM SNOMED Code(s): 012899929 (2) Leukopenia Current Visit: Yes Status: Acute Code(s): D72.819 - DECREASED WHITE BLOOD CELL COUNT, UNSPECIFIED SNOMED Code(s): 50760167 Plan: 1patient presenting to the hospital with increasing shortness of breath which is likely multifactorial in this patient who did have history of lung cancer on chemotherapy patient did have a cough but not bring up any sputum CT angiogram was negative for PE did shows evidence of patchy infiltrate seen right upper lobe concerning for possible pneumonitis in this patient with leukopenia on chemo will need to cover for the gram-negative pathogens 2-try to obtain sputum for Gram stain culture patient did have mild elevated procalcitonin 3-patient to continue with cefepime 2 g every 8-hour while waiting for the culture to finalize Dictation was produced using [employer] dictation software. please excuse any grammatical, word or spelling errors. Time with Patient: Less than 30
[2024-03-03] MEDS: CALCIUM CARBONATE 500 MG CHEWABLE PO PRN (16:36)
--- NOTE | 2024-03-03 19:31 | P.PN ---
Subjective Progress Note Date: 03/03/24 Reporting improvement in symptoms since admission. 100.3 temperature noted today. Cefepime has been started, blood and sputum culture pending. WBC improving, 2.5 today, ANC 0.9. Hgb 7.5, plts 75,000 Objective - Vital Signs Vital signs: Vital Signs Temp 100.3 F H 03/03/24 12:47 Pulse 99 03/03/24 12:47 Resp 18 03/03/24 12:47 BP 121/62 03/03/24 12:47 Pulse Ox 95 03/03/24 12:47 FiO2 Intake & Output 03/02/24 03/03/24 03/03/24 18:59 06:59 18:59 Other: Voiding Method External Catheter Bedside Commode # Voids 1 3 1 # Bowel Movements 1 - Constitutional General appearance: Present: average body habitus, no acute distress - EENT Eyes: Present: anicteric sclerae, EOMI ENT: Present: hearing grossly normal - Respiratory Details: breathing is even and unlabored - Cardiovascular Details: skin warm and dry - Integumentary Integumentary: Absent: cyanotic, jaundiced - Neurologic Neurologic Comment(s): grossly intact - Musculoskeletal Musculoskeletal: Present: strength equal bilaterally - Psychiatric Psychiatric: Present: A&O x's 3 - Labs CBC & Chem 7: 03/03/24 03:29 03/03/24 03:29 Labs: Abnormal Lab Results - Last 24 Hours (Table) 03/02/24 03/03/24 03/03/24 Range/Units 20:17 03:29 03:29 WBC 2.5 L (3.8-10.6) k/uL RBC 2.39 L (3.80-5.40) m/uL Hgb 7.5 L (11.4-16.0) gm/dL Hct 22.5 L (34.0-46.0) % RDW 15.9 H (11.5-15.5) % Plt Count 75 L (150-450) k/uL Neutrophils # (Manual) 0.90 L (1.3-7.7) k/uL D-Dimer 1.53 H (<0.60) mg/L FEU Sodium (137-145) mmol/L BUN (7-17) mg/dL Creatinine (0.52-1.04) mg/dL C-Reactive Protein (<1.0) mg/dL Total Protein (6.3-8.2) g/dL Albumin (3.5-5.0) g/dL Procalcitonin 0.18 H (0.02-0.09) ng/mL 03/03/24 Range/Units 03:29 WBC (3.8-10.6) k/uL RBC (3.80-5.40) m/uL Hgb (11.4-16.0) gm/dL Hct (34.0-46.0) % RDW (11.5-15.5) % Plt Count (150-450) k/uL Neutrophils # (Manual) (1.3-7.7) k/uL D-Dimer (<0.60) mg/L FEU Sodium 134 L (137-145) mmol/L BUN 5 L (7-17) mg/dL Creatinine 0.46 L (0.52-1.04) mg/dL C-Reactive Protein 5.2 H (<1.0) mg/dL Total Protein 4.7 L (6.3-8.2) g/dL Albumin 2.7 L (3.5-5.0) g/dL Procalcitonin (0.02-0.09) ng/mL - Imaging and Cardiology CT scan - chest: report reviewed Assessment and Plan (1) Hypomagnesemia Current Visit: Yes Status: Acute Priority: Medium Code(s): E83.42 - HYPOMAGNESEMIA SNOMED Code(s): 103703542 (2) Weakness Current Visit: Yes Status: Acute Priority: High Code(s): R53.1 - WEAKNESS SNOMED Code(s): 43354687 (3) Small cell lung carcinoma Current Visit: Yes Status: Acute Priority: High Code(s): C34.90 - MALIGNANT NEOPLASM OF UNSP PART OF UNSP BRONCHUS OR LUNG SNOMED Code(s): 123748419 Plan: Small cell lung cancer, SOB, weakness: -Diagnosis and treatment as documented in consult HPI -Completed cycle 2 carbo/[employer]/Tecentriq on 02/23/24 with G-CSF on 02/23. -Unfortunately, patient has multiple admissions since starting treatment. Will discuss with her primary oncologist further, may need to consider dose reduction for subsequent cycles -CXR and UA not suspicious for acute infectious process. Symptoms appear to be r/t chemo, agree with hydration/supportive care, and electrolyte replacement -Due to tachycardia on admit and c/o SOB and dizziness, will obtain CTA chest to r/o PE. Scan was negative for PE, showing a positive treatment response -100.3 temperature noted today. Cefepime has been started, blood and sputum cultures pending -WBC improving, 2.5 today, ANC 0.9. Hgb 7.5, plts 75,0000. Patient currently in [place], continue to monitor CBC closely -Please transfuse for hgb less than 7 and for platelets less than 10,000 or if symptomatic Doctor attests: I performed a history and physical examination of this patient, developed impression and plan of care. Discussed with dictator. I agree with dictators note, documented as a scribe.
[2024-03-03] MEDS: ONDANSETRON 4 MG TAB PO PRN (20:17)
[2024-03-03] MEDS: PANTOPRAZOLE 40 MG/10 ML VIAL IV SCH (20:33)
[2024-03-03] MEDS ORDERED: PANTOPRAZOLE 40 MG TABLET PO SCH (21:00)
[2024-03-03] MEDS ORDERED: PANTOPRAZOLE 40 MG/10 ML VIAL IVP SCH (21:00)
--- NOTE | 2024-03-04 07:14 | P.PN ---
Subjective Progress Note Date: 03/03/24 This is a very pleasant 78-year-old female who was recently admitted with generalized weakness, increasing shortness of breath, near syncope with fatigue. Patient follows with Dr. Minerva Jaeger in the outpatient setting as well as Dr. Tee for non-small cell lung carcinoma. Patient is currently undergoing chemotherapy and had a treatment last week. Patient started having worsening shortness of breath and increased fatigue and generalized weakness and came here for further evaluation. Patient being followed by pulmonary, infectious disease, and oncology. Patient is maintained on empiric antibiotics and was found to be neutropenic on admission. Patient reports she had recently been treated for bladder infection and culture showing normal adela. Thus far blood cultures are negative and will continue current regimen with infectious disease recommendations. Patient is afebrile reports to feeling somewhat better and is maintained on gentle hydration. Patient did have a scratch on her right cheek bone but she is unsure of how it happened although woke up and noticed it. No drainage noted although there is some mild redness and swelling noted. Continue to monitor closely. Review of systems: Constitutional: reports of fatigue, no fever, or chills Cardiovascular: No reports of chest pain or palpitations Respiratory: No reports of worsening shortness of breath, reports occasional cough GI: reports of nausea, no reports of vomiting, no diarrhea : No reports of dysuria or retention Neurovascular: reports of generalized weakness All medications have been reviewed Active Medications Acetaminophen (Acetaminophen Tab 325 Mg Tab) 650 mg PO Q6HR PRN PRN Reason: Fever and/ or Pain Last Admin: 03/03/24 12:54 Dose: 650 mg Hydrocodone Bitart/Acetaminophen (Hydrocodone/Apap 5-325mg 1 Each Tab) 1 each PO Q6H PRN PRN Reason: Pain Last Admin: 03/01/24 21:53 Dose: 1 each Albuterol Sulfate (Albuterol Nebulized 2.5 Mg/3 Ml) 2.5 mg INHALATION RT-Q4H PRN PRN Reason: Shortness Of Breath Albuterol/Ipratropium (Ipratropium-Albuterol 3 Ml Neb) 3 ml INHALATION RT-QID LISANDRA Last Admin: 03/03/24 20:04 Dose: Not Given Albuterol/Ipratropium (Ipratropium-Albuterol 3 Ml Neb) 3 ml INHALATION RT-Q2H PRN PRN Reason: Shortness Of Breath Or Wheezing Alprazolam (Alprazolam 1 Mg Tab) 1 mg PO TID PRN PRN Reason: Anxiety Bacitracin (Bacitracin Oint 1 Each Packet) 1 each TOPICAL BID [facility]; Protocol Last Admin: 03/03/24 20:33 Dose: 1 each Benzonatate (Benzonatate 100 Mg Cap) 100 mg PO TID PRN PRN Reason: Cough Last Admin: 03/03/24 12:54 Dose: 100 mg Budesonide/Formoterol Fumarate (Symbicort 160-4.5 Mcg Inhaler) 1 puff INHALATION RT-DAILY [facility] Last Admin: 03/03/24 08:11 Dose: 1 puff Buspirone HCl (Buspirone Hcl 5 Mg Tab) 5 mg PO BID PRN PRN Reason: Anxiety Calcium Carbonate/Glycine (Calcium Carbonate 500 Mg Chewable) 500 mg PO TID PRN PRN Reason: Heartburn Last Admin: 03/03/24 20:33 Dose: 500 mg Cyclobenzaprine HCl (Cyclobenzaprine 10 Mg Tab) 10 mg PO TID PRN PRN Reason: Muscle Pain Folic Acid (Folic Acid 1 Mg Tab) 1 mg PO DAILY@1200 LISANDRA Last Admin: 03/03/24 12:47 Dose: 1 mg Guaifenesin/Codeine Phosphate (Guaifenesin-Coden 100-10mg/5ml 10 Ml Cup) 10 ml PO Q4H PRN PRN Reason: Cough Sodium Chloride (Saline 0.9%) 1,000 mls @ 50 mls/hr IV .Q20H [facility] Last Admin: 03/03/24 08:31 Dose: Not Given Cefepime HCl 2 gm/ Sodium (Chloride) 100 mls @ 25 mls/hr IVPB Q8H [facility]; Protocol Last Admin: 03/04/24 01:59 Dose: 25 mls/hr Magnesium Oxide (Magnesium Oxide 400 Mg Tab) 400 mg PO DAILY [facility] Last Admin: 03/03/24 08:30 Dose: 400 mg Melatonin (Melatonin 5 Mg Tablet) 10 mg PO HS PRN PRN Reason: Insomnia Last Admin: 03/02/24 22:34 Dose: 10 mg Mirtazapine (Mirtazapine 15 Mg Tab) 15 mg PO HS [facility] Last Admin: 03/03/24 20:34 Dose: 15 mg Multivitamins (Multivitamins, Thera 1 Each Tab) 1 each PO DAILY [facility] Last Admin: 03/03/24 08:30 Dose: 1 each Naloxone HCl (Naloxone 0.4 Mg/Ml 1 Ml Vial) 0.2 mg IV Q2M PRN PRN Reason: Opioid Reversal Ondansetron HCl (Ondansetron 4 Mg Tab) 4 mg PO Q4H PRN PRN Reason: Nausea Last Admin: 03/03/24 20:17 Dose: 4 mg Pantoprazole Sodium (Pantoprazole 40 Mg/10 Ml Vial) 40 mg IV BID [facility] Last Admin: 03/03/24 20:33 Dose: 40 mg Senna (Sennosides 8.6 Mg Tab) 8.6 mg PO BID PRN PRN Reason: Constipation Sodium Bicarbonate (Salt And Soda Mouthwash 1,000 Ml) 5 ml PO 5XD [facility] Last Admin: 03/04/24 01:57 Dose: Not Given Sodium Chloride (Sodium Chloride Tab 1 Gm Tab) 1 gm PO BID [facility] Last Admin: 03/03/24 20:34 Dose: 1 gm Thiamine HCl (Thiamine 100 Mg Tab) 100 mg PO DAILY@1200 [facility] Last Admin: 03/03/24 12:47 Dose: 100 mg PHYSICAL EXAMINATION: GENERAL: The patient is alert and oriented x4, Well developed, well nourished. Elderly appearing, ill-appearing HEENT: Pupils are round and equally reacting to light. EOMI. no scleral icterus. No conjunctival pallor. Normocephalic, atraumatic. No pharyngeal erythema. No thyromegaly. CARDIOVASCULAR: S1 and S2 muffled PULMONARY: diminished breath sounds bilaterally with no wheezing or rhonchi noted. ABDOMEN: soft. Nontender on exam. non-distended, normoactive bowel sounds. No palpable organomegaly. MUSCULOSKELETAL: No joint swelling or deformity. EXTREMITIES: No cyanosis, clubbing, or pedal edema. NEUROLOGICAL: Gross neurological examination did not reveal any focal deficits. Diffuse weakness SKIN: No rashes. Assessment: Severe neutropenia and possible neutropenic sepsis, present on admission Shortness of breath, ruled out pulmonary embolism Acute on chronic hypoxic respiratory failure secondary to non-small cell lung carcinoma History of non-small cell lung carcinoma, currently following with Dr. Tee undergoing chemotherapy History of hyponatremia Right facial cellulitis, rule out abscess Generalized weakness with gait dysfunction GI prophylaxis DVT prophylaxis Full code Plan: Recommend to continue with current medications and management with multiple c onsultations following. Oncology, infectious disease, pulmonary following Wean FiO2 as tolerated. Patient does wear 2 to 3 L outpatient. Will provide incentive spirometer encouraged to use at least 10 times every hour while awake Continue antibiotics with infectious disease following. Cultures thus far negative. Monitor right cheekbone for any worsening cellulitis or drainage. If draining obtain a culture Follow-up with repeat labs and replace electrolytes per protocol. No lab draws before 6 AM Encouraged increase activity as tolerated and encouraged oral intake Recommend sitting out of the bed more often into the chair Oncology following and patient will follow-up with Dr. Tee in the outpatient setting to discuss next treatment therapy and possibly reduction of therapy. Due to multiple complex medical issues, overall prognosis is guarded The impression and plan of care has been dictated by Carmencita Grant, nurse practitioner as directed. Dr. Jalil MD I have performed a history and examination and MDM of this patient, discussed the same with the dictator, and agree with the dictator's assessment and plan as written ,documented as a scribe. Based on total visit time, I have performed more than 50% of the visit. Any additional findings or plans will be noted. Objective - Vital Signs Vital signs: Vital Signs Temp 98.4 F 03/03/24 08:09 Pulse 92 03/03/24 08:21 Resp 18 03/03/24 08:09 BP 107/56 03/03/24 08:09 Pulse Ox 96 03/03/24 08:14 FiO2 Intake & Output 03/02/24 03/03/24 03/03/24 18:59 06:59 18:59 Other: Voiding Method External Catheter Bedside Commode # Voids 1 3 - Labs CBC & Chem 7: 03/03/24 03:29 03/03/24 03:29 Labs: Abnormal Lab Results - Last 24 Hours (Table) 03/02/24 03/02/24 03/03/24 Range/Units 11:33 20:17 03:29 WBC (3.8-10.6) k/uL RBC (3.80-5.40) m/uL Hgb (11.4-16.0) gm/dL Hct (34.0-46.0) % RDW (11.5-15.5) % Plt Count (150-450) k/uL Neutrophils # (Manual) 0.40 L* (1.3-7.7) k/uL Lymphocytes # (Manual) 0.91 L (1.0-4.8) k/uL D-Dimer 1.53 H (<0.60) mg/L FEU Sodium (137-145) mmol/L BUN (7-17) mg/dL Creatinine (0.52-1.04) mg/dL C-Reactive Protein (<1.0) mg/dL Total Protein (6.3-8.2) g/dL Albumin (3.5-5.0) g/dL Procalcitonin 0.18 H (0.02-0.09) ng/mL 03/03/24 03/03/24 Range/Units 03:29 03:29 WBC 2.5 L (3.8-10.6) k/uL RBC 2.39 L (3.80-5.40) m/uL Hgb 7.5 L (11.4-16.0) gm/dL Hct 22.5 L (34.0-46.0) % RDW 15.9 H (11.5-15.5) % Plt Count 75 L (150-450) k/uL Neutrophils # (Manual) 0.90 L (1.3-7.7) k/uL Lymphocytes # (Manual) (1.0-4.8) k/uL D-Dimer (<0.60) mg/L FEU Sodium 134 L (137-145) mmol/L BUN 5 L (7-17) mg/dL Creatinine 0.46 L (0.52-1.04) mg/dL C-Reactive Protein 5.2 H (<1.0) mg/dL Total Protein 4.7 L (6.3-8.2) g/dL Albumin 2.7 L (3.5-5.0) g/dL Procalcitonin (0.02-0.09) ng/mL
[2024-03-04 08:02] LABS: ALT 11 U/L (4-34); AST 21 U/L (14-36); African American GFR (CKD) >90 (>60 ml/min/1.73 sqM); Albumin 2.9 g/dL (3.5-5.0); Albumin/Globulin Ratio 1.3; Alkaline Phosphatase 76 U/L (38-126); Anion Gap 2 mmol/L; Blood Urea Nitrogen 6 mg/dL (7-17); Calcium 8.9 mg/dL (8.4-10.2); Carbon Dioxide 27 mmol/L (22-30); Chloride 104 mmol/L (98-107); Globulin 2.2 g/dL; Glucose 93 mg/dL (74-99); Magnesium 1.4 mg/dL (1.6-2.3); Non-African American GFR(CKD) >90 (>60 ml/min/1.73 sqM); Potassium 3.7 mmol/L (3.5-5.1); Sodium 133 mmol/L (137-145); Total Bilirubin 0.6 mg/dL (0.2-1.3); Total Protein 5.1 g/dL (6.3-8.2)
[2024-03-04 08:06] LABS: HCT 24.8 % (34.0-46.0); HGB 8.4 gm/dL (11.4-16.0); MCH 31.2 pg (25.0-35.0); MCHC 33.9 g/dL (31.0-37.0); MCV 92.2 fL (80.0-100.0); Mean Platelet Volume 9.4; RBC 2.69 m/uL (3.80-5.40); RDW 15.2 % (11.5-15.5); WBC 3.9 k/uL (3.8-10.6)
[2024-03-04 08:45] LABS: Band Neutrophils % 1 %; Basophils # (M) 0.04 k/uL (0-0.2); Lymphocytes # (M) 1.25 k/uL (1.0-4.8); Metamyelocytes # (M) 0.04 k/uL (0); Metamyelocytes % 1 %; Monocytes # (M) 0.47 k/uL (0-1.0); Myelocytes # (M) 0.04 k/uL (0); Myelocytes % 1 %; Neutrophils % (M) 55 %; Nucleated Red Blood Cells 1 /100 WBC (0-0); Total Cells Counted 200
[2024-03-04 08:48] LABS: Platelet Count 43 k/uL (150-450); Polychromasia Present
--- NOTE | 2024-03-04 10:10 | P.PN ---
Subjective Progress Note Date: 03/04/24 Patient is a 78-year-old white female with past medical history significant for COPD, former tobacco dependence, and recent diagnosis of small cell lung cancer. Her PCP is Dr. Shanta Jaeger. She does follow in the pulmonary office with Dr. Molina. She was diagnosed small cell lung cancer via bronchoscopy and endobronchial ultrasound performed on December,rst. Patient had a right perihilar mass. Follow-up PET scan note, on 01/17/2024 demonstrating a right perihilar mass measuring at least 8.7 x 5.9 cm. There was suspected metastatic disease to the the right pleura, throughout the descending and left neck lymph nodes, left rib 9 had abnormal uptake. Brain MRI unremarkable for enhancing lesions. That the patient had recent hospitalization late January, primarily for shortness of breath/cough/right-sided pleural effusion. On February 06, she did have a right- sided thoracentesis and a total of 650 mL of turbid colored fluid was drained. Fluid was an exudate. No cytologic malignant cells were recovered. Patient is currently receiving a combination of carboplatin/etoposide/Tecentriq. She just finished her second cycle approximately 1.5 weeks ago. Her oncologist is Dr. Tee. Over the last several days, patient has been reporting increasing worsening generalized weakness and fatigue. She was evaluated in the emergency department on 02/26/2024, and was ultimately discharged home from the ED that same day. Patient returns to the emergency department 02/26/2024, while at home she had an acute episode coughing; associated with shortness of breath, lightheadedness, and near syncope. Initial workup included a chest CTA which did not show any evidence of pulmonary embolism. There is overall improvement in previously noted right hilar/mediastinal soft tissue mass. Decreased size and right-sided pleural effusion. Few patchy reticular opacities in the right upper lobe, likely representing pneumonitis. On my evaluation, patient is sitting up in bed on 2 L/min nasal cannula. She has been chronically oxygen dependent lately. She does report being more short of breath than baseline. She does have a persistent cough. No significant sputum production. Denies hemoptysis. Denies chest pain. No fevers. No sick contacts. No nausea or vomiting, diarrhea, or abdominal pain. Appetite is fair. Denies any urinary complaints such as increased urinary frequency, dysuria or burning, hematuria. She does have a right facial secondary wound. She attributes this to scratching her face at night. No significant drainage. Possible cellulitis. Most recent CBC: WBC count 1.6, hemoglobin 8.7, hematocrit 26.1, platelets 107. She is neutropenic. Most recent CMP: Sodium 134, potassium 3.7, chloride 107, serum bicarb 25, BUN 5, creatinine 0.46, glucose 93. LFTs unremarkable. Troponin less than 0.012. She is tachycardic. EKG done on arrival demonstrating sinus tachycardia, no acute ischemic changes. Afebrile. Patient is currently being covered with cefepime per infectious disease specialist. Nontoxic appearance. Vital signs overall stable. The patient is seen today March 04, 2024 in follow-up on the regular medical floor. She is currently sitting up in bed. Awake and alert in no acute distress. Feeling better today compared to yesterday. She is maintaining O2 saturations in the 90s on 2 L/min per nasal cannula. She has normal staying at 50 MLS per hour. She is treated with cefepime. Procalcitonin was 0.18. Lung sounds are clear. Blood cultures are pending. White count 3.9. Hemoglobin 8.4. Platelets 43,000. Sodium 133. Potassium 3.7. Bicarb 27. BUN 6. Creatinine 0.51. Glucose 93. She is continued on DuoNeb inhalations, Symbicort, Robitussin. Objective - Vital Signs Vital signs: Vital Signs Temp 98.8 F 03/04/24 07:19 Pulse 106 H 03/04/24 08:02 Resp 18 03/04/24 07:19 BP 104/63 03/04/24 07:19 Pulse Ox 96 03/04/24 07:53 FiO2 Intake & Output 03/03/24 03/04/24 03/04/24 18:59 06:59 18:59 Intake Total 575 Balance 575 Intake: Intake, IV Titration 575 Amount Sodium Chloride 0.9% 1, 575 000 ml @ 50 mls/hr IV . Q20H [facility] Rx#:[id number] Other: Voiding Method Bedside Commode # Voids 1 2 # Bowel Movements 1 - Exam GENERAL EXAM: Alert, weak, 78-year-old female, on 2 L nasal cannula, fairly comfortable in no apparent distress. HEAD: Normocephalic. EYES: Normal reaction of pupils, equal size. NOSE: Clear with pink turbinates. THROAT: No erythema or exudates. NECK: No masses, no JVD. CHEST: No chest wall deformity. Left chest Mediport in place. LUNGS: Equal air entry with no crackles, wheeze, rhonchi or dullness. CVS: S1 and S2 normal with no audible murmur, regular rhythm. ABDOMEN: No hepatosplenomegaly, normal bowel sounds, no guarding or rigidity. SPINE: No scoliosis or deformity SKIN: No rashes CENTRAL NERVOUS SYSTEM: No focal deficits, tone is normal in all 4 extremities. EXTREMITIES: There is no peripheral edema. No clubbing, no cyanosis. Peripheral pulses are intact. - Labs CBC & Chem 7: 03/04/24 07:22 03/04/24 07:22 Labs: Abnormal Lab Results - Last 24 Hours (Table) 03/04/24 03/04/24 Range/Units 07:22 07:22 RBC 2.69 L (3.80-5.40) m/uL Hgb 8.4 L (11.4-16.0) gm/dL Hct 24.8 L (34.0-46.0) % Plt Count 43 L (150-450) k/uL Metamyelocytes # (Man) 0.04 H (0) k/uL Myelocytes # (Manual) 0.04 H (0) k/uL Nucleated RBCs 1 H (0-0) /100 WBC Sodium 133 L (137-145) mmol/L BUN 6 L (7-17) mg/dL Creatinine 0.51 L (0.52-1.04) mg/dL Magnesium 1.4 L (1.6-2.3) mg/dL Total Protein 5.1 L (6.3-8.2) g/dL Albumin 2.9 L (3.5-5.0) g/dL Microbiology - Last 24 Hours (Table) 03/02/24 15:08 Blood Culture - Preliminary Blood Assessment and Plan Assessment: Acute on chronic shortness of breath, follow-up chest CTA does not show any evidence of pulmonary embolism. There is overall improvement of the right hilar/mediastinal soft tissue mass, decreasing now small right pleural effusion. Continued masslike opacities within right upper lobe. Few patchy reticular opacities within the right upper lobe likely representing pneumonitis. Procalcitonin 0. Remains on cefepime Near syncopal event Pancytopenia, secondary to chemo Small cell lung cancer, currently receiving a combination of carboplatin, eto poside, and Tecentriq. Has received a total of 2 cycles so far, last reported treatment on 02/23/2024 Chronic obstructive pulmonary disease, stable Right pleural effusion, status/post thoracentesis on 02/07/2024, total of 650 mL of exudative fluid was removed. No cytologic malignant cells recovered. 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 Number of minutes spent on the visit: 24.
[2024-03-04] MEDS: diphenhydrAMINE 50 MG/ML 1 ML VIAL IVP PRN (14:13)
[2024-03-04] MEDS: SENNOSIDES 8.6 MG TAB PO PRN (14:18)
--- NOTE | 2024-03-04 14:51 | P.PN ---
Subjective Progress Note Date: 03/04/24 Principal diagnosis: Reason for follow-up is pneumonia Patient is a 78-year-old female with a past medical history significant for recent diagnosis of lung cancer while the patient has received 2 cycles of chemotherapy presenting to the hospital for evaluation of weakness palpitations increasing shortness of breath did have a CT angiogram of the chest concerning for right upper lobe infiltrate suspicious for pneumonia. On today's evaluation that is 03/04/2024,the patient denies any fever or any chills, patient is breathing comfortably on 3 L current oxygen, the patient denies chest pain shortness of breath cough is slightly decreased intensity manage to be dry in nature, patient denies abdominal pain, no nausea vomiting or diarrhea. Patient white count normalized to 3.9, creatinine 0.5 point blood cultures are pending Objective - Vital Signs Vital signs: Vital Signs Temp 98.8 F 03/04/24 07:19 Pulse 106 H 03/04/24 11:46 Resp 18 03/04/24 07:19 BP 104/63 03/04/24 07:19 Pulse Ox 96 03/04/24 07:53 FiO2 Intake & Output 03/03/24 03/04/24 03/04/24 18:59 06:59 18:59 Intake Total 575 Balance 575 Intake: Intake, IV Titration 575 Amount Sodium Chloride 0.9% 1, 575 000 ml @ 50 mls/hr IV . Q20H [facility] Rx#:[id number] Other: Voiding Method Bedside Commode # Voids 1 2 # Bowel Movements 1 - Exam GENERAL DESCRIPTION: An elderly female lying in bed in no distress RESPIRATORY SYSTEM: Unlabored breathing , decreased breath sounds at bases HEART: S1 S2 regular rate and rhythm , ABDOMEN: Soft , no tenderness EXTREMITIES: No edema feet - Labs CBC & Chem 7: 03/04/24 07:22 03/04/24 07:22 Labs: Abnormal Lab Results - Last 24 Hours (Table) 03/04/24 03/04/24 Range/Units 07: 07:22 RBC 2.69 L (3.80-5.40) m/uL Hgb 8.4 L (11.4-16.0) gm/dL Hct 24.8 L (34.0-46.0) % Plt Count 43 L (150-450) k/uL Metamyelocytes # (Man) 0.04 H (0) k/uL Myelocytes # (Manual) 0.04 H (0) k/uL Nucleated RBCs 1 H (0-0) /100 WBC Sodium 133 L (137-145) mmol/L BUN 6 L (7-17) mg/dL Creatinine 0.51 L (0.52-1.04) mg/dL Magnesium 1.4 L (1.6-2.3) mg/dL Total Protein 5.1 L (6.3-8.2) g/dL Albumin 2.9 L (3.5-5.0) g/dL Microbiology - Last 24 Hours (Table) 03/02/24 15:08 Blood Culture - Preliminary Blood Assessment and Plan (1) Pneumonia Current Visit: Yes Status: Acute Code(s): J18.9 - PNEUMONIA, UNSPECIFIED ORGANISM SNOMED Code(s): 939496634 (2) Leukopenia Current Visit: Yes Status: Acute Code(s): D72.819 - DECREASED WHITE BLOOD CELL COUNT, UNSPECIFIED SNOMED Code(s): 80062277 Plan: 1patient presenting to the hospital with increasing shortness of breath which is likely multifactorial in this patient who did have history of lung cancer on chemotherapy patient did have a cough but not bring up any sputum CT angiogram was negative for PE did shows evidence of patchy infiltrate seen right upper lobe concerning for possible pneumonitis in this patient with leukopenia on chemo will need to cover for the gram-negative pathogens 2- patient did have mild elevated procalcitonin, sputum not collected blood culture so far pending 3-patient did have some clinical improvement and will continue with cefepime 2 g every 8-hour while monitoring clinical course closely Dictation was produced using [employer] dictation software. please excuse any grammatical, word or spelling errors. Time with Patient: Less than 30
[2024-03-04] MEDS: TEMAZEPAM 15 MG CAP PO SCH (21:33)
[2024-03-05] MEDS: BENZOCAINE/MENTHOL LOZENG 1 EACH LOZENGE MUCOUS MEM PRN (02:51)
--- NOTE | 2024-03-05 03:30 | PN ---
PROGRESS NOTE DATE OF SERVICE: 03/04/2024 SUBJECTIVE: This 78-year-old woman was admitted with neutropenic sepsis, also had right facial cellulitis. No chest pain. No palpitation. PHYSICAL EXAMINATION: VITAL SIGNS: Pulse is 105, blood pressure 104/60, respirations 18. CHEST: Clear to auscultation. CARDIOVASCULAR: S1 and S2. ABDOMEN: Soft. LABORATORY DATA: WBC 3.9, hemoglobin 8.4. Cultures are negative so far. ASSESSMENT: 1. Severe neutropenic sepsis with right facial cellulitis. 2. Shortness of breath, possibly secondary to lung pathology. 3. Fya-upraa-wdet lung cancer. 4. Multiple medical issues. RECOMMENDATIONS: I recommended to continue current management and continue with symptomatic treatment. Continue with empiric antibiotics. The patient is on cefepime at this time. Cultures are negative. Continue with bronchodilators. Continue with the rest of the medications. Closely follow with multiple consultants. Further recommendations to follow. MMODL / IJN: [id number] /
[2024-03-05 10:35] LABS: ALT 10 U/L (8-44); AST 19 U/L (13-35); Albumin 3.3 g/dL (3.8-4.9); Albumin/Globulin Ratio 1.94 Ratio (1.60-3.17); Alkaline Phosphatase 82 U/L (41-126); Blood Urea Nitrogen 5.1 mg/dL (9.0-27.0); Calcium 8.6 mg/dL (8.7-10.3); Carbon Dioxide 24.1 mmol/L (21.6-31.8); Chloride 104 mmol/L (96-109); Globulin 1.7 g/dL (1.6-3.3); Glucose 105 mg/dL (70-110); Potassium 3.4 mmol/L (3.5-5.5); Sodium 139 mmol/L (135-145); Total Bilirubin 0.3 mg/dL (0.3-1.2)
[2024-03-05 11:05] LABS: Basophils # (M) 0 X 10*3/uL (0.00-0.10); Eosinophils # (M) 0 X 10*3/uL (0.04-0.35); HCT 22.6 % (37.2-46.3); HGB 7.7 g/dL (12.0-15.0); Immature Platelet Fraction 6.2 % (1.1-6.1); Lymphocytes # (M) 1.07 X 10*3/uL (0.90-5.00); MCHC 34.1 g/dL (32.0-37.0); MCV 91.1 FL (80.0-97.0); Mean Platelet Volume 13.1 FL (9.5-12.2); Monocytes # (M) 0.27 X 10*3/uL (0.20-1.00); NRBC Per 100 WBC 0.02 X 10*3/uL (0.00-0.01); Neutrophils # (M) 5.34 X 10*3/uL (1.80-7.70); Neutrophils % (M) 80 %; Nucleated Red Blood Cells 1 /100 WBCS; Platelet Count 22 X 10*3/uL (140-440); RBC 2.48 X 10*6/uL (4.10-5.20); RBC Morphology Normal (Normal); RDW 15.1 % (11.5-14.5); WBC 6.67 X 10*3/uL (4.50-10.00)
--- NOTE | 2024-03-05 11:25 | P.PN ---
Subjective Progress Note Date: 03/05/24 Patient is a 78-year-old white female with past medical history significant for COPD, former tobacco dependence, and recent diagnosis of small cell lung cancer. Her PCP is Dr. Shanta Jaeger. She does follow in the pulmonary office with Dr. Molina. She was diagnosed small cell lung cancer via bronchoscopy and endobronchial ultrasound performed on December,rst. Patient had a right perihilar mass. Follow-up PET scan note, on 01/17/2024 demonstrating a right perihilar mass measuring at least 8.7 x 5.9 cm. There was suspected metastatic disease to the the right pleura, throughout the descending and left neck lymph nodes, left rib 9 had abnormal uptake. Brain MRI unremarkable for enhancing lesions. That the patient had recent hospitalization late January, primarily for shortness of breath/cough/right-sided pleural effusion. On February 06, she did have a right- sided thoracentesis and a total of 650 mL of turbid colored fluid was drained. Fluid was an exudate. No cytologic malignant cells were recovered. Patient is currently receiving a combination of carboplatin/etoposide/Tecentriq. She just finished her second cycle approximately 1.5 weeks ago. Her oncologist is Dr. Tee. Over the last several days, patient has been reporting increasing worsening generalized weakness and fatigue. She was evaluated in the emergency department on 02/26/2024, and was ultimately discharged home from the ED that same day. Patient returns to the emergency department 02/26/2024, while at home she had an acute episode coughing; associated with shortness of breath, lightheadedness, and near syncope. Initial workup included a chest CTA which did not show any evidence of pulmonary embolism. There is overall improvement in previously noted right hilar/mediastinal soft tissue mass. Decreased size and right-sided pleural effusion. Few patchy reticular opacities in the right upper lobe, likely representing pneumonitis. On my evaluation, patient is sitting up in bed on 2 L/min nasal cannula. She has been chronically oxygen dependent lately. She does report being more short of breath than baseline. She does have a persistent cough. No significant sputum production. Denies hemoptysis. Denies chest pain. No fevers. No sick contacts. No nausea or vomiting, diarrhea, or abdominal pain. Appetite is fair. Denies any urinary complaints such as increased urinary frequency, dysuria or burning, hematuria. She does have a right facial secondary wound. She attributes this to scratching her face at night. No significant drainage. Possible cellulitis. Most recent CBC: WBC count 1.6, hemoglobin 8.7, hematocrit 26.1, platelets 107. She is neutropenic. Most recent CMP: Sodium 134, potassium 3.7, chloride 107, serum bicarb 25, BUN 5, creatinine 0.46, glucose 93. LFTs unremarkable. Troponin less than 0.012. She is tachycardic. EKG done on arrival demonstrating sinus tachycardia, no acute ischemic changes. Afebrile. Patient is currently being covered with cefepime per infectious disease specialist. Nontoxic appearance. Vital signs overall stable. The patient is seen today March 04, 2024 in follow-up on the regular medical floor. She is currently sitting up in bed. Awake and alert in no acute distress. Feeling better today compared to yesterday. She is maintaining O2 saturations in the 90s on 2 L/min per nasal cannula. She has normal staying at 50 MLS per hour. She is treated with cefepime. Procalcitonin was 0.18. Lung sounds are clear. Blood cultures are pending. White count 3.9. Hemoglobin 8.4. Platelets 43,000. Sodium 133. Potassium 3.7. Bicarb 27. BUN 6. Creatinine 0.51. Glucose 93. She is continued on DuoNeb inhalations, Symbicort, Robitussin. The patient is seen today March 05, 2024 in follow-up on the regular medical floor. She is resting comfortably in bed. Awake and alert in no acute distress. She is maintaining O2 saturations in the 90s on 2 L/min per nasal cannula. Blood culture reveals no growth. White count 6.6. Hemoglobin 7.7. Platelets 22,000. Sodium 139. Potassium 3.4. Bicarb 24. BUN 11. Creatinine 5.1. Glucose 105. She remains on DuoNeb ventilations, Symbicort, antibiotics in the form of cefepime. Objective - Vital Signs Vital signs: Vital Signs Temp 98.2 F 03/05/24 07:13 Pulse 94 03/05/24 07:13 Resp 16 03/05/24 07:13 BP 127/68 03/05/24 07:13 Pulse Ox 98 03/05/24 07:13 FiO2 Intake & Output 03/04/24 03/05/24 03/05/24 18:59 06:59 18:59 Intake Total 800 Balance 800 Intake: Intake, IV Titration 800 Amount Cefepime 2 gm In Sodium 200 Chloride 0.9% 100 ml @ 25 mls/hr IVPB Q8H [facility] Rx#: [id number] Sodium Chloride 0.9% 1, 600 000 ml @ 50 mls/hr IV . Q20H [facility] Rx#:[id number] Other: Voiding Method Bedside Commode Bedside Commode # Voids 3 # Bowel Movements 1 - Exam GENERAL EXAM: Alert, 78-year-old female, on 2 L nasal cannula, comfortable in no apparent distress. HEAD: Normocephalic. Does have an abrasion on her right cheek EYES: Normal reaction of pupils, equal size. NOSE: Clear with pink turbinates. THROAT: No erythema or exudates. NECK: No masses, no JVD. CHEST: No chest wall deformity. Left chest Mediport in place. LUNGS: Equal air entry with no crackles, wheeze, rhonchi or dullness. CVS: S1 and S2 normal with no audible murmur, regular rhythm. ABDOMEN: No hepatosplenomegaly, normal bowel sounds, no guarding or rigidity. SPINE: No scoliosis or deformity SKIN: No rashes CENTRAL NERVOUS SYSTEM: No focal deficits, tone is normal in all 4 extremities. EXTREMITIES: There is no peripheral edema. No clubbing, no cyanosis. Peripheral pulses are intact. - Labs CBC & Chem 7: 03/05/24 06:00 03/05/24 06:00 Labs: Abnormal Lab Results - Last 24 Hours (Table) 03/05/24 03/05/24 Range/Units 06:00 06:00 RBC 2.48 L (4.10-5.20) X 10*6/uL Hgb 7.7 L (12.0-15.0) g/dL Hct 22.6 L (37.2-46.3) % RDW 15.1 H (11.5-14.5) % Plt Count 22 L (140-440) X 10*3/uL MPV 13.1 H (9.5-12.2) FL Eosinophils # (Manual) 0 L (0.04-0.35) X 10*3/uL NRBC/100 WBC Diff 0.02 H (0.00-0.01) X 10*3/uL Immature Plt Fraction 6.2 H (1.1-6.1) % Potassium 3.4 L (3.5-5.5) mmol/L BUN 5.1 L (9.0-27.0) mg/dL BUN/Creatinine Ratio 8.50 L (12.00-20.00) Ratio Calcium 8.6 L (8.7-10.3) mg/dL Total Protein 5.0 L (6.2-8.2) g/dL Albumin 3.3 L (3.8-4.9) g/dL Microbiology - Last 24 Hours (Table) 03/02/24 15:08 Blood Culture - Preliminary Blood Assessment and Plan Assessment: Acute on chronic shortness of breath, follow-up chest CTA does not show any evidence of pulmonary embolism. There is overall improvement of the right hilar/mediastinal soft tissue mass, decreasing now small right pleural effusion. Continued masslike opacities within right upper lobe. Few patchy reticular opacities within the right upper lobe likely representing pneumonitis. Proc alcitonin 0.18. Remains on cefepime Near syncopal event Pancytopenia, secondary to chemo Small cell lung cancer, currently receiving a combination of carboplatin, etoposide, and Tecentriq. Has received a total of 2 cycles so far, last reported treatment on 02/23/2024 Chronic obstructive pulmonary disease, stable Right pleural effusion, status/post thoracentesis on 02/07/2024, total of 650 mL of exudative fluid was removed. No cytologic malignant cells recovered. 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 Number of minutes spent on the visit: 22.
--- NOTE | 2024-03-05 12:50 | XR ---
EXAMINATION TYPE: XR chest 1V portable DATE OF EXAM: 03/05/2024 COMPARISON: 03/01/2024 HISTORY: History of lung cancer. Congestion TECHNIQUE: Single frontal view of the chest is obtained. FINDINGS: There is a left-sided Mediport catheter unchanged in position. There is distortion with possible small stable mass like density in the right perihilar region. Small stable masslike density is seen in the right lung apex. There is no new airspace consolidation or interstitial density. There is no pleural effusion or pneum othorax. The heart is normal in size. The osseous structures are intact. IMPRESSION: Stable chest as described above. No acute cardiopulmonary disease.
--- NOTE | 2024-03-05 17:04 | P.PN ---
Subjective Progress Note Date: 03/05/24 Principal diagnosis: Reason for follow-up is pneumonia Patient is a 78-year-old female with a past medical history significant for recent diagnosis of lung cancer while the patient has received 2 cycles of chemotherapy presenting to the hospital for evaluation of weakness palpitations increasing shortness of breath did have a CT angiogram of the chest concerning for right upper lobe infiltrate suspicious for pneumonia. On today's evaluation that is 03/05/2024,the patient remains to be afebrile, patient is on room air not requiring supplemental oxygen and denies any shortness of breath no chest pain or any worsening cough and no sputum production.Patient denies having any nausea or vomiting, no abdominal pain and no diarrhea has been reported. Patient white count 6.67, creatinine 0.6 blood culture has been negative Objective - Vital Signs Vital signs: Vital Signs Temp 98.1 F 03/05/24 11:50 Pulse 106 H 03/05/24 11:50 Resp 16 03/05/24 11:50 BP 108/68 03/05/24 11:50 Pulse Ox 99 03/05/24 11:31 FiO2 Intake & Output 03/04/24 03/05/24 03/05/24 18:59 06:59 18:59 Intake Total 800 Balance 800 Intake: Intake, IV Titration 800 Amount Cefepime 2 gm In Sodium 200 Chloride 0.9% 100 ml @ 25 mls/hr IVPB Q8H [facility] Rx#: [id number] Sodium Chloride 0.9% 1, 600 000 ml @ 50 mls/hr IV . Q20H [facility] Rx#:[id number] Other: Voiding Method Bedside Commode Bedside Commode # Voids 3 # Bowel Movements 1 - Exam GENERAL DESCRIPTION: An elderly female lying in bed in no distress RESPIRATORY SYSTEM: Unlabored breathing , decreased breath sounds at bases HEART: S1 S2 regular rate and rhythm , ABDOMEN: Soft , no tenderness EXTREMITIES: No edema feet - Labs CBC & Chem 7: 03/05/24 06:00 03/05/24 06:00 Labs: Abnormal Lab Results - Last 24 Hours (Table) 03/05/24 03/05/24 Range/Units 06:00 06:00 RBC 2.48 L (4.10-5.20) X 10*6/uL Hgb 7.7 L (12.0-15.0) g/dL Hct 22.6 L (37.2-46.3) % RDW 15.1 H (11.5-14.5) % Plt Count 22 L (140-440) X 10*3/uL MPV 13.1 H (9.5-12.2) FL Eosinophils # (Manual) 0 L (0.04-0.35) X 10*3/uL NRBC/100 WBC Diff 0.02 H (0.00-0.01) X 10*3/uL Immature Plt Fraction 6.2 H (1.1-6.1) % Potassium 3.4 L (3.5-5.5) mmol/L BUN 5.1 L (9.0-27.0) mg/dL BUN/Creatinine Ratio 8.50 L (12.00-20.00) Ratio Calcium 8.6 L (8.7-10.3) mg/dL Total Protein 5.0 L (6.2-8.2) g/dL Albumin 3.3 L (3.8-4.9) g/dL Microbiology - Last 24 Hours (Table) 03/02/24 15:08 Blood Culture - Preliminary Blood Assessment and Plan (1) Pneumonia Current Visit: Yes Status: Acute Code(s): J18.9 - PNEUMONIA, UNSPECIFIED ORGANISM SNOMED Code(s): 597905284 (2) Leukopenia Current Visit: Yes Status: Acute Code(s): D72.819 - DECREASED WHITE BLOOD CELL COUNT, UNSPECIFIED SNOMED Code(s): 55256934 Plan: 1patient presenting to the hospital with increasing shortness of breath which is likely multifactorial in this patient who did have history of lung cancer on chemotherapy patient did have a cough but not bring up any sputum CT angiogram was negative for PE did shows evidence of patchy infiltrate seen right upper lobe concerning for possible pneumonitis in this patient with leukopenia on chemo will need to cover for the gram-negative pathogens 2- patient did have mild elevated procalcitonin, sputum not collected blood culture so far pending 3-patient seem to be slowly clinical improving and will continue with cefepime 2 g every 8-hour, nursing staff is advised to leave the bruising to the right cheek area without any lotions or creams let it dry out Dictation was produced using [employer] software. please excuse any grammatical, word or spelling errors. Time with Patient: Less than 30
[2024-03-05] MEDS: LORATADINE 10 MG TAB PO SCH (20:48)
--- NOTE | 2024-03-06 03:54 | PN ---
PROGRESS NOTE DATE OF SERVICE: 03/05/2024 SUBJECTIVE: This 78-year-old woman was admitted with neutropenic sepsis, also had a skin lesion on the face. The patient is complaining of some cough. The chest x-ray was reviewed, which was stable. PHYSICAL EXAMINATION: VITAL SIGNS: Pulse is 106, blood pressure 108/60, respirations 16. CHEST: A few scattered rhonchi and crackles. ABDOMEN: Soft. NERVOUS SYSTEM: Nonfocal. LABORATORY DATA: Hemoglobin 7.7, platelets are 22. Potassium 3.4. ASSESSMENT: 1. Severe neutropenic sepsis with right facial cellulitis. 2. Thrombocytopenia, worsening. 3. Shortness of breath, possibly secondary to lung pathology. 4. Non-small cell lung cancer history. 5. Multiple medical issues. RECOMMENDATIONS: I recommend to continue current medications, symptomatic treatment. Otherwise, we will monitor the patient closely. WBC is improved. Procalcitonin 0.18. Further recommendations to follow and continue the antibiotics, repeat labs to be ordered. MMODL / IJN: [id number] /
[2024-03-06 10:30] LABS: ALT 11 U/L (8-44); AST 18 U/L (13-35); Albumin 3.2 g/dL (3.8-4.9); Alkaline Phosphatase 80 U/L (41-126); BUN/Creat Ratio 11.67 Ratio (12.00-20.00); Calcium 8.2 mg/dL (8.7-10.3); Carbon Dioxide 25.3 mmol/L (21.6-31.8); Chloride 105 mmol/L (96-109); Globulin 1.6 g/dL (1.6-3.3); Glucose 100 mg/dL (70-110); Potassium 3.6 mmol/L (3.5-5.5); Sodium 139 mmol/L (135-145); Total Bilirubin 0.2 mg/dL (0.3-1.2); Total Protein 4.8 g/dL (6.2-8.2)
[2024-03-06 11:11] LABS: Basophils # (M) 0 X 10*3/uL (0.00-0.10); Eosinophils # (M) 0 X 10*3/uL (0.04-0.35); HCT 23.1 % (37.2-46.3); HGB 7.7 g/dL (12.0-15.0); Immature Platelet Fraction 8.4 % (1.1-6.1); Lymphocytes # (M) 1.65 X 10*3/uL (0.90-5.00); MCH 30.9 pg (27.0-32.0); MCHC 33.3 g/dL (32.0-37.0); MCV 92.8 FL (80.0-97.0); Mean Platelet Volume 13.1 FL (9.5-12.2); Metamyelocytes % 4 % (0-0); Monocytes # (M) 0.46 X 10*3/uL (0.20-1.00); Myelocytes % 1 % (0-0); NRBC Per 100 WBC 0.04 X 10*3/uL (0.00-0.01); Neutrophils % (M) 72 %; Platelet Count 21 X 10*3/uL (140-440); RBC 2.49 X 10*6/uL (4.10-5.20); RBC Morphology Normal (Normal); RDW 15.3 % (11.5-14.5); WBC 9.16 X 10*3/uL (4.50-10.00)
--- NOTE | 2024-03-06 12:27 | P.PN ---
Subjective Progress Note Date: 03/06/24 Patient is a 78-year-old white female with past medical history significant for COPD, former tobacco dependence, and recent diagnosis of small cell lung cancer. Her PCP is Dr. Shanta Jaeger. She does follow in the pulmonary office with Dr. Molina. She was diagnosed small cell lung cancer via bronchoscopy and endobronchial ultrasound performed on December,rst. Patient had a right perihilar mass. Follow-up PET scan note, on 01/17/2024 demonstrating a right perihilar mass measuring at least 8.7 x 5.9 cm. There was suspected metastatic disease to the the right pleura, throughout the descending and left neck lymph nodes, left rib 9 had abnormal uptake. Brain MRI unremarkable for enhancing lesions. That the patient had recent hospitalization late January, primarily for shortness of breath/cough/right-sided pleural effusion. On February 06, she did have a right- sided thoracentesis and a total of 650 mL of turbid colored fluid was drained. Fluid was an exudate. No cytologic malignant cells were recovered. Patient is currently receiving a combination of carboplatin/etoposide/Tecentriq. She just finished her second cycle approximately 1.5 weeks ago. Her oncologist is Dr. Tee. Over the last several days, patient has been reporting increasing worsening generalized weakness and fatigue. She was evaluated in the emergency department on 02/26/2024, and was ultimately discharged home from the ED that same day. Patient returns to the emergency department 02/26/2024, while at home she had an acute episode coughing; associated with shortness of breath, lightheadedness, and near syncope. Initial workup included a chest CTA which did not show any evidence of pulmonary embolism. There is overall improvement in previously noted right hilar/mediastinal soft tissue mass. Decreased size and right-sided pleural effusion. Few patchy reticular opacities in the right upper lobe, likely representing pneumonitis. On my evaluation, patient is sitting up in bed on 2 L/min nasal cannula. She has been chronically oxygen dependent lately. She does report being more short of breath than baseline. She does have a persistent cough. No significant sputum production. Denies hemoptysis. Denies chest pain. No fevers. No sick contacts. No nausea or vomiting, diarrhea, or abdominal pain. Appetite is fair. Denies any urinary complaints such as increased urinary frequency, dysuria or burning, hematuria. She does have a right facial secondary wound. She attributes this to scratching her face at night. No significant drainage. Possible cellulitis. Most recent CBC: WBC count 1.6, hemoglobin 8.7, hematocrit 26.1, platelets 107. She is neutropenic. Most recent CMP: Sodium 134, potassium 3.7, chloride 107, serum bicarb 25, BUN 5, creatinine 0.46, glucose 93. LFTs unremarkable. Troponin less than 0.012. She is tachycardic. EKG done on arrival demonstrating sinus tachycardia, no acute ischemic changes. Afebrile. Patient is currently being covered with cefepime per infectious disease specialist. Nontoxic appearance. Vital signs overall stable. The patient is seen today March 04, 2024 in follow-up on the regular medical floor. She is currently sitting up in bed. Awake and alert in no acute distress. Feeling better today compared to yesterday. She is maintaining O2 saturations in the 90s on 2 L/min per nasal cannula. She has normal staying at 50 MLS per hour. She is treated with cefepime. Procalcitonin was 0.18. Lung sounds are clear. Blood cultures are pending. White count 3.9. Hemoglobin 8.4. Platelets 43,000. Sodium 133. Potassium 3.7. Bicarb 27. BUN 6. Creatinine 0.51. Glucose 93. She is continued on DuoNeb inhalations, Symbicort, Robitussin. The patient is seen today March 05, 2024 in follow-up on the regular medical floor. She is resting comfortably in bed. Awake and alert in no acute distress. She is maintaining O2 saturations in the 90s on 2 L/min per nasal cannula. Blood culture reveals no growth. White count 6.6. Hemoglobin 7.7. Platelets 22,000. Sodium 139. Potassium 3.4. Bicarb 24. BUN 11. Creatinine 5.1. Glucose 105. She remains on DuoNeb ventilations, Symbicort, antibiotics in the form of cefepime. The patient is seen today March 06, 2024 in follow-up on the regular medical floor. She is currently awake and alert in no acute distress. Breathing easier today compared to yesterday. She is sleeping better. Follow-up chest x-ray revealed no acute pulmonary process. Blood culture revealed no growth. White count 9.1. Hemoglobin 7.7. Platelets 21,000. Sodium 139. Potassium 3.6. Bicarb 25. BUN 7. Creatinine 0.6. Glucose 100. She remains on DuoNeb inhalations, Symbicort. Antibiotics in the form of cefepime. Objective - Vital Signs Vital signs: Vital Signs Temp 98.2 F 03/06/24 11:44 Pulse 100 03/06/24 11:59 Resp 20 03/06/24 11:44 BP 109/70 03/06/24 11:44 Pulse Ox 97 03/06/24 11:44 FiO2 Intake & Output 03/05/24 03/06/24 03/06/24 18:59 06:59 18:59 Other: Voiding Method Bedside Commode # Voids 2 3 # Bowel Movements 1 - Exam GENERAL EXAM: Alert, 78-year-old female, resting in bed, on 2 L nasal cannula, in no apparent distress. HEAD: Normocephalic. Does have an abrasion on her right cheek EYES: Normal reaction of pupils, equal size. NOSE: Clear with pink turbinates. THROAT: No erythema or exudates. NECK: No masses, no JVD. CHEST: No chest wall deformity. Left chest Mediport in place. LUNGS: Equal air entry with no crackles, wheeze, rhonchi or dullness. CVS: S1 and S2 normal with no audible murmur, regular rhythm. ABDOMEN: No hepatosplenomegaly, normal bowel sounds, no guarding or rigidity. SPINE: No scoliosis or deformity SKIN: No rashes CENTRAL NERVOUS SYSTEM: No focal deficits, tone is normal in all 4 extremities. EXTREMITIES: There is no peripheral edema. No clubbing, no cyanosis. Peripheral pulses are intact. - Labs CBC & Chem 7: 03/06/24 07:30 03/06/24 07:30 Labs: Abnormal Lab Results - Last 24 Hours (Table) 03/06/24 03/06/24 Range/Units 07: 07:30 RBC 2.49 L (4.10-5.20) X 10*6/uL Hgb 7.7 L (12.0-15.0) g/dL Hct 23.1 L (37.2-46.3) % RDW 15.3 H (11.5-14.5) % Plt Count 21 L (140-440) X 10*3/uL MPV 13.1 H (9.5-12.2) FL Eosinophils # (Manual) 0 L (0.04-0.35) X 10*3/uL NRBC/100 WBC Diff 0.04 H (0.00-0.01) X 10*3/uL Immature Plt Fraction 8.4 H (1.1-6.1) % BUN 7.0 L (9.0-27.0) mg/dL BUN/Creatinine Ratio 11.67 L (12.00-20.00) Ratio Calcium 8.2 L (8.7-10.3) mg/dL Total Bilirubin 0.2 L (0.3-1.2) mg/dL Total Protein 4.8 L (6.2-8.2) g/dL Albumin 3.2 L (3.8-4.9) g/dL Microbiology - Last 24 Hours (Table) 03/02/24 15:08 Blood Culture - Preliminary Blood Assessment and Plan Assessment: Acute on chronic shortness of breath, follow-up chest CTA does not show any evidence of pulmonary embolism. There is overall improvement of the right hilar/mediastinal soft tissue mass, decreasing now small right pleural effusion. Continued masslike opacities within right upper lobe. Few patchy reticular opacities within the right upper lobe likely representing pneumonitis. Procalcitonin 0.18. Remains on cefepime. Follow-up chest x-ray reveals no acute pulmonary process Near syncopal event Pancytopenia, secondary to chemo Small cell lung cancer, currently receiving a combination of carboplatin, etoposide, and Tecentriq. Has received a total of 2 cycles so far, last reported treatment on 02/23/2024 Chronic obstructive pulmonary disease, stable Right pleural effusion, status/post thoracentesis on 02/07/2024, total of 650 mL of exudative fluid was removed. No cytologic malignant cells recovered. 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 Number of minutes spent on the visit: 24.
--- NOTE | 2024-03-06 12:53 | P.PN ---
Subjective Progress Note Date: 03/06/24 Reporting improvement in symptoms since admission. Pt febrile, blood cultures negative. Continues on Cefepime. WBC 9.1, ANC 6.6. Hgb 7.7, plts 21,000. No reported episodes of acute bleeding. Denies n/v/d, tolerating oral intake Objective - Vital Signs Vital signs: Vital Signs Temp 97.7 F 03/06/24 07:00 Pulse 108 H 03/06/24 08:18 Resp 16 03/06/24 07:00 BP 121/73 03/06/24 07:00 Pulse Ox 92 L 03/06/24 08:05 FiO2 Intake & Output 03/05/24 03/06/24 03/06/24 18:59 06:59 18:59 Other: Voiding Method Bedside Commode # Voids 2 3 # Bowel Movements 1 - Constitutional General appearance: Present: no acute distress - EENT Eyes: Present: anicteric sclerae, EOMI ENT: Present: hearing grossly normal - Respiratory Details: breathing is even and unlabored - Cardiovascular Details: skin warm and dry - Gastrointestinal General gastrointestinal: Present: soft. Absent: tenderness - Integumentary Integumentary: Absent: cyanotic - Musculoskeletal Musculoskeletal: Present: strength equal bilaterally - Psychiatric Psychiatric: Present: A&O x's 3 - Labs CBC & Chem 7: 03/06/24 07:30 03/06/24 07:30 Labs: Abnormal Lab Results - Last 24 Hours (Table) 03/06/24 03/06/24 Range/Units 07:30 07:30 RBC 2.49 L (4.10-5.20) X 10*6/uL Hgb 7.7 L (12.0-15.0) g/dL Hct 23.1 L (37.2-46.3) % RDW 15.3 H (11.5-14.5) % Plt Count 21 L (140-440) X 10*3/uL MPV 13.1 H (9.5-12.2) FL Eosinophils # (Manual) 0 L (0.04-0.35) X 10*3/uL NRBC/100 WBC Diff 0.04 H (0.00-0.01) X 10*3/uL Immature Plt Fraction 8.4 H (1.1-6.1) % BUN 7.0 L (9.0-27.0) mg/dL BUN/Creatinine Ratio 11.67 L (12.00-20.00) Ratio Calcium 8.2 L (8.7-10.3) mg/dL Total Bilirubin 0.2 L (0.3-1.2) mg/dL Total Protein 4.8 L (6.2-8.2) g/dL Albumin 3.2 L (3.8-4.9) g/dL Microbiology - Last 24 Hours (Table) 03/02/24 15:08 Blood Culture - Preliminary Blood Assessment and Plan (1) Hypomagnesemia Current Visit: Yes Status: Acute Priority: Medium Code(s): E83.42 - HYPOMAGNESEMIA SNOMED Code(s): 293677927 (2) Weakness Current Visit: Yes Status: Acute Priority: High Code(s): R53.1 - WEAKNESS SNOMED Code(s): 09529219 (3) Small cell lung carcinoma Current Visit: Yes Status: Acute Priority: High Code(s): C34.90 - MALIGNANT NEOPLASM OF UNSP PART OF UNSP BRONCHUS OR LUNG SNOMED Code(s): 011560982 Plan: Small cell lung cancer, SOB, weakness: -Diagnosis and treatment as documented in consult HPI -Completed cycle 2 carbo/SUPPORT REPRESENTATIVE/Tecentriq on 02/23/24 with G-CSF on 02/23. -Unfortunately, patient has multiple admissions since starting treatment. Spoke with her primary oncologist, Dr. Tee, will dose reduce by 10% for next cycles -CXR and UA not suspicious for acute infectious process. Symptoms appear to be r/t chemo, agree with hydration/supportive care, and electrolyte replacement -Due to tachycardia on admit and c/o SOB and dizziness, CTA chest was obtained to r/o PE. Scan was negative for PE, showing a positive treatment response -Afebrile, Continues on Cefepime. Blood cultures negative -WBC 9.1, ANC 6.6. Hgb 7.7, plts 21,000. No reported episodes of acute bleeding. Patient currently in [place], continue to monitor CBC closely -Please transfuse for hgb less than 7 and for platelets less than 10,000 or if symptomatic Patient cleared for discharge from oncology standpoint, once cleared by IM and other consulted medical specialities Will plan for clinic lab encounters for CBC recheck upon discharge
--- NOTE | 2024-03-06 22:22 | P.PN ---
Subjective Progress Note Date: 03/06/24 Principal diagnosis: Reason for follow-up is pneumonia Patient is a 78-year-old female with a past medical history significant for recent diagnosis of lung cancer while the patient has received 2 cycles of chemotherapy presenting to the hospital for evaluation of weakness palpitations increasing shortness of breath did have a CT angiogram of the chest concerning for right upper lobe infiltrate suspicious for pneumonia. On today's evaluation that is 03/06/2024, the patient continues to be afebrile, the patient is on room air and breathing comfortably, the Pt denies having any chest pain cough is decreased intensity admits to a dry nature, the patient denies having any abdominal pain no vomiting or any diarrhea patient denies any pain to the right side of the cheek/face area. Patient white count is 9.16 creatinine 0.6 blood culture has been negative Objective - Vital Signs Vital signs: Vital Signs Temp 98.2 F 03/06/24 11:44 Pulse 100 03/06/24 11:59 Resp 20 03/06/24 11:44 BP 109/70 03/06/24 11:44 Pulse Ox 97 03/06/24 11:44 FiO2 Intake & Output 03/05/24 03/06/24 03/06/24 18:59 06:59 18:59 Other: Voiding Method Bedside Commode # Voids 2 3 # Bowel Movements 1 - Exam GENERAL DESCRIPTION: An elderly female lying in bed in no distress RESPIRATORY SYSTEM: Unlabored breathing , decreased breath sounds at bases HEART: S1 S2 regular rate and rhythm , ABDOMEN: Soft , no tenderness EXTREMITIES: No edema feet - Labs CBC & Chem 7: 03/06/24 07:30 03/06/24 07:30 Labs: Abnormal Lab Results - Last 24 Hours (Table) 03/06/24 03/06/24 Range/Units 07:30 07:30 RBC 2.49 L (4.10-5.20) X 10*6/uL Hgb 7.7 L (12.0-15.0) g/dL Hct 23.1 L (37.2-46.3) % RDW 15.3 H (11.5-14.5) % Plt Count 21 L (140-440) X 10*3/uL MPV 13.1 H (9.5-12.2) FL Eosinophils # (Manual) 0 L (0.04-0.35) X 10*3/uL NRBC/100 WBC Diff 0.04 H (0.00-0.01) X 10*3/uL Immature Plt Fraction 8.4 H (1.1-6.1) % BUN 7.0 L (9.0-27.0) mg/dL BUN/Creatinine Ratio 11.67 L (12.00-20.00) Ratio Calcium 8.2 L (8.7-10.3) mg/dL Total Bilirubin 0.2 L (0.3-1.2) mg/dL Total Protein 4.8 L (6.2-8.2) g/dL Albumin 3.2 L (3.8-4.9) g/dL Microbiology - Last 24 Hours (Table) 03/02/24 15:08 Blood Culture - Preliminary Blood Assessment and Plan (1) Pneumonia Current Visit: Yes Status: Acute Code(s): J18.9 - PNEUMONIA, UNSPECIFIED ORGANISM SNOMED Code(s): 219270077 (2) Leukopenia Current Visit: Yes Status: Acute Code(s): D72.819 - DECREASED WHITE BLOOD CELL COUNT, UNSPECIFIED SNOMED Code(s): 04968306 Plan: 1patient presenting to the hospital with increasing shortness of breath which is likely multifactorial in this patient who did have history of lung cancer on chemotherapy patient did have a cough but not bring up any sputum CT angiogram was negative for PE did shows evidence of patchy infiltrate seen right upper lobe concerning for possible pneumonitis in this patient with leukopenia on chemo will need to cover for the gram-negative pathogens 2- patient did have mild elevated procalcitonin, sputum not collected blood culture so far pending 3-patient is slowly clinically improving and will continue with cefepime 2 g every 8-hour, plan is to finish therapy short course of oral Avelox on discharge Dictation was produced using [employer] dictation software. please excuse any grammatical, word or spelling errors. Time with Patient: Less than 30
[2024-03-06] MEDS: guaiFENesin-Coden 100-10MG/5ML 10 ML CUP PO PRN (22:58)
--- NOTE | 2024-03-07 06:08 | P.PN ---
Subjective Progress Note Date: 03/07/24 This is a very pleasant 78-year-old female who was recently admitted with generalized weakness, increasing shortness of breath, near syncope with fatigue. Patient follows with Dr. Minerva Jaeger in the outpatient setting as well as Dr. Tee for non-small cell lung carcinoma. Patient is currently undergoing chemotherapy and had a treatment last week. Patient started having worsening shortness of breath and increased fatigue and generalized weakness and came here for further evaluation. Patient being followed by pulmonary, infectious disease, and oncology. Patient is maintained on empiric antibiotics and was found to be neutropenic on admission. Patient reports she had recently been treated for bladder infection and culture showing normal adela. Thus far blood cultures are negative and will continue current regimen with infectious disease recommendations. Patient is afebrile reports to feeling somewhat better and is maintained on gentle hydration. Patient did have a scratch on her right cheek bone but she is unsure of how it happened although woke up and noticed it. No drainage noted although there is some mild redness and swelling noted. Continue to monitor closely. 03/06/2024 Patient is seen and evaluated in follow-up this morning currently sitting up in the chair reports has been getting up and working with physical therapy. Plan is to return home with spouse and would recommend PT/OT therapy daily for continued strength and mobility. Encouraged the patient to get up and walk through the halls if possible. Patient continues on 2 L nasal cannula with pulmonary following continuing current regimen. Infectious disease following and continued IV antibiotics and will transition to oral antibiotics on discharge. Cultures have been negative. Continue monitoring right cheek and infectious disease recommending no further appointments and letting the area dry out. Patient is afebrile denies worsening shortness of breath. Patient reports to feeling slightly improved and was able to sleep some last night. Will follow-up with repeat labs and monitor closely. Oncology following as well Review of systems: Constitutional: reports of fatigue, no fever, or chills Cardiovascular: No reports of chest pain or palpitations Respiratory: No reports of worsening shortness of breath, reports occasional cough GI: reports of nausea, no reports of vomiting, no diarrhea : No reports of dysuria or retention Neurovascular: reports of generalized weakness All medications have been reviewed Active Medications Acetaminophen (Acetaminophen Tab 325 Mg Tab) 650 mg PO Q6HR PRN PRN Reason: Fever and/ or Pain Last Admin: 03/03/24 12:54 Dose: 650 mg Hydrocodone Bitart/Acetaminophen (Hydrocodone/Apap 5-325mg 1 Each Tab) 1 each PO Q6H PRN PRN Reason: Pain Last Admin: 03/05/24 11:37 Dose: 1 each Albuterol Sulfate (Albuterol Nebulized 2.5 Mg/3 Ml) 2.5 mg INHALATION RT-Q4H PRN PRN Reason: Shortness Of Breath Albuterol/Ipratropium (Ipratropium-Albuterol 3 Ml Neb) 3 ml INHALATION RT-QID [facility] Last Admin: 03/06/24 20:24 Dose: 3 ml Albuterol/Ipratropium (Ipratropium-Albuterol 3 Ml Neb) 3 ml INHALATION RT-Q2H PRN PRN Reason: Shortness Of Breath Or Wheezing Alprazolam (Alprazolam 1 Mg Tab) 1 mg PO TID PRN PRN Reason: Anxiety Benzocaine/Menthol (Benzocaine/Menthol Lozeng 1 Each Lozenge) 1 each MUCOUS MEM Q4HR PRN PRN Reason: Sore Throat Last Admin: 03/05/24 17:58 Dose: 1 each Benzonatate (Benzonatate 100 Mg Cap) 100 mg PO TID PRN PRN Reason: Cough Last Admin: 03/03/24 12:54 Dose: 100 mg Budesonide/Formoterol Fumarate (Symbicort 160-4.5 Mcg Inhaler) 1 puff INHALATION RT-DAILY [facility] Last Admin: 03/06/24 08:02 Dose: 1 puff Buspirone HCl (Buspirone Hcl 5 Mg Tab) 5 mg PO BID PRN PRN Reason: Anxiety Calcium Carbonate/Glycine (Calcium Carbonate 500 Mg Chewable) 500 mg PO TID PRN PRN Reason: Heartburn Last Admin: 03/03/24 20:33 Dose: 500 mg Cyclobenzaprine HCl (Cyclobenzaprine 10 Mg Tab) 10 mg PO TID PRN PRN Reason: Muscle Pain Diphenhydramine HCl (Diphenhydramine 50 Mg/Ml 1 Ml Vial) 15 mg IVP Q8HR PRN PRN Reason: Allergy Symptoms Last Admin: 03/04/24 14:13 Dose: 15 mg Folic Acid (Folic Acid 1 Mg Tab) 1 mg PO DAILY@1200 [facility] Last Admin: 03/06/24 12:29 Dose: 1 mg Guaifenesin/Codeine Phosphate (Guaifenesin-Coden 100-10mg/5ml 10 Ml Cup) 10 ml PO Q4H PRN PRN Reason: Cough Last Admin: 03/06/24 22:58 Dose: 10 ml Cefepime HCl 2 gm/ Sodium (Chloride) 100 mls @ 25 mls/hr IVPB Q8H [facility]; Protocol Last Admin: 03/07/24 01:59 Dose: 25 mls/hr Loratadine (Loratadine 10 Mg Tab) 10 mg PO HS [facility] Last Admin: 03/06/24 21:42 Dose: 10 mg Magnesium Oxide (Magnesium Oxide 400 Mg Tab) 400 mg PO DAILY [facility] Last Admin: 03/06/24 09:15 Dose: 400 mg Melatonin (Melatonin 5 Mg Tablet) 10 mg PO HS PRN PRN Reason: Insomnia Last Admin: 03/02/24 22:34 Dose: 10 mg Mirtazapine (Mirtazapine 15 Mg Tab) 15 mg PO [facility] Last Admin: 03/06/24 21:43 Dose: 15 mg Multivitamins (Multivitamins, Thera 1 Each Tab) 1 each PO DAILY [facility] Last Admin: 03/06/24 09:15 Dose: 1 each Naloxone HCl (Naloxone 0.4 Mg/Ml 1 Ml Vial) 0.2 mg IV Q2M PRN PRN Reason: Opioid Reversal Ondansetron HCl (Ondansetron 4 Mg Tab) 4 mg PO Q4H PRN PRN Reason: Nausea Last Admin: 03/03/24 20:17 Dose: 4 mg Pantoprazole Sodium (Pantoprazole 40 Mg/10 Ml Vial) 40 mg IV BID [facility] Last Admin: 03/06/24 21:42 Dose: 40 mg Senna (Sennosides 8.6 Mg Tab) 8.6 mg PO BID PRN PRN Reason: Constipation Last Admin: 03/04/24 14:18 Dose: 8.6 mg Sodium Bicarbonate (Salt And Soda Mouthwash 1,000 Ml) 5 ml PO 5XD [facility] Last Admin: 03/07/24 01:04 Dose: Not Given Sodium Chloride (Sodium Chloride Tab 1 Gm Tab) 1 gm PO BID [facility] Last Admin: 03/06/24 21:43 Dose: 1 gm Temazepam (Temazepam 15 Mg Cap) 15 mg PO HS [facility] Last Admin: 03/06/24 21:42 Dose: 15 mg Thiamine HCl (Thiamine 100 Mg Tab) 100 mg PO DAILY@1200 [facility] Last Admin: 03/06/24 12:29 Dose: 100 mg PHYSICAL EXAMINATION: GENERAL: The patient is alert and oriented x4, Well developed, well nourished. Elderly appearing, ill-appearing HEENT: Pupils are round and equally reacting to light. EOMI. no scleral icterus. No conjunctival pallor. Normocephalic, atraumatic. No pharyngeal erythema. No thyromegaly. CARDIOVASCULAR: S1 and S2 muffled PULMONARY: diminished breath sounds bilaterally with no wheezing or rhonchi noted. ABDOMEN: soft. Nontender on exam. non-distended, normoactive bowel sounds. No palpable organomegaly. MUSCULOSKELETAL: No joint swelling or deformity. EXTREMITIES: No cyanosis, clubbing, or pedal edema. NEUROLOGICAL: Gross neurological examination did not reveal any focal deficits. Diffuse weakness SKIN: No rashes. Assessment: Severe neutropenia and possible neutropenic sepsis, present on admission Shortness of breath, ruled out pulmonary embolism Acute on chronic hypoxic respiratory failure secondary to non-small cell lung carcinoma History of non-small cell lung carcinoma, currently following with Dr. Tee undergoing chemotherapy History of hyponatremia Right facial cellulitis, rule out abscess Generalized weakness with gait dysfunction GI prophylaxis DVT prophylaxis Full code Plan: Recommend to continue with current medications and management with multiple consultations following. Oncology, infectious disease, pulmonary following Wean FiO2 as tolerated. Patient does wear 2 to 3 L outpatient. Will provide incentive spirometer encouraged to use at least 10 times every hour while awake Continue antibiotics with infectious disease following. Cultures thus far negative. Monitor right cheekbone for any worsening cellulitis or drainage. Repeat labs ordered for a.m. Replace electrolytes per protocol monitor white count, CBC, platelets Encouraged increase activity as tolerated and encouraged oral intake Recommend sitting out of the bed more often into the chair. Encouraged the patient to walk the halls of possible Oncology following and patient will follow-up with Dr. Tee in the outpatient setting to discuss next treatment therapy and possibly reduction of therapy. Due to multiple complex medical issues, overall prognosis is guarded The impression and plan of care has been dictated by Carmencita Grant, nurse practitioner as directed. Dr. Jalil MD I have performed a history and examination and MDM of this patient, discussed the same with the dictator, and agree with the dictator's assessment and plan as written ,documented as a scribe. Based on total visit time, I have performed more than 50% of the visit. Any additional findings or plans will be noted. Objective - Vital Signs Vital signs: Vital Signs Temp 97.7 F 03/06/24 07:00 Pulse 108 H 03/06/24 08:18 Resp 16 03/06/24 07:00 BP 121/73 03/06/24 07:00 Pulse Ox 92 L 03/06/24 08:05 FiO2 Intake & Output 03/05/24 03/06/24 03/06/24 18:59 06:59 18:59 Other: Voiding Method Bedside Commode # Voids 2 3 # Bowel Movements 1 - Labs CBC & Chem 7: 03/06/24 07:30 03/06/24 07:30 Labs: Abnormal Lab Results - Last 24 Hours (Table) 03/05/24 03/06/24 Range/Units 06:00 07:30 RBC 2.48 L (4.10-5.20) X 10*6/uL Hgb 7.7 L (12.0-15.0) g/dL Hct 22.6 L (37.2-46.3) % RDW 15.1 H (11.5-14.5) % Plt Count 22 L (140-440) X 10*3/uL MPV 13.1 H (9.5-12.2) FL Eosinophils # (Manual) 0 L (0.04-0.35) X 10*3/uL NRBC/100 WBC Diff 0.02 H (0.00-0.01) X 10*3/uL Immature Plt Fraction 6.2 H (1.1-6.1) % BUN 7.0 L (9.0-27.0) mg/dL BUN/Creatinine Ratio 11.67 L (12.00-20.00) Ratio Calcium 8.2 L (8.7-10.3) mg/dL Total Bilirubin 0.2 L (0.3-1.2) mg/dL Total Protein 4.8 L (6.2-8.2) g/dL Albumin 3.2 L (3.8-4.9) g/dL Microbiology - Last 24 Hours (Table) 03/02/24 15:08 Blood Culture - Preliminary Blood
[2024-03-07] MEDS: BENZONATATE 100 MG CAP PO SCH (08:49)
[2024-03-07 12:09] LABS: ALT 8 U/L (8-44); AST 22 U/L (13-35); Albumin 3.2 g/dL (3.8-4.9); Albumin/Globulin Ratio 1.88 Ratio (1.60-3.17); Alkaline Phosphatase 84 U/L (41-126); Blood Urea Nitrogen 8.7 mg/dL (9.0-27.0); Calcium 8.7 mg/dL (8.7-10.3); Carbon Dioxide 22.8 mmol/L (21.6-31.8); Chloride 106 mmol/L (96-109); Globulin 1.7 g/dL (1.6-3.3); Glucose 97 mg/dL (70-110); Magnesium 1.7 mg/dL (1.5-2.4); Potassium 3.8 mmol/L (3.5-5.5); Sodium 140 mmol/L (135-145); Total Bilirubin 0.3 mg/dL (0.3-1.2); Total Protein 4.9 g/dL (6.2-8.2)
--- NOTE | 2024-03-07 12:14 | P.PN ---
Subjective Progress Note Date: 03/07/24 Patient is a 78-year-old white female with past medical history significant for COPD, former tobacco dependence, and recent diagnosis of small cell lung cancer. Her PCP is Dr. Shanta Jaeger. She does follow in the pulmonary office with Dr. Molina. She was diagnosed small cell lung cancer via bronchoscopy and endobronchial ultrasound performed on December,rst. Patient had a right perihilar mass. Follow-up PET scan note, on 01/17/2024 demonstrating a right perihilar mass measuring at least 8.7 x 5.9 cm. There was suspected metastatic disease to the the right pleura, throughout the descending and left neck lymph nodes, left rib 9 had abnormal uptake. Brain MRI unremarkable for enhancing lesions. That the patient had recent hospitalization late January, primarily for shortness of breath/cough/right-sided pleural effusion. On February 06, she did have a right- sided thoracentesis and a total of 650 mL of turbid colored fluid was drained. Fluid was an exudate. No cytologic malignant cells were recovered. Patient is currently receiving a combination of carboplatin/etoposide/Tecentriq. She just finished her second cycle approximately 1.5 weeks ago. Her oncologist is Dr. Tee. Over the last several days, patient has been reporting increasing worsening generalized weakness and fatigue. She was evaluated in the emergency department on 02/26/2024, and was ultimately discharged home from the ED that same day. Patient returns to the emergency department 02/26/2024, while at home she had an acute episode coughing; associated with shortness of breath, lightheadedness, and near syncope. Initial workup included a chest CTA which did not show any evidence of pulmonary embolism. There is overall improvement in previously noted right hilar/mediastinal soft tissue mass. Decreased size and right-sided pleural effusion. Few patchy reticular opacities in the right upper lobe, likely representing pneumonitis. On my evaluation, patient is sitting up in bed on 2 L/min nasal cannula. She has been chronically oxygen dependent lately. She does report being more short of breath than baseline. She does have a persistent cough. No significant sputum production. Denies hemoptysis. Denies chest pain. No fevers. No sick contacts. No nausea or vomiting, diarrhea, or abdominal pain. Appetite is fair. Denies any urinary complaints such as increased urinary frequency, dysuria or burning, hematuria. She does have a right facial secondary wound. She attributes this to scratching her face at night. No significant drainage. Possible cellulitis. Most recent CBC: WBC count 1.6, hemoglobin 8.7, hematocrit 26.1, platelets 107. She is neutropenic. Most recent CMP: Sodium 134, potassium 3.7, chloride 107, serum bicarb 25, BUN 5, creatinine 0.46, glucose 93. LFTs unremarkable. Troponin less than 0.012. She is tachycardic. EKG done on arrival demonstrating sinus tachycardia, no acute ischemic changes. Afebrile. Patient is currently being covered with cefepime per infectious disease specialist. Nontoxic appearance. Vital signs overall stable. The patient is seen today March 04, 2024 in follow-up on the regular medical floor. She is currently sitting up in bed. Awake and alert in no acute distress. Feeling better today compared to yesterday. She is maintaining O2 saturations in the 90s on 2 L/min per nasal cannula. She has normal staying at 50 MLS per hour. She is treated with cefepime. Procalcitonin was 0.18. Lung sounds are clear. Blood cultures are pending. White count 3.9. Hemoglobin 8.4. Platelets 43,000. Sodium 133. Potassium 3.7. Bicarb 27. BUN 6. Creatinine 0.51. Glucose 93. She is continued on DuoNeb inhalations, Symbicort, Robitussin. The patient is seen today March 05, 2024 in follow-up on the regular medical floor. She is resting comfortably in bed. Awake and alert in no acute distress. She is maintaining O2 saturations in the 90s on 2 L/min per nasal cannula. Blood culture reveals no growth. White count 6.6. Hemoglobin 7.7. Platelets 22,000. Sodium 139. Potassium 3.4. Bicarb 24. BUN 11. Creatinine 5.1. Glucose 105. She remains on DuoNeb ventilations, Symbicort, antibiotics in the form of cefepime. The patient is seen today March 06, 2024 in follow-up on the regular medical floor. She is currently awake and alert in no acute distress. Breathing easier today compared to yesterday. She is sleeping better. Follow-up chest x-ray revealed no acute pulmonary process. Blood culture revealed no growth. White count 9.1. Hemoglobin 7.7. Platelets 21,000. Sodium 139. Potassium 3.6. Bicarb 25. BUN 7. Creatinine 0.6. Glucose 100. She remains on DuoNeb inhalations, Symbicort. Antibiotics in the form of cefepime. The patient is seen today March 07, 2024 in follow-up on the regular medical floor. She is sitting up in bed. Awake and alert in no acute distress. Maintaining O2 saturations in the 90s on 2 L/min per nasal cannula. O2 saturations in the high 90s. Blood cultures revealed no growth. She remains on DuoNeb inhalations, Symbicort. Antibiotics in the form of cefepime. She is continued on Tessalon Perles and Robitussin for her cough. No new labs today. Objective - Vital Signs Vital signs: Vital Signs Temp 98.6 F 03/07/24 06:52 Pulse 105 H 03/07/24 11:09 Resp 24 03/07/24 09:01 BP 112/69 03/07/24 11:09 Pulse Ox 99 03/07/24 09:01 FiO2 Intake & Output 03/06/24 03/07/24 03/07/24 18:59 06:59 18:59 Other: Voiding Method Bedside Commode # Voids 2 3 - Exam GENERAL EXAM: Alert, pleasant 78-year-old female, on 3 L nasal cannula, in no apparent distress. HEAD: Normocephalic. Does have an abrasion on her right cheek EYES: Normal reaction of pupils, equal size. NOSE: Clear with pink turbinates. THROAT: No erythema or exudates. NECK: No masses, no JVD. CHEST: No chest wall deformity. Left chest Mediport in place. LUNGS: Equal air entry with no crackles, wheeze, rhonchi or dullness. CVS: S1 and S2 normal with no audible murmur, regular rhythm. ABDOMEN: No hepatosplenomegaly, normal bowel sounds, no guarding or rigidity. SPINE: No scoliosis or deformity SKIN: No rashes CENTRAL NERVOUS SYSTEM: No focal deficits, tone is normal in all 4 extremities. EXTREMITIES: There is no peripheral edema. No clubbing, no cyanosis. Per ipheral pulses are intact. - Labs CBC & Chem 7: 03/06/24 07:30 03/06/24 07:30 Assessment and Plan Assessment: Acute on chronic shortness of breath, follow-up chest CTA does not show any evidence of pulmonary embolism. There is overall improvement of the right hilar/mediastinal soft tissue mass, decreasing now small right pleural effusion. Continued masslike opacities within right upper lobe. Few patchy reticular opacities within the right upper lobe likely representing pneumonitis. Procalcitonin 0.18. Remains on cefepime. Follow-up chest x-ray reveals no acute pulmonary process Near syncopal event Pancytopenia, secondary to chemo Small cell lung cancer, currently receiving a combination of carboplatin, etoposide, and Tecentriq. Has received a total of 2 cycles so far, last reported treatment on 02/23/2024 Chronic obstructive pulmonary disease, stable Right pleural effusion, status/post thoracentesis on 02/07/2024, total of 650 mL of exudative fluid was removed. No cytologic malignant cells recovered. 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 Number of minutes spent on the visit: 23.
[2024-03-07 12:20] LABS: Basophils # (M) 0 X 10*3/uL (0.00-0.10); HCT 23.4 % (37.2-46.3); HGB 7.8 g/dL (12.0-15.0); Immature Platelet Fraction 9.6 % (1.1-6.1); Lymphocytes # (M) 1.85 X 10*3/uL (0.90-5.00); MCHC 33.3 g/dL (32.0-37.0); MCV 92.9 FL (80.0-97.0); Metamyelocytes % 4 % (0-0); Monocytes # (M) 0.51 X 10*3/uL (0.20-1.00); Myelocytes % 2 % (0-0); NRBC Per 100 WBC 0.04 X 10*3/uL (0.00-0.01); Neutrophils # (M) 6.87 X 10*3/uL (1.80-7.70); Neutrophils % (M) 67 %; Platelet Count 35 X 10*3/uL (140-440); Promyelocytes # (M) 0.31 k/uL (0); Promyelocytes % 3 %; RBC 2.52 X 10*6/uL (4.10-5.20); RBC Morphology Normal (Normal); RDW 15.6 % (11.5-14.5); WBC 10.26 X 10*3/uL (4.50-10.00)
[2024-03-07] MEDS: ALPRAZolam 1 MG TAB PO PRN (14:19)
--- NOTE | 2024-03-07 18:59 | CA ---
Transthoracic Echo Report Name: Allyssa Elizabeth Age: 78 Gender: F : 1945 Exam Date: 03/07/2024 14:02 Exam Location: [place] [facility] Ht (in): 64 Wt (lb): 150 Ordering Physician: Ulysses Jimenes MD Attending/Referring Phys: Varnisher Plasticoater Brittany Saab RDCS Procedure CPT: Indications: tachycardia, CHF Cardiac Hx: Technical Quality: Fair Contrast 1: Total Dose (mL): Contrast 2: Total Dose (mL): MEASUREMENTS (Male / Female) Normal Values 2D ECHO LV Diastolic Diameter PLAX 3.5 cm 4.2 - 5.9 / 3.9 - 5.3 cm LV Systolic Diameter PLAX 2.3 cm IVS Diastolic Thickness 1.1 cm 0.6 - 1.0 / 0.6 - 0.9 cm LVPW Diastolic Thickness 1.3 cm 0.6 - 1.0 / 0.6 - 0.9 cm LV Relative Wall Thickness 0.7 RV Internal Dim ED PLAX 1.7 cm LA Volume 29.3 cm??? 18 - 58 / 22 - 52 cm??? LA Volume Index 16.6 cm???/m??? 16 - 28 cm???/m??? M-MODE Aortic Root Diameter MM 2.5 cm LA Systolic Diameter MM 3.6 cm LA Ao Ratio MM 1.5 AV Cusp Separation MM 2.1 cm DOPPLER AV Peak Velocity 141.5 cm/s AV Peak Gradient 8.0 mmHg AV Mean Velocity 99.5 cm/s AV Mean Gradient 4.4 mmHg AV Velocity Time Integral 26.3 cm LVOT Peak Velocity 205.3 cm/s LVOT Peak Gradient 16.9 mmHg LVOT Velocity Time Integral 28.0 cm MV Area PHT 3.7 cm??? Mitral E Point Velocity 85.4 cm/s Mitral A Point Velocity 114.8 cm/s Mitral E to A Ratio 0.7 MV Deceleration Time 205.9 ms MV E' Velocity 6.4 cm/s Mitral E to MV E' Ratio 13.3 FINDINGS Left Ventricle Mildly increased left ventricular wall thickness. Left ventricular cavity size normal. Normal left ventricular systolic function with no obvious regional wall motion abnormalities. Left ventricular ejection fraction is estimated at 55-60 %. Grade 1 diastolic dysfunction. Right Ventricle Normal right ventricular size and function. Right ventricular systolic pressure within normal limits. Right Atrium Left Atrium Normal left atrial size. Mitral Valve Structurally normal mitral valve. Mitral valve thickened. Mild mitral annular calcification. Mild mitral regurgitation. Aortic Valve No aortic valve stenosis or regurgitation. Tricuspid Valve Structurally normal tricuspid valve. Mild tricuspid regurgitation. Pulmonic Valve Pulmonic valve not well visualized. Pericardium No pericardial effusion. Aorta Normal size aortic root and proximal ascending aorta. CONCLUSIONS Diagnosis Weakness shortness of breath 2D echo shows preserved LV systolic function Normal RV size and function Previewed by: Dr. Lorenzo Amaro MD (Electronically Signed) Final Date: 07 March 2024 18:59
--- NOTE | 2024-03-08 05:50 | P.PN ---
Subjective Progress Note Date: 03/07/24 This is a very pleasant 78-year-old female who was recently admitted with generalized weakness, increasing shortness of breath, near syncope with fatigue. Patient follows with Dr. Minerva Jaeger in the outpatient setting as well as Dr. Tee for non-small cell lung carcinoma. Patient is currently undergoing chemotherapy and had a treatment last week. Patient started having worsening shortness of breath and increased fatigue and generalized weakness and came here for further evaluation. Patient being followed by pulmonary, infectious disease, and oncology. Patient is maintained on empiric antibiotics and was found to be neutropenic on admission. Patient reports she had recently been treated for bladder infection and culture showing normal adela. Thus far blood cultures are negative and will continue current regimen with infectious disease recommendations. Patient is afebrile reports to feeling somewhat better and is maintained on gentle hydration. Patient did have a scratch on her right cheek bone but she is unsure of how it happened although woke up and noticed it. No drainage noted although there is some mild redness and swelling noted. Continue to monitor closely. 03/06/2024 Patient is seen and evaluated in follow-up this morning currently sitting up in the chair reports has been getting up and working with physical therapy. Plan is to return home with spouse and would recommend PT/OT therapy daily for continued strength and mobility. Encouraged the patient to get up and walk through the halls if possible. Patient continues on 2 L nasal cannula with pulmonary following continuing current regimen. Infectious disease following and continued IV antibiotics and will transition to oral antibiotics on discharge. Cultures have been negative. Continue monitoring right cheek and infectious disease recommending no further appointments and letting the area dry out. Patient is afebrile denies worsening shortness of breath. Patient reports to feeling slightly improved and was able to sleep some last night. Will follow-up with repeat labs and monitor closely. Oncology following as well 03/07/2024 Patient seen and evaluated in follow-up today reporting to feeling slightly improved although had some elevated heart rates and will obtain 2D echo along with EKG. Multifactorial possibly secondary to breathing treatments and exertion as patient continues to be dyspneic with minimal exertion. Recommend PT/OT therapy daily and increased activity with walking at least 3 times per day up and out of the room. Patient is continued on antibiotics with infectious disease following and oncology following as well arranging for outpatient follow-up. Will discuss discharge planning in the next 24 to 48 hours . Review of systems: Constitutional: reports of fatigue, no fever, or chills Cardiovascular: No reports of chest pain or palpitations Respiratory: No reports of worsening shortness of breath, reports occasional cough GI: reports of occasional nausea, no reports of vomiting, no diarrhea : No reports of dysuria or retention Neurovascular: reports of generalized weakness All medications have been reviewed Active Medications Acetaminophen (Acetaminophen Tab 325 Mg Tab) 650 mg PO Q6HR PRN PRN Reason: Fever and/ or Pain Last Admin: 03/03/24 12:54 Dose: 650 mg Hydrocodone Bitart/Acetaminophen (Hydrocodone/Apap 5-325mg 1 Each Tab) 1 each PO Q6H PRN PRN Reason: Pain Last Admin: 03/05/24 11:37 Dose: 1 each Albuterol Sulfate (Albuterol Nebulized 2.5 Mg/3 Ml) 2.5 mg INHALATION RT-Q4H PRN PRN Reason: Shortness Of Breath Albuterol/Ipratropium (Ipratropium-Albuterol 3 Ml Neb) 3 ml INHALATION RT-QID [facility] Last Admin: 03/07/24 20:13 Dose: Not Given Albuterol/Ipratropium (Ipratropium-Albuterol 3 Ml Neb) 3 ml INHALATION RT-Q2H PRN PRN Reason: Shortness Of Breath Or Wheezing Alprazolam (Alprazolam 1 Mg Tab) 1 mg PO TID PRN PRN Reason: Anxiety Last Admin: 03/07/24 14:19 Dose: 1 mg Benzocaine/Menthol (Benzocaine/Menthol Lozeng 1 Each Lozenge) 1 each MUCOUS MEM Q4HR PRN PRN Reason: Sore Throat Last Admin: 03/05/24 17:58 Dose: 1 each Benzonatate (Benzonatate 100 Mg Cap) 100 mg PO TID [facility] Last Admin: 03/07/24 23:01 Dose: Not Given Budesonide/Formoterol Fumarate (Symbicort 160-4.5 Mcg Inhaler) 1 puff INHALATION RT-DAILY [facility] Last Admin: 03/07/24 07:34 Dose: 1 puff Buspirone HCl (Buspirone Hcl 5 Mg Tab) 5 mg PO BID PRN PRN Reason: Anxiety Calcium Carbonate/Glycine (Calcium Carbonate 500 Mg Chewable) 500 mg PO TID PRN PRN Reason: Heartburn Last Admin: 03/03/24 20:33 Dose: 500 mg Cyclobenzaprine HCl (Cyclobenzaprine 10 Mg Tab) 10 mg PO TID PRN PRN Reason: Muscle Pain Diphenhydramine HCl (Diphenhydramine 50 Mg/Ml 1 Ml Vial) 15 mg IVP Q8HR PRN PRN Reason: Allergy Symptoms Last Admin: 03/04/24 14:13 Dose: 15 mg Folic Acid (Folic Acid 1 Mg Tab) 1 mg PO DAILY@1200 [facility] Last Admin: 03/07/24 12:45 Dose: 1 mg Guaifenesin/Codeine Phosphate (Guaifenesin-Coden 100-10mg/5ml 10 Ml Cup) 10 ml PO Q4H PRN PRN Reason: Cough Last Admin: 03/07/24 14:19 Dose: 10 ml Cefepime HCl 2 gm/ Sodium (Chloride) 100 mls @ 25 mls/hr IVPB Q8H [facility]; Protocol Last Admin: 03/08/24 02:12 Dose: 25 mls/hr Loratadine (Loratadine 10 Mg Tab) 10 mg PO HS [facility] Last Admin: 03/07/24 20:47 Dose: 10 mg Magnesium Oxide (Magnesium Oxide 400 Mg Tab) 400 mg PO DAILY [facility] Last Admin: 03/07/24 08:49 Dose: 400 mg Melatonin (Melatonin 5 Mg Tablet) 10 mg PO HS PRN PRN Reason: Insomnia Last Admin: 03/02/24 22:34 Dose: 10 mg Mirtazapine (Mirtazapine 15 Mg Tab) 15 mg PO HS [facility] Last Admin: 03/07/24 20:47 Dose: 15 mg Multivitamins (Multivitamins, Thera 1 Each Tab) 1 each PO DAILY [facility] Last Admin: 03/07/24 08:49 Dose: 1 each Naloxone HCl (Naloxone 0.4 Mg/Ml 1 Ml Vial) 0.2 mg IV Q2M PRN PRN Reason: Opioid Reversal Ondansetron HCl (Ondansetron 4 Mg Tab) 4 mg PO Q4H PRN PRN Reason: Nausea Last Admin: 03/03/24 20:17 Dose: 4 mg Pantoprazole Sodium (Pantoprazole 40 Mg/10 Ml Vial) 40 mg IV BID [facility] Last Admin: 03/07/24 20:47 Dose: 40 mg Senna (Sennosides 8.6 Mg Tab) 8.6 mg PO BID PRN PRN Reason: Constipation Last Admin: 03/04/24 14:18 Dose: 8.6 mg Sodium Bicarbonate (Salt And Soda Mouthwash 1,000 Ml) 5 ml PO 5XD [facility] Last Admin: 03/08/24 00:08 Dose: Not Given Sodium Chloride (Sodium Chloride Tab 1 Gm Tab) 1 gm PO BID [facility] Last Admin: 03/07/24 20:47 Dose: 1 gm Temazepam (Temazepam 15 Mg Cap) 15 mg PO HS [facility] Last Admin: 03/07/24 20:47 Dose: 15 mg Thiamine HCl (Thiamine 100 Mg Tab) 100 mg PO DAILY@1200 [facility] Last Admin: 03/07/24 12:45 Dose: 100 mg PHYSICAL EXAMINATION: GENERAL: The patient is alert and oriented x4, Well developed, well nourished. Elderly appearing, ill-appearing HEENT: Pupils are round and equally reacting to light. EOMI. no scleral icterus. No conjunctival pallor. Normocephalic, atraumatic. No pharyngeal erythema. No thyromegaly. CARDIOVASCULAR: S1 and S2 muffled PULMONARY: diminished breath sounds bilaterally with no wheezing or rhonchi noted. ABDOMEN: soft. Nontender on exam. non-distended, normoactive bowel sounds. No palpable organomegaly. MUSCULOSKELETAL: No joint swelling or deformity. EXTREMITIES: No cyanosis, clubbing, or pedal edema. NEUROLOGICAL: Gross neurological examination did not reveal any focal deficits. Diffuse weakness SKIN: No rashes. Assessment: Severe neutropenia and possible neutropenic sepsis, present on admission Shortness of breath, ruled out pulmonary embolism Acute on chronic hypoxic respiratory failure secondary to non-small cell lung ca rcinoma History of non-small cell lung carcinoma, currently following with Dr. Tee undergoing chemotherapy Grade 1 diastolic dysfunction heart failure with preserved EF as noted on echo. History of hyponatremia Right facial cellulitis, ruled out abscess Generalized weakness with gait dysfunction GI prophylaxis DVT prophylaxis Full code Plan: Recommend to continue with current medications and management with multiple consultations following. Oncology, infectious disease, pulmonary following Wean FiO2 as tolerated. Patient does wear 2 to 3 L outpatient. incentive spirometer encouraged to use at least 10 times every hour while awake Continue antibiotics with infectious disease following. Cultures thus far negative. Monitor right cheekbone for any worsening cellulitis or drainage. Repeat labs ordered for a.m. Replace electrolytes per protocol monitor white count, CBC, platelets Encouraged increase activity as tolerated and encouraged oral intake. Recommend PT/OT therapy daily Recommend sitting out of the bed more often into the chair. Encouraged the patient to walk the halls as much as possible Oncology following and patient will follow-up with Dr. Tee in the outpatient setting to discuss next treatment therapy and possibly reduction of therapy. Patient had some increased heart rates with sinus tachycardia noted on EKG, will obtain 2D echo Will discuss with other consultations regarding discharge planning, possibly in the next 24 to 48 hours Due to multiple complex medical issues, overall prognosis is guarded The impression and plan of care has been dictated by Carmencita Grant, nurse practitioner as directed. Dr. Jalil MD I have performed a history and examination and MDM of this patient, discussed the same with the dictator, and agree with the dictator's assessment and plan as written ,documented as a scribe. Based on total visit time, I have performed more than 50% of the visit. Any additional findings or plans will be noted. Objective - Vital Signs Vital signs: Vital Signs Temp 98.2 F 03/06/24 19:29 Pulse 104 H 03/06/24 20:39 Resp 16 03/06/24 19:29 BP 115/68 03/06/24 19:29 Pulse Ox 98 03/06/24 19:29 FiO2 Intake & Output 03/06/24 03/06/24 03/07/24 06:59 18:59 06:59 Other: Voiding Method Bedside Commode Bedside Commode # Voids 3 2 3 - Labs CBC & Chem 7: 03/07/24 07:46 03/07/24 07:46 Labs: Abnormal Lab Results - Last 24 Hours (Table) 03/06/24 03/06/24 Range/Units 07:30 07:30 RBC 2.49 L (4.10-5.20) X 10*6/uL Hgb 7.7 L (12.0-15.0) g/dL Hct 23.1 L (37.2-46.3) % RDW 15.3 H (11.5-14.5) % Plt Count 21 L (140-440) X 10*3/uL MPV 13.1 H (9.5-12.2) FL Eosinophils # (Manual) 0 L (0.04-0.35) X 10*3/uL NRBC/100 WBC Diff 0.04 H (0.00-0.01) X 10*3/uL Immature Plt Fraction 8.4 H (1.1-6.1) % BUN 7.0 L (9.0-27.0) mg/dL BUN/Creatinine Ratio 11.67 L (12.00-20.00) Ratio Calcium 8.2 L (8.7-10.3) mg/dL Total Bilirubin 0.2 L (0.3-1.2) mg/dL Total Protein 4.8 L (6.2-8.2) g/dL Albumin 3.2 L (3.8-4.9) g/dL
--- NOTE | 2024-03-08 08:07 | P.PN ---
Subjective Progress Note Date: 03/07/24 Principal diagnosis: Reason for follow-up is pneumonia Patient is a 78-year-old female with a past medical history significant for recent diagnosis of lung cancer while the patient has received 2 cycles of chemotherapy presenting to the hospital for evaluation of weakness palpitations increasing shortness of breath did have a CT angiogram of the chest concerning for right upper lobe infiltrate suspicious for pneumonia. On today's evaluation that is 03/07/2024, Patient is afebrile patient is currently on 3 L current oxygen and denies having any shortness of breath, the patient denies any chest pain and cough is decreased intensity however has been complaining of significant tachycardia/palpitation with minimal exertion, the patient denies any nausea vomiting did not have any abdominal pain and no diarrhea. Patient white count is 10.26 creatinine 0.6 Objective - Vital Signs Vital signs: Vital Signs Temp 98.1 F 03/07/24 12:04 Pulse 100 03/07/24 15:17 Resp 16 03/07/24 12:04 BP 111/67 03/07/24 12:04 Pulse Ox 98 03/07/24 12:04 FiO2 Intake & Output 03/06/24 03/07/24 03/07/24 18:59 06:59 18:59 Other: Voiding Method Bedside Commode # Voids 2 3 - Exam GENERAL DESCRIPTION: An elderly female lying in bed in no distress RESPIRATORY SYSTEM: Unlabored breathing , decreased breath sounds at bases HEART: S1 S2 regular rate and rhythm , ABDOMEN: Soft , no tenderness EXTREMITIES: No edema feet - Labs CBC & Chem 7: 03/07/24 07:46 03/07/24 07:46 Labs: Abnormal Lab Results - Last 24 Hours (Table) 03/07/24 03/07/24 Range/Units 07:46 07:46 WBC 10.26 H (4.50-10.00) X 10*3/uL RBC 2.52 L (4.10-5.20) X 10*6/uL Hgb 7.8 L (12.0-15.0) g/dL Hct 23.4 L (37.2-46.3) % RDW 15.6 H (11.5-14.5) % Plt Count 35 L (140-440) X 10*3/uL MPV 13.0 H (9.5-12.2) FL NRBC/100 WBC Diff 0.04 H (0.00-0.01) X 10*3/uL Immature Plt Fraction 9.6 H (1.1-6.1) % BUN 8.7 L (9.0-27.0) mg/dL Total Protein 4.9 L (6.2-8.2) g/dL Albumin 3.2 L (3.8-4.9) g/dL Assessment and Plan (1) Pneumonia Current Visit: Yes Status: Acute Code(s): J18.9 - PNEUMONIA, UNSPECIFIED ORGANISM SNOMED Code(s): 275139121 (2) Leukopenia Current Visit: Yes Status: Acute Code(s): D72.819 - DECREASED WHITE BLOOD CELL COUNT, UNSPECIFIED SNOMED Code(s): 32035081 Plan: 1patient presenting to the hospital with increasing shortness of breath which is likely multifactorial in this patient who did have history of lung cancer on chemotherapy patient did have a cough but not bring up any sputum CT angiogram was negative for PE did shows evidence of patchy infiltrate seen right upper lobe concerning for possible pneumonitis in this patient with leukopenia on chemo will need to cover for the gram-negative pathogens 2- patient did have mild elevated procalcitonin, sputum not collected blood culture so far pending 3-patient to continue with cefepime 2 g every 8-hour, will switch to oral Lovenox on discharge discussed with the admitting team however significant tachycardia on minimal exertion echocardiogram has been ordered Dictation was produced using [email or web address] dictation software. please excuse any grammatical, word or spelling errors. Time with Patient: Less than 30
[2024-03-08 10:53] LABS: BUN/Creat Ratio 11.67 Ratio (12.00-20.00); Calcium 8.2 mg/dL (8.7-10.3); Carbon Dioxide 24.6 mmol/L (21.6-31.8); Chloride 107 mmol/L (96-109); Glucose 96 mg/dL (70-110); Potassium 3.5 mmol/L (3.5-5.5); Sodium 140 mmol/L (135-145)
--- NOTE | 2024-03-08 11:30 | P.PN ---
Subjective Progress Note Date: 03/08/24 Patient is a 78-year-old white female with past medical history significant for COPD, former tobacco dependence, and recent diagnosis of small cell lung cancer. Her PCP is Dr. Shanta Jaeger. She does follow in the pulmonary office with Dr. Molina. She was diagnosed small cell lung cancer via bronchoscopy and endobronchial ultrasound performed on December,rst. Patient had a right perihilar mass. Follow-up PET scan note, on 01/17/2024 demonstrating a right perihilar mass measuring at least 8.7 x 5.9 cm. There was suspected metastatic disease to the the right pleura, throughout the descending and left neck lymph nodes, left rib 9 had abnormal uptake. Brain MRI unremarkable for enhancing lesions. That the patient had recent hospitalization late January, primarily for shortness of breath/cough/right-sided pleural effusion. On February 06, she did have a right- sided thoracentesis and a total of 650 mL of turbid colored fluid was drained. Fluid was an exudate. No cytologic malignant cells were recovered. Patient is currently receiving a combination of carboplatin/etoposide/Tecentriq. She just finished her second cycle approximately 1.5 weeks ago. Her oncologist is Dr. Tee. Over the last several days, patient has been reporting increasing worsening generalized weakness and fatigue. She was evaluated in the emergency department on 02/26/2024, and was ultimately discharged home from the ED that same day. Patient returns to the emergency department 02/26/2024, while at home she had an acute episode coughing; associated with shortness of breath, lightheadedness, and near syncope. Initial workup included a chest CTA which did not show any evidence of pulmonary embolism. There is overall improvement in previously noted right hilar/mediastinal soft tissue mass. Decreased size and right-sided pleural effusion. Few patchy reticular opacities in the right upper lobe, likely representing pneumonitis. On my evaluation, patient is sitting up in bed on 2 L/min nasal cannula. She has been chronically oxygen dependent lately. She does report being more short of breath than baseline. She does have a persistent cough. No significant sputum production. Denies hemoptysis. Denies chest pain. No fevers. No sick contacts. No nausea or vomiting, diarrhea, or abdominal pain. Appetite is fair. Denies any urinary complaints such as increased urinary frequency, dysuria or burning, hematuria. She does have a right facial secondary wound. She attributes this to scratching her face at night. No significant drainage. Possible cellulitis. Most recent CBC: WBC count 1.6, hemoglobin 8.7, hematocrit 26.1, platelets 107. She is neutropenic. Most recent CMP: Sodium 134, potassium 3.7, chloride 107, serum bicarb 25, BUN 5, creatinine 0.46, glucose 93. LFTs unremarkable. Troponin less than 0.012. She is tachycardic. EKG done on arrival demonstrating sinus tachycardia, no acute ischemic changes. Afebrile. Patient is currently being covered with cefepime per infectious disease specialist. Nontoxic appearance. Vital signs overall stable. The patient is seen today March 04, 2024 in follow-up on the regular medical floor. She is currently sitting up in bed. Awake and alert in no acute distress. Feeling better today compared to yesterday. She is maintaining O2 saturations in the 90s on 2 L/min per nasal cannula. She has normal staying at 50 MLS per hour. She is treated with cefepime. Procalcitonin was 0.18. Lung sounds are clear. Blood cultures are pending. White count 3.9. Hemoglobin 8.4. Platelets 43,000. Sodium 133. Potassium 3.7. Bicarb 27. BUN 6. Creatinine 0.51. Glucose 93. She is continued on DuoNeb inhalations, Symbicort, Robitussin. The patient is seen today March 05, 2024 in follow-up on the regular medical floor. She is resting comfortably in bed. Awake and alert in no acute distress. She is maintaining O2 saturations in the 90s on 2 L/min per nasal cannula. Blood culture reveals no growth. White count 6.6. Hemoglobin 7.7. Platelets 22,000. Sodium 139. Potassium 3.4. Bicarb 24. BUN 11. Creatinine 5.1. Glucose 105. She remains on DuoNeb ventilations, Symbicort, antibiotics in the form of cefepime. The patient is seen today March 06, 2024 in follow-up on the regular medical floor. She is currently awake and alert in no acute distress. Breathing easier today compared to yesterday. She is sleeping better. Follow-up chest x-ray revealed no acute pulmonary process. Blood culture revealed no growth. White count 9.1. Hemoglobin 7.7. Platelets 21,000. Sodium 139. Potassium 3.6. Bicarb 25. BUN 7. Creatinine 0.6. Glucose 100. She remains on DuoNeb inhalations, Symbicort. Antibiotics in the form of cefepime. The patient is seen today March 07, 2024 in follow-up on the regular medical floor. She is sitting up in bed. Awake and alert in no acute distress. Maintaining O2 saturations in the 90s on 2 L/min per nasal cannula. O2 saturations in the high 90s. Blood cultures revealed no growth. She remains on DuoNeb inhalations, Symbicort. Antibiotics in the form of cefepime. She is continued on Tessalon Perles and Robitussin for her cough. No new labs today. The patient is seen today March 08, 2024 in follow-up on the regular medical floor. She is resting comfortably in bed. Awake and alert in no acute distress. Feeling a bit stronger today compared to yesterday. She denies any worsening shortness of breath, cough or congestion. She is maintaining good O2 saturations in the high 90s on 3 L/min per nasal cannula. She has been afebrile. Hemodynamically stable. No orthostatic hypotension. Her main complaint today is of fatigue. She is continued on DuoNeb inhalations, Symbi rubin, Tessalon Perles and Robitussin as needed. She remains on antibiotics in the form of cefepime. Blood cultures revealed no growth. Sodium 140. Potassium 3.5. Bicarb 25. BUN 7. Creatinine 0.6. Glucose 96. Objective - Vital Signs Vital signs: Vital Signs Temp 98.8 F 03/08/24 07:25 Pulse 94 03/08/24 08:18 Resp 20 03/08/24 07:25 BP 117/69 03/08/24 07:25 Pulse Ox 97 03/08/24 08:02 FiO2 Intake & Output 03/07/24 03/08/24 03/08/24 18:59 06:59 18:59 Intake Total 200 240 Balance 200 240 Intake: Intake, IV Titration 200 Amount Cefepime 2 gm In Sodium 200 Chloride 0.9% 100 ml @ 25 mls/hr IVPB Q8H REPLACED BY [facility] Rx#: [id number] Oral 240 Other: Voiding Method Bedside Commode Bedside Commode # Voids 1 2 - Exam GENERAL EXAM: Alert, pleasant 78-year-old female, resting in bed, on 3 L nasal cannula, in no apparent distress. HEAD: Normocephalic. Does have an abrasion on her right cheek EYES: Normal reaction of pupils, equal size. NOSE: Clear with pink turbinates. THROAT: No erythema or exudates. NECK: No masses, no JVD. CHEST: No chest wall deformity. Left chest Mediport in place. LUNGS: Equal air entry with no crackles, wheeze, rhonchi or dullness. CVS: S1 and S2 normal with no audible murmur, regular rhythm. ABDOMEN: No hepatosplenomegaly, normal bowel sounds, no guarding or rigidity. SPINE: No scoliosis or deformity SKIN: No rashes CENTRAL NERVOUS SYSTEM: No focal deficits, tone is normal in all 4 extremities. EXTREMITIES: There is no peripheral edema. No clubbing, no cyanosis. Peripheral pulses are intact. - Labs CBC & Chem 7: 03/07/24 07:46 03/08/24 06:11 Labs: Abnormal Lab Results - Last 24 Hours (Table) 03/07/24 03/07/24 03/08/24 Range/Units 07:46 07:46 06:11 WBC 10.26 H (4.50-10.00) X 10*3/uL RBC 2.52 L (4.10-5.20) X 10*6/uL Hgb 7.8 L (12.0-15.0) g/dL Hct 23.4 L (37.2-46.3) % RDW 15.6 H (11.5-14.5) % Plt Count 35 L (140-440) X 10*3/uL MPV 13.0 H (9.5-12.2) FL NRBC/100 WBC Diff 0.04 H (0.00-0.01) X 10*3/uL Immature Plt Fraction 9.6 H (1.1-6.1) % BUN 8.7 L 7.0 L (9.0-27.0) mg/dL BUN/Creatinine Ratio 11.67 L (12.00-20.00) Ratio Calcium 8.2 L (8.7-10.3) mg/dL Total Protein 4.9 L (6.2-8.2) g/dL Albumin 3.2 L (3.8-4.9) g/dL Microbiology - Last 24 Hours (Table) 03/02/24 15:08 Blood Culture - Final Blood Assessment and Plan Assessment: Acute on chronic hypoxic respiratory failure, follow-up chest CTA does not show any evidence of pulmonary embolism. There is overall improvement of the right hilar/mediastinal soft tissue mass, decreasing now small right pleural effusion. Continued masslike opacities within right upper lobe. Few patchy reticular opacities within the right upper lobe likely representing pneumonitis. Procalcitonin 0.18. Remains on cefepime. Follow-up chest x-ray reveals no a cute pulmonary process Near syncopal event. No orthostatic hypotension. Clifford reveals preserved left ventricular systolic function. No significant valvular abnormalities. Pancytopenia, secondary to chemo Small cell lung cancer, currently receiving a combination of carboplatin, etoposide, and Tecentriq. Has received a total of 2 cycles so far, last reported treatment on 02/23/2024 Chronic obstructive pulmonary disease, stable on home oxygen at 2 to 3 L Right pleural effusion, status/post thoracentesis on 02/07/2024, total of 650 mL of exudative fluid was removed. No cytologic malignant cells recovered. 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 Number of minutes spent on the visit: 25.
[2024-03-08 11:39] LABS: Basophils # (M) 0 X 10*3/uL (0.00-0.10); Eosinophils # (M) 0 X 10*3/uL (0.04-0.35); HGB 7.7 g/dL (12.0-15.0); Immature Platelet Fraction 10.3 % (1.1-6.1); Lymphocytes # (M) 1.21 X 10*3/uL (0.90-5.00); MCHC 33.5 g/dL (32.0-37.0); MCV 92.7 FL (80.0-97.0); Mean Platelet Volume 12.6 FL (9.5-12.2); Metamyelocytes % 4 % (0-0); Myelocytes % 3 % (0-0); NRBC Per 100 WBC 0.02 X 10*3/uL (0.00-0.01); Neutrophils # (M) 8.06 X 10*3/uL (1.80-7.70); Neutrophils % (M) 80 %; Platelet Count 59 X 10*3/uL (140-440); RBC 2.48 X 10*6/uL (4.10-5.20); RBC Morphology Normal (Normal); RDW 15.9 % (11.5-14.5); WBC 10.07 X 10*3/uL (4.50-10.00)
[2024-03-08 12:43] VITALS: BMI 25.7
[2024-03-08] MEDS ORDERED: Potassium Replacement Protocol 1 EACH MISC MISCELLANE PRN (13:00)
[2024-03-08] MEDS: POTASSIUM CHLORIDE ER 20 MEQ TAB.ER PO SCH (13:24)
--- NOTE | 2024-03-08 17:21 | CT ---
EXAMINATION TYPE: CT angio chest DATE OF EXAM: 03/08/2024 COMPARISON: 03/02/2024 HISTORY: 78-year-old female Elevated D-dimer, SOB. Tachycardia. TECHNIQUE: Contiguous axial scanning of the chest after the administration of 70 ml mL of Isovue 370. Coronal/sagittal MIP reconstructions performed. CT DLP: 495mGycm. Automatic exposure control utilized for a dose reduction. FINDINGS: Heart upper limits of normal in size with trace basilar pericardial effusion. No reflux of contrast i nto the hepatic veins. Aorta normal caliber with conventional arch vessel branching anatomy. Satisfactory opacification of the pulmonary arterial system without evidence for pulmonary embolus. Right hilar soft tissue encasement continues to show some interval improvement. Precarinal soft tissu e measures 1.3 cm thick versus 1.6 cm, previously. Subcarinal soft tissue 1.67 m thick versus 1.9 cm, previously. Right hilar soft tissue 1.8 cm versus 2.3 cm, previously. Posterior right upper lobe masslike opacity 2.0 cm versus 2.6 cm, previously. Bandlike scarring/atelectasis at the right middle lobe is unchanged. Patchy opacity and reticular change at the right apex is unchanged and could reflect ongoing pneumoni tis. Background moderate emphysema. A small right pleural effusion is unchanged. Prominent dependent atele ctasis on the left. Trace left pleural effusion now present. Some patchy left lower lobe opacity has increased. Left anterior chest wall injection port with catheter tip at the brachiocephalic vein confluence. Small hiatal hernia. Visualized upper abdomen shows no gross abnormality. Bones: Superior endplate deformities of T11 and L1 are unchanged compared to 02/05/2024. IMPRESSION: 1. No evidence for pulmonary embolus. 2. COPD with moderate emphysema. Paratracheal and right hilar soft tissue encasement continues to kim w slight improvement with some measurements as above. The masslike opacity posterior right upper lobe is also smaller at 2.0 cm versus 2.6 cm, previously. 3. Patchy reticular opacity at the right apex is unchanged and could reflect ongoing pneumonitis. A s mall right pleural effusion is also similar. 4. Trace left pleural effusion is new. Patchy left basilar opacity has increased and could represent atelectasis or developing infiltrate.
[2024-03-08 19:40] LABS: Potassium 3.8 mmol/L (3.5-5.1)
[2024-03-08 19:45] LABS: Reticulocyte % 1.6 % (0.5-2.0)
[2024-03-09] MEDS: POTASSIUM BICARBONATE/CIT AC 20 MEQ TABLET.EFF NG-TUBE SCH (01:06)
[2024-03-09 03:10] LABS: % Iron Saturation 42.86 (12.00-45.00); Iron 60 UG/DL (50-170); Total Iron Binding Capacity 140 UG/DL (228-460)
[2024-03-09 03:45] LABS: Vitamin B12 >3600.0 pg/mL (200.0-944.0)
--- NOTE | 2024-03-09 05:32 | P.PN ---
Subjective Progress Note Date: 03/08/24 This is a very pleasant 78-year-old female who was recently admitted with generalized weakness, increasing shortness of breath, near syncope with fatigue. Patient follows with Dr. Minerva Jaeger in the outpatient setting as well as Dr. Tee for non-small cell lung carcinoma. Patient is currently undergoing chemotherapy and had a treatment last week. Patient started having worsening shortness of breath and increased fatigue and generalized weakness and came here for further evaluation. Patient being followed by pulmonary, infectious disease, and oncology. Patient is maintained on empiric antibiotics and was found to be neutropenic on admission. Patient reports she had recently been treated for bladder infection and culture showing normal adela. Thus far blood cultures are negative and will continue current regimen with infectious disease recommendations. Patient is afebrile reports to feeling somewhat better and is maintained on gentle hydration. Patient did have a scratch on her right cheek bone but she is unsure of how it happened although woke up and noticed it. No drainage noted although there is some mild redness and swelling noted. Continue to monitor closely. 03/06/2024 Patient is seen and evaluated in follow-up this morning currently sitting up in the chair reports has been getting up and working with physical therapy. Plan is to return home with spouse and would recommend PT/OT therapy daily for continued strength and mobility. Encouraged the patient to get up and walk through the halls if possible. Patient continues on 2 L nasal cannula with pulmonary following continuing current regimen. Infectious disease following and continued IV antibiotics and will transition to oral antibiotics on discharge. Cultures have been negative. Continue monitoring right cheek and infectious disease recommending no further appointments and letting the area dry out. Patient is afebrile denies worsening shortness of breath. Patient reports to feeling slightly improved and was able to sleep some last night. Will follow-up with repeat labs and monitor closely. Oncology following as well 03/07/2024 Patient seen and evaluated in follow-up today reporting to feeling slightly improved although had some elevated heart rates and will obtain 2D echo along with EKG. Multifactorial possibly secondary to breathing treatments and exertion as patient continues to be dyspneic with minimal exertion. Recommend PT/OT therapy daily and increased activity with walking at least 3 times per day up and out of the room. Patient is continued on antibiotics with infectious disease following and oncology following as well arranging for outpatient follow-up. Will discuss discharge planning in the next 24 to 48 hours 03/08/2024 Patient is seen in follow-up this morning appears extremely lethargic although reports she slept very well last night. Patient continues on 2 L via nasal cannula continues with shortness of breath with minimal exertion. Patient did have an elevated D-dimer and repeat CTA was done showing no PE some small pleural effusion with concerns of pneumonitis and/or atelectasis. Encouraged incentive spirometer use at least 10 times every hour while awake and continuing to get up and walk more frequently. Patient has had prolonged hospitalization and will have PT/OT therapy reevaluate. Patient does not want to go to rehab and is adamant about going home. Will discuss if patient needs physical therapy in the outpatient setting. Patient is continued on antibiotics with infectious disease following. . Review of systems: Constitutional: reports of fatigue, no fever, or chills Cardiovascular: No reports of chest pain or palpitations Respiratory: No reports of worsening shortness of breath, reports occasional cough GI: reports of occasional nausea, no reports of vomiting, no diarrhea : No reports of dysuria or retention Neurovascular: reports of generalized weakness All medications have been reviewed PHYSICAL EXAMINATION: GENERAL: The patient is alert and oriented x4, Well developed, well nourished. Elderly appearing, ill-appearing, appears fatigued today HEENT: Pupils are round and equally reacting to light. EOMI. no scleral icterus. No conjunctival pallor. Normocephalic, atraumatic. No pharyngeal erythema. No thyromegaly. CARDIOVASCULAR: S1 and S2 muffled PULMONARY: diminished breath sounds bilaterally with no wheezing or rhonchi noted. ABDOMEN: soft. Nontender on exam. non-distended, normoactive bowel sounds. No palpable organomegaly. MUSCULOSKELETAL: No joint swelling or deformity. EXTREMITIES: No cyanosis, clubbing, or pedal edema. NEUROLOGICAL: Gross neurological examination did not reveal any focal deficits. Diffuse weakness SKIN: No rashes. Assessment: Severe neutropenia and possible neutropenic sepsis, present on admission Shortness of breath, ruled out pulmonary embolism Acute on chronic hypoxic respiratory failure secondary to non-small cell lung carcinoma History of non-small cell lung carcinoma, currently following with Dr. Tee undergoing chemotherapy Grade 1 diastolic dysfunction heart failure with preserved EF as noted on echo. History of hyponatremia Right facial cellulitis, ruled out abscess Generalized weakness with gait dysfunction GI prophylaxis DVT prophylaxis Full code Plan: Recommend to continue with current medications and management with multiple co nsultations following. Oncology, infectious disease, pulmonary following Wean FiO2 as tolerated. Patient does wear 2 to 3 L outpatient. incentive spirometer encouraged to use at least 10 times every hour while awake Continue antibiotics with infectious disease following. Cultures thus far negative. Monitor right cheekbone for any worsening cellulitis or drainage. Repeat labs ordered for a.m. Replace electrolytes per protocol monitor white count, CBC, platelets. Hemoglobin is 7.7 and will transfuse 1 unit of PRBC Encouraged increase activity as tolerated and encouraged oral intake. Recommend PT/OT therapy daily Recommend sitting out of the bed more often into the chair. Encouraged the patient to walk the halls as much as possible Oncology following and patient will follow-up with Dr. Tee in the outpatient setting to discuss next treatment therapy and possibly reduction of therapy. Patient had some increased heart rates with sinus tachycardia noted on EKG, 2D echo shows grade 1 diastolic dysfunction with preserved EF Due to multiple complex medical issues, overall prognosis is guarded The impression and plan of care has been dictated by Carmencita Grant, nurse practitioner as directed. Dr. Jalil MD I have performed a history and examination and MDM of this patient, discussed the same with the dictator, and agree with the dictator's assessment and plan as written ,documented as a scribe. Based on total visit time, I have performed more than 50% of the visit. Any additional findings or plans will be noted. Objective - Vital Signs Vital signs: Vital Signs Temp 98.4 F 03/09/24 04:52 Pulse 91 03/09/24 01:08 Resp 15 03/09/24 01:08 BP 124/68 03/09/24 01:08 Pulse Ox 97 03/09/24 01:08 FiO2 Intake & Output 03/08/24 03/08/24 03/09/24 06:59 18:59 06:59 Intake Total 240 310 Balance 240 310 Weight 68.039 kg Intake: Oral 240 Blood Product 310 Rc Irr As1 Unit 310 [id number] Other: Voiding Method Bedside Commode Bedside Commode Bedside Commode # Voids 1 - Labs CBC & Chem 7: 03/08/24 06:11 03/08/24 18:32 Labs: Abnormal Lab Results - Last 24 Hours (Table) 03/08/24 03/08/24 03/08/24 Range/Units 06:11 06:11 10:52 WBC 10.07 H (4.50-10.00) X 10*3/uL RBC 2.48 L (4.10-5.20) X 10*6/uL Hgb 7.7 L (12.0-15.0) g/dL Hct 23.0 L (37.2-46.3) % RDW 15.9 H (11.5-14.5) % Plt Count 59 L (140-440) X 10*3/uL MPV 12.6 H (9.5-12.2) FL Neutrophils # (Manual) 8.06 H (1.80-7.70) X 10*3/uL Monocytes # (Manual) 0.10 L (0.20-1.00) X 10*3/uL Eosinophils # (Manual) 0 L (0.04-0.35) X 10*3/uL NRBC/100 WBC Diff 0.02 H (0.00-0.01) X 10*3/uL Immature Plt Fraction 10.3 H (1.1-6.1) % D-Dimer 2.14 H (<0.60) mg/L FEU BUN 7.0 L (9.0-27.0) mg/dL BUN/Creatinine Ratio 11.67 L (12.00-20.00) Ratio Calcium 8.2 L (8.7-10.3) mg/dL TIBC (228-460) UG/DL Transferrin (204.0-354.0) mg/dL Ferritin (10.0-291.0) ng/mL Vitamin B12 (200.0-944.0) pg/mL Crossmatch 03/08/24 03/08/24 Range/Units 14:28 18:32 WBC (4.50-10.00) X 10*3/uL RBC (4.10-5.20) X 10*6/uL Hgb (12.0-15.0) g/dL Hct (37.2-46.3) % RDW (11.5-14.5) % Plt Count (140-440) X 10*3/uL MPV (9.5-12.2) FL Neutrophils # (Manual) (1.80-7.70) X 10*3/uL Monocytes # (Manual) (0.20-1.00) X 10*3/uL Eosinophils # (Manual) (0.04-0.35) X 10*3/uL NRBC/100 WBC Diff (0.00-0.01) X 10*3/uL Immature Plt Fraction (1.1-6.1) % D-Dimer (<0.60) mg/L FEU BUN (9.0-27.0) mg/dL BUN/Creatinine Ratio (12.00-20.00) Ratio Calcium (8.7-10.3) mg/dL TIBC 140 L (228-460) UG/DL Transferrin 100.0 L (204.0-354.0) mg/dL Ferritin 1536.0 H (10.0-291.0) ng/mL Vitamin B12 >3600.0 H (200.0-944.0) pg/mL Crossmatch See Detail
--- NOTE | 2024-03-09 08:28 | P.PN ---
Subjective Progress Note Date: 03/08/24 Principal diagnosis: Reason for follow-up is pneumonia Patient is a 78-year-old female with a past medical history significant for recent diagnosis of lung cancer while the patient has received 2 cycles of chemotherapy presenting to the hospital for evaluation of weakness palpitations increasing shortness of breath did have a CT angiogram of the chest concerning for right upper lobe infiltrate suspicious for pneumonia. On today's evaluation that is 03/08/2024, patient has been afebrile, patient is breathing comfortably and is currently on room air, patient denies having any significant cough no chest pain however has been complaining of palpitation and shortness of breath on minimal exertion, patient denies nausea vomiting or diarrhea and no abdominal pain. Patient white count is 10.07 creatinine 0.6 blood culture has been negative Objective - Vital Signs Vital signs: Vital Signs Temp 97.9 F 03/08/24 12:49 Pulse 113 H 03/08/24 12:49 Resp 20 03/08/24 12:49 BP 146/62 03/08/24 12:49 Pulse Ox 98 03/08/24 12:49 FiO2 Intake & Output 03/07/24 03/08/24 03/08/24 18:59 06:59 18:59 Intake Total 200 240 Balance 200 240 Weight 68.039 kg Intake: Intake, IV Titration 200 Amount Cefepime 2 gm In Sodium 200 Chloride 0.9% 100 ml @ 25 mls/hr IVPB Q8H [facility] Rx#: [id number] Oral 240 Other: Voiding Method Bedside Commode Bedside Commode # Voids 1 1 - Exam GENERAL DESCRIPTION: An elderly female lying in bed in no distress RESPIRATORY SYSTEM: Unlabored breathing , decreased breath sounds at bases HEART: S1 S2 regular rate and rhythm , ABDOMEN: Soft , no tenderness EXTREMITIES: No edema feet - Labs CBC & Chem 7: 03/08/24 06:11 03/08/24 18:32 Labs: Abnormal Lab Results - Last 24 Hours (Table) 03/08/24 03/08/24 03/08/24 Range/Units 06:11 06:11 10:52 WBC 10.07 H (4.50-10.00) X 10*3/uL RBC 2.48 L (4.10-5.20) X 10*6/uL Hgb 7.7 L (12.0-15.0) g/dL Hct 23.0 L (37.2-46.3) % RDW 15.9 H (11.5-14.5) % Plt Count 59 L (140-440) X 10*3/uL MPV 12.6 H (9.5-12.2) FL Neutrophils # (Manual) 8.06 H (1.80-7.70) X 10*3/uL Monocytes # (Manual) 0.10 L (0.20-1.00) X 10*3/uL Eosinophils # (Manual) 0 L (0.04-0.35) X 10*3/uL NRBC/100 WBC Diff 0.02 H (0.00-0.01) X 10*3/uL Immature Plt Fraction 10.3 H (1.1-6.1) % D-Dimer 2.14 H (<0.60) mg/L FEU BUN 7.0 L (9.0-27.0) mg/dL BUN/Creatinine Ratio 11.67 L (12.00-20.00) Ratio Calcium 8.2 L (8.7-10.3) mg/dL Microbiology - Last 24 Hours (Table) 03/02/24 15:08 Blood Culture - Final Blood Assessment and Plan (1) Pneumonia Current Visit: Yes Status: Acute Code(s): J18.9 - PNEUMONIA, UNSPECIFIED ORGANISM SNOMED Code(s): 210097252 (2) Leukopenia Current Visit: Yes Status: Acute Code(s): D72.819 - DECREASED WHITE BLOOD CELL COUNT, UNSPECIFIED SNOMED Code(s): 91097139 Plan: 1patient presenting to the hospital with increasing shortness of breath which is likely multifactorial in this patient who did have history of lung cancer on chemotherapy patient did have a cough but not bring up any sputum CT angiogram was negative for PE did shows evidence of patchy infiltrate seen right upper lobe concerning for possible pneumonitis in this patient with leukopenia on chemo will need to cover for the gram-negative pathogens 2- patient did have mild elevated procalcitonin, sputum not collected blood cul ture so far pending 3-patient did have resolution of the fever white count has normalized to continu e with cefepime 2 g every 8-hour, will plan on oral Avelox on discharge Dictation was produced using dragon dictation software. please excuse any grammatical, word or spelling errors. Time with Patient: Less than 30
[2024-03-09] MEDS: METOPROLOL TARTRATE 12.5 MG TAB PO SCH (09:22)
[2024-03-09 11:29] LABS: Magnesium 1.7 mg/dL (1.5-2.4); Potassium 3.9 mmol/L (3.5-5.5)
[2024-03-09 11:36] LABS: Basophils # (M) 0 X 10*3/uL (0.00-0.10); Eosinophils # (M) 0 X 10*3/uL (0.04-0.35); HCT 30.5 % (37.2-46.3); HGB 10.1 g/dL (12.0-15.0); Lymphocytes # (M) 1.39 X 10*3/uL (0.90-5.00); MCH 30.7 pg (27.0-32.0); MCHC 33.1 g/dL (32.0-37.0); MCV 92.7 FL (80.0-97.0); Mean Platelet Volume 11.6 FL (9.5-12.2); Metamyelocytes % 3 % (0-0); Monocytes # (M) 0.64 X 10*3/uL (0.20-1.00); Myelocytes % 3 % (0-0); NRBC Per 100 WBC 0.04 X 10*3/uL (0.00-0.01); Neutrophils # (M) 8.04 X 10*3/uL (1.80-7.70); Neutrophils % (M) 75 %; Platelet Count 94 X 10*3/uL (140-440); RBC 3.29 X 10*6/uL (4.10-5.20); RBC Morphology Normal (Normal); RDW 15.2 % (11.5-14.5); WBC 10.72 X 10*3/uL (4.50-10.00)
--- NOTE | 2024-03-09 12:06 | P.PN ---
Subjective Progress Note Date: 03/09/24 Patient is a 78-year-old white female with past medical history significant for COPD, former tobacco dependence, and recent diagnosis of small cell lung cancer. Her PCP is Dr. Shanta Jaeger. She does follow in the pulmonary office with Dr. Molina. She was diagnosed small cell lung cancer via bronchoscopy and endobronchial ultrasound performed on December,rst. Patient had a right perihilar mass. Follow-up PET scan note, on 01/17/2024 demonstrating a right perihilar mass measuring at least 8.7 x 5.9 cm. There was suspected metastatic disease to the the right pleura, throughout the descending and left neck lymph nodes, left rib 9 had abnormal uptake. Brain MRI unremarkable for enhancing lesions. That the patient had recent hospitalization late January, primarily for shortness of breath/cough/right-sided pleural effusion. On February 06, she did have a right- sided thoracentesis and a total of 650 mL of turbid colored fluid was drained. Fluid was an exudate. No cytologic malignant cells were recovered. Patient is currently receiving a combination of carboplatin/etoposide/Tecentriq. She just finished her second cycle approximately 1.5 weeks ago. Her oncologist is Dr. Tee. Over the last several days, patient has been reporting increasing worsening generalized weakness and fatigue. She was evaluated in the emergency department on 02/26/2024, and was ultimately discharged home from the ED that same day. Patient returns to the emergency department 02/26/2024, while at home she had an acute episode coughing; associated with shortness of breath, lightheadedness, and near syncope. Initial workup included a chest CTA which did not show any evidence of pulmonary embolism. There is overall improvement in previously noted right hilar/mediastinal soft tissue mass. Decreased size and right-sided pleural effusion. Few patchy reticular opacities in the right upper lobe, likely representing pneumonitis. On my evaluation, patient is sitting up in bed on 2 L/min nasal cannula. She has been chronically oxygen dependent lately. She does report being more short of breath than baseline. She does have a persistent cough. No significant sputum production. Denies hemoptysis. Denies chest pain. No fevers. No sick contacts. No nausea or vomiting, diarrhea, or abdominal pain. Appetite is fair. Denies any urinary complaints such as increased urinary frequency, dysuria or burning, hematuria. She does have a right facial secondary wound. She attributes this to scratching her face at night. No significant drainage. Possible cellulitis. Most recent CBC: WBC count 1.6, hemoglobin 8.7, hematocrit 26.1, platelets 107. She is neutropenic. Most recent CMP: Sodium 134, potassium 3.7, chloride 107, serum bicarb 25, BUN 5, creatinine 0.46, glucose 93. LFTs unremarkable. Troponin less than 0.012. She is tachycardic. EKG done on arrival demonstrating sinus tachycardia, no acute ischemic changes. Afebrile. Patient is currently being covered with cefepime per infectious disease specialist. Nontoxic appearance. Vital signs overall stable. The patient is seen today March 04, 2024 in follow-up on the regular medical floor. She is currently sitting up in bed. Awake and alert in no acute distress. Feeling better today compared to yesterday. She is maintaining O2 saturations in the 90s on 2 L/min per nasal cannula. She has normal staying at 50 MLS per hour. She is treated with cefepime. Procalcitonin was 0.18. Lung sounds are clear. Blood cultures are pending. White count 3.9. Hemoglobin 8.4. Platelets 43,000. Sodium 133. Potassium 3.7. Bicarb 27. BUN 6. Creatinine 0.51. Glucose 93. She is continued on DuoNeb inhalations, Symbicort, Robitussin. The patient is seen today March 05, 2024 in follow-up on the regular medical floor. She is resting comfortably in bed. Awake and alert in no acute distress. She is maintaining O2 saturations in the 90s on 2 L/min per nasal cannula. Blood culture reveals no growth. White count 6.6. Hemoglobin 7.7. Platelets 22,000. Sodium 139. Potassium 3.4. Bicarb 24. BUN 11. Creatinine 5.1. Glucose 105. She remains on DuoNeb ventilations, Symbicort, antibiotics in the form of cefepime. The patient is seen today March 06, 2024 in follow-up on the regular medical floor. She is currently awake and alert in no acute distress. Breathing easier today compared to yesterday. She is sleeping better. Follow-up chest x-ray revealed no acute pulmonary process. Blood culture revealed no growth. White count 9.1. Hemoglobin 7.7. Platelets 21,000. Sodium 139. Potassium 3.6. Bicarb 25. BUN 7. Creatinine 0.6. Glucose 100. She remains on DuoNeb inhalations, Symbicort. Antibiotics in the form of cefepime. The patient is seen today March 07, 2024 in follow-up on the regular medical floor. She is sitting up in bed. Awake and alert in no acute distress. Maintaining O2 saturations in the 90s on 2 L/min per nasal cannula. O2 saturations in the high 90s. Blood cultures revealed no growth. She remains on DuoNeb inhalations, Symbicort. Antibiotics in the form of cefepime. She is continued on Tessalon Perles and Robitussin for her cough. No new labs today. The patient is seen today March 08, 2024 in follow-up on the regular medical floor. She is resting comfortably in bed. Awake and alert in no acute distress. Feeling a bit stronger today compared to yesterday. She denies any worsening shortness of breath, cough or congestion. She is maintaining good O2 saturations in the high 90s on 3 L/min per nasal cannula. She has been afebrile. Hemodynamically stable. No orthostatic hypotension. Her main complaint today is of fatigue. She is continued on DuoNeb inhalations, Symbi rubin, Tessalon Perles and Robitussin as needed. She remains on antibiotics in the form of cefepime. Blood cultures revealed no growth. Sodium 140. Potassium 3.5. Bicarb 25. BUN 7. Creatinine 0.6. Glucose 96. The patient is seen today March 09, 2024 in follow-up on the regular medical floor. She is awake and alert in no acute distress. She denies any worsening shortness of breath, cough or congestion. She is maintained and he is on 2 L/min per nasal cannula. She is afebrile. Hemodynamically stable. She had another CT angiogram of the chest done yesterday that again ruled out pulmonary embolism. Given the right hilar soft tissue encasement continues to show slight improvement. The reticular opacity of the right apex is unchanged. There is trace left pleural effusion. Patchy left base opacity. She is status post 1 unit of packed red blood cells this admission. Current hemoglobin 10.1. Platelets 94,000. White count 10.7. Blood cultures revealed no growth. She remains on cefepime per ID service. Continued on bronchodilators. Objective - Vital Signs Vital signs: Vital Signs Temp 98.5 F 03/09/24 07:59 Pulse 85 03/09/24 11:51 Resp 18 03/09/24 07:59 BP 129/77 03/09/24 07:59 Pulse Ox 98 03/09/24 11:51 FiO2 Intake & Output 03/08/24 03/09/24 03/09/24 18:59 06:59 18:59 Intake Total 900 240 Balance 900 240 Weight 68.039 kg Intake: Oral 590 240 Blood Product 310 Rc Irr As1 Unit 310 [id number] Other: Voiding Method Bedside Commode Bedside Commode # Voids 1 2 3 # Bowel Movements 2 - Exam GENERAL EXAM: Alert, 78-year-old female, on 2 L nasal cannula, in no apparent distress. HEAD: Normocephalic. Does have an abrasion on her right cheek EYES: Normal reaction of pupils, equal size. NOSE: Clear with pink turbinates. THROAT: No erythema or exudates. NECK: No masses, no JVD. CHEST: No chest wall deformity. Left chest Mediport in place. LUNGS: Equal air entry with no crackles, wheeze, rhonchi or dullness. CVS: S1 and S2 normal with no audible murmur, regular rhythm. ABDOMEN: No hepatosplenomegaly, normal bowel sounds, no guarding or rigidity. SPINE: No scoliosis or deformity SKIN: No rashes CENTRAL NERVOUS SYSTEM: No focal deficits, tone is normal in all 4 extremities. EXTREMITIES: There is no peripheral edema. No clubbing, no cyanosis. Peripheral pulses are intact. - Labs CBC & Chem 7: 03/09/24 06:13 03/09/24 06:13 Labs: Abnormal Lab Results - Last 24 Hours (Table) 03/08/24 03/08/24 03/09/24 Range/Units 14:28 18:32 06:13 WBC 10.72 H (4.50-10.00) X 10*3/uL RBC 3.29 L (4.10-5.20) X 10*6/uL Hgb 10.1 L (12.0-15.0) g/dL Hct 30.5 L (37.2-46.3) % RDW 15.2 H (11.5-14.5) % Plt Count 94 L (140-440) X 10*3/uL Neutrophils # (Manual) 8.04 H (1.80-7.70) X 10*3/uL Eosinophils # (Manual) 0 L (0.04-0.35) X 10*3/uL NRBC/100 WBC Diff 0.04 H (0.00-0.01) X 10*3/uL TIBC 140 L (228-460) UG/DL Transferrin 100.0 L (204.0-354.0) mg/dL Ferritin 1536.0 H (10.0-291.0) ng/mL Vitamin B12 >3600.0 H (200.0-944.0) pg/mL Crossmatch See Detail Assessment and Plan Assessment: Acute on chronic hypoxic respiratory failure, follow-up chest CTA does not show any evidence of pulmonary embolism. There is overall improvement of the right hilar/mediastinal soft tissue mass, decreasing now small right pleural effusion. Continued masslike opacities within right upper lobe. Few patchy reticular opacities within the right upper lobe likely representing pneumonitis. Procalcitonin 0.18. Remains on cefepime. Follow-up chest x-ray reveals no acute pulmonary process. A second CT angiogram again confirmed no evidence of pulmonary embolism Near syncopal event. No orthostatic hypotension. Echocardiogram reveals preserved left ventricular systolic function. No significant valvular abnormalities. Pancytopenia, secondary to chemotherapy Small cell lung cancer, currently receiving a combination of carboplatin, etoposide, and Tecentriq. Has received a total of 2 cycles so far, last reported treatment on 02/23/2024 Chronic obstructive pulmonary disease, stable on home oxygen at 2 to 3 L Right pleural effusion, status/post thoracentesis on 02/07/2024, total of 650 mL of exudative fluid was removed. No cytologic malignant cells recovered. 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 Number of minutes spent on the visit: 23.
--- NOTE | 2024-03-09 21:46 | P.PN ---
Subjective Progress Note Date: 03/09/24 Principal diagnosis: weakness, NSCLC Pt c/o dizzy when walking, she did feel a little better after receiving PRBCs, feels she has "more color". Reports cough with deep inspiration. She has started BB but thinks she is still having increased HR at times. Has been up to commode. Objective - Vital Signs Vital signs: Vital Signs Temp 97.9 F 03/09/24 12:18 Pulse 81 03/09/24 12:18 Resp 16 03/09/24 12:18 BP 113/63 03/09/24 12:18 Pulse Ox 98 03/09/24 12:18 FiO2 Intake & Output 03/08/24 03/09/24 03/09/24 18:59 06:59 18:59 Intake Total 900 240 Balance 900 240 Weight 68.039 kg Intake: Oral 590 240 Blood Product 310 Rc Irr As1 Unit 310 [id number] Other: Voiding Method Bedside Commode Bedside Commode Bedside Commode # Voids 1 2 3 # Bowel Movements 2 - Constitutional General appearance: Present: average body habitus, cooperative, no acute distress - EENT Eyes: Present: anicteric sclerae, EOMI ENT: Present: hearing grossly normal - Respiratory Details: resp even and unlabored - Cardiovascular Rhythm: regular - Peripheral edema leg Peripheral Edema: bilateral: None - Integumentary Integumentary: Present: normal - Neurologic Neurologic: Present: CNII-XII intact - Musculoskeletal Musculoskeletal: Present: strength equal bilaterally - Psychiatric Psychiatric: Present: A&O x's 3, appropriate affect, intact judgment & insight - Labs CBC & Chem 7: 03/09/24 06:13 03/09/24 06:13 Labs: Abnormal Lab Results - Last 24 Hours (Table) 03/08/24 03/08/24 03/09/24 Range/Units 14:28 18:32 06:13 WBC 10.72 H (4.50-10.00) X 10*3/uL RBC 3.29 L (4.10-5.20) X 10*6/uL Hgb 10.1 L (12.0-15.0) g/dL Hct 30.5 L (37.2-46.3) % RDW 15.2 H (11.5-14.5) % Plt Count 94 L (140-440) X 10*3/uL Neutrophils # (Manual) 8.04 H (1.80-7.70) X 10*3/uL Eosinophils # (Manual) 0 L (0.04-0.35) X 10*3/uL NRBC/100 WBC Diff 0.04 H (0.00-0.01) X 10*3/uL TIBC 140 L (228-460) UG/DL Transferrin 100.0 L (204.0-354.0) mg/dL Ferritin 1536.0 H (10.0-291.0) ng/mL Vitamin B12 >3600.0 H (200.0-944.0) pg/mL Crossmatch See Detail Assessment and Plan (1) Hypomagnesemia Current Visit: Yes Status: Acute Priority: Medium Code(s): E83.42 - HYPOMAGNESEMIA SNOMED Code(s): 036428198 (2) Small cell lung carcinoma Current Visit: Yes Status: Acute Priority: High Code(s): C34.90 - MALIGNANT NEOPLASM OF UNSP PART OF UNSP BRONCHUS OR LUNG SNOMED Code(s): 894127537 (3) Weakness Current Visit: Yes Status: Acute Priority: High Code(s): R53.1 - WEAKNESS SNOMED Code(s): 71777571 Plan: Small cell lung cancer, SOB, weakness -Completed cycle 2 carbo/TECHNICAL SUPPORT 1 SOFTWARE ENGINEER/Tecentriq on 02/23/24 with G-CSF on 02/23. Due for cycle 3 next week -Pt admitted after each cycle of treatment. Discussed dose delay and dose reduction. Will see how pt is doing next week before moving forward. Tachycardia, SOB, dizziness -CTA x 2 neg PE, ECHO was normal, she has been started on BN, given a unit of blood. Still has same c/o. -Documented VS were all stable today Doctor attests: I performed a history and physical examination of this patient, developed impression and plan of care. Discussed with dictator. I agree with dictators note, documented as a scribe.
--- NOTE | 2024-03-09 22:31 | P.PN ---
Subjective Progress Note Date: 03/09/24 Principal diagnosis: Reason for follow-up is pneumonia Patient is a 78-year-old female with a past medical history significant for recent diagnosis of lung cancer while the patient has received 2 cycles of chemotherapy presenting to the hospital for evaluation of weakness palpitations increasing shortness of breath did have a CT angiogram of the chest concerning for right upper lobe infiltrate suspicious for pneumonia. On today's evaluation that is 03/09/2024, Patient is afebrile this morning patient denies having any chest pain did have a cough but denies any worsening cough main symptom remains to be palpitation tachycardia and shortness of breath on minimal exertion no nausea no vomiting no abdominal pain no diarrhea. Patient white count is 10.72 creatinine 0.6 blood culture has been negative patient did have a CTA that was negative for PE patchy reticular opacity right apex trace effusion Objective - Vital Signs Vital signs: Vital Signs Temp 97.9 F 03/09/24 12:18 Pulse 86 03/09/24 16:03 Resp 16 03/09/24 12:18 BP 113/63 03/09/24 12:18 Pulse Ox 98 03/09/24 12:18 FiO2 Intake & Output 03/09/24 03/09/24 03/10/24 06:59 18:59 06:59 Intake Total 900 1200 Balance 900 1200 Intake: Oral 590 1200 Blood Product 310 Rc Irr As1 Unit 310 [id number] Other: Voiding Method Bedside Commode Bedside Commode # Voids 2 8 # Bowel Movements 2 - Exam GENERAL DESCRIPTION: An elderly female lying in bed in no distress RESPIRATORY SYSTEM: Unlabored breathing , decreased breath sounds at bases HEART: S1 S2 regular rate and rhythm , ABDOMEN: Soft , no tenderness EXTREMITIES: No edema feet - Labs CBC & Chem 7: 03/09/24 06:13 03/09/24 06:13 Labs: Abnormal Lab Results - Last 24 Hours (Table) 03/08/24 03/08/24 03/09/24 Range/Units 14:28 18:32 06:13 WBC 10.72 H (4.50-10.00) X 10*3/uL RBC 3.29 L (4.10-5.20) X 10*6/uL Hgb 10.1 L (12.0-15.0) g/dL Hct 30.5 L (37.2-46.3) % RDW 15.2 H (11.5-14.5) % Plt Count 94 L (140-440) X 10*3/uL Neutrophils # (Manual) 8.04 H (1.80-7.70) X 10*3/uL Eosinophils # (Manual) 0 L (0.04-0.35) X 10*3/uL NRBC/100 WBC Diff 0.04 H (0.00-0.01) X 10*3/uL TIBC 140 L (228-460) UG/DL Transferrin 100.0 L (204.0-354.0) mg/dL Ferritin 1536.0 H (10.0-291.0) ng/mL Vitamin B12 >3600.0 H (200.0-944.0) pg/mL Crossmatch See Detail Assessment and Plan (1) Pneumonia Current Visit: Yes Status: Acute Code(s): J18.9 - PNEUMONIA, UNSPECIFIED ORGANISM SNOMED Code(s): 545877095 (2) Leukopenia Current Visit: Yes Status: Acute Code(s): D72.819 - DECREASED WHITE BLOOD CELL COUNT, UNSPECIFIED SNOMED Code(s): 34028514 Plan: 1patient presenting to the hospital with increasing shortness of breath which is likely multifactorial in this patient who did have history of lung cancer on chemotherapy patient did have a cough but not bring up any sputum CT angiogram was negative for PE did shows evidence of patchy infiltrate seen right upper lobe concerning for possible pneumonitis in this patient with leukopenia on chemo will need to cover for the gram-negative pathogens 2- patient did have mild elevated procalcitonin, sputum not collected blood culture has been negative 3-patient did have resolution of the fever white count has normalized, patient to continue with cefepime 2 g every 8-hour with a plan to switch to oral Avelox on discharge Dictation was produced using [employer] dictation software. please excuse any grammatical, word or spelling errors. Time with Patient: Less than 30
[2024-03-10] MEDS ORDERED: BENZONATATE 100 MG CAP PO PRN (04:37)
[2024-03-10] MEDS: SODIUM CHLORIDE 0.65% NASAL SPRAY 44 ML BTL NASAL PRN (06:11)
--- NOTE | 2024-03-10 06:11 | P.PN ---
Subjective Progress Note Date: 03/09/24 This is a very pleasant 78-year-old female who was recently admitted with generalized weakness, increasing shortness of breath, near syncope with fatigue. Patient follows with Dr. Minerva Jaeger in the outpatient setting as well as Dr. Tee for non-small cell lung carcinoma. Patient is currently undergoing chemotherapy and had a treatment last week. Patient started having worsening shortness of breath and increased fatigue and generalized weakness and came here for further evaluation. Patient being followed by pulmonary, infectious disease, and oncology. Patient is maintained on empiric antibiotics and was found to be neutropenic on admission. Patient reports she had recently been treated for bladder infection and culture showing normal adela. Thus far blood cultures are negative and will continue current regimen with infectious disease recommendations. Patient is afebrile reports to feeling somewhat better and is maintained on gentle hydration. Patient did have a scratch on her right cheek bone but she is unsure of how it happened although woke up and noticed it. No drainage noted although there is some mild redness and swelling noted. Continue to monitor closely. 03/06/2024 Patient is seen and evaluated in follow-up this morning currently sitting up in the chair reports has been getting up and working with physical therapy. Plan is to return home with spouse and would recommend PT/OT therapy daily for continued strength and mobility. Encouraged the patient to get up and walk through the halls if possible. Patient continues on 2 L nasal cannula with pulmonary following continuing current regimen. Infectious disease following and continued IV antibiotics and will transition to oral antibiotics on discharge. Cultures have been negative. Continue monitoring right cheek and infectious disease recommending no further appointments and letting the area dry out. Patient is afebrile denies worsening shortness of breath. Patient reports to feeling slightly improved and was able to sleep some last night. Will follow-up with repeat labs and monitor closely. Oncology following as well 03/07/2024 Patient seen and evaluated in follow-up today reporting to feeling slightly improved although had some elevated heart rates and will obtain 2D echo along with EKG. Multifactorial possibly secondary to breathing treatments and exertion as patient continues to be dyspneic with minimal exertion. Recommend PT/OT therapy daily and increased activity with walking at least 3 times per day up and out of the room. Patient is continued on antibiotics with infectious disease following and oncology following as well arranging for outpatient follow-up. Will discuss discharge planning in the next 24 to 48 hours 03/08/2024 Patient is seen in follow-up this morning appears extremely lethargic although reports she slept very well last night. Patient continues on 2 L via nasal cannula continues with shortness of breath with minimal exertion. Patient did have an elevated D-dimer and repeat CTA was done showing no PE some small pleural effusion with concerns of pneumonitis and/or atelectasis. Encouraged incentive spirometer use at least 10 times every hour while awake and continuing to get up and walk more frequently. Patient has had prolonged hospitalization and will have PT/OT therapy reevaluate. Patient does not want to go to rehab and is adamant about going home. Will discuss if patient needs physical therapy in the outpatient setting. Patient is continued on antibiotics with infectious disease following. 03/09/2024 Patient is seen and evaluated in follow-up today continues to report fatigue and elevated heart rate when getting up. Patient has not been getting up very much other than to the commode and occasionally up in the chair and continues with significant weakness and shortness of breath. Patient is receiving breathing treatments and IV antibiotics with infectious disease following. Patient is status post 1 unit of PRBC yesterday reports to feeling somewhat improved. Multiple consultations following. Encouraged to increase activity as tolerated. Patient reports she is going home on discharge and does not want to go to re hab. Patient to follow-up with oncology outpatient regarding treatment plans moving forward including dose reduction. Patient is afebrile and reports has been eating with no reported nausea or vomiting. Continue with supportive care. Review of systems: Constitutional: reports of fatigue but slightly improved, no fever, or chills Cardiovascular: No reports of chest pain or palpitations Respiratory: No reports of worsening shortness of breath, reports occasional cough GI: reports of occasional nausea, no reports of vomiting, no diarrhea : No reports of dysuria or retention Neurovascular: reports of generalized weakness All medications have been reviewed PHYSICAL EXAMINATION: GENERAL: The patient is alert and oriented x4, Well developed, well nourished. Elderly appearing, ill-appearing, appears fatigued today HEENT: Pupils are round and equally reacting to light. EOMI. no scleral icterus. No conjunctival pallor. Normocephalic, atraumatic. No pharyngeal erythema. No thyromegaly. CARDIOVASCULAR: S1 and S2 muffled PULMONARY: diminished breath sounds bilaterally with no wheezing or rhonchi noted. ABDOMEN: soft. Nontender on exam. non-distended, normoactive bowel sounds. No palpable organomegaly. MUSCULOSKELETAL: No joint swelling or deformity. EXTREMITIES: No cyanosis, clubbing, or pedal edema. NEUROLOGICAL: Gross neurological examination did not reveal any focal deficits. Diffuse weakness SKIN: No rashes. Assessment: Severe neutropenia and possible neutropenic sepsis, present on admission Shortness of breath, ruled out pulmonary embolism Acute on chronic hypoxic respiratory failure secondary to non-small cell lung carcinoma History of non-small cell lung carcinoma, currently following with Dr. Tee undergoing chemotherapy Grade 1 diastolic dysfunction heart failure with preserved EF as noted on echo. History of hyponatremia Right facial cellulitis, ruled out abscess Generalized weakness with gait dysfunction GI prophylaxis DVT prophylaxis Full code Plan: Recommend to continue with current medications and management with multiple con sultations following. Oncology, infectious disease, pulmonary following Wean FiO2 as tolerated. Patient does wear 2 to 3 L outpatient. incentive spirometer encouraged to use at least 10 times every hour while awake Continue antibiotics with infectious disease following. Cultures thus far negative. Monitor right cheekbone for any worsening cellulitis or drainage. Improving Encouraged increase activity as tolerated and encouraged oral intake. Recommend PT/OT therapy daily. Patient may benefit from rehab for continued strength and mobility although patient is refusing and wants to go home on discharge Recommend sitting out of the bed more often into the chair. Encouraged the patient to walk the halls as much as possible Oncology following and patient will follow-up with Dr. Tee in the outpatient setting to discuss next treatment therapy and possibly reduction of therapy. Possible discharge planning in the next 24 hours. Patient is high risk for readmissions given significant comorbidities Due to multiple complex medical issues, overall prognosis is guarded The impression and plan of care has been dictated by Carmencita Grant, nurse practitioner as directed. Dr. Jay Jay MD I have performed a history and examination and MDM of this patient, discussed the same with the dictator, and agree with the dictator's assessment and plan as written ,documented as a scribe. Based on total visit time, I have performed more than 50% of the visit. Any additional findings or plans will be noted. Objective - Vital Signs Vital signs: Vital Signs Temp 98.5 F 03/09/24 20:00 Pulse 97 03/09/24 22:21 Resp 16 03/09/24 20:00 BP 113/66 03/09/24 22:21 Pulse Ox 96 03/09/24 20:00 FiO2 Intake & Output 03/09/24 03/09/24 03/10/24 06:59 18:59 06:59 Intake Total 900 1200 Balance 900 1200 Intake: Oral 590 1200 Blood Product 310 Rc Irr As1 Unit 310 [id number] Other: Voiding Method Bedside Commode Bedside Commode Bedside Commode Diaper # Voids 2 8 # Bowel Movements 2 - Labs CBC & Chem 7: 03/09/24 06:13 03/09/24 06:13 Labs: Abnormal Lab Results - Last 24 Hours (Table) 03/09/24 Range/Units 06:13 WBC 10.72 H (4.50-10.00) X 10*3/uL RBC 3.29 L (4.10-5.20) X 10*6/uL Hgb 10.1 L (12.0-15.0) g/dL Hct 30.5 L (37.2-46.3) % RDW 15.2 H (11.5-14.5) % Plt Count 94 L (140-440) X 10*3/uL Neutrophils # (Manual) 8.04 H (1.80-7.70) X 10*3/uL Eosinophils # (Manual) 0 L (0.04-0.35) X 10*3/uL NRBC/100 WBC Diff 0.04 H (0.00-0.01) X 10*3/uL
[2024-03-10] MEDS ORDERED: FLUTICASONE NASAL 50MCG/SPRAY 16GM BTL EA NOSTRIL PRN (09:00)
[2024-03-10 14:04] LABS: Basophils # (M) 0 X 10*3/uL (0.00-0.10); Eosinophils # (M) 0 X 10*3/uL (0.04-0.35); HCT 30.5 % (37.2-46.3); HGB 10.1 g/dL (12.0-15.0); Lymphocytes # (M) 0.48 X 10*3/uL (0.90-5.00); MCH 31.6 pg (27.0-32.0); MCHC 33.1 g/dL (32.0-37.0); MCV 95.3 FL (80.0-97.0); Mean Platelet Volume 11.5 FL (9.5-12.2); Metamyelocytes % 8 % (0-0); Monocytes # (M) 0.77 X 10*3/uL (0.20-1.00); Myelocytes % 2 % (0-0); NRBC Per 100 WBC 0.03 X 10*3/uL (0.00-0.01); Neutrophils # (M) 7.38 X 10*3/uL (1.80-7.70); Neutrophils % (M) 77 %; Nucleated Red Blood Cells 1 /100 WBCS; Platelet Count 141 X 10*3/uL (140-440); RBC Morphology Normal (Normal); RDW 15.5 % (11.5-14.5); WBC 9.59 X 10*3/uL (4.50-10.00)
--- NOTE | 2024-03-10 15:30 | P.PN ---
Subjective Progress Note Date: 03/10/24 Principal diagnosis: Reason for follow-up is pneumonia Patient is a 78-year-old female with a past medical history significant for recent diagnosis of lung cancer while the patient has received 2 cycles of chemotherapy presenting to the hospital for evaluation of weakness palpitations increasing shortness of breath did have a CT angiogram of the chest concerning for right upper lobe infiltrate suspicious for pneumonia. On today's evaluation that is 03/10/2024,the patient denies any fever or any chills, patient is breathing comfortably on 2 L nasal cannula oxygen, the patient denies chest pain shortness of breath and no significant cough and symptoms of palpitation has improved, patient denies abdominal pain, no nausea vomiting or diarrhea. Patient white count is 9.59 Objective - Vital Signs Vital signs: Vital Signs Temp 98.5 F 03/10/24 11:55 Pulse 85 03/10/24 11:55 Resp 17 03/10/24 11:55 BP 112/67 03/10/24 11:55 Pulse Ox 97 03/10/24 11:55 FiO2 Intake & Output 03/09/24 03/10/24 03/10/24 18:59 06:59 18:59 Intake Total 1200 Balance 1200 Intake: Oral 1200 Other: Voiding Method Bedside Commode Bedside Commode Diaper # Voids 8 2 1 # Bowel Movements 2 1 - Exam GENERAL DESCRIPTION: An elderly female lying in bed in no distress RESPIRATORY SYSTEM: Unlabored breathing , decreased breath sounds at bases HEART: S1 S2 regular rate and rhythm , ABDOMEN: Soft , no tenderness EXTREMITIES: No edema feet - Labs CBC & Chem 7: 03/10/24 07:05 03/09/24 06:13 Labs: Abnormal Lab Results - Last 24 Hours (Table) 03/10/24 Range/Units 07:05 RBC 3.20 L (4.10-5.20) X 10*6/uL Hgb 10.1 L (12.0-15.0) g/dL Hct 30.5 L (37.2-46.3) % RDW 15.5 H (11.5-14.5) % Lymphocytes # (Manual) 0.48 L (0.90-5.00) X 10*3/uL Eosinophils # (Manual) 0 L (0.04-0.35) X 10*3/uL NRBC/100 WBC Diff 0.03 H (0.00-0.01) X 10*3/uL Assessment and Plan (1) Pneumonia Current Visit: Yes Status: Acute Code(s): J18.9 - PNEUMONIA, UNSPECIFIED ORGANISM SNOMED Code(s): 256548706 (2) Leukopenia Current Visit: Yes Status: Acute Code(s): D72.819 - DECREASED WHITE BLOOD CELL COUNT, UNSPECIFIED SNOMED Code(s): 23337275 Plan: 1patient presenting to the hospital with increasing shortness of breath which is likely multifactorial in this patient who did have history of lung cancer on chemotherapy patient did have a cough but not bring up any sputum CT angiogram was negative for PE did shows evidence of patchy infiltrate seen right upper lobe concerning for possible pneumonitis in this patient with leukopenia on chemo will need to cover for the gram-negative pathogens 2- patient did have mild elevated procalcitonin, sputum not collected blood culture has been negative 3-patient did have resolution of the fever white count has normalized, patient to continue with cefepime while inpatient finishing therapy with oral Avelox when 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 please excuse any grammatical, word or spelling errors. Time with Patient: Less than 30
[2024-03-10 19:42] VITALS: PULSE 90
--- NOTE | 2024-03-10 20:50 | P.PN ---
Subjective Progress Note Date: 03/10/24 This is a very pleasant 78-year-old female who was recently admitted with generalized weakness, increasing shortness of breath, near syncope with fatigue. Patient follows with Dr. Minerva Jaeger in the outpatient setting as well as Dr. Tee for non-small cell lung carcinoma. Patient is currently undergoing chemotherapy and had a treatment last week. Patient started having worsening shortness of breath and increased fatigue and generalized weakness and came here for further evaluation. Patient being followed by pulmonary, infectious disease, and oncology. Patient is maintained on empiric antibiotics and was found to be neutropenic on admission. Patient reports she had recently been treated for bladder infection and culture showing normal adela. Thus far blood cultures are negative and will continue current regimen with infectious disease recommendations. Patient is afebrile reports to feeling somewhat better and is maintained on gentle hydration. Patient did have a scratch on her right cheek bone but she is unsure of how it happened although woke up and noticed it. No drainage noted although there is some mild redness and swelling noted. Continue to monitor closely. 03/06/2024 Patient is seen and evaluated in follow-up this morning currently sitting up in the chair reports has been getting up and working with physical therapy. Plan is to return home with spouse and would recommend PT/OT therapy daily for continued strength and mobility. Encouraged the patient to get up and walk through the halls if possible. Patient continues on 2 L nasal cannula with pulmonary following continuing current regimen. Infectious disease following and continued IV antibiotics and will transition to oral antibiotics on discharge. Cultures have been negative. Continue monitoring right cheek and infectious disease recommending no further appointments and letting the area dry out. Patient is afebrile denies worsening shortness of breath. Patient reports to feeling slightly improved and was able to sleep some last night. Will follow-up with repeat labs and monitor closely. Oncology following as well 03/07/2024 Patient seen and evaluated in follow-up today reporting to feeling slightly improved although had some elevated heart rates and will obtain 2D echo along with EKG. Multifactorial possibly secondary to breathing treatments and exertion as patient continues to be dyspneic with minimal exertion. Recommend PT/OT therapy daily and increased activity with walking at least 3 times per day up and out of the room. Patient is continued on antibiotics with infectious disease following and oncology following as well arranging for outpatient follow-up. Will discuss discharge planning in the next 24 to 48 hours 03/08/2024 Patient is seen in follow-up this morning appears extremely lethargic although reports she slept very well last night. Patient continues on 2 L via nasal cannula continues with shortness of breath with minimal exertion. Patient did have an elevated D-dimer and repeat CTA was done showing no PE some small pleural effusion with concerns of pneumonitis and/or atelectasis. Encouraged incentive spirometer use at least 10 times every hour while awake and continuing to get up and walk more frequently. Patient has had prolonged hospitalization and will have PT/OT therapy reevaluate. Patient does not want to go to rehab and is adamant about going home. Will discuss if patient needs physical therapy in the outpatient setting. Patient is continued on antibiotics with infectious disease following. 03/09/2024 Patient is seen and evaluated in follow-up today continues to report fatigue and elevated heart rate when getting up. Patient has not been getting up very much other than to the commode and occasionally up in the chair and continues with significant weakness and shortness of breath. Patient is receiving breathing treatments and IV antibiotics with infectious disease following. Patient is status post 1 unit of PRBC yesterday reports to feeling somewhat improved. Multiple consultations following. Encouraged to increase activity as tolerated. Patient reports she is going home on discharge and does not want to go to re hab. Patient to follow-up with oncology outpatient regarding treatment plans moving forward including dose reduction. Patient is afebrile and reports has been eating with no reported nausea or vomiting. Continue with supportive care. 03/10/2024 Patient seen and evaluated in follow-up today reports to feeling improved and heart rate is better controlled in the 90s. Patient reports improvements in shortness of breath and will make DuoNebs as needed. Follow-up chest x-ray ordered and pending at this time. Patient has been encouraged to get up out of the bed more often and frequent walks and sitting in the chair. Patient reports she did get up and move around today. Patient is tolerating diet although continues to be with mild to poor oral intake. Patient to continue with supplements between meals. Discussing possible discharge planning in 24 hours. Patient to follow-up with oncology Dr. Tee outpatient. Review of systems: Constitutional: reports of fatigue but slightly improved, no fever, or chills Cardiovascular: No reports of chest pain or palpitations Respiratory: No reports of worsening shortness of breath, reports occasional cough GI: reports of occasional nausea, no reports of vomiting, no diarrhea : No reports of dysuria or retention Neurovascular: reports of generalized weakness All medications have been reviewed PHYSICAL EXAMINATION: GENERAL: The patient is alert and oriented x4, Well developed, well nourished. Elderly appearing, ill-appearing, appears less fatigued today HEENT: Pupils are round and equally reacting to light. EOMI. no scleral icterus. No conjunctival pallor. Normocephalic, atraumatic. No pharyngeal erythema. No thyromegaly. CARDIOVASCULAR: S1 and S2 muffled PULMONARY: diminished breath sounds bilaterally with no wheezing or rhonchi noted. Faint crackles noted at the left base. ABDOMEN: soft. Nontender on exam. non-distended, normoactive bowel sounds. No palpable organomegaly. MUSCULOSKELETAL: No joint swelling or deformity. EXTREMITIES: No cyanosis, clubbing, or pedal edema. NEUROLOGICAL: Gross neurological examination did not reveal any focal deficits. Diffuse weakness SKIN: No rashes. Assessment: Severe neutropenia and possible neutropenic sepsis, present on admission Shortness of breath, ruled out pulmonary embolism Acute on chronic hypoxic respiratory failure secondary to non-small cell lung carcinoma History of non-small cell lung carcinoma, currently following with Dr. Tee undergoing chemotherapy Grade 1 diastolic dysfunction heart failure with preserved EF as noted on echo. History of hyponatremia Right facial cellulitis, ruled out abscess Generalized weakness with gait dysfunction GI prophylaxis DVT prophylaxis Full code Plan: Recommend to continue with current medications and management with multiple consultations following. Oncology, infectious disease, pulmonary following Wean FiO2 as tolerated. Patient does wear 2 to 3 L outpatient. incentive spirometer encouraged to use at least 10 times every hour while awake Continue antibiotics with infectious disease following. Cultures thus far negative. Monitor right cheekbone for any worsening cellulitis or drainage. Improved and crusting noted with no swelling or redness or drainage. Encouraged increase activity as tolerated and encouraged oral intake. Recommend PT/OT therapy daily. Patient may benefit from rehab for continued strength and mobility although patient is refusing and wants to go home on discharge. Patient is requesting a prescription for a commode on discharge although not covered by insurance. Recommend sitting out of the bed more often into the chair. Encouraged the patient to walk the halls as much as possible Oncology following and patient will follow-up with Dr. Tee in the outpatient setting to discuss next treatment therapy and possibly reduction of therapy. Possible discharge planning in the next 24 hours. Patient is high risk for readmissions given significant comorbidities Due to multiple complex medical issues, overall prognosis is guarded The impression and plan of care has been dictated by Carmencita Grant, nurse practitioner as directed. Dr. Jay Jay MD I have performed a history and examination and MDM of this patient, discussed the same with the dictator, and agree with the dictator's assessment and plan as written ,documented as a scribe. Based on total visit time, I have performed more than 50% of the visit. Any additional findings or plans will be noted. Objective - Vital Signs Vital signs: Vital Signs Temp 98.5 F 03/10/24 11:55 Pulse 85 03/10/24 11:55 Resp 17 03/10/24 11:55 BP 112/67 03/10/24 11:55 Pulse Ox 97 03/10/24 11:55 FiO2 Intake & Output 03/09/24 03/10/24 03/10/24 18:59 06:59 18:59 Intake Total 1200 Balance 1200 Intake: Oral 1200 Other: Voiding Method Bedside Commode Bedside Commode Diaper # Voids 8 2 1 # Bowel Movements 2 1 - Labs CBC & Chem 7: 03/10/24 07:05 03/09/24 06:13 Labs: Abnormal Lab Results - Last 24 Hours (Table) 03/10/24 Range/Units 07:05 RBC 3.20 L (4.10-5.20) X 10*6/uL Hgb 10.1 L (12.0-15.0) g/dL Hct 30.5 L (37.2-46.3) % RDW 15.5 H (11.5-14.5) % Lymphocytes # (Manual) 0.48 L (0.90-5.00) X 10*3/uL Eosinophils # (Manual) 0 L (0.04-0.35) X 10*3/uL NRBC/100 WBC Diff 0.03 H (0.00-0.01) X 10*3/uL
--- NOTE | 2024-03-10 21:04 | XR ---
EXAMINATION TYPE: XR chest 1V portable DATE OF EXAM: 03/10/2024 Comparison: 03/05/2024 Clinical History: 78 year-old female shortness of breath Findings: Heart borderline enlarged. Interstitial density. Scattered patchy opacity periphery of the right uppe r lobe and left base. The density has increased on the left. Left anterior chest wall injection port with catheter tip at the upper SVC level. No sizable pleural effusion on the frontal view. Impression: COPD. Patchy infiltrate periphery of the right upper lobe is similar. Patchy opacity at the left base has increased from 03/05/2024. Note additional findings on the CT of 03/08/2024 not well demonstrated radiographically.
[2024-03-11 08:18] VITALS: TEMP 97.7
--- NOTE | 2024-03-11 10:06 | P.PN ---
Subjective Progress Note Date: 03/11/24 Patient is a 78-year-old white female with past medical history significant for COPD, former tobacco dependence, and recent diagnosis of small cell lung cancer. Her PCP is Dr. Shnata Jaeger. She does follow in the pulmonary office with Dr. Molina. She was diagnosed small cell lung cancer via bronchoscopy and endobronchial ultrasound performed on December,rst. Patient had a right perihilar mass. Follow-up PET scan note, on 01/17/2024 demonstrating a right perihilar mass measuring at least 8.7 x 5.9 cm. There was suspected metastatic disease to the the right pleura, throughout the descending and left neck lymph nodes, left rib 9 had abnormal uptake. Brain MRI unremarkable for enhancing lesions. That the patient had recent hospitalization late January, primarily for shortness of breath/cough/right-sided pleural effusion. On February 06, she did have a right- sided thoracentesis and a total of 650 mL of turbid colored fluid was drained. Fluid was an exudate. No cytologic malignant cells were recovered. Patient is currently receiving a combination of carboplatin/etoposide/Tecentriq. She just finished her second cycle approximately 1.5 weeks ago. Her oncologist is Dr. Tee. Over the last several days, patient has been reporting increasing worsening generalized weakness and fatigue. She was evaluated in the emergency department on 02/26/2024, and was ultimately discharged home from the ED that same day. Patient returns to the emergency department 02/26/2024, while at home she had an acute episode coughing; associated with shortness of breath, lightheadedness, and near syncope. Initial workup included a chest CTA which did not show any evidence of pulmonary embolism. There is overall improvement in previously noted right hilar/mediastinal soft tissue mass. Decreased size and right-sided pleural effusion. Few patchy reticular opacities in the right upper lobe, likely representing pneumonitis. On my evaluation, patient is sitting up in bed on 2 L/min nasal cannula. She has been chronically oxygen dependent lately. She does report being more short of breath than baseline. She does have a persistent cough. No significant sputum production. Denies hemoptysis. Denies chest pain. No fevers. No sick contacts. No nausea or vomiting, diarrhea, or abdominal pain. Appetite is fair. Denies any urinary complaints such as increased urinary frequency, dysuria or burning, hematuria. She does have a right facial secondary wound. She attributes this to scratching her face at night. No significant drainage. Possible cellulitis. Most recent CBC: WBC count 1.6, hemoglobin 8.7, hematocrit 26.1, platelets 107. She is neutropenic. Most recent CMP: Sodium 134, potassium 3.7, chloride 107, serum bicarb 25, BUN 5, creatinine 0.46, glucose 93. LFTs unremarkable. Troponin less than 0.012. She is tachycardic. EKG done on arrival demonstrating sinus tachycardia, no acute ischemic changes. Afebrile. Patient is currently being covered with cefepime per infectious disease specialist. Nontoxic appearance. Vital signs overall stable. The patient is seen today March 04, 2024 in follow-up on the regular medical floor. She is currently sitting up in bed. Awake and alert in no acute distress. Feeling better today compared to yesterday. She is maintaining O2 saturations in the 90s on 2 L/min per nasal cannula. She has normal staying at 50 MLS per hour. She is treated with cefepime. Procalcitonin was 0.18. Lung sounds are clear. Blood cultures are pending. White count 3.9. Hemoglobin 8.4. Platelets 43,000. Sodium 133. Potassium 3.7. Bicarb 27. BUN 6. Creatinine 0.51. Glucose 93. She is continued on DuoNeb inhalations, Symbicort, Robitussin. The patient is seen today March 05, 2024 in follow-up on the regular medical floor. She is resting comfortably in bed. Awake and alert in no acute distress. She is maintaining O2 saturations in the 90s on 2 L/min per nasal cannula. Blood culture reveals no growth. White count 6.6. Hemoglobin 7.7. Platelets 22,000. Sodium 139. Potassium 3.4. Bicarb 24. BUN 11. Creatinine 5.1. Glucose 105. She remains on DuoNeb ventilations, Symbicort, antibiotics in the form of cefepime. The patient is seen today March 06, 2024 in follow-up on the regular medical floor. She is currently awake and alert in no acute distress. Breathing easier today compared to yesterday. She is sleeping better. Follow-up chest x-ray revealed no acute pulmonary process. Blood culture revealed no growth. White count 9.1. Hemoglobin 7.7. Platelets 21,000. Sodium 139. Potassium 3.6. Bicarb 25. BUN 7. Creatinine 0.6. Glucose 100. She remains on DuoNeb inhalations, Symbicort. Antibiotics in the form of cefepime. The patient is seen today March 07, 2024 in follow-up on the regular medical floor. She is sitting up in bed. Awake and alert in no acute distress. Maintaining O2 saturations in the 90s on 2 L/min per nasal cannula. O2 saturations in the high 90s. Blood cultures revealed no growth. She remains on DuoNeb inhalations, Symbicort. Antibiotics in the form of cefepime. She is continued on Tessalon Perles and Robitussin for her cough. No new labs today. The patient is seen today March 08, 2024 in follow-up on the regular medical floor. She is resting comfortably in bed. Awake and alert in no acute distress. Feeling a bit stronger today compared to yesterday. She denies any worsening shortness of breath, cough or congestion. She is maintaining good O2 saturations in the high 90s on 3 L/min per nasal cannula. She has been afebrile. Hemodynamically stable. No orthostatic hypotension. Her main complaint today is of fatigue. She is continued on DuoNeb inhalations, Symbi rubin, Tessalon Perles and Robitussin as needed. She remains on antibiotics in the form of cefepime. Blood cultures revealed no growth. Sodium 140. Potassium 3.5. Bicarb 25. BUN 7. Creatinine 0.6. Glucose 96. The patient is seen today March 09, 2024 in follow-up on the regular medical floor. She is awake and alert in no acute distress. She denies any worsening shortness of breath, cough or congestion. She is maintained and he is on 2 L/min per nasal cannula. She is afebrile. Hemodynamically stable. She had another CT angiogram of the chest done yesterday that again ruled out pulmonary embolism. Given the right hilar soft tissue encasement continues to show slight improvement. The reticular opacity of the right apex is unchanged. There is trace left pleural effusion. Patchy left base opacity. She is status post 1 unit of packed red blood cells this admission. Current hemoglobin 10.1. Platelets 94,000. White count 10.7. Blood cultures revealed no growth. She remains on cefepime per ID service. Continued on bronchodilators. The patient is seen today March 10, 2024 in follow-up on the regular medical floor. She is currently resting comfortably in bed. Awake and alert in no acute distress. Denies any shortness of breath, cough or congestion. She is maintaining good O2 saturations in the 90s on 2 L/min per nasal cannula. She remains afebrile. Hemodynamically stable. No orthostatic hypotension. Labs today are pending. She remains on bronchodilators, Symbicort. Continued on cefepime per ID service. The patient is seen today March 11, 2024 in follow-up on the regular medical floor. She is sitting up in bed. Awake and alert in no acute distress. She is maintaining good O2 saturations in the 90s on 2 L/min per nasal cannula. Follow-up chest x-ray shows some residual atelectatic changes in the left lung. She remains on DuoNeb inhalations, Symbicort. Remains on cefepime per ID service. She remains afebrile. Hemodynamically stable. Will white count 9.5. Hemoglobin 10.1. Platelets 141. Objective - Vital Signs Vital signs: Vital Signs Temp 97.7 F 03/11/24 07:55 Pulse 90 03/11/24 07:55 Resp 19 03/11/24 07:55 BP 123/80 03/11/24 07:55 Pulse Ox 96 03/11/24 08:39 FiO2 Intake & Output 03/10/24 03/11/24 03/11/24 18:59 06:59 18:59 Other: # Voids 1 1 # Bowel Movements 1 - Exam GENERAL EXAM: Alert, pleasant, comfortable 78-year-old female, sitting up in bed, on 2 L nasal cannula, in no apparent distress. HEAD: Normocephalic. Does have an abrasion on her right cheek EYES: Normal reaction of pupils, equal size. NOSE: Clear with pink turbinates. THROAT: No erythema or exudates. NECK: No masses, no JVD. CHEST: No chest wall deformity. Left chest Mediport in place. LUNGS: Equal air entry with no crackles, wheeze, rhonchi or dullness. CVS: S1 and S2 normal with no audible murmur, regular rhythm. ABDOMEN: No hepatosplenomegaly, normal bowel sounds, no guarding or rigidity. SPINE: No scoliosis or deformity SKIN: No rashes CENTRAL NERVOUS SYSTEM: No focal deficits, tone is normal in all 4 extremities. EXTREMITIES: There is no peripheral edema. No clubbing, no cyanosis. P eripheral pulses are intact. - Labs CBC & Chem 7: 03/10/24 07:05 03/09/24 06:13 Labs: Abnormal Lab Results - Last 24 Hours (Table) 03/10/24 Range/Units 07:05 RBC 3.20 L (4.10-5.20) X 10*6/uL Hgb 10.1 L (12.0-15.0) g/dL Hct 30.5 L (37.2-46.3) % RDW 15.5 H (11.5-14.5) % Lymphocytes # (Manual) 0.48 L (0.90-5.00) X 10*3/uL Eosinophils # (Manual) 0 L (0.04-0.35) X 10*3/uL NRBC/100 WBC Diff 0.03 H (0.00-0.01) X 10*3/uL Assessment and Plan Assessment: Acute on chronic hypoxic respiratory failure, follow-up chest CTA does not show any evidence of pulmonary embolism. There is overall improvement of the right hilar/mediastinal soft tissue mass, decreasing now small right pleural effusion. Continued masslike opacities within right upper lobe. Few patchy reticular opacities within the right upper lobe likely representing pneumonitis. Proc alcitonin 0.18. Remains on cefepime. Follow-up chest x-ray reveals atelectatic changes in the left lung base. A second CT angiogram again confirmed no evidence of pulmonary embolism Near syncopal event. No orthostatic hypotension. Echocardiogram reveals preserved left ventricular systolic function. No significant valvular abnormalities. Pancytopenia, secondary to chemotherapy Small cell lung cancer, currently receiving a combination of carboplatin, etoposide, and Tecentriq. Has received a total of 2 cycles so far, last reported treatment on 02/23/2024 Chronic obstructive pulmonary disease, stable on home oxygen at 2 to 3 L Right pleural effusion, status/post thoracentesis on 02/07/2024, total of 650 mL of exudative fluid was removed. No cytologic malignant cells recovered. 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 Number of minutes spent on the visit: 23.
[2024-03-11 14:53] VITALS: BP 106/63; RESP 17
--- NOTE | 2024-03-11 15:44 | P.DS ---
Providers Date of admission: 03/01/24 14:20 Expected date of discharge: 03/11/24 Attending physician: Ulysses Jimenes Consults: 03/01/24 14:36 Consult Physician Urgent Consulting Provider: Ishaan Bee Consult Reason/Comments: lung CA Do you want consulting provider notified?: Yes 03/02/24 13:35 Consult Physician Routine Consulting Provider: Nicholas Clarek Consult Reason/Comments: sob Do you want consulting provider notified?: Yes Consult Physician Routine Consulting Provider: Alison Danielson Consult Reason/Comments: sepsis Do you want consulting provider notified?: Yes Primary care physician: Minerva Jaeger Hospital Course: Discharge diagnoses: Severe neutropenia and possible neutropenic sepsis, present on admission Shortness of breath, ruled out pulmonary embolism Acute on chronic hypoxic respiratory failure secondary to non-small cell lung carcinoma History of non-small cell lung carcinoma, currently following with Dr. Tee undergoing chemotherapy Grade 1 diastolic dysfunction heart failure with preserved EF as noted on echo. History of hyponatremia Right facial cellulitis, ruled out abscess Generalized weakness with gait dysfunction Patient was seen by oncology, infectious disease and pulmonary. Patient was treated with IV antibiotics during hospitalization, was on cefepime at the time of discharge, switch to Avelox at discharge for 5 more days. Sophie nt is back to her baseline oxygen. Outpatient follow-up with PCP, oncology and pulmonary. Hospital course: This is a very pleasant 78-year-old female who was recently admitted with generalized weakness, increasing shortness of breath, near syncope with fatigue. Patient follows with Dr. Minerva Jaeger in the outpatient setting as well as Dr. Tee for non-small cell lung carcinoma. Patient is currently undergoing chemotherapy and had a treatment last week. Patient started having worsening shortness of breath and increased fatigue and generalized weakness and came here for further evaluation. Patient being followed by pulmonary, infectious disease, and oncology. Patient is maintained on empiric antibiotics and was found to be neutropenic on admission. Patient reports she had recently been treated for bladder infection and culture showing normal adela. Thus far blood cultures are negative and will continue current regimen with infectious disease recommendations. Patient is afebrile reports to feeling somewhat better and is maintained on gentle hydration. Patient did have a scratch on her right cheek bone but she is unsure of how it happened although woke up and noticed it. No drainage noted although there is some mild redness and swelling noted. Continue to monitor closely. 03/06/2024 Patient is seen and evaluated in follow-up this morning currently sitting up in the chair reports has been getting up and working with physical therapy. Plan is to return home with spouse and would recommend PT/OT therapy daily for continued strength and mobility. Encouraged the patient to get up and walk through the halls if possible. Patient continues on 2 L nasal cannula with pulmonary following continuing current regimen. Infectious disease following and continued IV antibiotics and will transition to oral antibiotics on discharge. Cultures have been negative. Continue monitoring right cheek and infectious disease recommending no further appointments and letting the area dry out. Patient is afebrile denies worsening shortness of breath. Patient reports to feeling slightly improved and was able to sleep some last night. Will follow-up with repeat labs and monitor closely. Oncology following as well 03/07/2024 Patient seen and evaluated in follow-up today reporting to feeling slightly improved although had some elevated heart rates and will obtain 2D echo along with EKG. Multifactorial possibly secondary to breathing treatments and exertion as patient continues to be dyspneic with minimal exertion. Recommend PT/OT therapy daily and increased activity with walking at least 3 times per day up and out of the room. Patient is continued on antibiotics with infectious disease following and oncology following as well arranging for outpatient follow-up. Will discuss discharge planning in the next 24 to 48 hours 03/08/2024 Patient is seen in follow-up this morning appears extremely lethargic although reports she slept very well last night. Patient continues on 2 L via nasal cannula continues with shortness of breath with minimal exertion. Patient did have an elevated D-dimer and repeat CTA was done showing no PE some small pleural effusion with concerns of pneumonitis and/or atelectasis. Encouraged incentive spirometer use at least 10 times every hour while awake and continuing to get up and walk more frequently. Patient has had prolonged hospitalization and will have PT/OT therapy reevaluate. Patient does not want to go to rehab and is adamant about going home. Will discuss if patient needs physical therapy in the outpatient setting. Patient is continued on antibiotics with infectious disease following. 03/09/2024 Patient is seen and evaluated in follow-up today continues to report fatigue and elevated heart rate when getting up. Patient has not been getting up very much other than to the commode and occasionally up in the chair and continues with significant weakness and shortness of breath. Patient is receiving breathing treatments and IV antibiotics with infectious disease following. Patient is status post 1 unit of PRBC yesterday reports to feeling somewhat improved. Multiple consultations following. Encouraged to increase activity as tolerated. Patient reports she is going home on discharge and does not want to go to rehab. Patient to follow-up with oncology outpatient regarding treatment plans moving forward including dose reduction. Patient is afebrile and reports has been eating with no reported nausea or vomiting. Continue with supportive care. 03/10/2024 Patient seen and evaluated in follow-up today reports to feeling improved and heart rate is better controlled in the 90s. Patient reports improvements in shortness of breath and will make DuoNebs as needed. Follow-up chest x-ray ordered and pending at this time. Patient has been encouraged to get up out of the bed more often and frequent walks and sitting in the chair. Patient reports she did get up and move around today. Patient is tolerating diet although continues to be with mild to poor oral intake. Patient to continue with supplements between meals. Discussing possible discharge planning in 24 hours. Patient to follow-up with oncology Dr. Tee outpatient. 03/11/2024 Patient was feeling better today. Shortness of breath and productive cough is improving. Neutropenia has resolved. Patient remained afebrile. Continued on Avelox for 5 more days at discharge, started on metoprolol at discharge. Home medications resumed at discharge. Follow-up with PCP in 1 week. Follow-up with oncology and pulmonary as outpatient. PHYSICAL EXAMINATION: GENERAL: The patient is A&O x3, NAD HEENT: EOMI, Sclerae anicteric, Moist Mucous membranes Neck: Supple, Non tender, No JVD PULMONARY: Equal breath souds B/L, No wheezing, No crackles. CARDIOVASCULAR: S1, S2 present. No murmurs, rubs, or gallops. ABDOMEN: Soft, nontender, nondistended, normoactive bowel sounds. No guarding or rebound tenderness. MUSCULOSKELETAL: No edema, No cyanosis. No clubbing. Normal ROM. Intact peripheral pulses. EXTREMITIES: No cyanosis, clubbing, or pedal edema. NEUROLOGICAL: CN 2-12 grossly intact. No FND SKIN: No rashes. Dictation was produced using [employer] software. please excuse any grammatical, word or spelling errors. Patient Condition at Discharge: Fair Plan - Discharge Summary New Discharge Prescriptions: New Moxifloxacin HCl [Avelox] 400 mg PO DAILY 5 Days #5 tab Metoprolol Tartrate [Lopressor] 12.5 mg PO BID #60 tab Continue Multivitamin [Multivitamins Adult Gummies] 1 tab PO DAILY busPIRone HCl [Buspar] 5 mg PO BID PRN PRN Reason: Anxiety HYDROcodone/APAP 5-325MG [[place] 5-325] 1 tab PO Q6H PRN PRN Reason: Pain Cyclobenzaprine [Flexeril] 10 mg PO TID PRN PRN Reason: Muscle Pain Benzonatate [Tessalon Perles] 100 mg PO TID PRN PRN Reason: Cough Ondansetron [Zofran] 4 - 8 mg PO Q4H PRN PRN Reason: Nausea Budesonide/Glycopyr/Formoterol [Breztri Aerosphere Inhaler] 1 puff INHALATION RT-DAILY guaiFENesin-Coden 100-10MG/5ML [Robitussin AC] 10 ml PO Q4H PRN PRN Reason: Cough Megestrol [Megace] 800 mg PO DIRECTED Inulin/Chromium Picolinate [Fiber Gummies Chew] 1 tab PO DAILY Ipratropium-Albuterol Nebulize [Duoneb 0.5 mg-3 mg/3 ml Soln] 3 ml INHALATION RT-QID each Ipratropium-Albuterol Nebulize [Duoneb 0.5 mg-3 mg/3 ml Soln] 3 ml INHALATION RT-Q2H PRN each PRN Reason: Shortness Of Breath Or Wheezing Sennosides [Senokot] 8.6 mg PO BID PRN tab PRN Reason: Constipation LORazepam [Ativan] 0.5 mg PO BID PRN PRN Reason: Anxiety Mirtazapine [Remeron] 15 mg PO HS Melatonin 10 mg PO HS PRN PRN Reason: Insomnia Magnesium Oxide [Mag-Ox] 400 mg PO DAILY #30 tab Sodium Chloride Tab 1 gm PO BID #60 tab Albuterol Inhaler [Ventolin Hfa Inhaler] 2 puff INHALATION RT-Q4H PRN PRN Reason: Shortness Of Breath ALPRAZolam [Xanax] 1 mg PO TID PRN PRN Reason: Anxiety Discontinued Levofloxacin [Levaquin] 500 mg PO DAILY 3 Days #3 tab Discharge Medication List Inulin/Chromium Picolinate [Fiber Gummies Chew] 1 tab PO DAILY 12/24/23 [History] Multivitamin [Multivitamins Adult Gummies] 1 tab PO DAILY 12/24/23 [History] Benzonatate [Tessalon Perles] 100 mg PO TID PRN 01/23/24 [History] Budesonide/Glycopyr/Formoterol [Breztri Aerosphere Inhaler] 1 puff INHALATION RT-DAILY 01/23/24 [History] Cyclobenzaprine [Flexeril] 10 mg PO TID PRN 01/23/24 [History] HYDROcodone/APAP 5-325MG [[place] 5-325] 1 tab PO Q6H PRN 01/23/24 [History] Ondansetron [Zofran] 4 - 8 mg PO Q4H PRN 01/23/24 [History] busPIRone HCl [Buspar] 5 mg PO BID PRN 01/23/24 [History] Ipratropium-Albuterol Nebulize [Duoneb 0.5 mg-3 mg/3 ml Soln] 3 ml INHALATION RT-Q2H PRN each 01/25/24 [Rx] Ipratropium-Albuterol Nebulize [Duoneb 0.5 mg-3 mg/3 ml Soln] 3 ml INHALATION RT-QID each 01/25/24 [Rx] Sennosides [Senokot] 8.6 mg PO BID PRN tab 01/25/24 [Rx] LORazepam [Ativan] 0.5 mg PO BID PRN 02/05/24 [History] Melatonin 10 mg PO HS PRN 02/05/24 [History] Mirtazapine [Remeron] 15 mg PO HS 02/05/24 [History] guaiFENesin-Coden 100-10MG/5ML [Robitussin AC] 10 ml PO Q4H PRN 02/05/24 [History] Magnesium Oxide [Mag-Ox] 400 mg PO DAILY #30 tab 02/11/24 [Rx] Sodium Chloride Tab 1 gm PO BID #60 tab 02/11/24 [Rx] ALPRAZolam [Xanax] 1 mg PO TID PRN 02/26/24 [History] Albuterol Inhaler [Ventolin Hfa Inhaler] 2 puff INHALATION RT-Q4H PRN 02/26/24 [History] Megestrol [Megace] 800 mg PO DIRECTED 02/26/24 [History] Metoprolol Tartrate [Lopressor] 12.5 mg PO BID #60 tab 03/11/24 [Rx] Moxifloxacin HCl [Avelox] 400 mg PO DAILY 5 Days #5 tab 03/11/24 [Rx] Follow up Appointment(s)/Referral(s): Minerva Jaeger MD [Primary Care Provider] - 1-2 days Jessica Tee MD [STAFF PHYSICIAN] - 04/03/24 2:45 pm Discharge/Stand Alone Forms: Who Do I Call?, Community Resources, Help In The Home
--- NOTE | 2024-03-11 16:03 | P.PN ---
Subjective Progress Note Date: 03/11/24 Principal diagnosis: Reason for follow-up is pneumonia Patient is a 78-year-old female with a past medical history significant for recent diagnosis of lung cancer while the patient has received 2 cycles of chemotherapy presenting to the hospital for evaluation of weakness palpitations increasing shortness of breath did have a CT angiogram of the chest concerning for right upper lobe infiltrate suspicious for pneumonia. On today's evaluation that is 03/11/2024,the patient remains to be afebrile, patient is on room air not requiring supplemental oxygen and denies any shortness of breath no chest pain or cough.Patient denies having any nausea or vomiting, no abdominal pain and no diarrhea has been reported, patient mention feeling better wants to go home. No new labs were obtained today Objective - Vital Signs Vital signs: Vital Signs Temp 97.7 F 03/11/24 07:55 Pulse 90 03/11/24 07:55 Resp 19 03/11/24 07:55 BP 123/80 03/11/24 07:55 Pulse Ox 96 03/11/24 08:39 FiO2 Intake & Output 03/10/24 03/11/24 03/11/24 18:59 06:59 18:59 Other: # Voids 1 1 # Bowel Movements 1 - Exam GENERAL DESCRIPTION: An elderly female lying in bed in no distress RESPIRATORY SYSTEM: Unlabored breathing , decreased breath sounds at bases HEART: S1 S2 regular rate and rhythm , ABDOMEN: Soft , no tenderness EXTREMITIES: No edema feet - Labs CBC & Chem 7: 03/10/24 07:05 03/09/24 06:13 Labs: Abnormal Lab Results - Last 24 Hours (Table) 03/10/24 Range/Units 07:05 RBC 3.20 L (4.10-5.20) X 10*6/uL Hgb 10.1 L (12.0-15.0) g/dL Hct 30.5 L (37.2-46.3) % RDW 15.5 H (11.5-14.5) % Lymphocytes # (Manual) 0.48 L (0.90-5.00) X 10*3/uL Eosinophils # (Manual) 0 L (0.04-0.35) X 10*3/uL NRBC/100 WBC Diff 0.03 H (0.00-0.01) X 10*3/uL Assessment and Plan (1) Pneumonia Current Visit: Yes Status: Acute Code(s): J18.9 - PNEUMONIA, UNSPECIFIED ORGANISM SNOMED Code(s): 224772665 (2) Leukopenia Current Visit: Yes Status: Acute Code(s): D72.819 - DECREASED WHITE BLOOD CELL COUNT, UNSPECIFIED SNOMED Code(s): 14549198 Plan: 1patient presenting to the hospital with increasing shortness of breath which is likely multifactorial in this patient who did have history of lung cancer on chemotherapy patient did have a cough but not bring up any sputum CT angiogram was negative for PE did shows evidence of patchy infiltrate seen right upper lobe concerning for possible pneumonitis in this patient with leukopenia on chemo will need to cover for the gram-negative pathogens 2- patient did have mild elevated procalcitonin, sputum not collected blood culture has been negative 3-patient did have resolution of the fever white count has normalized and overall improvement in her clinical condition will consider short course of oral Avelox on discharge multiple question concern answered Dictation was produced using [employer] dictation software. please excuse any grammatical, word or spelling errors. Time with Patient: Less than 30
== END 2024-03-11 18:15 | disposition home or self-care (01) | DRG 871 ==
LOC: EC 10:33 → 5NMEDONC 14:20
PROVIDERS: ADMIT Hospitalist; ATTEND Hospitalist
DX: A41.9 Sepsis, unspecified organism (principal); D61.810 Antineoplastic chemotherapy induced pancytopenia; J18.9 Pneumonia, unspecified organism; J96.21 Acute and chronic respiratory failure with hypoxia; I50.32 Chronic diastolic (congestive) heart failure; E22.2 Syndrome of inappropriate secretion of antidiuretic hormone; L03.211 Cellulitis of face; J44.0 Chronic obstructive pulmonary disease with (acute) lower respiratory infection; C34.90 Malignant neoplasm of unspecified part of unspecified bronchus or lung; D70.8 Other neutropenia; M81.0 Age-related osteoporosis without current pathological fracture; E83.42 Hypomagnesemia; I11.0 Hypertensive heart disease with heart failure; Z79.899 Other long term (current) drug therapy; Z85.118 Personal history of other malignant neoplasm of bronchus and lung; Z99.81 Dependence on supplemental oxygen; Z85.3 Personal history of malignant neoplasm of breast; Z92.3 Personal history of irradiation; Z87.891 Personal history of nicotine dependence; T45.1X5A Adverse effect of antineoplastic and immunosuppressive drugs, initial encounter; Z79.810 Long term (current) use of selective estrogen receptor modulators (SERMs)
CPT/HCPCS: 36415; 71045; 71046; 71275; 80048; 80053; 81003; 82525; 82533; 82607; 82728; 83540; 83550; 83735; 84132; 84145; 84484; 85025; 85045; 85379; 85610; 85730; 86140; 86850; 86900; 86901; 86920; 87040; 93005; 93306; 94640; 94760; 96361; 96365; 99285

== ENCOUNTER → 2024-03-30 | Outpatient (CLI) | payer MEDICARE ==
--- NOTE | 2024-04-12 16:20 | CT ---
EXAMINATION TYPE: CT chest w con DATE OF EXAM: 03/30/2024 COMPARISON: No comparison available on downtime PACS. HISTORY: Breast cancer CT DLP: 141.8 mGycm, Automated exposure control for dose reduction was used. CONTRAST: Performed injected with 0 mL of Isovue 300. TECHNIQUE: Axial images were obtained at 5 mm thick sections. Reconstructed images are reviewed on [employer] computer in the coronal plane. FINDINGS: Portion of the thyroid visualized is normal. There may be some right apical scarring. There is some area of thickening within the right apex measu ring 0.9 cm in transverse dimension. Series 4 image 8. There is a 0.8 cm area within the anterior lat eral right lung apex. Series 4 image 9. There is an oval density measuring 1.2 x 1.8 cm posterior medial right upper lobe. Series 4 image 13. Consider PET CT for additional evaluation. Some mild increased lung markings through the periphery of the right lateral upper lung field. Some s treak opacities are within within the right midlung region. No enlarged mediastinal or hilar adenopathy is evident. The ascending aorta diameter at the level of the main pulmonary artery is 3.3 cm. The main pulmonary artery diameter at the bifurcation is 2.[address] sections are obtained through the upper abdomen. Abdomen is essentially unremarkable. IMPRESSION: 1. Right upper lobe nodule with some right apical additional increased lung markings. Recommend PET/C T for additional workup.
== END | disposition home or self-care (01) ==
LOC: RADCTMAIN 10:27
PROVIDERS: ATTEND Internal Medicine Hematology & Oncology
DX: C50.919 Malignant neoplasm of unspecified site of unspecified female breast (principal); R91.1 Solitary pulmonary nodule
CPT/HCPCS: 71260; J1642; Q9967

== ENCOUNTER → 2024-06-20 | Outpatient (CLI) | payer MEDICARE ==
--- NOTE | 2024-06-20 11:51 | XR ---
EXAMINATION TYPE: XR sacrum coccyx DATE OF EXAM: 06/20/2024 9:56 AM COMPARISON: None. CLINICAL INDICATION: Female, 79 years old with history of M81.0 OSTEOPOROSIS, fall, history of lung c ancer and anemia osteoporosis TECHNIQUE: 3 view(s) obtained. FINDINGS: Sacroiliac joints are patent. Sacrum appears intact. No acute fractures evident. Sacrococcygeal align ment appears preserved. IMPRESSION: 1. Unremarkable sacrum and coccyx [facility], , 06/20/2024 11:49 AM
== END | disposition home or self-care (01) ==
LOC: RADXRMAIN 09:24
PROVIDERS: ATTEND Internal Medicine Hematology & Oncology
DX: M81.0 Age-related osteoporosis without current pathological fracture (principal); C34.91 Malignant neoplasm of unspecified part of right bronchus or lung; D64.81 Anemia due to antineoplastic chemotherapy; C50.411 Malignant neoplasm of upper-outer quadrant of right female breast
CPT/HCPCS: 72220

== ENCOUNTER → 2024-06-22 | Outpatient (CLI) | payer MEDICARE ==
[2024-06-22 15:56] LABS: HCT 35.6 % (37.2-46.3); HGB 11.6 g/dL (12.0-15.0); MCH 32.5 pg (27.0-32.0); MCHC 32.6 g/dL (32.0-37.0); MCV 99.7 FL (80.0-97.0); Mean Platelet Volume 11.2 FL (9.5-12.2); NRBC Per 100 WBC 0 X 10*3/uL (0.00-0.01); Platelet Count 161 X 10*3/uL (140-440); RBC 3.57 X 10*6/uL (4.10-5.20); RDW 12.9 % (11.5-14.5); WBC 3.69 X 10*3/uL (4.50-10.00)
[2024-06-22 16:15] LABS: % Iron Saturation 20.87 (12.00-45.00); BUN/Creat Ratio 18.71 Ratio (12.00-20.00); Blood Urea Nitrogen 13.1 mg/dL (9.0-27.0); Carbon Dioxide 26.5 mmol/L (21.6-31.8); Chloride 104 mmol/L (96-109); Glucose 92 mg/dL (70-110); Iron 48 UG/DL (50-170); Potassium 3.7 mmol/L (3.5-5.5); Sodium 140 mmol/L (135-145); Total Iron Binding Capacity 230 UG/DL (228-460)
[2024-06-22 16:16] LABS: ALT 7 U/L (8-44); AST 20 U/L (13-35); Albumin 3.9 g/dL (3.8-4.9); Albumin/Globulin Ratio 1.77 Ratio (1.60-3.17); Alkaline Phosphatase 98 U/L (41-126); Calcium 9.2 mg/dL (8.7-10.3); Globulin 2.2 g/dL (1.6-3.3); Total Bilirubin 0.6 mg/dL (0.3-1.2); Total Protein 6.1 g/dL (6.2-8.2)
== END | disposition home or self-care (01) ==
LOC: LABWHC1 08:48
PROVIDERS: ATTEND Internal Medicine Nephrology
DX: E87.1 Hypo-osmolality and hyponatremia (principal); D64.9 Anemia, unspecified
CPT/HCPCS: 36415; 80053; 82728; 83540; 83550; 83930; 83935; 84300; 85027

== ENCOUNTER → 2024-07-11 | Outpatient (CLI) | payer MEDICARE ==
--- NOTE | 2024-07-11 11:55 | MR ---
EXAMINATION TYPE: MR brain wo/w con DATE OF EXAM: 07/11/2024 11:41 AM COMPARISON: 01/20/2024. CLINICAL INDICATION: Female, 79 years old with history of C34.91 Lung CA; PHH, Lung cancer, tremors a nd numbness in left hand. Hx breast ca 2012. TECHNIQUE: Multi planar, multi sequence imaging was performed through the brain including: T1, T2, In version recovery, susceptibility weighted imaging and gradient echo imaging and Diffusion weighted im aging. The patient was then given intravenous contrast and multi planar, T1 fat-saturation images wer e obtained. IV Contrast: 6 mL Gadobutrol FINDINGS: Restricted diffusion in the right posterior frontal lobe and left cerebellar hemisphere wit h associated soft tissue enhancement on postcontrast imaging. Measuring 16 mm in the left cerebellar hemisphere and measuring 17 mm in the posterior right frontal lobe. There is associated vasogenic yulisa ma around these lesions.. Few scattered foci of microhemorrhage suggested susceptibility weighted jannet ging of the left cerebellar hemisphere lesion. Pineal gland mildly complex cyst redemonstrated measuring 13 x 11 mm. Intracranial arterial flow voids are maintained. Midline structures show no abnormality. Scattered fo ci of high T2 signal intensity are seen within the periventricular white matter. The susceptibility w eighted images do not reveal any evidence for micro-hemorrhage. The bone marrow signal is within normal limits. Paranasal sinuses and mastoid air cells: No significant paranasal sinus disease. Visualized orbits: Orbital contents are intact. IMPRESSION: 1. New new from prior, There are at least 2 intra-axial masses one in the posterior right frontal lo be and one in the cerebellar hemisphere. 2. Mildly complex cystic lesion in the pineal gland. Severe 3. Nonspecific white matter changes, likely related to small vessel ischemic disease. [facility], , 07/11/2024 11:53 AM
== END | disposition home or self-care (01) ==
LOC: RADMRIMAIN 10:13
PROVIDERS: ATTEND Internal Medicine Hematology & Oncology
DX: C50.411 Malignant neoplasm of upper-outer quadrant of right female breast (principal); C34.91 Malignant neoplasm of unspecified part of right bronchus or lung; M81.0 Age-related osteoporosis without current pathological fracture; D64.81 Anemia due to antineoplastic chemotherapy; E78.5 Hyperlipidemia, unspecified; R25.1 Tremor, unspecified; Z85.3 Personal history of malignant neoplasm of breast
CPT/HCPCS: 70553; A9585

== ENCOUNTER → 2024-08-08 | Outpatient (CLI) | payer MEDICARE ==
[2024-08-08 09:58] LABS: African American GFR (CKD) 78 (>60 ml/min/1.73 sqM); Blood Urea Nitrogen 20 mg/dL (7-17); Non-African American GFR(CKD) 67 (>60 ml/min/1.73 sqM)
--- NOTE | 2024-08-08 12:30 | CT ---
EXAMINATION TYPE: CT ChestAbdPelvis w con CT DLP: 620.90 mGycm, Automated exposure control for dose reduction was used. DATE OF EXAM: 08/08/2024 11:37 AM COMPARISON: CT chest of 04/12/2004, CT chest 03/08/2024, 03/02/2024, 02/05/2024, 01/23/2024, PET/CT 01/17/20, 04/21/2019 CLINICAL INDICATION:Female, 79 years old with history of C50.411 BREAST CX; PHH, breast cancer lung c ancer Technique: Multiple axial images of the chest, abdomen, and pelvis were obtained following the intrav enous administration of 100 mL Isovue-300. Two-dimensional coronal and sagittal reconstructions were obtained. Findings: CHEST: LUNGS/ PLEURA: Mild centrilobular emphysematous changes. Biapical pleural parenchymal scarring. Decre ased size of right upper lobe nodule along the major fissure measuring 1.4 x 0.5 cm, previously 1.8 x 1.2 cm (series 5, image 17). Bandlike scarring/atelectasis of the right middle lobe is unchanged. No pleural effusion or pneumothorax. No new suspicious pulmonary nodules or masses. AIRWAY: Patent and unremarkable.. HEART: Cardiomegaly is demonstrated.Trace pericardial effusion. Small coronary artery calcifications. MEDIASTINUM: No evidence of adenopathy. VASCULATURE: No aortic aneurysm. Left chest wall IJ Mediport catheter distal tip terminating in the low SVC. MUSCULOSKELETAL: No acute osseous abnormalities. No aggressive osseous lesion. Schmorl's node versus central compression deformity involving the superior endplate of the T12 vertebral body. No significa nt retropulsion. SOFT TISSUES/LYMPH NODES: No axillary adenopathy. Dystrophic calcification within the right breast. LOWER NECK: No significant findings. ABDOMEN: ABDOMEN LIVER: Unremarkable GALLBLADDER AND BILE DUCTS: Unremarkable. PANCREAS: Unremarkable. SPLEEN: Unremarkable. ADRENAL GLANDS: Unremarkable. KIDNEYS AND URETERS: No evidence of hydronephrosis or renal calculus. The kidneys enhance symmetrical ly. Contrast is demonstrated within both collecting systems on the delayed phase. PELVIS BLADDER: Incompletely distended but grossly unremarkable. REPRODUCTIVE: Unremarkable. ABDOMEN & PELVIS STOMACH AND BOWEL: Small hiatal hernia, duodenum is unremarkable. The hepatic flexure identified ante rolateral to the liver. Enteric contrast reaches the mid transverse colon. Stool is present throughou t the distal colon. No focal bowel wall thickening or surrounding inflammatory changes. No evidence o f bowel obstruction. PERITONEUM: No evidence of pneumoperitoneum or free fluid. VASCULATURE: Mild atherosclerotic calcifications are present throughout the abdominal aorta and its b ranches. No abdominal aortic aneurysm. Pelvic phleboliths. MUSCULOSKELETAL: No acute osseous abnormalities. No aggressive osseous lesion. We will scar curvature of the lumbar spine with apex at L2-L3. Prominent Schmorl's node involving the superior endplate of the L1 vertebral body. Additional Schmorl's node involving the inferior endplate of the L3 vertebral body. Grade 1 anterolisthesis L4-5 without evidence of pars defects. LYMPH NODES: No evidence for lymphadenopathy. SOFT TISSUE/ABDOMINAL WALL: Unremarkable IMPRESSION: 1. Decreased size of posterior right upper lobe pulmonary nodule suggesting positive response to the rapy. No new pulmonary nodules/masses or adenopathy. 2. No evidence of metastatic disease within the abdomen or pelvis. [facility], , 08/08/2024 12:28 PM
== END | disposition home or self-care (01) ==
LOC: RADCTMAIN 09:23
PROVIDERS: ATTEND Internal Medicine Hematology & Oncology
DX: C50.411 Malignant neoplasm of upper-outer quadrant of right female breast (principal); R91.8 Other nonspecific abnormal finding of lung field; D64.81 Anemia due to antineoplastic chemotherapy; E78.5 Hyperlipidemia, unspecified; M81.0 Age-related osteoporosis without current pathological fracture
CPT/HCPCS: 82565; 84520; 71260; 74177; 36415; Q9967

== ENCOUNTER → 2024-11-10 | Outpatient (CLI) | payer MEDICARE ==
[2024-11-10 11:42] LABS: African American GFR (CKD) 82 (>60 ml/min/1.73 sqM); Blood Urea Nitrogen 14 mg/dL (7-17); Non-African American GFR(CKD) 71 (>60 ml/min/1.73 sqM)
--- NOTE | 2024-11-10 13:27 | CT ---
EXAMINATION TYPE: CT ChestAbdPelvis w con DATE OF EXAM: 11/10/2024 COMPARISON: Prior CT August 08, 2024 and older studies CLINICAL INDICATION: Female, 79 years old with history of C34.91 Lung ca, LUNG CA, TECHNIQUE: CT scan of the thorax, abdomen and pelvis is performed with IV Contrast, patient injected with 100 ML mL of Isovue 300. CT DLP: 713.60 mGycm. Automated Exposure Control for Dose Reduction was Utilized. FINDINGS: LUNGS: Mild to moderate underlying emphysematous change is redemonstrated. Mild to moderate right gre ater than left biapical pleural/parenchymal scarring is redemonstrated. Stable 1.1 x 0.5 cm posterior right upper lobe nodule axial image 12. Mild to moderate upper lung and the anterior mid lung fibrot ic change redemonstrated bilaterally. Mild linear scarring in both lung bases redemonstrated. No new suspicious nodules or masses. HEART: Size upper limits of normal. Stable mild to moderate coronary artery calcification. MEDIASTINUM: New predominantly hypodense 2.3 x 2.1 cm anterior AP Window mass on axial image 19. No pericardial effusion is seen. OTHER: Stable left internal jugular Mediport catheter. LIVER/GB: No significant abnormality is appreciated. PANCREAS: No significant abnormality is seen. SPLEEN: No significant abnormality is seen. ADRENALS: No significant abnormality is seen. KIDNEYS: No significant abnormality is seen. BOWEL: No significant abnormality is seen. GENITAL ORGANS: No gross abnormality seen. LYMPH NODES: No greater than 1cm abdominal or pelvic lymph nodes are appreciated. OSSEOUS STRUCTURES: Persistent levoconvex scoliosis centered at L2 level. Persistent moderate height loss involving the superior T11 endplate. Persistent grade 1 anterolisthesis L4 and L5. Persistent mo derate degenerative changes in both hips. OTHER: No significant additional abnormality is seen. IMPRESSION: There is new suspicious 2.3 cm mediastinal mass suggesting negative posttreatment respons e or malignancy progression from most recent prior CT. [facility], , 11/10/2024 1:25 PM
== END | disposition home or self-care (01) ==
LOC: RADCTMAIN 11:01
PROVIDERS: ATTEND Internal Medicine Hematology & Oncology
DX: C34.91 Malignant neoplasm of unspecified part of right bronchus or lung (principal); C50.411 Malignant neoplasm of upper-outer quadrant of right female breast; D64.81 Anemia due to antineoplastic chemotherapy; E78.5 Hyperlipidemia, unspecified; M81.0 Age-related osteoporosis without current pathological fracture
CPT/HCPCS: 71260; 74177; 82565; 84520

== ENCOUNTER → 2024-11-28 | Outpatient (CLI) | payer MEDICARE ==
--- NOTE | 2024-11-28 14:48 | MR ---
EXAMINATION TYPE: MR brain wo/w con DATE OF EXAM: 11/28/2024 2:14 PM COMPARISON: 10/08/2024 CLINICAL INDICATION: Female, 79 years old with history of C79.31, C34.90, Lung cancer, Follow-up from prior imaging, TECHNIQUE: Multi planar multi sequence imaging of the brain. CONTRAST: Patient received 7 mL intravenous Gadobutrol gadolinium contrast. Pre and post contrast en hanced images are obtained. FINDINGS: The ventricles, basal cisterns and sulci overlying the cerebral convexities are mildly enlarged. There is evidence of mild periventricular white matter ischemic demyelination. Remote deep white matter insults are also noted. No acute edema is seen on diffusion weighted imaging. There is no evidence for midline shift or mass effect. Acute intracranial hemorrhage or extra-axial collection is not evident. Tiny focus of enhancement is seen left cerebellum measuring 2.4 mm which was not seen previously. Pos terior right temporal enhancing lesion seen previously measured 7.1 mm is not reproduced at this time . Small cystic structure measuring 7.7 mm at the site of prior 1.7 cm high right frontal parietal lob e lesion. The paranasal sinuses and mastoid air cells are well-aerated. IMPRESSION: Tiny focus of enhancement is seen left cerebellum measuring 2.4 mm which was not seen previously. Pos terior right temporal enhancing lesion seen previously measured 7.1 mm is not reproduced at this time . Small cystic structure measuring 7.7 mm at the site of prior 1.7 cm high right frontal parietal lob e lesion. [facility], , 11/28/2024 2:45 PM
== END | disposition home or self-care (01) ==
LOC: RADMRIMAIN 13:01
PROVIDERS: ATTEND Radiology Radiation Oncology
DX: C79.31 Secondary malignant neoplasm of brain (principal); C34.90 Malignant neoplasm of unspecified part of unspecified bronchus or lung; G93.89 Other specified disorders of brain
CPT/HCPCS: 70553; A9585

== ENCOUNTER 2024-12-05 09:31 | Observation (INO) | payer MEDICARE ==
[2024-12-05] MEDS: SODIUM CHLORIDE 0.9% 1,000 ML IV ONE (11:13)
[2024-12-05] MEDS ORDERED: ACETAMINOPHEN TAB 325 MG TAB PO PRN (11:57)
[2024-12-05] MEDS ORDERED: HYDROcodone/APAP 5-325MG 1 EACH TAB PO PRN (11:59)
[2024-12-05] MEDS ORDERED: SERTRALINE 25 MG TAB PO PRN (11:59)
[2024-12-05] MEDS ORDERED: ONDANSETRON 4 MG/2 ML VIAL IVP PRN (12:03)
[2024-12-05] MEDS: METOPROLOL TARTRATE 25 MG TAB PO PRN (15:11)
[2024-12-05] MEDS: ATORVASTATIN 40 MG TAB PO SCH (20:20)
--- NOTE | 2024-12-05 20:45 | P.HPIM ---
History of Present Illness H&P Date: 12/05/24 Chief Complaint: inpt oberservation for bispecfic tx Patient is a 79 yr old female with a history of right breast cancer in during routine screening mammographies.In ,she had right breast partial mastectomy and sentinel nodes biopsy,pathology revealed grade I,invasive ductal carcinoma,0.8cm,negative sentinel nodes,ER/IA strongly positive,HER2/AGAPITO negative,oncotypeDx was done which revealed low recurrence score of 12,she completed adjuvant radiation therapy in ,she was started on tamoxifen in , by Dr Marky Morocho at [facility]. On 05/25/2015,she was switched to femara and she stopped it in December/2018. She developed cough around ,became progressivley worse,went to [facility] in December/2023,CT chest on 12/24/2023 showed a very large right hilar mass,about 7.7x8.5x5.4 cm,extensive mediastinal nodes up to 4.7 cm,compression deformity at T11-L1. CT brain on 12/25/2023 was negative for mets. On 12/28/2023,bronchoscopy and biopsy of right main stem bronchus was positive small cell lung carcinoma. On 01/17/2024,PET scan showed extensive hilar,mediastinal adenopathies,large hilar mass,left neck bone and at least one osseous lesion at rib 9. On 01/20/2024,brain MRI was negative for mets. On 01/31/2024,she started carbo/[employer]- 16 and tecentriq and completed 4 cycles on 04/13/2024 with very good response and continued with Tecentriq. On 07/11/2024,brain MRI (she has numbness and weakness in LUE) showed at least 2 intra-axial masses one in the posterior right frontal lobe and one in the cerebellar hemisphere. She had SBRT to 2 lesions. On 08/08/2024,CT scan of chest/abdomen/pelvis showed excellent response. Repeat brain MRI on 09/26/2024 showed marked improvement in previously seen enhancing left cerebellar and right frontoparietal region lesions with no residual enhancement identified. Improvement in surrounding vasogenic edema. However there is development of a peripheral right temporal lobe 7 mm metastatic enhancing lesion. She had SBRT the the new brain lesion on 10/16/2024. Repeat CT chest/abdomen/plevis on 11/10/2024 which showed a new 2.4 cm mediastinal nodes. Due to concerns for disease progression, discussed next line of therapy with bi specific Iimdelltra. Patient received Imdeltra this morning in clinic and is admitted for observation. CBC, CMP obtained prior to treatment. At todays visit pt reporting feeling well, denies any adverse side effects Review of Systems 10 point ROS is negative except as stated in the HPI Past Medical History Past Medical History: Cancer Additional Past Medical History / Comment(s): Lung CA. Right breast CA dx in 2012-radiation tx November 2013, CT of chest on 12/24/2023 showed a very large right hilar mass and compression deformity at T11-L1, CT of brain on 12/25/23 was negative for mets, PET scan on 01/18/24 revealed right hilar conglomerate mass w/suspected metastatic disease to the right pleura throughout the decending and left neck-1 suspicious bone finding in the left 9th rib History of Any Multi-Drug Resistant Organisms: None Reported Past Surgical History: Adenoidectomy, Tonsillectomy Additional Past Surgical History / Comment(s): pylonoidal cyst removal 1971, D&C, right breast lumpectomy with 3 lymph nodes removed 2013, Bronchoscopy and biopsy of right main stem bronchus on 12/28/23 was positive small cell lung carcinoma Past Anesthesia/Blood Transfusion Reactions: No Reported Reaction Smoking Status: Former smoker - Past Family History Mother Family Medical History: CVA/TIA, Hypertension Medications and Allergies Home Medications Medication Instructions Recorded Confirmed Type Multivitamin [Multivitamins Adult 1 tab PO DAILY 12/24/23 12/05/24 History Gummies] HYDROcodone/APAP 5-325MG [[place] 1 tab PO Q6H PRN 01/23/24 12/05/24 History 5-325] guaiFENesin-Coden 100-10MG/5ML 10 ml PO Q4H PRN 02/05/24 12/05/24 History [Robitussin AC] Atorvastatin [Lipitor] 40 mg PO HS 12/05/24 12/05/24 History Cholecalciferol (Vitamin D3) 50 mcg PO DAILY 12/05/24 12/05/24 History [Vitamin D3 (50 Mcg = 2000 Iu)] Metoprolol Tartrate [Lopressor] 25 mg PO DAILY PRN 12/05/24 12/05/24 History Sertraline [Zoloft] 25 mg PO DAILY PRN 12/05/24 12/05/24 History Allergies Allergy/AdvReac Type Severity Reaction Status Date / Time No Known Allergies Allergy Verified 12/05/24 11:32 Physical Exam Vitals: Vital Signs Temp Pulse Resp BP Pulse Ox 12/05/24 10:53 97.8 F 73 17 117/66 97 Intake and Output 12/04/24 12/05/24 12/05/24 22:59 06:59 14:59 Other: Weight 68.36 kg - Constitutional General appearance: average body habitus, no acute distress - EENT Eyes: anicteric sclerae ENT: hearing grossly normal - Respiratory Respiratory: bilateral: CTA - Cardiovascular Rhythm: regular - Gastrointestinal General gastrointestinal: soft, no tenderness - Integumentary Integumentary: no cyanotic - Neurologic Neurologic: CNII-XII intact - Psychiatric Psychiatric: A&O x's 3 Thrombosis Risk Factor Assmnt - DVT/VTE Prophylaxis DVT/VTE Prophylaxis: Mechanical Prophylaxis ordered Assessment and Plan (1) Small cell lung carcinoma Current Visit: Yes Status: Acute Priority: High Code(s): C34.90 - MALIGNANT NEOPLASM OF UNSP PART OF UNSP BRONCHUS OR LUNG SNOMED Code(s): 336400634 Plan: Metastatic small cell lung carcinoma: -Oncology history as dictated in the HPI -Due to noted recent progression, patient started treatment with Bispecifics today in clinic and is admitted for observation -Admission orders and monitoring parameters placed -Pt is doing well at todays visit. No reported complaints. Will continue to monitor for 24 hours. Will plan for discharge tomorrow if no reported ICANS or CRS -Clinic f/u will be scheduled upon d/c
[2024-12-05] MEDS: MELATONIN 5 MG TABLET PO PRN (21:55)
[2024-12-06 07:34] VITALS: RESP 17; TEMP 98
[2024-12-06] MEDS: CHOLECALCIFEROL 25 MCG (1000 IU) TABLET PO SCH (07:53)
[2024-12-06] MEDS: MULTIVITAMINS, THERA 1 EACH TAB PO SCH (07:53)
[2024-12-06 10:50] VITALS: BP 110/53; PULSE 82
--- NOTE | 2024-12-06 13:15 | P.DS ---
Providers Date of admission: 12/05/24 10:41 Expected date of discharge: 12/06/24 Attending physician: Jessica Tee Primary care physician: Stated None - Discharge Diagnosis(es) (1) Small cell lung carcinoma Current Visit: Yes Status: Acute Priority: High Hospital Course: Tolerated Imdelltra well, no adverse side effects Assessment: Pt stable, no reported complaints. PE normal, VSS Patient Condition at Discharge: Good Plan - Discharge Summary Discharge Rx Participant: No New Discharge Prescriptions: No Action Multivitamin [Multivitamins Adult Gummies] 1 tab PO DAILY HYDROcodone/APAP 5-325MG [[place] 5-325] 1 tab PO Q6H PRN PRN Reason: Pain guaiFENesin-Coden 100-10MG/5ML [Robitussin AC] 10 ml PO Q4H PRN PRN Reason: Cough Sertraline [Zoloft] 25 mg PO DAILY PRN PRN Reason: depression Metoprolol Tartrate [Lopressor] 25 mg PO DAILY PRN PRN Reason: high blood pressure Atorvastatin [Lipitor] 40 mg PO HS Cholecalciferol (Vitamin D3) [Vitamin D3 (50 Mcg = 2000 Iu)] 50 mcg PO DAILY Discharge Medication List Multivitamin [Multivitamins Adult Gummies] 1 tab PO DAILY 12/24/23 [History] HYDROcodone/APAP 5-325MG [[place] 5-325] 1 tab PO Q6H PRN 01/23/24 [History] guaiFENesin-Coden 100-10MG/5ML [Robitussin AC] 10 ml PO Q4H PRN 02/05/24 [History] Atorvastatin [Lipitor] 40 mg PO HS 12/05/24 [History] Cholecalciferol (Vitamin D3) [Vitamin D3 (50 Mcg = 2000 Iu)] 50 mcg PO DAILY 12/05/24 [History] Metoprolol Tartrate [Lopressor] 25 mg PO DAILY PRN 12/05/24 [History] Sertraline [Zoloft] 25 mg PO DAILY PRN 12/05/24 [History] Follow up Appointment(s)/Referral(s): Jessica Tee MD [STAFF PHYSICIAN] - 12/12/24 8:30 am (Next chemo 12/12/24 0830 F/u with Dr. Tee on 12/18 0800) Activity/Diet/Wound Care/Special Instructions: Monitor for signs/symptoms of ICANS and CRS as previously discussed. Refer to patient handouts and chemo teach handouts. Please call clinic for noted symptoms of ICANS or CRS Discharge Disposition: HOME SELF-CARE Plan of Treatment: Patient tolerated Imdelltra very well. No adverse side effects noted. Vitals signs stable throughout observation
== END 2024-12-06 13:30 | disposition home or self-care (01) ==
LOC: 5NMEDONC 10:41
PROVIDERS: ADMIT Internal Medicine Hematology & Oncology; ATTEND Internal Medicine Hematology & Oncology
DX: C34.90 Malignant neoplasm of unspecified part of unspecified bronchus or lung (principal); Z92.3 Personal history of irradiation; Z87.891 Personal history of nicotine dependence; Z85.3 Personal history of malignant neoplasm of breast; Z79.899 Other long term (current) drug therapy
CPT/HCPCS: 96361; 96374; G0379; G0378 ×2; J1642

== ENCOUNTER 2024-12-12 10:16 | Observation (INO) | payer MEDICARE ==
[2024-12-12] MEDS: SODIUM CHLORIDE 0.9% 1,000 ML IV ONE (10:49)
[2024-12-12] MEDS ORDERED: METOPROLOL TARTRATE 25 MG TAB PO PRN (10:53)
[2024-12-12] MEDS ORDERED: guaiFENesin-Coden 100-10MG/5ML 10 ML CUP PO PRN (10:53)
[2024-12-12] MEDS ORDERED: HYDROcodone/APAP 5-325MG 1 EACH TAB PO PRN (10:53)
[2024-12-12] MEDS ORDERED: SERTRALINE 25 MG TAB PO PRN (10:53)
--- NOTE | 2024-12-12 14:59 | P.HPIM ---
History of Present Illness H&P Date: 12/12/24 Chief Complaint: 24 hours Observation post bispecific therapy cycle 1 day 8 Please refer to H&P dictated 1 week ago on 12/05 for full malignancy Hx. Patient is admitted for observation after her 1st dose increase of Imdelltra, bispecific therapy for SCLC. Today is cycle 1 day 8. She received infusion in the clinic this morning without complications. When seen patient has no complaints on a 14 point review of systems. She looks well overall, she is independently ambulatory. Review of Systems 14 point review of systems is negative Past Medical History Past Medical History: Cancer Additional Past Medical History / Comment(s): Lung CA. Right breast CA dx in 2012-radiation tx November 2013, CT of chest on 12/24/2023 showed a very large right hilar mass and compression deformity at T11-L1, CT of brain on 12/25/23 was negative for mets, PET scan on 01/18/24 revealed right hilar conglomerate mass w/suspected metastatic disease to the right pleura throughout the decending and left neck-1 suspicious bone finding in the left 9th rib History of Any Multi-Drug Resistant Organisms: None Reported Past Surgical History: Adenoidectomy, Tonsillectomy Additional Past Surgical History / Comment(s): pylonoidal cyst removal 1971, D&C, right breast lumpectomy with 3 lymph nodes removed 2013, Bronchoscopy and biopsy of right main stem bronchus on 12/28/23 was positive small cell lung carcinoma Past Anesthesia/Blood Transfusion Reactions: No Reported Reaction Past Psychological History: No Psychological Hx Reported Smoking Status: Former smoker Past Alcohol Use History: None Reported Past Drug Use History: None Reported - Past Family History Mother Family Medical History: CVA/TIA, Hypertension 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 [employer] 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 employment (including self-employed).: No Medications and Allergies Home Medications Medication Instructions Recorded Confirmed Type Multivitamin [Multivitamins Adult 1 tab PO DAILY 12/24/23 12/05/24 History Gummies] HYDROcodone/APAP 5-325MG [[place] 1 tab PO Q6H PRN 01/23/24 12/05/24 History 5-325] guaiFENesin-Coden 100-10MG/5ML 10 ml PO Q4H PRN 02/05/24 12/05/24 History [Robitussin AC] Atorvastatin [Lipitor] 40 mg PO HS 12/05/24 12/05/24 History Cholecalciferol (Vitamin D3) 50 mcg PO DAILY 12/05/24 12/05/24 History [Vitamin D3 (50 Mcg = 2000 Iu)] Metoprolol Tartrate [Lopressor] 25 mg PO DAILY PRN 12/05/24 12/05/24 History Sertraline [Zoloft] 25 mg PO DAILY PRN 12/05/24 12/05/24 History Allergies Allergy/AdvReac Type Severity Reaction Status Date / Time No Known Allergies Allergy Verified 12/05/24 11:32 Physical Exam Vitals: Intake and Output 12/11/24 12/12/24 12/12/24 22:59 06:59 14:59 Other: Weight 66.77 kg - Constitutional General appearance: average body habitus, cooperative, no acute distress - EENT Eyes: anicteric sclerae, EOMI ENT: hearing grossly normal, normal oropharynx - Respiratory Respirations unlabored at rest - Cardiovascular Skin warm, well-perfused, radial pulse 2+ regular leg Peripheral Edema: bilateral: None - Integumentary Integumentary: normal - Neurologic Neurologic: CNII-XII intact - Musculoskeletal Musculoskeletal: strength equal bilaterally - Psychiatric Psychiatric: A&O x's 3, appropriate affect, intact judgment & insight Thrombosis Risk Factor Assmnt - DVT/VTE Prophylaxis DVT/VTE Prophylaxis: Mechanical Prophylaxis ordered Assessment and Plan (1) Small cell lung carcinoma Current Visit: Yes Status: Chronic Priority: High Code(s): C34.90 - MALIGNANT NEOPLASM OF UNSP PART OF UNSP BRONCHUS OR LUNG SNOMED Code(s): 238500911 Plan: Small cell lung cancer, started on bispecific therapy Imdelltra - Today is cycle 1 day 8 of Imdelltra. Dose was increased to treatment dose today. Patient did well with the infusion in office. She is admitted to observation on 5 N. for 24 hours. - 1 L normal saline over 4 hours - Neurochecks/neurotoxicity grading every 2 hours - Vital signs every 2 hours initially, this can be extended to every 4 hours based on nursing assessment of patient - Home meds reordered - Melatonin at at bedtime per patient request -Ambulation encouraged multiple times today, up in the chair. -Regular diet, liberal fluids Protocol for assessment and treatment of ICANS and CRS reviewed at Nursing station. Discussed with RN caring for pt. If pt remains stable, plan for discharge in AM Follow up scheduled
[2024-12-12] MEDS ORDERED: ONDANSETRON 4 MG/2 ML VIAL IVP PRN (15:01)
[2024-12-12] MEDS: MELATONIN 5 MG TABLET PO SCH (21:04)
[2024-12-12] MEDS: ATORVASTATIN 40 MG TAB PO SCH (21:05)
[2024-12-13 07:45] VITALS: BP 128/72; PULSE 82; RESP 16; TEMP 98.6
[2024-12-13] MEDS: MULTIVITAMINS, THERA 1 EACH TAB PO SCH (08:30)
[2024-12-13] MEDS: CHOLECALCIFEROL 25 MCG (1000 IU) TABLET PO SCH (08:30)
--- NOTE | 2024-12-13 14:08 | P.DS ---
Providers Date of admission: 12/12/24 10:44 Expected date of discharge: 12/13/24 Attending physician: Jessica Tee Consults: none Primary care physician: Stated None - Discharge Diagnosis(es) (1) Small cell lung carcinoma Status: Chronic Priority: High Hospital Course: Patient admitted 12/12/2024 after her second dose of Imdelltra by specific. This was a dose escalation from initial dose. Patient was admitted to observation for 24 hours, vital sign monitoring, fluids, ICE evaluations. Patient did well overnight, no complications. This a.m. patient is denying any fevers, sweats, nausea, vomiting, shortness of breath, cough, bowel or bladder symptoms, swelling in the legs, rashes, she feels well, decent energy, appetite fair, she is independently ambulatory. Assessment: Well-developed, adequately nourished, no acute distress, alert and oriented x 4, respirations even and unlabored, skin color is normal, skin is warm and dry to the touch, well-perfused, respirations even and unlabored, no abdominal distention, swelling in lower extremities, patient is independently ambulatory without any distress Pertinent Studies: Vital sign monitoring, ICE criteria Procedures: none Patient Condition at Discharge: Stable Plan - Discharge Summary New Discharge Prescriptions: No Action RX: Multivitamin [Multivitamins Adult Gummies] 1 tab PO DAILY RX: HYDROcodone/APAP 5-325MG [[place] 5-325] 1 tab PO Q6H PRN PRN Reason: Pain RX: guaiFENesin-Coden 100-10MG/5ML [Robitussin AC] 10 ml PO Q4H PRN PRN Reason: Cough Sertraline [Zoloft] 25 mg PO DAILY PRN PRN Reason: depression Metoprolol Tartrate [Lopressor] 25 mg PO DAILY PRN PRN Reason: high blood pressure Atorvastatin [Lipitor] 40 mg PO HS RX: Melatonin [Melatonin Tr] 10 mg PO HS Cholecalciferol (Vitamin D3) [Vitamin D3 (50 Mcg = 2000 Iu)] 50 mcg PO DAILY Cyclobenzaprine [Flexeril] 10 mg PO TID PRN PRN Reason: Muscle Spasm Discharge Medication List RX: Multivitamin [Multivitamins Adult Gummies] 1 tab PO DAILY 12/24/23 [History] RX: HYDROcodone/APAP 5-325MG [[place] 5-325] 1 tab PO Q6H PRN 01/23/24 [History] RX: guaiFENesin-Coden 100-10MG/5ML [Robitussin AC] 10 ml PO Q4H PRN 02/05/24 [History] Atorvastatin [Lipitor] 40 mg PO HS 12/05/24 [History] Cholecalciferol (Vitamin D3) [Vitamin D3 (50 Mcg = 2000 Iu)] 50 mcg PO DAILY 12/05/24 [History] Metoprolol Tartrate [Lopressor] 25 mg PO DAILY PRN 12/05/24 [History] Sertraline [Zoloft] 25 mg PO DAILY PRN 12/05/24 [History] Cyclobenzaprine [Flexeril] 10 mg PO TID PRN 12/12/24 [History] RX: Melatonin [Melatonin Tr] 10 mg PO HS 12/12/24 [History] Discharge Disposition: HOME SELF-CARE
== END 2024-12-13 11:58 | disposition home or self-care (01) ==
LOC: 5NMEDONC 10:44
PROVIDERS: ADMIT Internal Medicine Hematology & Oncology; ATTEND Internal Medicine Hematology & Oncology
DX: C34.90 Malignant neoplasm of unspecified part of unspecified bronchus or lung (principal); Z85.3 Personal history of malignant neoplasm of breast; Z87.891 Personal history of nicotine dependence; Z79.899 Other long term (current) drug therapy
CPT/HCPCS: 96374; G0379; G0378 ×2; J1642

== ENCOUNTER → 2025-01-16 | Outpatient (CLI) | payer MEDICARE ==
[2025-01-16 15:21] LABS: African American GFR (CKD) >90 (>60 ml/min/1.73 sqM); Blood Urea Nitrogen 11 mg/dL (7-17); Non-African American GFR(CKD) 79 (>60 ml/min/1.73 sqM)
--- NOTE | 2025-01-16 16:21 | CT ---
EXAMINATION TYPE: CT ChestAbdPelvis w con DATE OF EXAM: 01/16/2025 COMPARISON: 11/10/2024 CLINICAL INDICATION: Female, 79 years old with history of C34.[address] DLP: 532.6 mGycm Automated exposure control for dose reduction was used. CONTRAST: CT scan of the chest, abdomen and pelvis is performed with Oral Contrast and with IV Contrast, patien t injected with 100 mL of Isovue 300. FINDINGS: CT chest: There are stable mild emphysematous changes. There is stable pleural-parenchymal scarring in the upper lobes right greater than left. UVC describe d right upper lobe mass is decreased in size in the interval along its short axis from 5.4 x 3.7 mm. There are no new lung masses or nodules. There is no airspace consolidation. There is no pleural effu magalis or pneumothorax. Mediastinal mass in the AP window has decreased significantly in size from 2.3 x 2.6 cm to 1.3 x 0.6 cm. The great vessels the chest are normal. There is no cardiomegaly. There is a left Mediport catheter tip in the SVC/RA junction. There is a stable moderate superior endplate compression fracture of 11 and there is mild osteopenia. CT abdomen and pelvis: Gallbladder is normal without distention, pericholecystic fluid, wall thickening or gallstone. There is no biliary ductal dilatation. There is no focal mass or organomegaly involving the liver, pancreas, spleen or adrenal glands. There is [id number] pancreatic atrophy. There is no solid renal mass or hydronephrosis. There is no retroperitoneal adenopathy or hemorrhage in the caliber of the abdominal aorta is normal. The bowel loops are normal in caliber and there is no dilatation or obstruction. No inflammatory mays ges identified in the bowel wall and mesentery. There is no free intracranial air or fluid. There is no pelvic mass or adenopathy. There is no free fluid within the pelvis. There is a grade 1-2 anterolisthesis of L4 on L5. There is a prominent Schmorl's node in the superior endplate of L1. No focal destructive osseous lesions are seen. IMPRESSION: 1. Decreased size of the right apical lung mass/nodule in marked decreased size of the mediastinal ma ss. 2. No new lesions within the thorax. Stable moderate compression fracture of T11. 3. No evidence of metastatic disease within the abdomen or pelvis. . [facility], , 01/16/2025 4:19 PM
== END | disposition home or self-care (01) ==
LOC: RADCTMAIN 13:29
PROVIDERS: ATTEND Internal Medicine Hematology & Oncology
DX: C34.91 Malignant neoplasm of unspecified part of right bronchus or lung (principal); S22.080A Wedge compression fracture of T11-T12 vertebra, initial encounter for closed fracture; D64.81 Anemia due to antineoplastic chemotherapy; C50.411 Malignant neoplasm of upper-outer quadrant of right female breast; M81.0 Age-related osteoporosis without current pathological fracture
CPT/HCPCS: 82565; 84520; 71260; 74177; 36415; Q9967

== ENCOUNTER → 2025-02-20 | Outpatient (CLI) | payer MEDICARE ==
--- NOTE | 2025-02-21 07:48 | MR ---
EXAMINATION TYPE: MR brain wo/w con DATE OF EXAM: 02/20/2025 2:54 PM COMPARISON: None. 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 CONTRAST: Patient received 6.5 mL intravenous Gadobutrol gadolinium contrast. Pre and post contrast enhanced images are obtained. FINDINGS: The ventricles, basal cisterns and sulci overlying the cerebral convexities are mildly enlarged. There is evidence of mild periventricular white matter ischemic demyelination. Remote deep white matter insults are also noted. No acute edema is seen on diffusion weighted imaging. There is no evidence for midline shift or mass effect. Acute intracranial hemorrhage or extra-axial collection is not evident. Small ring enhancing lesion left cerebellum slightly larger in size measuring 5.8 mm versus 2.4 mm pr eviously. Stable high right frontal cystic lesion measuring 8 mm versus 7.7 mm previously. New right parietal 5.6 mm focal enhancing lesion seen on axial image 109 postcontrast data set. The paranasal sinuses and mastoid air cells are well-aerated. IMPRESSION: Small ring enhancing lesion left cerebellum slightly larger in size measuring 5.8 mm versus 2.4 mm pr eviously. Stable high right frontal cystic lesion measuring 8 mm versus 7.7 mm previously. New right parietal 5.6 mm focal enhancing lesion seen on axial image 109 postcontrast data set. [facility], , 02/21/2025 7:46 AM
== END | disposition home or self-care (01) ==
LOC: RADMRIMAIN 13:07
PROVIDERS: ATTEND Radiology Radiation Oncology
DX: C34.90 Malignant neoplasm of unspecified part of unspecified bronchus or lung (principal); C79.31 Secondary malignant neoplasm of brain; G93.89 Other specified disorders of brain
CPT/HCPCS: 70553; A9585